=== PATIENT | female | born 1940 | race Caucasian/White ===

== ENCOUNTER 2016-07-22 05:33 | Inpatient (IN) | payer MEDICARE ==
--- NOTE | 2016-07-22 05:43 | ERPHSYRPT ---
- History of Present Illness Source: patient, EMS Exam Limitations: no limitations Timing/Duration: week(s) (3) Severity: severe Modifying Factors: Improves With: nothing Associated Symptoms: cough, fever, weakness Hx Tetanus, Diphtheria Vaccination/Date Given: Yes Hx Influenza Vaccination/Date Given: No Hx Pneumococcal Vaccination/Date Given: No <ANIA NUÑEZ - Last Filed: 07/22/16 06:49> <TODD NEGRO - Last Filed: 07/22/16 07:38> - History of Present Illness Time Seen by Provider: 07/22/16 05:36 Physician History: Patient has become increasingly weak over the past 2 or 3 days. She has been treated for a cough for the last 3 weeks but unsuccessfully. She has several allergies including penicillin and Biaxin and was treated with Levaquin and azithromycin but now states she is allergic to those as well. She complains of a fever in addition to the cough. Today she was very weak and was barely able to ambulate. She hasn't taken her medicines for the past 2 days. Her past medical history is significant for hypothyroidism, high blood pressure, mini strokes, and congestive heart failure. (ANIA NUÑEZ) Allergies/Adverse Reactions: acetaminophen [From Ultracet] Allergy (Verified 11/10/15 05:29) aspirin [From Aggrenox] Allergy (Verified 11/10/15 05:29) azithromycin [From Zithromax Z-Timbo] Allergy (Verified 07/22/16 06:03) calcitonin,salmon,synthetic [From Miacalcin] Allergy (Verified 11/10/15 05:29) cefaclor [From Ceclor] Allergy (Verified 11/10/15 05:29) clarithromycin [From Biaxin] Allergy (Verified 11/10/15 05:29) diazepam [From Valium] Allergy (Verified 02/21/16 11:41) dipyridamole [From Aggrenox] Allergy (Verified 02/21/16 11:41) fluticasone propionate [From Advair Diskus] Allergy (Verified 02/21/16 11:41) levofloxacin [From Levaquin] Allergy (Verified 07/22/16 06:03) meclizine HCl [From Antivert] Allergy (Verified 02/21/16 11:41) nabumetone [From Relafen] Allergy (Verified 02/21/16 11:41) naproxen Allergy (Verified 02/21/16 11:41) nizatidine [From Axid] Allergy (Verified 02/21/16 11:41) pantoprazole sodium [From Protonix] Allergy (Verified 02/21/16 11:41) Penicillins Allergy (Verified 02/21/16 11:41) pilocarpine HCl [From Salagen] Allergy (Verified 02/21/16 11:41) rofecoxib [From Vioxx] Allergy (Verified 02/21/16 11:41) salmeterol xinafoate [From Advair Diskus] Allergy (Verified 02/21/16 11:41) tramadol HCl [From Ultracet] Allergy (Verified 02/21/16 11:41) Home Medications: Amlodipine Besylate 10 mg [Norvasc 10 MG] 10 mg PO DAILY 12/31/13 [History] Clopidogrel Bisulfate 75 mg [PLAVIX 75 MG Tablet] 75 mg PO DAILY 12/31/13 [History] Levothyroxine Sodium 50 Mcg [Synthroid 50 Mcg] 50 mcg PO DAILY 12/31/13 [ History] Loratadine 10 mg [Claritin 10 mg] 10 mg PO DAILY 12/31/13 [History] Nebivolol HCl [Bystolic] 5 mg PO DAILY 12/31/13 [History] Prednisone 1 tab PO DAILY 11/10/15 [History] Diphenoxylate HCl/Atropine [Diphenoxylate-Atrop 2.5-0.025] 1 each DAILY [History] Hydroxychloroquine Sulfate 200 mg PO DAILY 07/22/16 [History] Nitroglycerin 0.4 mg/Hr [Nitro-Dur 0.4 MG/HR] 0.4 mg DAILY 07/22/16 [ History] - Review of Systems Constitutional: Fever Eyes: No Symptoms Ears, Nose, & Throat: Hoarse Respiratory: Cough Cardiac: No Chest Pain, No Edema, No Syncope Abdominal/Gastrointestinal: No Abdominal Pain, No Nausea, No Vomiting, No Diarrhea Genitourinary Symptoms: No Dysuria Musculoskeletal: No Back Pain, No Neck Pain Skin: No Rash Neurological: No Dizziness, No Focal Weakness, No Sensory Changes Psychological: No Symptoms Endocrine: No Symptoms Hematologic/Lymphatic: No Symptoms Immunological/Allergic: No Symptoms All Other Systems: Reviewed and Negative <ANIA NUÑEZ - Last Filed: 07/22/16 06:49> - Past Medical History Pertinent Past Medical History: Yes Neurological History: TIA Cardiac History: Myocardial Infarction ([place]) Respiratory History: No Pertinent History Endocrine Medical History: Hypothyroidism Musculoskeletal History: Osteoarthritis Other Medical History: LUPUS, REYNAUDS, FIBROMYALGIA, THYROID D/O, - Past Surgical History Past Surgical History: Yes Gastrointestinal: Cholecystectomy Female Surgical History: Hysterectomy Other Surgical History: tonsils - Social History Smoking Status: Never smoker Exposure to second hand smoke: No Drug Use: none Patient Lives Alone: No <ANIA NUÑEZ - Last Filed: 07/22/16 06:49> - Physical Exam General Appearance: moderate distress Eye Exam: PERRL/EOMI, eyes nml inspection Ears, Nose, Throat Exam: dry mucous membranes Neck Exam: normal inspection, non-tender, supple, full range of motion Respiratory Exam: normal breath sounds, lungs clear, No respiratory distress Cardiovascular Exam: regular rate/rhythm, normal heart sounds, normal peripheral pulses Gastrointestinal/Abdomen Exam: soft, normal bowel sounds, No tenderness, No mass Pelvic Exam: not done Rectal Exam: not done Back Exam: normal inspection, normal range of motion, No CVA tenderness, No vertebral tenderness Extremity Exam: normal inspection, normal range of motion, pelvis stable Neurologic Exam: alert, oriented x 3, cooperative, normal mood/affect, nml cerebellar function, nml station & gait, sensation nml, No motor deficits Skin Exam: normal color, warm, dry, No rash Lymphatic Exam: No adenopathy SpO2 Interpretation: normal <ANIA NUÑEZ - Last Filed: 07/22/16 06:49> - Radiology Exams Chest X-ray Interpretation: Interpreted by me, Pneumonia (2 new opacities LLL, comp CXR 02/21/16) <ANIA NUÑEZ - Last Filed: 07/22/16 06:49> - Course Nursing assessment & vital signs reviewed: Yes Rhythm Strip: Rate (79), Normal Sinus Rhythm <TODD NEGRO - Last Filed: 07/22/16 07:38> Ordered Tests: Active Orders 24 hr Category Date Time Status [employer]ader STAT Care 07/22/16 05:45 Active Cath for Specimen-Straight STAT Care 07/22/16 05:45 Active IV Insertion STAT Care 07/22/16 05:45 Active Oxygen-ED Only NASAL CANNULA 2 lpm Care 07/22/16 06:50 Active Pulse Oximetry (ED) STAT Care 07/22/16 05:45 Active CHEST 2 VIEWS (PA AND LAT) Stat Exams 07/22/16 05:45 Taken BLOOD CULTURE Stat Lab 07/22/16 06:10 Received CBC W DIFF Stat Lab 07/22/16 06:10 Completed CMP Stat Lab 07/22/16 06:10 Completed Lactic Acid Urgent Lab 07/22/16 06:00 Completed UA W/ MICROSCOPIC Stat Lab 07/22/16 07:00 Completed Respiratory Nebulizer STAT RT 07/22/16 06:00 Completed Medication Summary Generic Name Dose Route Start Last Admin Trade Name Freq PRN Reason Stop Dose Admin Doxycycline Hyclate 100 mg/ 100 mls @ 100 mls/hr 07/22/16 10:00 Dextrose IV 08/21/16 09:59 Q12HT MERLIN Vancomycin HCl 250 mls @ 167 mls/hr 07/22/16 07:27 Vancomycin 1gm/ Ns 250ml IV 07/22/16 08:56 STAT ONE Discontinued Medications Generic Name Dose Route Start Last Admin Trade Name Freq PRN Reason Stop Dose Admin Acetaminophen 975 mg 07/22/16 05:45 07/22/16 05:53 Tylenol 325 Mg PO 07/22/16 05:46 975 mg STAT ONE Administration Acetaminophen Confirm 07/22/16 05:52 Tylenol 325 Mg Administered 07/22/16 05:53 Dose 975 mg .ROUTE .STK-MED ONE Albuterol Sulfate 2.5 mg 07/22/16 05:49 07/22/16 05:58 Proventil 2.5 Mg/3 Ml Neb IH 07/22/16 05:50 2.5 mg STAT ONE Administration Albuterol Sulfate Confirm 07/22/16 05:58 Proventil 2.5 Mg/3 Ml Neb Administered 07/22/16 05:59 Dose 2.5 mg IH .STK-MED ONE Doxycycline Hyclate Confirm 07/22/16 07:30 Vibramycin 100 Mg Administered 07/22/16 07:31 Dose 100 mg IV .STK-MED ONE Sodium Chloride 1,000 mls @ 999 mls/hr 07/22/16 05:45 07/22/16 05:53 Sodium Chloride 0.9% 1000 Ml IV 07/22/16 06:45 999 mls/hr .Q1H1M STA Administration Sodium Chloride Confirm 07/22/16 05:52 Sodium Chloride 0.9% 1000 Ml Administered 07/22/16 05:53 Dose 1,000 mls @ ud .ROUTE .STK-MED ONE Dextrose Confirm 07/22/16 07:30 D5w 100ml Mini Bag 100 Ml Administered 07/22/16 07:31 Dose 100 mls @ ud IV .STK-MED ONE Lab/Rad Data: Laboratory Result Diagrams 07/22/16 06:10 07/22/16 06:10 Laboratory Results 07/22/16 07/22/16 07/22/16 Range/Units 07:00 06:10 06:10 WBC 7.9 (4.0-10.5) K/mm3 RBC 4.23 (4.1-5.4) M/mm3 Hgb 12.2 (12.0-16.0) gm/dl Hct 37.8 (35-47) % MCV 89.4 (78-100) fl MCH 28.8 (26-32) pg MCHC 32.3 (32-36) g/dl RDW 13.2 (11.5-14.0) % Plt Count 118 L (150-450) K/mm3 MPV 9.9 H (6-9.5) fl Gran % 69.0 H (36.0-66.0) % Lymphocytes % 14.9 L (24.0-44.0) % Monocytes % 15.4 H (0.0-12.0) % Eosinophils % 0.6 (0.00-5.0) % Basophils % 0.1 (0.0-0.4) % Basophils # 0.01 (0-0.4) Sodium 141 (136-145) mEq/L Potassium 4.5 (3.5-5.1) mEq/L Chloride 107 (98-107) mEq/L Carbon Dioxide 20.8 L (21-32) mEq/L Anion Gap 17.5 H (5-15) MEQ/L BUN 25 H (9-20) mg/dL Creatinine 1.82 H (0.55-1.30) mg/dl Estimated GFR 29 ML/MIN Glucose 86 (70-110) MG/DL Lactic Acid (0.4-2.0) Calcium 7.8 L (8.5-10.1) mg/dL Total Bilirubin 0.6 (0.2-1.0) mg/dL AST 35 (15-37) U/L ALT 16 (12-78) U/L Alkaline Phosphatase 82 (46-116) U/L Serum Total Protein 6.5 (6.4-8.2) gm/dL Albumin 2.9 L (3.4-5.0) g/dL Ur Collection Type VOID Urine Color YELLOW (YELLOW) Urine Appearance CLEAR (CLEAR) Urine pH 7.0 (5-6) Ur Specific [place] 1.020 (1.005-1.025) Urine Protein 100 (Negative) Urine Glucose (UA) NEGATIVE (NEGATIVE) mg/dL Urine Ketones TRACE (NEGATIVE) Urine Nitrite NEGATIVE (NEGATIVE) Urine Bilirubin NEGATIVE (NEGATIVE) Urine Urobilinogen 0.2 (0-1) mg/dL Urine WBC (Auto) NEGATIVE (NEGATIVE) Urine RBC (Auto) MODERATE (0-5) Jn/ul Urine Microscopic RBC 5-10 (0-2) /HPF Ur Epithelial Cells FEW (FEW) /HPF Urine Mucus SLIGHT (NEGATIVE) /HPF Specimen Received 07/22/2016 0701 07/22/16 Range/Units 06:00 WBC (4.0-10.5) K/mm3 RBC (4.1-5.4) M/mm3 Hgb (12.0-16.0) gm/dl Hct (35-47) % MCV (78-100) fl MCH (26-32) pg MCHC (32-36) g/dl RDW (11.5-14.0) % Plt Count (150-450) K/mm3 MPV (6-9.5) fl Gran % (36.0-66.0) % Lymphocytes % (24.0-44.0) % Monocytes % (0.0-12.0) % Eosinophils % (0.00-5.0) % Basophils % (0.0-0.4) % Basophils # (0-0.4) Sodium (136-145) mEq/L Potassium (3.5-5.1) mEq/L Chloride (98-107) mEq/L Carbon Dioxide (21-32) mEq/L Anion Gap (5-15) MEQ/L BUN (9-20) mg/dL Creatinine (0.55-1.30) mg/dl Estimated GFR ML/MIN Glucose (70-110) MG/DL Lactic Acid 0.5 (0.4-2.0) Calcium (8.5-10.1) mg/dL Total Bilirubin (0.2-1.0) mg/dL AST (15-37) U/L ALT (12-78) U/L Alkaline Phosphatase (46-116) U/L Serum Total Protein (6.4-8.2) gm/dL Albumin (3.4-5.0) g/dL Ur Collection Type Urine Color (YELLOW) Urine Appearance (CLEAR) Urine pH (5-6) Ur Specific [place] (1.005-1.025) Urine Protein (Negative) Urine Glucose (UA) (NEGATIVE) mg/dL Urine Ketones (NEGATIVE) Urine Nitrite (NEGATIVE) Urine Bilirubin (NEGATIVE) Urine Urobilinogen (0-1) mg/dL Urine WBC (Auto) (NEGATIVE) Urine RBC (Auto) (0-5) Jn/ul Urine Microscopic RBC (0-2) /HPF Ur Epithelial Cells (FEW) /HPF Urine Mucus (NEGATIVE) /HPF Specimen Received - Progress Progress: unchanged Discussed with : Joe Will see patient in: hospital (full admit) Counseled pt/family regarding: lab results, diagnosis, need for follow-up (need for admission) <TODD NEGRO - Last Filed: 07/22/16 07:38> <ANIA NUÑEZ - Last Filed: 07/22/16 06:49> - Departure Time of Disposition: 07:30 Departure Disposition: In-patient Admission Critical Care Time: Yes Critical Care Time(excluding separately billable procedures): 30-74 minutes <TODD NEGRO - Last Filed: 07/22/16 07:38> - Departure Clinical Impression: Pneumonia Qualifiers: Pneumonia type: due to unspecified organism Laterality: left Lung location: lower lobe of lung Qualified Code(s): J18.1 - Lobar pneumonia, unspecified organism Condition: Stable
[2016-07-22] MEDS ORDERED: Sodium Chloride 0.9% 1000 ML 1,000 ML IV STA (05:45)
[2016-07-22] MEDS ORDERED: TYLENOL 325 MG PO ONE (05:45)
[2016-07-22] MEDS ORDERED: PROVENTIL 2.5 MG/3 ML NEB IH ONE ×2 (05:49→05:58)
[2016-07-22] MEDS ORDERED: TYLENOL 325 MG ONE (05:52)
[2016-07-22] MEDS ORDERED: Sodium Chloride 0.9% 1000 ML 1,000 ML ONE (05:52)
[2016-07-22 06:30] LABS: BASOPHIL % 0.1 % (0.0-0.4); Eosinophil % 0.6 % (0.00-5.0); Lymphocytes % 14.9 % (24.0-44.0); Mean Cell Volume 89.4 fl (78-100); Mean Corpuscular Hemoglobin 28.8 pg (26-32); Mean Platelet Volume 9.9 fl (6-9.5); Monocytes % 15.4 % (0.0-12.0); Platelet Count 118 K/mm3 (150-450); Red Blood Count 4.23 M/mm3 (4.1-5.4); Red Cell Distribution Width 13.2 % (11.5-14.0); White Blood Count 7.9 K/mm3 (4.0-10.5)
[2016-07-22 06:55] LABS: ALBUMIN 2.9 g/dL (3.4-5.0); ANION GAP 17.5 MEQ/L (5-15); BILIRUBIN,TOTAL 0.6 mg/dL (0.2-1.0); Carbon Dioxide 20.8 mEq/L (21-32); Potassium 4.5 mEq/L (3.5-5.1); Total Protein 6.5 gm/dL (6.4-8.2)
[2016-07-22 07:24] LABS: Collection Type VOID
[2016-07-22 07:25] LABS: COMPLETE URINE MICROSCOPIC? YES; Epithelial Cells FEW /HPF (FEW); Mucus SLIGHT /HPF (NEGATIVE)
[2016-07-22] MEDS ORDERED: Vancomycin 1GM/ Ns 250ML*** 250 ML IV ONE (07:27)
[2016-07-22] MEDS ORDERED: D5w 100ML Mini Bag 100 ML 100 ML IV ONE (07:30)
[2016-07-22] MEDS ORDERED: VIBRAMYCIN 100 MG IV ONE (07:30)
[2016-07-22] MEDS ORDERED: PHARMACY DOSING REQUIRED: VANCOMYCIN IV ONE (08:33)
[2016-07-22] MEDS ORDERED: MORPHINE SULFATE 2 MG INJ IV PRN (08:33)
[2016-07-22] MEDS ORDERED: Zofran 4 MG/2 ML VIAL IV PRN (08:33)
--- NOTE | 2016-07-22 08:54 | XRAY ---
Indication: Fever, cough, and weakness. Comparison: February 21, 2016. AP/lateral chest again hyperinflated with now small focus of lingular infiltrate versus atelectasis. Remaining heart and lungs unremarkable. Bony thorax intact again with osteopenia.
[2016-07-22] MEDS ORDERED: NON-FORMULARY ITEM (Amlodipine Besylate 10 Mg [Norvasc 10 Mg] 10 MG) PO SCH (10:00)
[2016-07-22] MEDS ORDERED: NON-FORMULARY ITEM (Nebivolol Hcl [Bystolic] 5 MG) PO SCH (10:00)
[2016-07-22] MEDS ORDERED: Nitro-Dur 0.4 MG/HR TOP SCH (10:00)
[2016-07-22] MEDS ORDERED: VIBRAMYCIN 100 MG*** 100 MG in Dextrose 5%/Water IV Soln. 100ML PLUS BAG 100 ML IV SCH ×2 (10:00→22:00)
[2016-07-22] MEDS: VANCOCIN 1 GM VIAL*** 1 GM in Sodium Chloride 0.9% 250 ML 250 ML IV SCH (10:21)
[2016-07-22] MEDS: DELTASONE 5 MG PO SCH (10:21)
[2016-07-22] MEDS: CLARITIN 10 MG PO SCH (10:21)
[2016-07-22] MEDS: PLAVIX 75 MG Tablet PO SCH (10:21)
[2016-07-22] MEDS: Bystolic 5 MG PO SCH (10:21)
[2016-07-22] MEDS: SYNTHROID 50 MCG PO SCH (10:21)
[2016-07-22] MEDS: NORVASC 5 MG PO SCH (10:21)
[2016-07-22] MEDS: Lomotil PO SCH (10:22)
[2016-07-22] MEDS: NON-FORMULARY ITEM (Hydroxychloroquine Sulfate [Hydroxychloroquine Sulfate] 200 MG) PO SCH (10:22)
[2016-07-22] MEDS: Nitro-Dur 0.4 MG/HR TOP SCH (21:41)
[2016-07-22] MEDS: VIBRAMYCIN 100 MG*** 100 MG in Dextrose 5%/Water IV Soln. 100ML PLUS BAG 100 ML IV SCH (21:41)
[2016-07-23] MEDS ORDERED: TYLENOL 325 MG PO PRN (07:59)
[2016-07-23] MEDS: SYNTHROID 50 MCG PO SCH (08:24)
[2016-07-23] MEDS: CLARITIN 10 MG PO SCH (08:24)
[2016-07-23] MEDS: Lomotil PO SCH (08:24)
[2016-07-23] MEDS: DELTASONE 5 MG PO SCH (08:24)
[2016-07-23] MEDS: Bystolic 5 MG PO SCH (08:24)
[2016-07-23] MEDS: NORVASC 5 MG PO SCH (08:24)
[2016-07-23] MEDS: PLAVIX 75 MG Tablet PO SCH (08:24)
[2016-07-23] MEDS: Robitussin AC Syrup Unit Dose Cup PO PRN ×2 (08:26→21:01)
--- NOTE | 2016-07-23 08:55 | HP ---
CHIEF COMPLAINT: Cough, shortness of breath. HISTORY OF PRESENT ILLNESS: The patient is a 75 year-old white female who has been treated as an outpatient for bronchitis. The patient reports that she had gotten progressively worse despite the antibiotics. The patient was seen in the emergency room. A chest x-ray performed and showed small lingular infiltrate. The patient was admitted to hospital for pneumonia for treatment with IV antibiotics. PAST MEDICAL/SURGICAL HISTORY: Significant for lupus, Raynaud's, fibromyalgia, hypothyroid, previous myocardial infarction, transient ischemic attack. The patient has anxiety and depression. HOME MEDICATIONS: The patient's home medications include amlodipine 10 mg a day, Plavix 75 mg a day, levothyroxine 50 mcg a day, loratadine 10 mg a day, Bystolic 5 mg a day, prednisone 1 mg a day, Lomotil, hydroxychloroquine 200 mg daily and PRN Nitro-Stat. ALLERGIES: SHE HAS A VERY LONG LIST OF MEDICATIONS ALLERGIES AND/OR SENSITIVITIES. SHE REPORTS PROBLEMS ULTRACET, ASPIRIN, AZITHROMYCIN, MICALCIN, CECLOR, BIAXIN, VALIUM, AGGRENOX, ADVAIR, LEVAQUIN, ANTIVERT, RELAFEN, NAPROXEN, AXID, PROTONIX, PENICILLIN, SALAGEN, VYOXX, TRAMADOL. PHYSICAL EXAMINATION: Revealed a well-nourished, well-developed, elderly white female in no obvious distress at the time of my evaluation. The patient's vital signs on admission showed temperature 98.7F, pulse 79, respiratory rate 21, blood pressure 124/50. O2 saturation 99% on room air. HEENT: Normocephalic, atraumatic. Pupils equal round reactive to light. Extraocular movements intact. Oropharynx is pink and moist. NECK: Supple without lymphadenopathy, thyromegaly or JVD. CHEST: Clear to auscultation with good air movement bilaterally. HEART: Regular rate and rhythm without murmurs, rubs or gallops. ABDOMEN: Soft, nontender, nondistended without hepatosplenomegaly or masses. EXTREMITIES: Without clubbing, cyanosis or edema. NEUROLOGIC: The patient is alert and oriented x3. No focal deficits were noted. LAB DATA AND TESTS: Showed lactic acid 0.5. She had metabolic panel showing glucose 86, BUN 25, creatinine 1.82. Electrolytes were normal. CO2 was slightly elevated at 20.8. Liver enzymes were normal. Her white blood cell count 7,900 with hemoglobin 12.2, PLT count 118,000. She had 69% granulocytes. UA showed specific gravity 1.020, negative for leukocytes and nitrites. Chest x-ray revealed hyperinflation, small focus linear infiltrate versus atelectasis, remaining heart and lungs appeared unremarkable, otherwise there is osteopenia present. ASSESSMENT: A patient with developing pneumonia. She has been admitted to the hospital. She has been placed on Vancomycin and doxycycline as basically one of the few choices we can use due to her list of sensitivities. The patient received respiratory evaluation and incentive spirometry and nebulizer treatments as required to help her to clear her lungs.
[2016-07-23] MEDS: NON-FORMULARY ITEM (Hydroxychloroquine Sulfate [Hydroxychloroquine Sulfate] 200 MG) PO SCH (09:27)
[2016-07-23] MEDS: VIBRAMYCIN 100 MG*** 100 MG in Dextrose 5%/Water IV Soln. 100ML PLUS BAG 100 ML IV SCH ×2 (09:29→21:03)
[2016-07-23] MEDS: Nitro-Dur 0.4 MG/HR TOP SCH (21:01)
[2016-07-23] MEDS: VANCOCIN 1 GM VIAL*** 1 GM in Sodium Chloride 0.9% 250 ML 250 ML IV SCH (23:09)
[2016-07-24 05:55] LABS: ANION GAP 13.1 MEQ/L (5-15); Carbon Dioxide 24.6 mEq/L (21-32); Potassium 4.2 mEq/L (3.5-5.1)
[2016-07-24] MEDS: NORVASC 5 MG PO SCH (07:31)
[2016-07-24] MEDS: CLARITIN 10 MG PO SCH (07:31)
[2016-07-24] MEDS: Bystolic 5 MG PO SCH (07:31)
[2016-07-24] MEDS: PLAVIX 75 MG Tablet PO SCH (07:31)
[2016-07-24] MEDS: Lomotil PO SCH (07:31)
[2016-07-24] MEDS: Robitussin AC Syrup Unit Dose Cup PO PRN (07:32)
[2016-07-24] MEDS: DELTASONE 5 MG PO SCH (07:32)
[2016-07-24] MEDS: SYNTHROID 50 MCG PO SCH (07:32)
[2016-07-24] MEDS: NON-FORMULARY ITEM (Hydroxychloroquine Sulfate [Hydroxychloroquine Sulfate] 200 MG) PO SCH (07:32)
[2016-07-24] MEDS: VIBRAMYCIN 100 MG*** 100 MG in Dextrose 5%/Water IV Soln. 100ML PLUS BAG 100 ML IV SCH ×2 (09:33→22:12)
[2016-07-24] MEDS: Nitro-Dur 0.4 MG/HR TOP SCH (22:10)
[2016-07-25] MEDS: Robitussin AC Syrup Unit Dose Cup PO PRN (00:17)
--- NOTE | 2016-07-25 08:09 | PCM.DCORD ---
- Discharge Discharge Date: 07/25/16 Disposition: Home, Self-Care Condition: Stable Prescriptions: New Doxycycline Hyclate 100 mg [Vibramycin 100 MG] 100 mg PO BID #14 tab Continue Clopidogrel Bisulfate 75 mg [PLAVIX 75 MG Tablet] 75 mg PO DAILY Loratadine 10 mg [Claritin 10 mg] 10 mg PO DAILY Nebivolol HCl [Bystolic] 5 mg PO DAILY Levothyroxine Sodium 50 Mcg [Synthroid 50 Mcg] 50 mcg PO DAILY Amlodipine Besylate 10 mg [Norvasc 10 MG] 10 mg PO DAILY Prednisone 1 tab PO DAILY Nitroglycerin 0.4 mg/Hr [Nitro-Dur 0.4 MG/HR] 0.4 mg TOP DAILY Hydroxychloroquine Sulfate 200 mg PO DAILY Diphenoxylate HCl/Atropine [Diphenoxylate-Atrop 2.5-0.025] 1 each PO DAILY Follow up with: DIANNA BRICE [Primary Care Provider] -
[2016-07-25 08:14] LABS: ANION GAP 15.4 MEQ/L (5-15); Carbon Dioxide 23.7 mEq/L (21-32); Potassium 4.2 mEq/L (3.5-5.1)
[2016-07-25] MEDS: CLARITIN 10 MG PO SCH (08:34)
[2016-07-25] MEDS: PLAVIX 75 MG Tablet PO SCH (08:34)
[2016-07-25] MEDS: NORVASC 5 MG PO SCH (08:34)
[2016-07-25] MEDS: NON-FORMULARY ITEM (Hydroxychloroquine Sulfate [Hydroxychloroquine Sulfate] 200 MG) PO SCH (08:34)
[2016-07-25] MEDS: Bystolic 5 MG PO SCH (08:34)
[2016-07-25] MEDS: DELTASONE 5 MG PO SCH (08:34)
[2016-07-25] MEDS: Lomotil PO SCH (08:34)
[2016-07-25] MEDS: SYNTHROID 50 MCG PO SCH (08:34)
--- NOTE | 2016-07-25 08:36 | XRAY ---
Indication: Pneumonia follow-up. Comparison: July 22, 2016. AP/lateral chest again hyperinflated with interval clearing of the previous lingular infiltrate/atelectasis. Remaining heart and lungs unremarkable. No new/acute findings.
[2016-07-25] MEDS: VANCOCIN 1 GM VIAL*** 1 GM in Sodium Chloride 0.9% 250 ML 250 ML IV SCH (08:38)
[2016-07-25 09:02] LABS: Mean Cell Volume 87.3 fl (78-100); Platelet Count 92 K/mm3 (150-450); Red Blood Count 3.79 M/mm3 (4.1-5.4); Red Cell Distribution Width 12.9 % (11.5-14.0); White Blood Count 2.2 K/mm3 (4.0-10.5)
[2016-07-25 09:27] LABS: Mean Corpuscular Hemoglobin 28.7 pg (26-32)
[2016-07-25 10:17] LABS: BAND 2 % (0.0-2.0); Eosinophil 1 % (0.00-3.0); Platelet Estimate NORMAL (NORMAL); Total Cells Counted 100
[2016-07-25] MEDS: VIBRAMYCIN 100 MG*** 100 MG in Dextrose 5%/Water IV Soln. 100ML PLUS BAG 100 ML IV SCH (11:31)
--- NOTE | 2016-07-25 11:56 | DS ---
DISCHARGE DIAGNOSIS: PNEUMONIA. HISTORY: The patient is a 75 year-old white female who had been treated as an outpatient for what was felt to be bronchitis. She failed outpatient antibiotic treatment. She felt to be more short of breath and generally weaker and presented herself to the emergency room. X-ray there revealed the patient to have pneumonia. She was admitted to the hospital for IV antibiotic treatment. HOSPITAL COURSE: The patient given her multiple sensitivities of medications both true allergies and sensitivities was chosen to be placed on IV Vancomycin and doxycycline. The patient did show improvement with this treatment. By 07/25/2016 she was fever-free. Her oxygen saturations were good on 2 liters nasal cannula. She does not normally wear home oxygen. The patient's x-ray showed a small focus lingular infiltrates versus atelectasis. The patient is known otherwise to have chronic obstructive pulmonary disease. By the morning of 07/25/2016 she was felt to be ready for discharge home again. She will be discharged home on her usual home medications plus the doxycycline b.i.d. for additional seven days. She will also be returning for outpatient infusion of Vancomycin which she is currently IV every 72 hours for an additional week. She will have follow up in the office in one week.
[2016-07-25 12:08] VITALS: BP 128/60; PULSE 54; O2SAT 95
== END 2016-07-25 12:40 | disposition home or self-care (01) | DRG 195 ==
LOC: ED 05:33 → MED SURG 08:22
PROVIDERS: ADMIT Family Medicine; ATTEND Family Medicine
DX: J18.9 Pneumonia, unspecified organism (principal); J44.9 Chronic obstructive pulmonary disease, unspecified; M79.7 Fibromyalgia; I73.00 Raynaud's syndrome without gangrene; E03.9 Hypothyroidism, unspecified; I25.2 Old myocardial infarction; Z86.73 Personal history of transient ischemic attack (TIA), and cerebral infarction without residual deficits; F41.8 Other specified anxiety disorders
CPT/HCPCS: 36415; 71020; 80048; 80053; 80202; 81000; 83605; 85025; 87040; 93005; 93041; 94640; 94760; 99285; J3370; P9612; A9270-GY; J7506

== ENCOUNTER 2016-10-17 21:11 | Emergency (ER) | payer MEDICARE ==
--- NOTE | 2016-10-17 22:05 | ERPHSYRPT ---
- History of Present Illness Time Seen by Provider: 10/17/16 21:59 Source: patient Exam Limitations: no limitations Patient Subjective Stated Complaint: reports that her black, toy poodle bit her on the left hand/wrist, causing bleeding and wound that she was unable to take care of at home Triage Nursing Assessment: ambulatory to treatment area - steady gait - moves all extremities with equal strength - disability to left wrist/hand. alert/ oriented - jovial affect. resps easy - non-labored. skin pwd - large, round, well-approximated laceration to the left anterior wrist Physician History: The patient is a 75-year-old right-handed female driven to the emergency room by her complains of a bite from her own poodle to her left wrist prior to arrival. She was removing a no bark shock collar from her dog and replacing it with her regular collar, when the dog bit her on the wrist causing a gaping wound. She denies numbness or tingling. Her last tetanus shot was within 5 years. The dog has bitten her once in the past on the right forearm. The dog has also bitten her . She plans on euthanizing the animal. Rabies vaccination was given in June,. Timing/Duration: today Quality: other (dog bite) Severity: moderate Location: hands (left wrist) Possible Causes: other (dog) Associated Symptoms: denies symptoms Allergies/Adverse Reactions: aspirin [From Aggrenox] Allergy (Verified 10/17/16 21:19) azithromycin [From Zithromax Z-Timbo] Allergy (Verified 10/17/16 21:19) calcitonin,salmon,synthetic [From Miacalcin] Allergy (Verified 10/17/16 21:19) cefaclor [From Ceclor] Allergy (Verified 10/17/16 21:19) clarithromycin [From Biaxin] Allergy (Verified 10/17/16 21:19) diazepam [From Valium] Allergy (Verified 10/17/16 21:19) dipyridamole [From Aggrenox] Allergy (Verified 10/17/16 21:19) fluticasone propionate [From Advair Diskus] Allergy (Verified 10/17/16 21:19) levofloxacin [From Levaquin] Allergy (Verified 10/17/16 21:19) meclizine HCl [From Antivert] Allergy (Verified 10/17/16 21:19) nabumetone [From Relafen] Allergy (Verified 10/17/16 21:19) naproxen Allergy (Verified 10/17/16 21:19) nizatidine [From Axid] Allergy (Verified 10/17/16 21:19) pantoprazole sodium [From Protonix] Allergy (Verified 10/17/16 21:19) Penicillins Allergy (Verified 10/17/16 21:19) pilocarpine HCl [From Salagen] Allergy (Verified 10/17/16 21:19) rofecoxib [From Vioxx] Allergy (Verified 10/17/16 21:19) salmeterol xinafoate [From Advair Diskus] Allergy (Verified 10/17/16 21:19) tramadol HCl [From Ultracet] Allergy (Verified 10/17/16 21:19) Home Medications: Amlodipine Besylate 10 mg [Norvasc 10 MG] 10 mg PO DAILY 12/31/13 [History] Clopidogrel Bisulfate 75 mg [PLAVIX 75 MG Tablet] 75 mg PO DAILY 12/31/13 [History] Levothyroxine Sodium 50 Mcg [Synthroid 50 Mcg] 50 mcg PO DAILY 12/31/13 [ History] Loratadine 10 mg [Claritin 10 mg] 10 mg PO DAILY 12/31/13 [History] Nebivolol HCl [Bystolic] 5 mg PO DAILY 12/31/13 [History] Prednisone 1 tab PO DAILY 11/10/15 [History] Diphenoxylate HCl/Atropine [Diphenoxylate-Atrop 2.5-0.025] 1 each PO DAILY PRN 07/22/16 [History] Hydroxychloroquine Sulfate 200 mg PO DAILY 07/22/16 [History] Nitroglycerin 0.4 mg/Hr [Nitro-Dur 0.4 MG/HR] 0.4 mg TOP DAILY 07/22/16 [ History] Cyanocobalamin/FA/Pyridoxine [Folbic Tablet] 1 each PO DAILY 07/27/16 [History] Hx Tetanus, Diphtheria Vaccination/Date Given: Yes Hx Influenza Vaccination/Date Given: No Hx Pneumococcal Vaccination/Date Given: No Immunizations Up to Date: Yes - Review of Systems Constitutional: No Fever, No Chills Eyes: No Symptoms Ears, Nose, & Throat: No Symptoms Respiratory: No Cough, No Dyspnea Cardiac: No Chest Pain, No Edema, No Syncope Abdominal/Gastrointestinal: No Abdominal Pain, No Nausea, No Vomiting, No Diarrhea Genitourinary Symptoms: No Dysuria Musculoskeletal: No Back Pain, No Neck Pain Skin: Other (dog bite) Neurological: No Dizziness, No Focal Weakness, No Sensory Changes Psychological: No Symptoms Endocrine: No Symptoms Hematologic/Lymphatic: No Symptoms Immunological/Allergic: No Symptoms All Other Systems: Reviewed and Negative - Past Medical History Pertinent Past Medical History: Yes Neurological History: TIA ENT History: No Pertinent History Cardiac History: Hypertension, Myocardial Infarction (SD) Respiratory History: Pneumonia Endocrine Medical History: Hypothyroidism Musculoskeletal History: Osteoarthritis GI Medical History: No Pertinent History History: No Pertinent History Psycho-Social History: No Pertinent History Female Reproductive Disorders: No Pertinent History Other Medical History: LUPUS, REYNAUDS, FIBROMYALGIA, THYROID D/O, - Past Surgical History Past Surgical History: Yes Neuro Surgical History: No Pertinent History Cardiac: Cardiac Catheterization Respiratory: No Pertinent History Gastrointestinal: Cholecystectomy Genitourinary: No Pertinent History Musculoskeletal: No Pertinent History Female Surgical History: Hysterectomy Other Surgical History: tonsils - Social History Smoking Status: Never smoker Exposure to second hand smoke: No Drug Use: none Patient Lives Alone: No - Female History Hx Last Menstrual Period: n/a - Nursing Vital Signs Nursing Vital Signs: Initial Vital Signs Temperature 97.6 F Temperature Source Oral Pulse Rate 72 Respiratory Rate 18 Blood Pressure [] 158/88 Pain Intensity 3 - Physical Exam General Appearance: mild distress Eye Exam: PERRL/EOMI, eyes nml inspection Ears, Nose, Throat Exam: normal ENT inspection, pharynx normal, moist mucous membranes Neck Exam: normal inspection, non-tender, supple, full range of motion Respiratory Exam: normal breath sounds, lungs clear, No respiratory distress Cardiovascular Exam: regular rate/rhythm, normal heart sounds Gastrointestinal/Abdomen Exam: soft, mass, No tenderness Pelvic Exam: not done Rectal Exam: not done Back Exam: normal inspection, normal range of motion, No CVA tenderness, No vertebral tenderness Extremity Exam: normal inspection, normal range of motion Neurologic Exam: alert, oriented x 3, cooperative, normal mood/affect, sensation nml, No motor deficits Skin Exam: laceration (anterior left wrist) SpO2 Interpretation: normal SpO2: 98 Oxygen Delivery: Room Air Procedures - Laceration/Wound Repair Left Anterior Wrist Wound Location: Left, wrist Wound Length (cm): 6 Wound's Depth, Shape: superficial, flap (avulsed with missing oval section of skin) Wound Explored: clean Hibiclens Prep: Yes Anesthesia: 1% Lidocaine Volume Anesthetic (ccs): 12 Wound Repaired With: sutures Suture Size/Type: 4-0, nylon Number of Sutures: 8 Layer Closure?: No Sterile Dressing Applied?: Yes Splint Applied?: Yes Sling Applied?: Yes Ordered Tests: Active Orders 24 hr Category Date Time Status Splint STAT Care 10/17/16 23:07 Active Splint STAT Care 10/17/16 23:11 Active Sutures STAT Care 10/17/16 23:07 Active Wound Care STAT Care 10/17/16 23:06 Active Medication Summary Discontinued Medications Generic Name Dose Route Start Last Admin Trade Name Freq PRN Reason Stop Dose Admin Ceftriaxone Sodium Confirm 10/17/16 22:53 Rocephin 1000 Mg Inj Administered 10/17/16 22:54 Dose 1,000 mg .ROUTE .STK-MED ONE Ceftriaxone Sodium 1,000 mg 10/17/16 23:06 10/17/16 23:09 Rocephin 1000 Mg Inj IM 10/17/16 23:07 1,000 mg STAT ONE Administration Lidocaine HCl 10 ml 10/17/16 22:10 10/17/16 22:52 Xylocaine 1% Hcl 20 Ml Mdv IJ 10/17/16 22:11 10 ml STAT ONE Administration Lidocaine HCl Confirm 10/17/16 22:14 Xylocaine 1% Hcl 20 Ml Mdv Administered 10/17/16 22:15 Dose 1 ml .ROUTE .STK-MED ONE Lidocaine HCl Confirm 10/17/16 22:53 Xylocaine 1% Hcl 20 Ml Mdv Administered 10/17/16 22:54 Dose 1 ml .ROUTE .STK-MED ONE - Progress Progress: improved Counseled pt/family regarding: diagnosis, need for follow-up - Departure Time of Disposition: 23:07 Departure Disposition: Home Clinical Impression: Dog bite Condition: Stable Critical Care Time: No Referrals: DIANNA BRICE [Primary Care Provider] - Additional Instructions: You received a bite on the left wrist from your pet dog that removed an oval section of skin. The wound was closed using 8 nylon sutures that were need to be removed in 12-14 days. You were given Rocephin 1 g IM in the ER. Take clindamycin 300 mg 3 times a day for 10 days. Take Tylenol for pain as needed. Please have your dog euthanized. Prescriptions: Clindamycin HCl 1 cap PO TID #30 capsule
[2016-10-17] MEDS ORDERED: XYLOCAINE 1% HCL 20 ML MDV IJ ONE (22:10)
[2016-10-17] MEDS ORDERED: XYLOCAINE 1% HCL 20 ML MDV ONE ×2 (22:14→22:53)
[2016-10-17] MEDS ORDERED: Rocephin 1000 MG INJ ONE (22:53)
[2016-10-17] MEDS ORDERED: Rocephin 1000 MG INJ IM ONE (23:06)
[2016-10-17 23:53] VITALS: BP 172/92; PULSE 68; O2SAT 99
== END 2016-10-17 23:53 | disposition home or self-care (01) ==
LOC: ED 21:11
PROC: 0HQEXZZ Repair Left Lower Arm Skin, External Approach (ICD-10-PCS; principal; 2016-10-17)
DX: S61.552A Open bite of left wrist, initial encounter (principal); W54.0XXA Bitten by dog, initial encounter; Z79.899 Other long term (current) drug therapy
CPT/HCPCS: 12002; 96372; 99284; J0696; L3908

== ENCOUNTER 2019-04-16 05:41 | Day surgery (SDC) | payer MEDICARE ==
[2019-04-16] MEDS ORDERED: Lactated Ringers 1,000 ML IV SCH (06:30)
[2019-04-16] MEDS ORDERED: DIPRIVAN 200 MG/20 ML IV ONE (07:46)
--- NOTE | 2019-04-16 08:33 | OP ---
SURGERY DATE/TIME: 04/16/2019 0748 PREOPERATIVE DIAGNOSIS: Positive Cologuard. POSTOPERATIVE DIAGNOSIS: Sigmoid diverticulosis otherwise normal colon. PROCEDURE: Colonoscopy. SURGEON: Dr. Diaz. ANESTHESIA: MAC. Medications given by anesthesia department. HISTORY: The patient is an 78 year-old white female who presents now for positive Cologuard screening test. The patient was felt the need to have endoscopic evaluation and was appraised of the risks of the procedure including the risk of perforation, phlebitis, untoward reaction to medication, bleeding and missed lesions. The patient verbalized her understanding and desired to have the procedure performed. DESCRIPTION OF PROCEDURE: The patient was given the medications by the anesthesia department. She had continuous pulse oximetry, ECG monitoring, intermittent blood pressure monitoring and tidal CO2 monitoring during the examination. She was placed in the left lateral decubitus position. A digital rectal examination was performed and revealed normal anal sphincter tone and no masses. The flexible Olympus pediatric colonoscope was used to intubate the rectum. A view of the colon was developed sequentially to the cecum including a short distance into the terminal ileum. Upon insertion and withdrawal, including a retroflex view in the rectum was noted moderate sigmoid diverticulosis otherwise no other mucosal lesions were encountered. The scope was removed from the patient who tolerated the procedure well and was sent back to OP recovery in good condition. The prep was noted to be fair to good.
[2019-04-16 08:35] VITALS: O2SAT 97
[2019-04-16 09:20] VITALS: BP 187/75; PULSE 62
== END 2019-04-16 09:40 | disposition home or self-care (01) ==
LOC: SDC 05:41
PROVIDERS: ATTEND Family Medicine
DX: Z12.11 Encounter for screening for malignant neoplasm of colon (principal); K57.30 Diverticulosis of large intestine without perforation or abscess without bleeding
CPT/HCPCS: 99100; J2704

== ENCOUNTER 2020-11-19 13:08 | Inpatient (IN) | payer MEDICARE ==
[2020-11-19] MEDS ORDERED: Zofran 4 MG/2 ML VIAL IV ONE (13:36)
[2020-11-19] MEDS ORDERED: MORPHINE SULFATE 4 MG INJ IV ONE ×2 (13:36→14:48)
[2020-11-19] MEDS ORDERED: Zofran 4 MG/2 ML VIAL ONE (13:40)
[2020-11-19] MEDS ORDERED: MORPHINE SULFATE 4 MG INJ ONE ×2 (13:40→14:54)
--- NOTE | 2020-11-19 13:48 | ERPHSYRPT ---
- History of Present Illness Time Seen by Provider: 11/19/20 13:14 Source: patient, EMS Exam Limitations: no limitations Patient Subjective Stated Complaint: pt here for a fall, she states she tripped on a small step and fell, she co pain to left hip and tailbone, she denies any other cos Triage Nursing Assessment: pt alert, face mask in place, resp easy, skin w/d/p, has bruising to left lower arm adn abrasion to left elbow, pain with movement to left hip and tailbone, Physician History: 80 years old female ambulatory at baseline presented in the ER after she tripped on a step, leading to fall on the left hip. Did not hit her head, no loss of consciousness. She was not able to get up after fall. She is complaining of moderate to severe sharp pain in the left hip and lower back which is worse with minimal movements of lower extremities. No limb shortening noticed. No numbness tingling or weakness of lower extremities. Occurred: just prior to arrival Reason for Fall: tripped Injuries/Pain Location: pelvis, lower extremity Loss of Consciousness: no loss of consciousness Quality: sharpness Severity of Pain-Max: severe Severity of Pain-Current: moderate Modifying Factors: Improves With: immobilization, rest. Worsens With: movement Associated Symptoms (Fall): back pain, extremity injury, muscle spasms, trouble walking, No abdominal pain, No confusion, No chest pain, No dizziness, No headache, No lightheadedness, No nausea, No neck pain, No ringing in ears, No seizures, No shortness of breath, No slurred speech, No vomiting, No vision changes Allergies/Adverse Reactions: aspirin [From Aggrenox] Allergy (Verified 11/19/20 13:17) azithromycin [From Zithromax Z-Timbo] Allergy (Verified 11/19/20 13:17) calcitonin,salmon,synthetic [From Miacalcin] Allergy (Verified 11/19/20 13:17) cefaclor [From Ceclor] Allergy (Verified 11/19/20 13:17) clarithromycin [From Biaxin] Allergy (Verified 11/19/20 13:17) diazepam [From Valium] Allergy (Verified 11/19/20 13:17) dipyridamole [From Aggrenox] Allergy (Verified 11/19/20 13:17) fluticasone propionate [From Advair Diskus] Allergy (Verified 11/19/20 13:17) levofloxacin [From Levaquin] Allergy (Verified 11/19/20 13:17) meclizine HCl [From Antivert] Allergy (Verified 11/19/20 13:17) nabumetone [From Relafen] Allergy (Verified 11/19/20 13:17) naproxen Allergy (Verified 11/19/20 13:17) nizatidine [From Axid] Allergy (Verified 11/19/20 13:17) pantoprazole sodium [From Protonix] Allergy (Verified 11/19/20 13:17) Penicillins Allergy (Verified 11/19/20 13:17) pilocarpine HCl [From Salagen] Allergy (Verified 11/19/20 13:17) rofecoxib [From Vioxx] Allergy (Verified 11/19/20 13:17) salmeterol xinafoate [From Advair Diskus] Allergy (Verified 11/19/20 13:17) tramadol HCl [From Ultracet] Allergy (Verified 11/19/20 13:17) Home Medications: Amlodipine Besylate 10 mg [Norvasc 10 MG] 5 mg PO DAILY 12/31/13 [History] Clopidogrel Bisulfate 75 mg [PLAVIX 75 MG Tablet] 75 mg PO DAILY 12/31/13 [History] Levothyroxine Sodium 50 Mcg [Synthroid 50 Mcg] 50 mcg PO DAILY 12/31/13 [History] Loratadine 10 mg [Claritin 10 mg] 10 mg PO DAILY 12/31/13 [History] Nebivolol HCl [Bystolic] 10 mg PO DAILY 12/31/13 [History] Prednisone 1 tab PO DAILY 11/10/15 [History] Hydroxychloroquine Sulfate 200 mg PO DAILY 07/22/16 [History] Nitroglycerin 0.4 mg/Hr [Nitro-Dur 0.4 MG/HR] 0.4 mg TOP DAILY PRN 07/22/16 [History] Hx Tetanus, Diphtheria Vaccination/Date Given: No Hx Influenza Vaccination/Date Given: Yes Hx Pneumococcal Vaccination/Date Given: Yes Immunizations Up to Date: Yes Travel Risk - International Travel Have you traveled outside of the country in past 3 weeks: No - Coronavirus Screening Are you exhibiting any of the following symptoms?: No Close contact with a COVID-19 positive Pt in past 14-21 Days: No - Vaccine Status Have you recieved a Covid-19 vaccination: Yes Healthcare Financial Analyst: Moderna - Vaccination Dates Date of 2cond Vaccination (if applicable): may - Review of Systems Constitutional: No Symptoms Eyes: No Symptoms Ears, Nose, & Throat: No Symptoms Respiratory: No Symptoms Cardiac: No Symptoms Abdominal/Gastrointestinal: No Symptoms Genitourinary Symptoms: No Symptoms Musculoskeletal: Back Pain, Fall, Injury, Joint Pain Skin: No Symptoms Neurological: No Symptoms Psychological: No Symptoms Endocrine: No Symptoms Hematologic/Lymphatic: No Symptoms Immunological/Allergic: No Symptoms - Past Medical History Pertinent Past Medical History: Yes Neurological History: TIA ENT History: No Pertinent History Cardiac History: Arrhythmia, Hypertension Respiratory History: Pneumonia Endocrine Medical History: Hypothyroidism Musculoskeletal History: Arthritis GI Medical History: No Pertinent History History: No Pertinent History Psycho-Social History: No Pertinent History Female Reproductive Disorders: No Pertinent History Other Medical History: LUPUS, REYNAUDS, FIBROMYALGIA, THYROID D/O, 30%kidney function - Past Surgical History Past Surgical History: Yes Neuro Surgical History: No Pertinent History Cardiac: Cardiac Catheterization Respiratory: No Pertinent History Gastrointestinal: Cholecystectomy Genitourinary: No Pertinent History Musculoskeletal: Orthopedic Surgery Female Surgical History: Hysterectomy Other Surgical History: tonsils,colonoscopy,left wrist surgery - Social History Smoking Status: Never smoker Exposure to second hand smoke: No Drug Use: none Patient Lives Alone: Yes - Female History Hx Last Menstrual Period: post Hx Now: No - Nursing Vital Signs Nursing Vital Signs: Initial Vital Signs Temperature 96.9 F 11/19/20 13:09 Pulse Rate 67 11/19/20 13:09 Respiratory Rate 18 11/19/20 13:09 Blood Pressure 178/76 11/19/20 13:09 O2 Sat by Pulse Oximetry 97 11/19/20 13:09 Pain Scale Pain Intensity 4 - Madhav Coma Score Best Eye Response ([place]): (4) open spontaneously Best Verbal Response (Madhav): (5) oriented Best Motor Response ([place]): (6) obeys commands [place] Total: 15 - Physical Exam General Appearance: no apparent distress, alert Head Injury: no evidence of injury Eye Exam: PERRL/EOMI, eyes nml inspection ENT Exam: airway nml, evidence of ENT injury Neck Exam: supple, trachea midline, full range of motion, normal alignment Respiratory/Chest Exam: normal breath sounds, respiratory distress, No chest tenderness Cardiovascular Exam: normal heart sounds, regular rate/rhythm Gastrointestinal Exam: soft, normal bowel sounds, No tenderness Back Exam: normal inspection, vertebral tenderness (Lumbar), decreased range of motion, muscle spasm, point tenderness (Lumbar and sacroiliac area), No normal range of motion, No CVA tenderness Extremity Exam: normal inspection, pelvis stable, limited range of motion (Left hip), bony point tenderness (Left hip), No normal range of motion (Left lower extremity at hip joint) Neurologic Exam: alert, oriented x 3, cooperative, international specialist II-XII nml as tested, normal mood/affect, nml cerebellar function, sensation nml, No nml station & gait, No motor deficits Skin Exam: normal color SpO2 Interpretation: normal SpO2: 97 O2 Delivery: Room Air - Course EKG Interpreted by Me: RATE (73), Sinus Rhythm, NORMAL AXIS, NORMAL INTERVALS, NORMAL QRS Ordered Tests: Active Orders 24 hr Category Date Time Status Bedrest ROUTINE Activity 11/19/20 19:23 Active Up With Assistance ROUTINE Activity 11/19/20 19:23 Active Admit as Inpatient ROUTINE Care 11/19/20 19:23 Active Code Status Order ROUTINE Care 11/19/20 19:23 Active EKG-ER Only STAT Care 11/19/20 16:32 Completed Fall Protocol Q1H Care 11/19/20 19:23 Active IV Care Q6H Care 11/19/20 19:23 Active Neuro Checks Q4H Care 11/19/20 19:23 Active Mai Sage ROUTINE Care 11/19/20 19:23 Active Weight,Daily 0600 Care 11/19/20 19:23 Active Heart-Healthy Diet Diet 11/19/20 Breakfast Active LUMBAR SPINE W/O [CT] Stat Exams 11/19/20 13:33 Taken PELVIS WITHOUT CONTRAST [CT] Stat Exams 11/19/20 13:35 Taken CBC W DIFF AM.LAB Lab 11/20/20 04:00 Ordered CBC W DIFF Stat Lab 11/19/20 16:00 Completed CK (IN-HOUSE) [CK-Creatinine Phosphokinase] Stat Lab 11/19/20 16:00 Completed CMP AM.LAB Lab 11/20/20 04:00 Ordered CMP Stat Lab 11/19/20 16:00 Completed CULTURE,URINE Stat Lab 11/19/20 16:25 Received Manual Differential NC Stat Lab 11/19/20 16:00 Completed TROPONIN Q3H Lab 11/19/20 16:00 Completed TROPONIN Q3H Lab 11/19/20 19:45 Ordered TROPONIN Q3H Lab 11/19/20 22:45 Ordered TROPONIN Q3H Lab 11/20/20 01:45 Ordered TROPONIN Q3H Lab 11/20/20 04:45 Ordered UA W/RFX UR CULTURE Stat Lab 11/19/20 15:46 Completed Transfer Order Routine Transfer 11/19/20 Completed Medication Summary Generic Name Dose Route Start Last Admin Trade Name Freq PRN Reason Stop Dose Admin Acetaminophen 650 mg 11/19/20 19:23 Tylenol 325 Mg PO 12/19/20 19:22 Q4H PRN PRN PAIN AND/OR FEVER Sodium Chloride 1,000 mls @ 100 mls/hr 11/19/20 19:23 11/19/20 19:33 Sodium Chloride 0.9% 1000 Ml IV 12/19/20 19:22 100 mls/hr .Q10H MERLIN Administration Morphine Sulfate 4 mg 11/19/20 19:23 11/19/20 19:32 Morphine Sulfate 4 Mg Inj IV 11/24/20 19:22 4 mg Q4H PRN PRN Administration PAIN Ondansetron HCl 4 mg 11/19/20 19:23 11/19/20 19:33 Zofran 4 Mg/2 Ml Vial IV 12/19/20 19:22 4 mg Q6H PRN PRN Administration NAUSEA/VOMITING Pantoprazole Sodium 40 mg 11/20/20 10:00 Protonix 40 Mg Iv IV 12/20/20 09:59 Q24H10 MERLIN Discontinued Medications Generic Name Dose Route Start Last Admin Trade Name Freq PRN Reason Stop Dose Admin Albuterol/Ipratropium 3 ml 11/19/20 19:23 Duoneb 0.5-3 Mg/3 Ml Neb IH 12/19/20 19:22 Q4HPRN PRN SHORTNESS OF BREATH/WHEEZING Hydromorphone HCl 1 mg 11/19/20 16:55 11/19/20 16:59 Hydromorphone 1 Mg/Ml Injection IV 11/19/20 16:56 1 mg STAT ONE Administration Hydromorphone HCl Confirm 11/19/20 16:56 Hydromorphone 1 Mg/Ml Injection Administered 11/19/20 16:57 Dose 1 mg .ROUTE .STK-MED ONE Sodium Chloride 1,000 mls @ 999 mls/hr 11/19/20 16:32 11/19/20 18:16 Sodium Chloride 0.9% 1000 Ml IV 11/19/20 17:32 Infused .Q1H1M STA Infusion Sodium Chloride Confirm 11/19/20 16:56 Sodium Chloride 0.9% 1000 Ml Administered 11/19/20 16:57 Dose 1,000 mls @ ud .ROUTE .STK-MED ONE Morphine Sulfate 4 mg 11/19/20 13:36 11/19/20 13:43 Morphine Sulfate 4 Mg Inj IV 11/19/20 13:37 4 mg STAT ONE Administration Morphine Sulfate Confirm 11/19/20 13:40 Morphine Sulfate 4 Mg Inj Administered 11/19/20 13:41 Dose 4 mg .ROUTE .STK-MED ONE Morphine Sulfate 4 mg 11/19/20 14:48 11/19/20 14:55 Morphine Sulfate 4 Mg Inj IV 11/19/20 14:49 4 mg STAT ONE Administration Morphine Sulfate Confirm 11/19/20 14:54 Morphine Sulfate 4 Mg Inj Administered 11/19/20 14:55 Dose 4 mg .ROUTE .STK-MED ONE Ondansetron HCl 4 mg 11/19/20 13:36 11/19/20 13:44 Zofran 4 Mg/2 Ml Vial IV 11/19/20 13:37 4 mg STAT ONE Administration Ondansetron HCl Confirm 11/19/20 13:40 Zofran 4 Mg/2 Ml Vial Administered 11/19/20 13:41 Dose 4 mg .ROUTE .STK-MED ONE Patiromer 8.4 gm 11/19/20 16:35 11/19/20 16:59 Veltassa PO 11/19/20 16:36 8.4 gm STAT STA Administration Patiromer Confirm 11/19/20 16:57 Veltassa Administered 11/19/20 16:58 Dose 8.4 gm PO .STK-MED ONE Lab/Rad Data: Laboratory Result Diagrams 11/19/20 16:00 11/19/20 16:00 Laboratory Results 11/19/20 11/19/20 11/19/20 Range/Units 17:34 16:00 16:00 WBC (4.0-10.5) K/mm3 RBC (4.1-5.4) M/mm3 Hgb (12.0-16.0) gm/dl Hct (35-47) % MCV (78-100) fl MCH (26-32) pg MCHC (32-36) g/dl RDW (11.5-14.0) % Plt Count (150-450) K/mm3 MPV (7.5-11.0) fl Segmented Neutrophils (36.0-66.0) % Band Neutrophils (0.0-2.0) % Lymphocytes (Manual) (24-44) % Monocytes (Manual) (0.0-12.0) % Basophils (Manual) (0.0-1.0) % Nucleated RBCs % Atypical Lymphocytes % Platelet Estimate (NORMAL) RBC Morphology Sodium (137-145) mmol/L Potassium (3.5-5.1) mmol/L Chloride (98-107) mmol/L Carbon Dioxide (22-30) mmol/L Anion Gap (5-15) MEQ/L BUN (7-17) mg/dL Creatinine (0.52-1.04) mg/dL Estimated GFR ML/MIN Glucose (74-106) mg/dL Calcium (8.4-10.2) mg/dL Total Bilirubin (0.2-1.3) mg/dL AST (14-36) U/L ALT (0-35) U/L Alkaline Phosphatase (38-126) U/L Creatine Kinase 88 (30-135) U/L Troponin I 0.020 (0.000-0.034) ng/mL Serum Total Protein (6.3-8.2) g/dL Albumin (3.5-5.0) g/dL Urine Color (YELLOW) Urine Appearance (CLEAR) Urine pH (5-6) Ur Specific [place] (1.005-1.025) Urine Protein (Negative) Urine Ketones (NEGATIVE) Urine Blood (0-5) Jn/ul Urine Nitrite (NEGATIVE) Urine Bilirubin (NEGATIVE) Urine Urobilinogen (0-1) mg/dL Ur Leukocyte Esterase (NEGATIVE) Urine WBC (Auto) (0-5) /HPF Urine RBC (Auto) (0-2) /HPF U Epithel Cells (Auto) (FEW) /HPF Urine Bacteria (Auto) (NEGATIVE) /HPF Urine Culture Reflexed (NO) Urine Glucose (NEGATIVE) mg/dL SARS-CoV-2 (PCR) NEGATIVE (NEGATIVE) 11/19/20 11/19/20 11/19/20 Range/Units 16:00 16:00 15:46 WBC 14.5 H (4.0-10.5) K/mm3 RBC 4.31 (4.1-5.4) M/mm3 Hgb 12.5 (12.0-16.0) gm/dl Hct 38.8 (35-47) % MCV 90.0 (78-100) fl MCH 29.0 (26-32) pg MCHC 32.2 (32-36) g/dl RDW 12.9 (11.5-14.0) % Plt Count 190 (150-450) K/mm3 MPV 9.9 (7.5-11.0) fl Segmented Neutrophils 85 H (36.0-66.0) % Band Neutrophils 2 (0.0-2.0) % Lymphocytes (Manual) 4 L (24-44) % Monocytes (Manual) 5 (0.0-12.0) % Basophils (Manual) 1 (0.0-1.0) % Nucleated RBCs 1 % Atypical Lymphocytes 3 % Platelet Estimate NORMAL (NORMAL) RBC Morphology NORMAL Sodium 138 (137-145) mmol/L Potassium 5.6 H (3.5-5.1) mmol/L Chloride 109 H (98-107) mmol/L Carbon Dioxide 17 L (22-30) mmol/L Anion Gap 17.5 H (5-15) MEQ/L BUN 37 H (7-17) mg/dL Creatinine 2.13 H (0.52-1.04) mg/dL Estimated GFR 23.6 ML/MIN Glucose 96 (74-106) mg/dL Calcium 9.1 (8.4-10.2) mg/dL Total Bilirubin 0.40 (0.2-1.3) mg/dL AST 49 H (14-36) U/L ALT 31 (0-35) U/L Alkaline Phosphatase 82 (38-126) U/L Creatine Kinase (30-135) U/L Troponin I (0.000-0.034) ng/mL Serum Total Protein 6.9 (6.3-8.2) g/dL Albumin 4.0 (3.5-5.0) g/dL Urine Color YELLOW (YELLOW) Urine Appearance CLEAR (CLEAR) Urine pH 5.0 (5-6) Ur Specific [place] 1.010 (1.005-1.025) Urine Protein NEGATIVE (Negative) Urine Ketones NEGATIVE (NEGATIVE) Urine Blood NEGATIVE (0-5) Jn/ul Urine Nitrite NEGATIVE (NEGATIVE) Urine Bilirubin NEGATIVE (NEGATIVE) Urine Urobilinogen NEGATIVE (0-1) mg/dL Ur Leukocyte Esterase NEGATIVE (NEGATIVE) Urine WBC (Auto) NONE (0-5) /HPF Urine RBC (Auto) NONE (0-2) /HPF U Epithel Cells (Auto) NONE (FEW) /HPF Urine Bacteria (Auto) NONE (NEGATIVE) /HPF Urine Culture Reflexed YES (NO) Urine Glucose NEGATIVE (NEGATIVE) mg/dL SARS-CoV-2 (PCR) (NEGATIVE) - Progress Progress: improved, pain not gone completely, re-examined Progress Note: 11/19/20 16:33 80 years old is evaluated for fall with a left hip and back pain. Did not hit her head, no loss of consciousness. Not on any blood thinner. Denies any chest or abdominal pain. She is given pain medication, I have obtained CT lumbar spine and CT pelvis with negative fracture subluxation and lumbar spine but CT pelvis showed mildly displaced comminuted fracture left superior pubic rami. She has intact neuro and lower extremities. I have discussed with Dr. Jules at [facility] trauma service, has reviewed CT films, recommended pain medication, weightbearing as tolerated and outpatient Ortho follow-up. Her baseline work-up showed acute on chronic renal failure and mildly elevated potassium. She is gi sruthi fluid bolus. EKG did not show any acute ischemic changes and negative troponins. We will continue with fluids and I believe her potassium will improve on its own. She is given a dose of Veltassa in here to improve her potassium. Discussed with Dr. Diaz and patient is accepted for admission. Discussed with : Isidro Will see patient in: hospital (observation) Counseled pt/family regarding: lab results, diagnosis, rad results - Departure Departure Disposition: In-patient Admission Clinical Impression: Hyperkalemia Pelvic ring fracture Qualifiers: Encounter type: initial encounter Fracture type: closed Qualified Code(s): S32.810A - Multiple fractures of pelvis with stable disruption of pelvic ring, initial encounter for closed fracture Acute on chronic renal failure Qualifiers: Acute renal failure type: unspecified Chronic kidney disease stage: unspecified stage Qualified Code(s): N17.9 - Acute kidney failure, unspecified Fall Qualifiers: Encounter type: initial encounter Qualified Code(s): W19.XXXA - Unspecified fall, initial encounter Condition: Stable Critical Care Time: No
[2020-11-19 16:10] LABS: Appearance CLEAR (CLEAR); Bilirubin NEGATIVE (NEGATIVE); Blood NEGATIVE Ery/ul (0-5); Glucose NEGATIVE (NEGATIVE); Ketones NEGATIVE (NEGATIVE); Leukocyte Esterase NEGATIVE (NEGATIVE); Nitrite NEGATIVE (NEGATIVE); Protein,Urine Dip NEGATIVE (Negative); Urobilinogen NEGATIVE mg/dL (0-1)
[2020-11-19 16:12] LABS: Hematocrit 38.8 % (35-47); Hemoglobin 12.5 gm/dl (12.0-16.0); Mean Corpuscular Hgb Concent. 32.2 g/dl (32-36); Mean Platelet Volume 9.9 fl (7.5-11.0); Platelet Count 190 K/mm3 (150-450); Red Blood Count 4.31 M/mm3 (4.1-5.4); Red Cell Distribution Width 12.9 % (11.5-14.0); White Blood Count 14.5 K/mm3 (4.0-10.5)
[2020-11-19 16:24] LABS: ANION GAP 17.5 MEQ/L (5-15); BILIRUBIN,TOTAL 0.4 mg/dL (0.2-1.3); Calcium 9.1 mg/dL (8.4-10.2); Creatinine 1 2.13 mg/dL (0.52-1.04); EST GLOMERULAR FILTRATION RATE 23.6 ML/MIN; Potassium 5.6 mmol/L (3.5-5.1); Total Protein 6.9 g/dL (6.3-8.2)
[2020-11-19] MEDS ORDERED: Sodium Chloride 0.9% 1000 ML 1,000 ML IV STA (16:32)
[2020-11-19] MEDS ORDERED: VELTASSA PO STA (16:35)
[2020-11-19] MEDS ORDERED: Hydromorphone 1 mg/ml Injection IV ONE (16:55)
[2020-11-19] MEDS ORDERED: Hydromorphone 1 mg/ml Injection ONE (16:56)
[2020-11-19] MEDS ORDERED: Sodium Chloride 0.9% 1000 ML 1,000 ML ONE (16:56)
[2020-11-19] MEDS ORDERED: VELTASSA PO ONE (16:57)
[2020-11-19 17:41] LABS: ATYPICAL LYMPHS 3 %; BAND 2 % (0.0-2.0); Basophil 1 % (0.0-1.0); Lymphocytes 4 % (24-44); Monocyte 5 % (0.0-12.0); Neutrophils 85 % (36.0-66.0); Nucleated Red Blood Cell 1 %; Total Cells Counted 100
[2020-11-19 17:42] LABS: Platelet Estimate NORMAL (NORMAL)
[2020-11-19] MEDS ORDERED: Zofran 4 MG/2 ML VIAL IV PRN (19:23)
[2020-11-19] MEDS ORDERED: TYLENOL 325 MG PO PRN (19:23)
[2020-11-19] MEDS ORDERED: DUONEB 0.5-3 MG/3 ml Neb IH PRN (19:23)
[2020-11-19] MEDS: MORPHINE SULFATE 4 MG INJ IV PRN (19:32)
[2020-11-19] MEDS: Sodium Chloride 0.9% 1000 ML 1,000 ML IV SCH (19:33)
--- NOTE | 2020-11-19 21:46 | XRAY ---
Indication: Pain following fall. Multiple contiguous axial images obtained through the pelvis with special attention to the osseous structures. Sagittal and coronal reformatted images obtained. Comparison: None Osseous structures demineralized consistent with patient's age. Nondisplaced fracture involving the left superior pubic ramus. No other acute fracture, dislocation, or suspicious bone lesions. Both hips demonstrates moderate degenerative arthropathy. Visualized noncontrasted soft tissues demonstrates mild aortoiliac calcifications, sigmoid diverticulosis, and Perez balloon catheter in situ. CT lumbar spine reported separately. Impression: 1. Nondisplaced left pubic ramus fracture. 2. Incidental osteopenia, bilateral hip degenerative arthropathy, and sigmoid diverticulosis. Comment: Preliminary interpretation made by [facility]. No critical discrepancy.
--- NOTE | 2020-11-19 21:50 | XRAY ---
Indication: Pain following fall. Multiple contiguous axial images obtained through the lumbar spine. Sagittal and coronal reformatted images obtained. Comparison: None Osseous structures demineralized consistent with patient's age. Axial images negative for acute fracture, suspicious bone lesions, or spinal canal stenosis. There is mild broad-based L2-L3 and L4-S1 disc bulge with minimal vacuum disc phenomena. Facets are symmetric with moderate L4-S1 degenerative facet hypertrophy. Sagittal and coronal reformatted images demonstrates minimal dextroscoliosis centered at L2 and 2 mm anterolisthesis of L4 on L5. No acute compression fracture. CT pelvis reported separately. Impression: 1. Osteopenia, minimal scoliosis, multilevel degenerative spondylosis, and minimal grade 1 L4 spondylolisthesis. 2. Remaining CT lumbar spine negative. Comment: Preliminary interpretation made by [facility]. No critical discrepancy.
[2020-11-19] MEDS ORDERED: NORVASC 5 MG PO ONE (22:00)
[2020-11-19] MEDS ORDERED: Bystolic 5 MG PO ONE (22:00)
[2020-11-20] MEDS: MORPHINE SULFATE 4 MG INJ IV PRN ×4 (02:06→19:57)
[2020-11-20 04:48] LABS: Absolute Neutrophil Ct (ANC) 7.88 (1.4-6.9); BASOPHIL % 0.3 % (0.0-0.4); Basophil (Absolute #) 0.03 (0-0.4); Eosinophil % 0.5 % (0.00-5.0); Eosinophil (Absolute #) 0.05 (0-0.5); Hematocrit 36.4 % (35-47); Hemoglobin 11.3 gm/dl (12.0-16.0); Lymphocyte (Absolute #) 1.15 (1.0-4.6); Lymphocytes % 11.4 % (24.0-44.0); Mean Cell Volume 93.3 fl (78-100); Mean Platelet Volume 9.7 fl (7.5-11.0); Monocyte (Absolute #) 0.96 (0.0-1.3); Monocytes % 9.5 % (0.0-12.0); Neutrophil % 78.3 % (36.0-66.0); Platelet Count 150 K/mm3 (150-450); White Blood Count 10.1 K/mm3 (4.0-10.5)
[2020-11-20 05:05] LABS: ALBUMIN 3.2 g/dL (3.5-5.0); ANION GAP 12.9 MEQ/L (5-15); BILIRUBIN,TOTAL 0.5 mg/dL (0.2-1.3); Creatinine 1 2.02 mg/dL (0.52-1.04); EST GLOMERULAR FILTRATION RATE 25.1 ML/MIN; Potassium 5.7 mmol/L (3.5-5.1); Total Protein 5.7 g/dL (6.3-8.2)
[2020-11-20] MEDS ORDERED: Sodium Chloride 0.9% 1000 ML 1,000 ML IV SCH (08:00)
[2020-11-20] MEDS: Cyclobenzaprine 10 MG PO PRN ×3 (08:24→22:32)
[2020-11-20] MEDS: Sodium Chloride 0.9% 1000 ML 1,000 ML IV SCH (08:26)
[2020-11-20] MEDS ORDERED: MEDICATION INTERVENTION MC SCH (09:45)
[2020-11-20] MEDS ORDERED: PROTONIX 40 MG IV IV SCH (10:00)
[2020-11-20] MEDS ORDERED: NON-FORMULARY ITEM (Hydroxychloroquine Sulfate [Hydroxychloroquine Sulfate] 0 MG) PO SCH (10:00)
[2020-11-20] MEDS ORDERED: NON-FORMULARY ITEM (Hydroxychloroquine Sulfate [Hydroxychloroquine Sulfate] 200 MG) PO SCH (10:00)
[2020-11-20] MEDS ORDERED: NON-FORMULARY ITEM (Nebivolol Hcl [Bystolic] 10 MG) PO SCH (10:00)
[2020-11-20] MEDS ORDERED: AMLODIPINE BESYLATE PO SCH (10:00)
[2020-11-20] MEDS: DELTASONE 5 MG PO SCH (10:04)
[2020-11-20] MEDS: CLARITIN 10 MG PO SCH (10:05)
[2020-11-20] MEDS: SYNTHROID 50 MCG PO SCH (10:05)
[2020-11-20] MEDS: Bystolic 5 MG PO SCH (10:05)
[2020-11-20] MEDS: ECOTRIN 81 MG PO SCH ×2 (10:05→14:32)
[2020-11-20] MEDS: PLAVIX 75 MG Tablet PO SCH ×2 (10:05→11:04)
[2020-11-20] MEDS: NORVASC 5 MG PO SCH (10:06)
[2020-11-20] MEDS ORDERED: PHARMACY DOSING REQUEST MC ONE (10:09)
[2020-11-20] MEDS ORDERED: ENOXAPARIN SODIUM SQ SCH (10:30)
[2020-11-20] MEDS ORDERED: Miscellaneous Medication Order MC ONE (11:45)
--- NOTE | 2020-11-20 15:24 | HP ---
CHIEF COMPLAINT: Fall with sprain. HISTORY OF PRESENT ILLNESS: The patient is an 80 year-old white female who was walking about three feet today when she slipped and fell on her bottom jarring herself so badly she knew that there was a problem and she presented to the emergency room where she was found to have a pubic ramus fracture. PAST MEDICAL/SURGICAL HISTORY: Significant for previous falls and back injuries, joint pain. She has history of lupus, Raynaud's syndrome, fibromyalgia, thyroid dysfunction, mild chronic renal insufficiency and arrhythmia. She has had cholecystectomy, hysterectomy, colonoscopy, left foot surgery. MEDICATIONS: She currently takes amlodipine 5 mg a day, Plavix 75 mg a day, hydroxychloroquine 200 mg daily, levothyroxine 50 mcg daily, loratadine 10 mg a day, Bystolic 10 mg, prednisone 1 tablet a day unknown dosage at this time. ALLERGIES: THE PATIENT REPORTS MULTIPLE ALLERGY/INTOLERANCES TO PILOCARPINE, CALCITONIN, FLUTICAZONE, TRAMADOL, PANTOPRAZOLE, PENICILLIN, DIPYRIDAMOLE, DIAZEPAM, ASPIRIN, NAPROXEN, CEFACLOR, AXID, BIAXIN, RELAFEN, ZITHROMAX, LEVAQUIN, VIOXX. PHYSICAL EXAMINATION: The patient's vital signs on admission showed temperature 96.9F, pulse 67, respiratory rate 18 and blood pressure 178/76. O2 saturation was 97%. Physical examination otherwise revealed a well-nourished, well developed 80 year-old white female who is awake and alert and lying flat in the bed without movement because it hurts her bad every time she moves. HEENT: Normocephalic, atraumatic. Pupils equal round reactive to light. Extraocular movements intact. Oropharynx is pink and moist. NECK: Supple without lymphadenopathy, thyromegaly or JVD. CHEST: Clear to auscultation. HEART: Regular rate and rhythm. ABDOMEN: Soft without palpable masses. EXTREMITIES: Without cyanosis, clubbing or significant edema. LAB DATA AND TESTS: Laboratory studies from the emergency room showed a normal UA. She did have a Perez catheter placed for bedrest. Her CPK was 88. Troponin 0.020. White count 14,500, hemoglobin 12.5, PLT 290,000. Her metabolic panel showed a glucose of 96, BUN 37, creatinine 2.13. Her potassium was elevated at 5.6. Liver enzymes were essentially normal. COVID test was negative. X-rays showed a nondisplaced left pubic ramus fracture and incidental osteopenia and bilateral degenerative arthropathy, sigmoid diverticulosis otherwise CT of the abdomen and pelvis was unremarkable. ASSESSMENT: A patient with pubic ramus fracture. She has been admitted to the hospital for pain control and will obtain a physical therapy consult for potential for rehab. She is currently on morphine for pain control and will add Flexeril for help with her spasms and will see when she might be able to return home. Her deep vein thrombosis prophylaxis will be with aspirin and Plavix.
[2020-11-20] MEDS ORDERED: Bystolic 5 MG PO ONE (22:00)
[2020-11-20] MEDS ORDERED: NORVASC 5 MG PO ONE (22:00)
[2020-11-21] MEDS: MORPHINE SULFATE 4 MG INJ IV PRN ×2 (01:00→07:37)
[2020-11-21] MEDS: Sodium Chloride 0.9% 1000 ML 1,000 ML IV SCH ×2 (01:01→19:32)
[2020-11-21] MEDS: Cyclobenzaprine 10 MG PO PRN ×2 (04:03→11:08)
[2020-11-21] MEDS ORDERED: PHARMACY DOSING REQUEST MC ONE ×2 (08:49→08:53)
[2020-11-21] MEDS: CLARITIN 10 MG PO SCH (09:48)
[2020-11-21] MEDS: PLAVIX 75 MG Tablet PO SCH (09:48)
[2020-11-21] MEDS: NORVASC 5 MG PO SCH (09:48)
[2020-11-21] MEDS: SYNTHROID 50 MCG PO SCH (09:48)
[2020-11-21] MEDS: DELTASONE 5 MG PO SCH (09:48)
[2020-11-21] MEDS: Bystolic 5 MG PO SCH (09:48)
[2020-11-21] MEDS ORDERED: ENOXAPARIN SODIUM SQ SCH (10:00)
[2020-11-21] MEDS: MSIR 15 MG PO PRN (14:02)
[2020-11-22] MEDS: MSIR 15 MG PO PRN (00:48)
[2020-11-22 07:04] VITALS: BP 141/67; PULSE 71; O2SAT 94
[2020-11-22] MEDS ORDERED: ZOFRAN ODT 4 MG PO PRN (08:05)
[2020-11-22] MEDS: Bystolic 5 MG PO SCH (08:23)
[2020-11-22] MEDS: NORVASC 5 MG PO SCH (08:23)
[2020-11-22] MEDS: SYNTHROID 50 MCG PO SCH (08:23)
[2020-11-22] MEDS: DELTASONE 5 MG PO SCH (08:23)
[2020-11-22] MEDS: PLAVIX 75 MG Tablet PO SCH (08:23)
[2020-11-22] MEDS: CLARITIN 10 MG PO SCH (08:23)
[2020-11-22] MEDS ORDERED: Miralax Powder 17GM PACKET PO SCH (10:00)
--- NOTE | 2020-11-22 10:27 | XRAY ---
Indication: Short of breath following fall. Comparison: July 30, 2016. Portable chest again hyperinflated with new bibasilar subsegmental atelectasis, left greater than right. Upper lungs clear without pneumothorax. Heart not enlarged. Bony thorax intact again with osteopenia and degenerative changes. Impression: New bibasilar subsegmental atelectasis. Underlying rib fractures as etiology not completely excluded.
== END 2020-11-22 11:10 | disposition swing bed (61) | DRG 536 ==
LOC: ED 13:08 → MED SURG 18:57
PROVIDERS: ADMIT Family Medicine; ATTEND Family Medicine
DX: S32.592A Other specified fracture of left pubis, initial encounter for closed fracture (principal); Z20.828 Contact with and (suspected) exposure to other viral communicable diseases; W01.0XXA Fall on same level from slipping, tripping and stumbling without subsequent striking against object, initial encounter; Z79.899 Other long term (current) drug therapy; Z79.01 Long term (current) use of anticoagulants; K57.30 Diverticulosis of large intestine without perforation or abscess without bleeding; M16.0 Bilateral primary osteoarthritis of hip
CPT/HCPCS: 36000; 36415; 71045; 72131; 72192; 80053; 81001; 82550; 84484; 85025; 87086; 93005; 94760; 96360; 96374; 96376; 97110; 97161; 97530; 99284; U0003; J1170; J1650; J2270; J2405; A9270-GY

== ENCOUNTER 2020-11-22 10:47 | Inpatient (IN) | payer MEDICARE ==
[2020-11-22] MEDS ORDERED: Aplisol ID ONE (11:25)
[2020-11-22] MEDS ORDERED: MEDICATION INTERVENTION MC SCH (11:25)
[2020-11-22] MEDS ORDERED: MSIR 15 MG PO PRN (11:25)
[2020-11-22] MEDS: Cyclobenzaprine 10 MG PO PRN (17:04)
[2020-11-23] MEDS: SYNTHROID 50 MCG PO SCH (08:20)
[2020-11-23] MEDS: DELTASONE 5 MG PO SCH (08:20)
[2020-11-23] MEDS: CLARITIN 10 MG PO SCH (08:21)
[2020-11-23] MEDS: NORVASC 5 MG PO SCH (08:21)
[2020-11-23] MEDS: Bystolic 5 MG PO SCH (08:21)
[2020-11-23] MEDS: PLAVIX 75 MG Tablet PO SCH (08:21)
[2020-11-23] MEDS: PATIENT OWN MEDICATION PO SCH (08:21)
[2020-11-23] MEDS: Miralax Powder 17GM PACKET PO SCH (08:21)
[2020-11-23] MEDS: HYDROCODONE-ACETAMIN 10-325 MG PO PRN (08:30)
[2020-11-23] MEDS ORDERED: Aplisol ID SCH (10:00)
[2020-11-23] MEDS: ZOFRAN ODT 4 MG PO PRN (12:20)
[2020-11-24] MEDS: Cyclobenzaprine 10 MG PO PRN (07:40)
[2020-11-24] MEDS: NORVASC 5 MG PO SCH (09:01)
[2020-11-24] MEDS: PLAVIX 75 MG Tablet PO SCH (09:01)
[2020-11-24] MEDS: DELTASONE 5 MG PO SCH (09:01)
[2020-11-24] MEDS: CLARITIN 10 MG PO SCH (09:01)
[2020-11-24] MEDS: SYNTHROID 50 MCG PO SCH (09:01)
[2020-11-24] MEDS: Bystolic 5 MG PO SCH (09:01)
[2020-11-24] MEDS: PATIENT OWN MEDICATION PO SCH (09:04)
[2020-11-24] MEDS: Miralax Powder 17GM PACKET PO SCH (09:05)
[2020-11-24] MEDS: TYLENOL 325 MG PO PRN (15:58)
[2020-11-24] MEDS: HYDROCODONE-ACETAMIN 10-325 MG PO PRN (19:51)
[2020-11-24 23:55] LABS: Appearance CLOUDY (CLEAR); Bacteria FEW /HPF (NEGATIVE); Bilirubin NEGATIVE (NEGATIVE); Blood MODERATE Ery/ul (0-5); Glucose NEGATIVE (NEGATIVE); Ketones NEGATIVE (NEGATIVE); Leukocyte Esterase LARGE (NEGATIVE); Mucus SLIGHT /HPF (NEGATIVE); Nitrite POSITIVE (NEGATIVE); Protein,Urine Dip NEGATIVE (Negative); Specific Gravity 1.006 (1.005-1.025); Urobilinogen NEGATIVE mg/dL (0-1); WBC >100 /HPF (0-5)
[2020-11-25] MEDS: Cipro 500 MG PO SCH ×3 (00:40→20:52)
[2020-11-25] MEDS: MAALOX ES 30 ML UNIT DOSE PO PRN ×2 (08:42→16:48)
[2020-11-25] MEDS: ZOFRAN ODT 4 MG PO PRN ×2 (08:43→16:48)
[2020-11-25] MEDS: Miralax Powder 17GM PACKET PO SCH (08:44)
--- NOTE | 2020-11-25 09:10 | PCM.NOTE ---
Date and Time: 11/25/20907 Subjective Assessment: patient is doing ok, PT, OT on case - Review of Systems Constitutional: No Fever, No Chills Eyes: No Symptoms Ears, Nose, & Throat: No Symptoms Respiratory: No Cough, No Short Of Breath Cardiac: No Chest Pain, No Edema, No Syncope Abdominal/Gastrointestinal: No Abdominal Pain, No Nausea, No Vomiting, No Diarrhea Genitourinary Symptoms: No Dysuria Musculoskeletal: Fall, No Back Pain, No Neck Pain Skin: No Rash Neurological: No Dizziness, No Focal Weakness, No Sensory Changes Psychological: No Symptoms Endocrine: No Symptoms Hematologic/Lymphatic: No Symptoms Immunological/Allergic: No Symptoms Objective Exam General Appearance: no apparent distress, alert Neurologic Exam: alert, oriented x 3, cooperative, normal mood/affect, nml cerebellar function, sensation nml, No motor deficits Skin Exam: normal color, warm, dry Eye Exam: PERRL, EOMI, eyes nml inspection Ears, Nose, Throat Exam: normal ENT inspection, pharynx normal, moist mucous membranes Neck Exam: normal inspection, non-tender, supple, full range of motion Respiratory Exam: normal breath sounds, lungs clear, No respiratory distress Cardiovascular Exam: regular rate/rhythm, normal heart sounds Gastrointestinal/Abdomen Exam: soft, No tenderness, No mass Extremity Exam: normal inspection, normal range of motion Back Exam: normal inspection, normal range of motion, No CVA tenderness, No vertebral tenderness Pelvic Exam: deferred Rectal Exam: deferred OBJECTIVE DATA Vital Signs: Vital Signs - 24 hr Temp Pulse Resp BP Pulse Ox 11/25/20 06:55 96.9 F 63 16 162/70 97 11/24/20 20:24 98 11/24/20 19:58 98.0 F 72 24 143/63 96 Pain Assessment - Last Documented Pain Intensity 0 Pain Scale Used 0-10 Pain Scale Intake and Output: Intake & Output 11/22/20 11/23/20 11/24/20 11/25/20 11:59 11:59 11:59 11:59 Intake Total 480 720 360 Output Total 200 1100 1300 Balance -200 502 -380 -940 Weight 64.8 kg Lab Results: Lab Results-Last 24 Hours 11/24/20 Range/Units 20:36 Urine Color YELLOW (YELLOW) Urine Appearance CLOUDY (CLEAR) Urine pH 5.0 (5-6) Ur Specific [place] 1.006 (1.005-1.025) Urine Protein NEGATIVE (Negative) Urine Ketones NEGATIVE (NEGATIVE) Urine Blood MODERATE (0-5) Jn/ul Urine Nitrite POSITIVE (NEGATIVE) Urine Bilirubin NEGATIVE (NEGATIVE) Urine Urobilinogen NEGATIVE (0-1) mg/dL Ur Leukocyte Esterase LARGE (NEGATIVE) Urine WBC (Auto) >100 (0-5) /HPF Urine RBC (Auto) 3-5 (0-2) /HPF U Epithel Cells (Auto) NONE (FEW) /HPF Urine Bacteria (Auto) FEW (NEGATIVE) /HPF Urine Mucus (Auto) SLIGHT (NEGATIVE) /HPF Urine Culture Reflexed ORDERED SEPARATELY (NO) Urine Glucose NEGATIVE (NEGATIVE) mg/dL Assessment/Plan (1) Fall Current Visit: No Status: Acute Qualifiers: Encounter type: sequela Qualified Code(s): W19.XXXS - Unspecified fall, sequela Code(s): W19.XXXA - UNSPECIFIED FALL, INITIAL ENCOUNTER (2) Pelvic ring fracture Current Visit: Yes Status: Acute Qualifiers: Encounter type: sequela Fracture type: closed Qualified Code(s): S32.810S - Multiple fractures of pelvis with stable disruption of pelvic ring, sequela Code(s): S32.810A - MULTIPLE FX OF PELVIS W STABLE DISRUPT OF PELVIC RING, INIT
[2020-11-25] MEDS: CLARITIN 10 MG PO SCH (10:49)
[2020-11-25] MEDS: SYNTHROID 50 MCG PO SCH (10:49)
[2020-11-25] MEDS: Bystolic 5 MG PO SCH (10:50)
[2020-11-25] MEDS: NORVASC 5 MG PO SCH (10:50)
[2020-11-25] MEDS: PLAVIX 75 MG Tablet PO SCH (10:50)
[2020-11-25] MEDS: DELTASONE 5 MG PO SCH (10:50)
[2020-11-25] MEDS: PATIENT OWN MEDICATION PO SCH (10:51)
[2020-11-25] MEDS: Pepcid 20 MG PO SCH ×3 (10:54→20:52)
[2020-11-25] MEDS: Cyclobenzaprine 10 MG PO PRN ×2 (14:54→20:53)
[2020-11-25] MEDS: HYDROCODONE-ACETAMIN 10-325 MG PO PRN ×2 (14:54→20:52)
[2020-11-26] MEDS: Cyclobenzaprine 10 MG PO PRN ×2 (09:49→21:36)
[2020-11-26] MEDS: HYDROCODONE-ACETAMIN 10-325 MG PO PRN ×2 (09:49→21:36)
[2020-11-26] MEDS: SYNTHROID 50 MCG PO SCH (09:50)
[2020-11-26] MEDS: PLAVIX 75 MG Tablet PO SCH (09:51)
[2020-11-26] MEDS: Bystolic 5 MG PO SCH (09:51)
[2020-11-26] MEDS: CLARITIN 10 MG PO SCH (09:51)
[2020-11-26] MEDS: DELTASONE 5 MG PO SCH (09:51)
[2020-11-26] MEDS: NORVASC 5 MG PO SCH (09:51)
[2020-11-26] MEDS: Pepcid 20 MG PO SCH ×2 (09:53→21:37)
[2020-11-26] MEDS: Miralax Powder 17GM PACKET PO SCH (09:53)
[2020-11-26] MEDS: PATIENT OWN MEDICATION PO SCH (09:53)
[2020-11-26] MEDS: Cipro 500 MG PO SCH ×2 (09:54→21:36)
[2020-11-27] MEDS: Miralax Powder 17GM PACKET PO SCH (09:21)
[2020-11-27] MEDS: CLARITIN 10 MG PO SCH (09:21)
[2020-11-27] MEDS: PATIENT OWN MEDICATION PO SCH (09:21)
[2020-11-27] MEDS: Pepcid 20 MG PO SCH ×3 (09:21→21:27)
[2020-11-27] MEDS: PLAVIX 75 MG Tablet PO SCH (09:21)
[2020-11-27] MEDS: SYNTHROID 50 MCG PO SCH (09:21)
[2020-11-27] MEDS: DELTASONE 5 MG PO SCH (09:21)
[2020-11-27] MEDS: Bystolic 5 MG PO SCH (09:22)
[2020-11-27] MEDS: Cipro 500 MG PO SCH ×2 (09:22→21:26)
[2020-11-27] MEDS: NORVASC 5 MG PO SCH (09:25)
[2020-11-27] MEDS: HYDROCODONE-ACETAMIN 10-325 MG PO PRN (18:35)
[2020-11-27] MEDS: Cyclobenzaprine 10 MG PO PRN (21:28)
[2020-11-28] MEDS: HYDROCODONE-ACETAMIN 10-325 MG PO PRN ×2 (04:53→21:02)
--- NOTE | 2020-11-28 08:51 | XRAY ---
Indication: Pelvic fracture. Pelvic pain. Comparison: October 09, 2017. AP pelvis demonstrates new nondisplaced left superior pubic ramus fracture and left lateral hip soft tissue swelling/edema. Elsewhere stable osteopenia and lower lumbar degenerative changes.
[2020-11-28] MEDS: PATIENT OWN MEDICATION PO SCH (09:27)
[2020-11-28] MEDS: CLARITIN 10 MG PO SCH (09:29)
[2020-11-28] MEDS: Calcium 500MG W/Vit D Tablet PO SCH ×2 (09:29→21:02)
[2020-11-28] MEDS: Bystolic 5 MG PO SCH (09:29)
[2020-11-28] MEDS: DELTASONE 5 MG PO SCH (09:29)
[2020-11-28] MEDS: PLAVIX 75 MG Tablet PO SCH (09:30)
[2020-11-28] MEDS: NORVASC 5 MG PO SCH (09:30)
[2020-11-28] MEDS: Pepcid 20 MG PO SCH ×2 (09:30→21:02)
[2020-11-28] MEDS: SYNTHROID 50 MCG PO SCH (09:31)
[2020-11-28] MEDS: Miralax Powder 17GM PACKET PO SCH (09:33)
[2020-11-28] MEDS: Cipro 500 MG PO SCH ×2 (09:35→21:02)
[2020-11-28] MEDS: TYLENOL 325 MG PO PRN ×2 (11:08→16:25)
[2020-11-29] MEDS: Bystolic 5 MG PO SCH (08:38)
[2020-11-29] MEDS: Cipro 500 MG PO SCH ×2 (08:39→21:15)
[2020-11-29] MEDS: SYNTHROID 50 MCG PO SCH (08:39)
[2020-11-29] MEDS: DELTASONE 5 MG PO SCH (08:39)
[2020-11-29] MEDS: Pepcid 20 MG PO SCH ×2 (08:40→21:15)
[2020-11-29] MEDS: NORVASC 5 MG PO SCH (08:40)
[2020-11-29] MEDS: Calcium 500MG W/Vit D Tablet PO SCH ×2 (08:40→21:15)
[2020-11-29] MEDS: PLAVIX 75 MG Tablet PO SCH (08:40)
[2020-11-29] MEDS: CLARITIN 10 MG PO SCH (08:40)
[2020-11-29] MEDS: PATIENT OWN MEDICATION PO SCH (08:42)
[2020-11-29] MEDS: Miralax Powder 17GM PACKET PO SCH (08:43)
[2020-11-29] MEDS: HYDROCODONE-ACETAMIN 10-325 MG PO PRN (09:29)
[2020-11-29] MEDS ORDERED: IMODIUM 2 MG PO ONE (10:00)
[2020-11-29] MEDS: TYLENOL 325 MG PO PRN (14:36)
[2020-11-30] MEDS: HYDROCODONE-ACETAMIN 10-325 MG PO PRN ×2 (03:35→11:52)
[2020-11-30] MEDS: DELTASONE 5 MG PO SCH (10:11)
[2020-11-30] MEDS: Cipro 500 MG PO SCH ×2 (10:11→21:08)
[2020-11-30] MEDS: Bystolic 5 MG PO SCH (10:11)
[2020-11-30] MEDS: CLARITIN 10 MG PO SCH (10:11)
[2020-11-30] MEDS: Calcium 500MG W/Vit D Tablet PO SCH ×2 (10:11→21:08)
[2020-11-30] MEDS: PLAVIX 75 MG Tablet PO SCH (10:12)
[2020-11-30] MEDS: NORVASC 5 MG PO SCH (10:12)
[2020-11-30] MEDS: PATIENT OWN MEDICATION PO SCH (10:12)
[2020-11-30] MEDS: Pepcid 20 MG PO SCH ×2 (10:12→21:08)
[2020-11-30] MEDS: SYNTHROID 50 MCG PO SCH (10:12)
[2020-11-30] MEDS: Miralax Powder 17GM PACKET PO SCH (10:20)
[2020-12-01 08:55] VITALS: BP 125/60; PULSE 66; O2SAT 98
--- NOTE | 2020-12-01 09:56 | DS ---
DISCHARGE DIAGNOSES: 1) PUBIC RAMUS FRACTURE. 2) URINARY TRACT INFECTION. HOSPITAL COURSE: The patient is an 80 year-old white female who apparently fell at home sustaining a superior pubic ramus fracture. The patient is in extreme pain and unable to care for herself and her elderly who is barely able to ambulate himself. The patient was felt the need to have more time to recover from her fracture. She was discharged from acute care hospital and admitted to swing-bed for further physical therapy. The patient initially did have a Perez catheter in place due to her inability to move and unfortunately she did develop urinary tract infection which was Klebsiella Pneumoniae and sensitive to the antibiotic of Levaquin which was used now at 250 mg daily for seven days. The patient was felt to be ready for discharge by the morning of 12/01/2020. She will receive no further therapy during her stay. The patient was looking good and was actually smiling when I saw her on the morning of 11/30/2020. She was therefore felt to be ready for discharge home. They are building a ramp at her home in order for her to get up to the house without having to climb stairs and this occurring currently. We feel that she is safe to go home. She was given Hanahan 325 to take one-half to one tablet every 4 hours basis PRN for her pain. She was also given Flexeril as she was complaining of spasms of the muscles in that area earlier on and this has seemed to help her. The patient is aware of the potential for getting up and being careful with narcotics and also being on muscle relaxer. The patient otherwise will continue her usual home medications when she goes back. We did also add Miacalcin nasal spray to try to help with her bone health. The patient has multiple medicine sensitivities to which she is not taking for overall health and in fact Miacalcin is actually on her sensitivity list but she has been taking without difficulty since restarting it. The patient does not want bisphosphonates due to potential problems that can occur with this as well.
[2020-12-04] MEDS ORDERED: Aplisol ID SCH (10:00)
== END 2020-12-01 08:27 | disposition home health service (06) | DRG 560 ==
LOC: MED SURG 11:10
PROVIDERS: ADMIT Family Medicine; ATTEND Family Medicine
DX: S32.592D Other specified fracture of left pubis, subsequent encounter for fracture with routine healing (principal); N39.0 Urinary tract infection, site not specified; B96.1 Klebsiella pneumoniae [K. pneumoniae] as the cause of diseases classified elsewhere; Z79.899 Other long term (current) drug therapy
CPT/HCPCS: 72170; 81001; 87077; 87086; 87186; 94760; Q0162; 97110-GP; A9270-GY

== ENCOUNTER 2021-12-11 11:59 | Inpatient (IN) | payer MEDICARE ==
[2021-12-11] MEDS ORDERED: Sodium Chloride 0.9% 1000 ML 1,000 ML IV SCH ×2 (12:45→16:04)
--- NOTE | 2021-12-11 12:56 | XRAY ---
Indication: Cough and short of breath. Pneumonia. Comparison: November 22, 2020 Portable chest demonstrates new mild left base infiltrate versus atelectasis. Remaining heart and right lung unremarkable. Bony thorax intact again with osteopenia and degenerative changes.
[2021-12-11 13:02] LABS: Absolute Neutrophil Ct (ANC) 4.59 x10^3/uL (1.4-6.9); Basophil (Absolute #) 0.01 x10^3/uL (0-0.4); Eosinophil % 0.9 % (0.00-5.0); Eosinophil (Absolute #) 0.06 x10^3/uL (0-0.5); Hematocrit 36.9 % (35-47); Hemoglobin 11.8 g/dL (12.0-16.0); Lymphocyte (Absolute #) 1.06 x10^3/uL (1.0-4.6); Lymphocytes % 15.8 % (24.0-44.0); Mean Cell Volume 88.1 fL (78-100); Mean Corpuscular Hemoglobin 28.2 pg (26-32); Mean Platelet Volume 9.8 fL (7.5-11.0); Monocyte (Absolute #) 0.95 x10^3/uL (0.0-1.3); Monocytes % 14.1 % (0.0-12.0); Neutrophil % 68.4 % (36.0-66.0); Platelet Count 150 x10^3/uL (150-450); Red Blood Count 4.19 x10^6/uL (4.1-5.4); Red Cell Distribution Width 13.8 % (11.5-14.0); White Blood Count 6.7 x10^3/uL (4.0-10.5)
[2021-12-11] MEDS ORDERED: Levofloxacin 500MG/100ML D5W 500 MG/100 ML BAG IV STA (13:12)
--- NOTE | 2021-12-11 13:14 | ERPHSYRPT ---
- History of Present Illness Time Seen by Provider: 12/11/21 12:30 Patient Subjective Stated Complaint: Patient c/o headache, cough, fever X 3 days. Triage Nursing Assessment: Patient brought into ED by ambulance wearing oxygen at 2L per N/C. No SOB noted at this time but patient does have some labored breaths at times. She is alert and oriented. Skin is hot to touch. Patient noted to be hoarse but denies a sore throat. A forceful, non-productive cough is noted. Coughing increases when asked to take a deep breath. Denies chest pain. Physician History: Patient is an 81-year-old female presents to our ED via EMS for evaluation of a cough fever shortness of breath body aches fatigue and a headache. Symptoms started approximately 3 days ago and have been progressive. Patient normally does not require oxygen however was given oxygen by EMS. Patient states the ox ygen improves her shortness of breath. Patient voice is hoarse. No chest pain. No nausea vomiting or diaphoresis. Symptoms are moderate in intensity. No specific worsening improving factors. No obvious sick contacts. Patient voices no other complaints or concerns at this time. Portions of this note were created with voice recognition technology. There may be grammatical, spelling, punctuation or sound alike errors Timing/Duration: day(s) (3 days) Activities at Onset: activity Severity of Dyspnea-Max: moderate Severity of Dyspnea-Current: mild Possible Cause: no prior episodes Modifying Factors: Improves With: activity Associated Symptoms: cough, weakness, No chest pain/discomfort Allergies/Adverse Reactions: aspirin [From Aggrenox] Allergy (Verified 12/11/21 12:09) azithromycin [From Zithromax Z-Timbo] Allergy (Verified 12/11/21 12:09) calcitonin,salmon,synthetic [From Miacalcin] Allergy (Verified 12/11/21 12:09) cefaclor [From Ceclor] Allergy (Verified 12/11/21 12:09) clarithromycin [From Biaxin] Allergy (Verified 12/11/21 12:09) diazepam [From Valium] Allergy (Verified 12/11/21 12:09) dipyridamole [From Aggrenox] Allergy (Verified 12/11/21 12:09) fluticasone propionate [From Advair Diskus] Allergy (Verified 12/11/21 12:09) levofloxacin [From Levaquin] Allergy (Verified 12/11/21 12:09) meclizine HCl [From Antivert] Allergy (Verified 12/11/21 12:09) nabumetone [From Relafen] Allergy (Verified 12/11/21 12:09) naproxen Allergy (Verified 12/11/21 12:09) nizatidine [From Axid] Allergy (Verified 12/11/21 12:09) pantoprazole sodium [From Protonix] Allergy (Verified 12/11/21 12:09) Penicillins Allergy (Verified 12/11/21 12:09) pilocarpine HCl [From Salagen] Allergy (Verified 12/11/21 12:09) rofecoxib [From Vioxx] Allergy (Verified 12/11/21 12:09) salmeterol xinafoate [From Advair Diskus] Allergy (Verified 12/11/21 12:09) tramadol HCl [From Ultracet] Allergy (Verified 12/11/21 12:09) Home Medications: Amlodipine Besylate 10 mg [Norvasc 10 MG] 5 mg PO DAILY 12/31/13 [History] Clopidogrel Bisulfate [PLAVIX Tablet] 75 mg PO DAILY 12/31/13 [History] Levothyroxine Sodium 50 Mcg [Synthroid 50 Mcg] 50 mcg PO DAILY 12/31/13 [History] Loratadine 10 mg [Claritin 10 mg] 10 mg PO DAILY 12/31/13 [History] Nebivolol HCl [Bystolic] 10 mg PO DAILY 12/31/13 [History] predniSONE [Prednisone] 1 tab PO DAILY 11/10/15 [History] Benzonatate 1 cap PO TID PRN 12/11/21 [History] Ergocalciferol (Vitamin D2) [Drisdol] 1 cap PO 2XW 12/11/21 [History] Fenofibrate Nanocrystallized [Fenofibrate] 0.5 tab PO DAILY 12/11/21 [History] Sodium Bicarbonate 1 tab PO BID 12/11/21 [History] Hx Tetanus, Diphtheria Vaccination/Date Given: Yes Hx Influenza Vaccination/Date Given: No Hx Pneumococcal Vaccination/Date Given: No Immunizations Up to Date: Yes Travel Risk - International Travel Have you traveled outside of the country in past 3 weeks: No - Coronavirus Screening Are you exhibiting any of the following symptoms?: Yes Symptoms: Fever, Cough: New Onset, Shortness of Breath, Headaches/Body Aches/Fatigue Close contact with a COVID-19 positive Pt in past 14-21 Days: No - Vaccine Status Have you recieved a Covid-19 vaccination: Yes 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 - Vaccination Dates Date of 2cond Vaccination (if applicable): 05/2020 - Review of Systems Constitutional: No Symptoms, No Fever, No Chills Eyes: No Symptoms Ears, Nose, & Throat: No Symptoms Respiratory: No Symptoms, No Cough, No Dyspnea Cardiac: No Symptoms, No Chest Pain, No Edema, No Syncope Abdominal/Gastrointestinal: No Symptoms, No Abdominal Pain, No Nausea, No Vomiting, No Diarrhea Genitourinary Symptoms: No Symptoms, No Dysuria Musculoskeletal: No Symptoms, No Back Pain, No Neck Pain Skin: No Symptoms, No Rash Neurological: No Symptoms, No Dizziness, No Focal Weakness, No Sensory Changes Psychological: No Symptoms Endocrine: No Symptoms Hematologic/Lymphatic: No Symptoms Immunological/Allergic: No Symptoms All Other Systems: Reviewed and Negative - Past Medical History Pertinent Past Medical History: Yes Neurological History: TIA ENT History: No Pertinent History Cardiac History: Arrhythmia, Hypertension, Myocardial Infarction ([place]) Respiratory History: Pneumonia Endocrine Medical History: Hypothyroidism Musculoskeletal History: Arthritis GI Medical History: No Pertinent History History: No Pertinent History Psycho-Social History: No Pertinent History Female Reproductive Disorders: No Pertinent History Other Medical History: LUPUS, REYNAUDS, FIBROMYALGIA, THYROID D/O, Chronic Renal Disease - Past Surgical History Past Surgical History: Yes Neuro Surgical History: No Pertinent History Cardiac: Cardiac Catheterization Respiratory: No Pertinent History Gastrointestinal: Cholecystectomy Genitourinary: No Pertinent History Musculoskeletal: Orthopedic Surgery Female Surgical History: Hysterectomy Other Surgical History: tonsils,colonoscopy,left wrist surgery - Social History Smoking Status: Never smoker Exposure to second hand smoke: No Drug Use: none Patient Lives Alone: No - Nursing Vital Signs Nursing Vital Signs: Initial Vital Signs Temperature 101.3 F 12/11/21 12:09 Pulse Rate 80 12/11/21 12:09 Respiratory Rate 24 12/11/21 12:09 Blood Pressure 156/61 12/11/21 12:09 O2 Sat by Pulse Oximetry 98 12/11/21 12:09 Pain Scale Pain Intensity 3 - Physical Exam General Appearance: no apparent distress, alert Eye Exam: PERRL/EOMI Neck Exam: normal inspection, supple Respiratory Exam: airway intact, other (Diminished breath sounds throughout), No respiratory distress, No accessory muscle use, No wheezing Cardiovascular/Chest Exam: normal heart sounds, regular rate/rhythm Abdominal/Gastrointestinal Exam: soft, No tenderness, No distention, No mass Extremity Exam: non-tender, normal range of motion, normal inspection, no calf tenderness, no pedal edema Neurologic Exam: alert, oriented x 3, cooperative, sock boarder II-XII nml as tested, sensation nml, No motor deficits Skin Exam: normal color, warm, No dry Lymphatic Exam: No adenopathy SpO2 Interpretation: hypoxic SpO2: 98 O2 Delivery: Nasal Cannula - Course Nursing assessment & vital signs reviewed: Yes EKG Interpreted by Me: RATE (68 T wave inversion inferiorly), Sinus Rhythm, NORMAL AXIS, NORMAL INTERVALS (New T wave inversions) - Radiology Exams Chest X-ray Interpretation: Teleradiologist Report (Left base infiltrate.) Ordered Tests: Active Orders 24 hr Category Date Time Status EKG-ER Only STAT Care 12/11/21 12:35 Active IV Insertion STAT Care 12/11/21 12:35 Active Pulse Oximetry (ED) STAT Care 12/11/21 12:35 Active CHEST 1 VIEW (PORTABLE) Stat Exams 12/11/21 12:35 Completed BLOOD CULTURE Stat Lab 12/11/21 12:55 Received CBC W DIFF Stat Lab 12/11/21 12:35 Completed CMP Stat Lab 12/11/21 12:50 Completed Lactic Acid Stat Lab 12/11/21 12:35 Completed PROCALCITONIN Stat Lab 12/11/21 Ordered UA W/RFX CULTURE Stat Lab 12/11/21 Ordered Medication Summary Generic Name Dose Route Start Last Admin Trade Name Freq PRN Reason Stop Dose Admin Dexamethasone Sodium Phosphate 6 mg 12/11/21 15:26 Dexamethasone Sod Phosphate 4 Mg/Ml Ml IV 12/11/21 15:27 STAT ONE Enoxaparin Sodium 40 mg 12/11/21 15:27 Enoxaparin Sodium 40 Mg/0.4 Ml Syringe SQ 12/11/21 15:28 STAT ONE Sodium Chloride 1,000 mls @ 100 mls/hr 12/11/21 12:45 12/11/21 12:49 Sodium Chloride 0.9% 1000 Ml IV 01/10/22 12:44 100 mls/hr .Q10H MERLIN Administration Doxycycline Hyclate 100 mg/ 100 mls @ 100 mls/hr 12/11/21 22:00 Dextrose IV 01/10/22 21:59 Q12HT MERLIN Remdesivir 200 mg/ Sodium 250 mls @ 125 mls/hr 12/11/21 15:24 Chloride IV 12/11/21 17:23 ONCE ONE Discontinued Medications Generic Name Dose Route Start Last Admin Trade Name Yvette PRN Reason Stop Dose Admin Levofloxacin/Dextrose 500 mg in 100 mls @ 100 mls/hr 12/11/21 13:12 12/11/21 13:57 Levofloxacin 500mg/100ml D5w IV 12/11/21 14:11 Not Given STAT STA Clindamycin HCl/Dextrose 900 mg in 50 mls @ 100 mls/hr 12/11/21 13:15 12/11/21 14:30 Clindamycin-D5w 900 Mg/50 Ml IV 12/11/21 13:44 Infused STAT STA Infusion Lab/Rad Data: Laboratory Result Diagrams 12/11/21 12:35 12/11/21 12:50 Laboratory Results 12/11/21 12/11/21 12/11/21 Range/Units 14:01 12:50 12:35 WBC (4.0-10.5) x10^3/uL RBC (4.1-5.4) x10^6/uL Hgb (12.0-16.0) g/dL Hct (35-47) % MCV (78-100) fL MCH (26-32) pg MCHC (32-36) g/dL RDW (11.5-14.0) % Plt Count (150-450) x10^3/uL MPV (7.5-11.0) fL Gran % (36.0-66.0) % Immature Gran % (Auto) (0.00-0.4) % Nucleat RBC Rel Count (0.00-0.1) % Eos # (Auto) (0-0.5) x10^3/uL Immature Gran # (Auto) (0.00-0.03) x10^3u/L Absolute Lymphs (auto) (1.0-4.6) x10^3/uL Absolute Monos (auto) (0.0-1.3) x10^3/uL Absolute Nucleated RBC (0.00-0.01) x10^3u/L Lymphocytes % (24.0-44.0) % Monocytes % (0.0-12.0) % Eosinophils % (0.00-5.0) % Basophils % (0.0-0.4) % Absolute Granulocytes (1.4-6.9) x10^3/uL Basophils # (0-0.4) x10^3/uL Sodium 139 (137-145) mmol/L Potassium 4.2 (3.5-5.1) mmol/L Chloride 111 H (98-107) mmol/L Carbon Dioxide 20 L (22-30) mmol/L Anion Gap 12.1 (5-15) MEQ/L BUN 33 H (7-17) mg/dL Creatinine 2.29 H (0.52-1.04) mg/dL Estimated GFR 21.6 ML/MIN Glucose 88 (74-106) mg/dL Lactic Acid 0.6 (0.4-2.0) Calcium 8.5 (8.4-10.2) mg/dL Total Bilirubin 0.60 (0.2-1.3) mg/dL AST 53 H (14-36) U/L ALT 26 (0-35) U/L Alkaline Phosphatase 54 (38-126) U/L Serum Total Protein 6.5 (6.3-8.2) g/dL Albumin 3.5 (3.5-5.0) g/dL Influenza Type A Ag NEGATIVE (NEGATIVE) Influenza Type B Ag NEGATIVE (NEGATIVE) RSV (PCR) NEGATIVE (Negative) SARS-CoV-2 (PCR) POSITIVE A (NEGATIVE) 12/11/21 Range/Units 12:35 WBC 6.7 (4.0-10.5) x10^3/uL RBC 4.19 (4.1-5.4) x10^6/uL Hgb 11.8 L (12.0-16.0) g/dL Hct 36.9 (35-47) % MCV 88.1 (78-100) fL MCH 28.2 (26-32) pg MCHC 32.0 (32-36) g/dL RDW 13.8 (11.5-14.0) % Plt Count 150 (150-450) x10^3/uL MPV 9.8 (7.5-11.0) fL Gran % 68.4 H (36.0-66.0) % Immature Gran % (Auto) 0.7 H (0.00-0.4) % Nucleat RBC Rel Count 0.0 (0.00-0.1) % Eos # (Auto) 0.06 (0-0.5) x10^3/uL Immature Gran # (Auto) 0.05 H (0.00-0.03) x10^3u/L Absolute Lymphs (auto) 1.06 (1.0-4.6) x10^3/uL Absolute Monos (auto) 0.95 (0.0-1.3) x10^3/uL Absolute Nucleated RBC 0.00 (0.00-0.01) x10^3u/L Lymphocytes % 15.8 L (24.0-44.0) % Monocytes % 14.1 H (0.0-12.0) % Eosinophils % 0.9 (0.00-5.0) % Basophils % 0.1 (0.0-0.4) % Absolute Granulocytes 4.59 (1.4-6.9) x10^3/uL Basophils # 0.01 (0-0.4) x10^3/uL Sodium (137-145) mmol/L Potassium (3.5-5.1) mmol/L Chloride (98-107) mmol/L Carbon Dioxide (22-30) mmol/L Anion Gap (5-15) MEQ/L BUN (7-17) mg/dL Creatinine (0.52-1.04) mg/dL Estimated GFR ML/MIN Glucose (74-106) mg/dL Lactic Acid (0.4-2.0) Calcium (8.4-10.2) mg/dL Total Bilirubin (0.2-1.3) mg/dL AST (14-36) U/L ALT (0-35) U/L Alkaline Phosphatase (38-126) U/L Serum Total Protein (6.3-8.2) g/dL Albumin (3.5-5.0) g/dL Influenza Type A Ag (NEGATIVE) Influenza Type B Ag (NEGATIVE) RSV (PCR) (Negative) SARS-CoV-2 (PCR) (NEGATIVE) - Progress Progress: improved Air Movement: good Progress Note: Patient is an 81-year-old female presents to our ED via EMS for evaluation of cough fever shortness of breath and body aches. Chest x-ray reveals a left base infiltrate. Patient is COVID-positive. Elevated creatinine. Patient hypoxemic. Patient has a history of chronic renal insufficiency. In light of the hypoxia, pneumonia and generalized weakness we will admit for further evaluation and treatment. Blood cultures obtained. Antibiotics infused. Case discussed with Dr. Chahal covering Dr. Diaz who accepts admission to observation. Plan of care discussed with patient. She agrees to admission to [facility] for further evaluation and treatment. Portions of this note were created with voice recognition technology. There may be grammatical, spelling, punctuation or sound alike errors 12/11/21 15:35 Blood Culture(s) Obtained: Yes Antibiotics given: Yes Discussed with Dr.: Nickolas Will see patient in: hospital (observation) Counseled pt/family regarding: lab results, diagnosis, rad results - Departure Departure Disposition: Observation Clinical Impression: Pneumonia, Abnormal EKG, Shortness of breath, Cough, Laryngitis, Chronic renal insufficiency, COVID-19, Hypoxia Condition: Stable Critical Care Time: No Referrals: DIANNA DIAZ [Primary Care Provider] - Follow up/PCP as directed
[2021-12-11] MEDS ORDERED: CLINDAMYCIN-D5W 900 MG/50 ML*** 900 MG/50 ML BAG IV STA (13:15)
[2021-12-11 13:16] LABS: ALBUMIN 3.5 g/dL (3.5-5.0); ANION GAP 12.1 MEQ/L (5-15); BILIRUBIN,TOTAL 0.6 mg/dL (0.2-1.3); Calcium 8.5 mg/dL (8.4-10.2); Creatinine 1 2.29 mg/dL (0.52-1.04); EST GLOMERULAR FILTRATION RATE 21.6 ML/MIN; Potassium 4.2 mmol/L (3.5-5.1); Total Protein 6.5 g/dL (6.3-8.2)
[2021-12-11 15:02] LABS: INFLUENZA A NEGATIVE (NEGATIVE); INFLUENZA B NEGATIVE (NEGATIVE); RESPIRATORY SYNCTIAL VIRUS NEGATIVE (Negative)
[2021-12-11 15:13] LABS: SARS-CoV-2 Xpert Express POSITIVE (NEGATIVE)
[2021-12-11] MEDS ORDERED: REMDESIVIR 200 MG in Sodium Chloride 0.9% 250 ML 250 ML IV ONE ×2 (15:24→18:00)
[2021-12-11] MEDS ORDERED: Decadron 4 MG INJ IV ONE (15:26)
[2021-12-11] MEDS ORDERED: ENOXAPARIN SODIUM SQ ONE (15:27)
[2021-12-11] MEDS ORDERED: Decadron 4 MG INJ ONE (15:33)
[2021-12-11] MEDS ORDERED: VENTOLIN COMMON CANISTER IH PRN (16:04)
[2021-12-11 21:44] LABS: Bacteria MANY /HPF (NEGATIVE); Epithelial Cells RARE /HPF (FEW); Mucus SLIGHT /HPF (NEGATIVE); WBC 0-2 /HPF (0-5)
[2021-12-11 21:46] LABS: Appearance CLEAR (CLEAR); Bilirubin NEGATIVE (NEGATIVE); Glucose NEGATIVE (NEGATIVE); Ketones NEGATIVE (NEGATIVE); Protein,Urine Dip NEGATIVE (Negative); RBC SMALL Ery/ul (0-5); Specific Gravity 1.015 (1.005-1.025); Urobilinogen 0.2 mg/dL (0-1)
[2021-12-11 21:47] LABS: Dipstick done @ ? MAIN LAB; Nitrite NEGATIVE (NEGATIVE); Urine Cultured Indicated? YES
[2021-12-11] MEDS: VIBRAMYCIN 100 MG*** 100 MG in Dextrose 5%/Water IV Soln. 100ML PLUS BAG 100 ML IV SCH (22:00)
[2021-12-11] MEDS: NORVASC 5 MG PO SCH (22:00)
[2021-12-11] MEDS ORDERED: NON-FORMULARY ITEM (Sodium Bicarbonate 650 MG Tablet) PO SCH (22:00)
[2021-12-11] MEDS: SODIUM BICARBONATE PO SCH (22:00)
[2021-12-11] MEDS ORDERED: NON-FORMULARY ITEM (Amlodipine Besylate 10 Mg [Norvasc 10 Mg] 10 MG Tablet) PO SCH (22:00)
[2021-12-11] MEDS: TYLENOL 325 MG PO PRN (22:20)
[2021-12-12 05:15] LABS: Absolute Neutrophil Ct (ANC) 5.01 x10^3/uL (1.4-6.9); Basophil (Absolute #) 0.01 x10^3/uL (0-0.4); Eosinophil (Absolute #) 0 x10^3/uL (0-0.5); Hematocrit 35.8 % (35-47); Hemoglobin 11.5 g/dL (12.0-16.0); Lymphocyte (Absolute #) 0.65 x10^3/uL (1.0-4.6); Lymphocytes % 10.7 % (24.0-44.0); Mean Cell Volume 87.3 fL (78-100); Mean Corpuscular Hgb Concent. 32.1 g/dL (32-36); Monocyte (Absolute #) 0.38 x10^3/uL (0.0-1.3); Monocytes % 6.2 % (0.0-12.0); Neutrophil % 82.2 % (36.0-66.0); Platelet Count 150 x10^3/uL (150-450); Red Cell Distribution Width 13.8 % (11.5-14.0); White Blood Count 6.1 x10^3/uL (4.0-10.5)
[2021-12-12 05:38] LABS: ALBUMIN 3.3 g/dL (3.5-5.0); ANION GAP 12.8 MEQ/L (5-15); BILIRUBIN,TOTAL 0.4 mg/dL (0.2-1.3); Calcium 7.9 mg/dL (8.4-10.2); Creatinine 1 2.04 mg/dL (0.52-1.04); EST GLOMERULAR FILTRATION RATE 24.7 ML/MIN; Potassium 4.5 mmol/L (3.5-5.1); Total Protein 6.1 g/dL (6.3-8.2)
[2021-12-12] MEDS: PLAVIX Tablet PO SCH (08:20)
[2021-12-12] MEDS: Tricor 145 MG PO SCH (08:20)
[2021-12-12] MEDS: CLARITIN 10 MG PO SCH (08:20)
[2021-12-12] MEDS: Bystolic 5 MG PO SCH (08:20)
[2021-12-12] MEDS: SYNTHROID 50 MCG PO SCH (08:21)
[2021-12-12] MEDS: SODIUM BICARBONATE PO SCH ×2 (08:22→21:08)
[2021-12-12] MEDS: NORVASC 5 MG PO SCH ×2 (08:22→21:07)
[2021-12-12] MEDS: VIBRAMYCIN 100 MG*** 100 MG in Dextrose 5%/Water IV Soln. 100ML PLUS BAG 100 ML IV SCH ×2 (08:23→20:25)
[2021-12-12] MEDS: TYLENOL 325 MG PO PRN ×2 (08:31→18:13)
[2021-12-12] MEDS: ENOXAPARIN SODIUM SQ SCH (08:40)
--- NOTE | 2021-12-12 08:58 | PCM.HP ---
History of Present Illness - Chief Complaint Chief Complaint: Covid -19 , Pneumonia History of Present Illness: is a 81 year old female pt of Dr. Diaz'nicole with PMHx HTN, VT, hypothyroidism, OA, lupus, fibromyalgia, and chronic renal failure who was admitted through ER with LLL PNA and Covid. She was sick in September 2021, treated with po steroids and antibiotics outpatient, but never really got rid of the cough. Over the last 3 d she was feeling worse, with fever to 102 and fatigue. She was picked up by EMS, noted to have O2 saturation in the mid 80s and put on O2 per NC with sats in the 90s. Her WBC are 6.7, but procalcitonin mildly elevated. CXR showed LLL PNA. started on IV steroid, IV antibiotic, IV remdesivir. She has Cr 2.29, which is above her baseline of upper 1s/2s. - Review of Systems Constitutional: Fever, Chills, Fatigue Respiratory: Cough, Short Of Breath Abdominal/Gastrointestinal: Appetite Changes Neurological: Dizziness, Headache (xabout 7d) All Other Systems: Reviewed and Negative Medications & Allergies Home Medications: Home Medication List Amlodipine Besylate 10 mg [Norvasc 10 MG] 5 mg PO BID 12/31/13 [History Confirmed 12/11/21] Clopidogrel Bisulfate [PLAVIX Tablet] 75 mg PO DAILY 12/31/13 [History Confirmed 12/11/21] Levothyroxine Sodium 50 Mcg [Synthroid 50 Mcg] 50 mcg PO DAILY 12/31/13 [History Confirmed 12/11/21] Loratadine 10 mg [Claritin 10 mg] 10 mg PO DAILY 12/31/13 [History Confirmed 12/11/21] Nebivolol HCl [Bystolic] 10 mg PO DAILY 12/31/13 [History Confirmed 12/11/21] predniSONE [Prednisone] 1 tab PO DAILY 11/10/15 [History Confirmed 12/11/21] Ergocalciferol (Vitamin D2) [Drisdol] 1 cap PO WEEKLY 12/11/21 [History Confirme d 12/11/21] Fenofibrate Nanocrystallized [Fenofibrate] 0.5 tab PO DAILY 12/11/21 [History Confirmed 12/11/21] Sodium Bicarbonate 1 tab PO BID 12/11/21 [History Confirmed 12/11/21] Allergies/Adverse Reactions: Allergies Allergy/AdvReac Type Severity Reaction Status Date / Time aspirin [From Aggrenox] Allergy Verified 12/11/21 12:09 azithromycin Allergy Verified 12/11/21 12:09 [From Zithromax Z-Timbo] calcitonin,salmon,synthetic Allergy Verified 12/11/21 12:09 [From Miacalcin] cefaclor [From Ceclor] Allergy Verified 12/11/21 12:09 clarithromycin [From Biaxin] Allergy Verified 12/11/21 12:09 diazepam [From Valium] Allergy Verified 12/11/21 12:09 dipyridamole [From Aggrenox] Allergy Verified 12/11/21 12:09 fluticasone propionate Allergy Verified 12/11/21 12:09 [From Advair Diskus] levofloxacin [From Levaquin] Allergy Verified 12/11/21 12:09 meclizine HCl [From Antivert] Allergy Verified 12/11/21 12:09 nabumetone [From Relafen] Allergy Verified 12/11/21 12:09 naproxen Allergy Verified 12/11/21 12:09 nizatidine [From Axid] Allergy Verified 12/11/21 12:09 pantoprazole sodium Allergy Verified 12/11/21 12:09 [From Protonix] Penicillins Allergy Verified 12/11/21 12:09 pilocarpine HCl Allergy Verified 12/11/21 12:09 [From Salagen] rofecoxib [From Vioxx] Allergy Verified 12/11/21 12:09 salmeterol xinafoate Allergy Verified 12/11/21 12:09 [From Advair Diskus] tramadol HCl [From Ultracet] Allergy Verified 12/11/21 12:09 - Past Medical History Past Medical History: Yes Neurological History: TIA ENT History: No Pertinent History Cardiac History: Arrhythmia, Hypertension, Myocardial Infarction (VT) Respiratory History: Pneumonia Endocrine Medical History: Hypothyroidism Musculoskelatal History: Arthritis GI Medical History: No Pertinent History History: No Pertinent History Pyscho-Social History: No Pertinent History Reproductive Disorders: No Pertinent History Comment: LUPUS, REYNAUDS, FIBROMYALGIA, THYROID D/O, Chronic Renal Disease. November 17 2020 fx pelvis. - Female History Are you now?: No - Past Surgical History Past Surgical History: Yes Neuro Surgical History: No Pertinent History Cardiac History: Cardiac Catheterization Respiratory Surgery: No Pertinent History GI Surgical History: Cholecystectomy Genitourinary Surgical Hx: No Pertinent History Musculskeletal Surgical Hx: Orthopedic Surgery Female Surgical History: Hysterectomy Other Surgical History: tonsils,colonoscopy,left wrist surgery - Social History Smoking Status: Never smoker Exposure to second hand smoke: No Alcohol: None Drug Use: none - Physical Exam Vital Signs: Vital Signs - 24 hr Temp Pulse Resp BP Pulse Ox 12/12/21 08:07 97 12/12/21 08:00 98.2 F 58 L 34 H 170/68 96 12/12/21 05:37 18 12/12/21 05:33 54 L 18 96 12/12/21 03:52 18 12/12/21 03:46 98.4 F 61 18 139/68 98 12/12/21 02:00 20 12/12/21 01:46 50 L 20 100 12/12/21 00:00 97.1 F 61 20 161/69 96 12/11/21 23:49 97.1 F 61 20 161/69 96 12/11/21 22:00 20 12/11/21 21:53 57 L 20 97 12/11/21 20:00 20 12/11/21 19:56 98.0 F 59 L 18 132/56 98 12/11/21 19:35 95 12/11/21 18:00 16 12/11/21 17:30 92 L 12/11/21 16:17 98.0 F 64 16 151/67 96 12/11/21 16:12 114/43 12/11/21 16:04 64 16 92 L 12/11/21 15:39 98 12/11/21 15:10 58 L 20 114/43 97 12/11/21 14:00 69 19 124/42 96 12/11/21 13:16 68 19 130/59 96 12/11/21 12:09 101.3 F 80 24 156/61 98 General Appearance: mild distress (with coughing, frequent during exam), alert Neurologic Exam: oriented x 3, cooperative, normal mood/affect Eye Exam: eyes nml inspection Ears, Nose, Throat Exam: moist mucous membranes Neck Exam: normal inspection Respiratory Exam: diminished breath sounds, prolonged expirations, wheezing (faint, scattered), No normal breath sounds (good air exchange), No crackles/rales, No rhonchi Cardiovascular Exam: regular rate/rhythm, normal heart sounds, No murmur Gastrointestinal/Abdomen Exam: soft, normal bowel sounds, No tenderness, No distention, No mass, No guarding, No rebound Back Exam: normal inspection, No rash Extremity Exam: normal inspection, No pedal edema, No swelling Skin Exam: normal color, warm, dry, No rash Results - Labs Lab/Micro Results: Lab Results-Last 24 Hours 12/11/21 12/11/21 12/11/21 Range/Units 12:35 12:35 12:36 WBC 6.7 (4.0-10.5) x10^3/uL RBC 4.19 (4.1-5.4) x10^6/uL Hgb 11.8 L (12.0-16.0) g/dL Hct 36.9 (35-47) % MCV 88.1 (78-100) fL MCH 28.2 (26-32) pg MCHC 32.0 (32-36) g/dL RDW 13.8 (11.5-14.0) % Plt Count 150 (150-450) x10^3/uL MPV 9.8 (7.5-11.0) fL Gran % 68.4 H (36.0-66.0) % Immature Gran % (Auto) 0.7 H (0.00-0.4) % Nucleat RBC Rel Count 0.0 (0.00-0.1) % Eos # (Auto) 0.06 (0-0.5) x10^3/uL Immature Gran # (Auto) 0.05 H (0.00-0.03) x10^3u/L Absolute Lymphs (auto) 1.06 (1.0-4.6) x10^3/uL Absolute Monos (auto) 0.95 (0.0-1.3) x10^3/uL Absolute Nucleated RBC 0.00 (0.00-0.01) x10^3u/L Lymphocytes % 15.8 L (24.0-44.0) % Monocytes % 14.1 H (0.0-12.0) % Eosinophils % 0.9 (0.00-5.0) % Basophils % 0.1 (0.0-0.4) % Absolute Granulocytes 4.59 (1.4-6.9) x10^3/uL Basophils # 0.01 (0-0.4) x10^3/uL Sodium (137-145) mmol/L Potassium (3.5-5.1) mmol/L Chloride (98-107) mmol/L Carbon Dioxide (22-30) mmol/L Anion Gap (5-15) MEQ/L BUN (7-17) mg/dL Creatinine (0.52-1.04) mg/dL Estimated GFR ML/MIN Glucose (74-106) mg/dL Lactic Acid 0.6 (0.4-2.0) Calcium (8.4-10.2) mg/dL Total Bilirubin (0.2-1.3) mg/dL AST (14-36) U/L ALT (0-35) U/L Alkaline Phosphatase (38-126) U/L Serum Total Protein (6.3-8.2) g/dL Albumin (3.5-5.0) g/dL Procalcitonin 0.197 H (0.030-0.080) ng/mL Urinalys Dipstick Clnc Urine Color (YELLOW) Urine Appearance (CLEAR) Urine pH (5-6) Ur Specific [place] (1.005-1.025) POC Urine Protein Conf (Negative) Urine Ketones (NEGATIVE) Urine Nitrite (NEGATIVE) Urine Bilirubin (NEGATIVE) Urine Urobilinogen (0-1) mg/dL Urine Leukocytes (NEGATIVE) Urine WBC (Auto) (0-5) /HPF Urine RBC (Auto) (0-2) /HPF U Epithel Cells (Auto) (FEW) /HPF Urine Bacteria (Auto) (NEGATIVE) /HPF Urine RBC (0-5) Jn/ul Urine Mucus (Auto) (NEGATIVE) /HPF Ur Culture Indicated? Urine Glucose (NEGATIVE) mg/dL Influenza Type A Ag (NEGATIVE) Influenza Type B Ag (NEGATIVE) RSV (PCR) (Negative) SARS-CoV-2 (PCR) (NEGATIVE) 12/11/21 12/11/21 12/11/21 Range/Units 12:50 14:01 21:50 WBC (4.0-10.5) x10^3/uL RBC (4.1-5.4) x10^6/uL Hgb (12.0-16.0) g/dL Hct (35-47) % MCV (78-100) fL MCH (26-32) pg MCHC (32-36) g/dL RDW (11.5-14.0) % Plt Count (150-450) x10^3/uL MPV (7.5-11.0) fL Gran % (36.0-66.0) % Immature Gran % (Auto) (0.00-0.4) % Nucleat RBC Rel Count (0.00-0.1) % Eos # (Auto) (0-0.5) x10^3/uL Immature Gran # (Auto) (0.00-0.03) x10^3u/L Absolute Lymphs (auto) (1.0-4.6) x10^3/uL Absolute Monos (auto) (0.0-1.3) x10^3/uL Absolute Nucleated RBC (0.00-0.01) x10^3u/L Lymphocytes % (24.0-44.0) % Monocytes % (0.0-12.0) % Eosinophils % (0.00-5.0) % Basophils % (0.0-0.4) % Absolute Granulocytes (1.4-6.9) x10^3/uL Basophils # (0-0.4) x10^3/uL Sodium 139 (137-145) mmol/L Potassium 4.2 (3.5-5.1) mmol/L Chloride 111 H (98-107) mmol/L Carbon Dioxide 20 L (22-30) mmol/L Anion Gap 12.1 (5-15) MEQ/L BUN 33 H (7-17) mg/dL Creatinine 2.29 H (0.52-1.04) mg/dL Estimated GFR 21.6 ML/MIN Glucose 88 (74-106) mg/dL Lactic Acid (0.4-2.0) Calcium 8.5 (8.4-10.2) mg/dL Total Bilirubin 0.60 (0.2-1.3) mg/dL AST 53 H (14-36) U/L ALT 26 (0-35) U/L Alkaline Phosphatase 54 (38-126) U/L Serum Total Protein 6.5 (6.3-8.2) g/dL Albumin 3.5 (3.5-5.0) g/dL Procalcitonin (0.030-0.080) ng/mL Urinalys Dipstick Clnc MAIN LAB Urine Color YELLOW (YELLOW) Urine Appearance CLEAR (CLEAR) Urine pH 6.0 (5-6) Ur Specific [place] 1.015 (1.005-1.025) POC Urine Protein Conf NEGATIVE (Negative) Urine Ketones NEGATIVE (NEGATIVE) Urine Nitrite NEGATIVE (NEGATIVE) Urine Bilirubin NEGATIVE (NEGATIVE) Urine Urobilinogen 0.2 (0-1) mg/dL Urine Leukocytes NEGATIVE (NEGATIVE) Urine WBC (Auto) 0-2 (0-5) /HPF Urine RBC (Auto) 3-5 (0-2) /HPF U Epithel Cells (Auto) RARE (FEW) /HPF Urine Bacteria (Auto) MANY (NEGATIVE) /HPF Urine RBC SMALL (0-5) Jn/ul Urine Mucus (Auto) SLIGHT (NEGATIVE) /HPF Ur Culture Indicated? YES Urine Glucose NEGATIVE (NEGATIVE) mg/dL Influenza Type A Ag NEGATIVE (NEGATIVE) Influenza Type B Ag NEGATIVE (NEGATIVE) RSV (PCR) NEGATIVE (Negative) SARS-CoV-2 (PCR) POSITIVE A (NEGATIVE) 12/12/21 12/12/21 Range/Units 04:55 04:55 WBC 6.1 (4.0-10.5) x10^3/uL RBC 4.10 (4.1-5.4) x10^6/uL Hgb 11.5 L (12.0-16.0) g/dL Hct 35.8 (35-47) % MCV 87.3 (78-100) fL MCH 28.0 (26-32) pg MCHC 32.1 (32-36) g/dL RDW 13.8 (11.5-14.0) % Plt Count 150 (150-450) x10^3/uL MPV 10.0 (7.5-11.0) fL Gran % 82.2 H (36.0-66.0) % Immature Gran % (Auto) 0.7 H (0.00-0.4) % Nucleat RBC Rel Count 0.0 (0.00-0.1) % Eos # (Auto) 0 (0-0.5) x10^3/uL Immature Gran # (Auto) 0.04 H (0.00-0.03) x10^3u/L Absolute Lymphs (auto) 0.65 L (1.0-4.6) x10^3/uL Absolute Monos (auto) 0.38 (0.0-1.3) x10^3/uL Absolute Nucleated RBC 0.00 (0.00-0.01) x10^3u/L Lymphocytes % 10.7 L (24.0-44.0) % Monocytes % 6.2 (0.0-12.0) % Eosinophils % 0.0 (0.00-5.0) % Basophils % 0.2 (0.0-0.4) % Absolute Granulocytes 5.01 (1.4-6.9) x10^3/uL Basophils # 0.01 (0-0.4) x10^3/uL Sodium 137 (137-145) mmol/L Potassium 4.5 (3.5-5.1) mmol/L Chloride 112 H (98-107) mmol/L Carbon Dioxide 18 L (22-30) mmol/L Anion Gap 12.8 (5-15) MEQ/L BUN 34 H (7-17) mg/dL Creatinine 2.04 H (0.52-1.04) mg/dL Estimated GFR 24.7 ML/MIN Glucose 120 H (74-106) mg/dL Lactic Acid (0.4-2.0) Calcium 7.9 L (8.4-10.2) mg/dL Total Bilirubin 0.40 (0.2-1.3) mg/dL AST 61 H (14-36) U/L ALT 32 (0-35) U/L Alkaline Phosphatase 48 (38-126) U/L Serum Total Protein 6.1 L (6.3-8.2) g/dL Albumin 3.3 L (3.5-5.0) g/dL Procalcitonin (0.030-0.080) ng/mL Urinalys Dipstick Clnc Urine Color (YELLOW) Urine Appearance (CLEAR) Urine pH (5-6) Ur Specific [place] (1.005-1.025) POC Urine Protein Conf (Negative) Urine Ketones (NEGATIVE) Urine Nitrite (NEGATIVE) Urine Bilirubin (NEGATIVE) Urine Urobilinogen (0-1) mg/dL Urine Leukocytes (NEGATIVE) Urine WBC (Auto) (0-5) /HPF Urine RBC (Auto) (0-2) /HPF U Epithel Cells (Auto) (FEW) /HPF Urine Bacteria (Auto) (NEGATIVE) /HPF Urine RBC (0-5) Jn/ul Urine Mucus (Auto) (NEGATIVE) /HPF Ur Culture Indicated? Urine Glucose (NEGATIVE) mg/dL Influenza Type A Ag (NEGATIVE) Influenza Type B Ag (NEGATIVE) RSV (PCR) (Negative) SARS-CoV-2 (PCR) (NEGATIVE) Microbiology 12/11/21 Unknown Urine Culture - Preliminary Clean Catch Midstream GRAM NEGATIVE ID AND SENSITIVITY PENDING - Radiology Impressions Radiology Exams & Impressions: Radiology Procedures Category Date Time Status CHEST 1 VIEW (PORTABLE) Stat Exams 12/11/21 12:35 Completed - Other Procedures and Tests Respiratory Therapy 12/11/21 17:30 Oxygen NASAL CANNULA 2 lpm Assessment/Plan (1) Pneumonia Current Visit: Yes Status: Acute Qualifiers: Pneumonia type: due to unspecified organism Laterality: left Lung location: lower lobe of lung Qualified Code(s): J18.9 - Pneumonia, unspecified organism Assessment & Plan: Got 1 dose of IV clindamycin, now on doxycycline day #2 (IV). Albuterol prn. Code(s): J18.9 - PNEUMONIA, UNSPECIFIED ORGANISM (2) COVID-19 Current Visit: Yes Status: Acute Assessment & Plan: On dexamethasone and remdesivir. On 2L O2 per NC. Code(s): U07.1 - COVID-19 (3) Hypertension Current Visit: Yes Status: Chronic Qualifiers: Hypertension type: primary hypertension Qualified Code(s): I10 - Essential (primary) hypertension Code(s): I10 - ESSENTIAL (PRIMARY) HYPERTENSION (4) CAD (coronary artery disease) Current Visit: Yes Status: Chronic Qualifiers: Coronary Disease-Associated Artery/Lesion type: [place] artery [place] vs. transplanted heart: [place] heart Associated angina: without angina Qualified Code(s): I25.10 - Atherosclerotic heart disease of [place] coronary artery without angina pectoris Code(s): I25.10 - ATHSCL HEART DISEASE OF [place] CORONARY ARTERY W/O ANG PCTRS (5) Osteoarthritis Current Visit: Yes Status: Chronic Qualifiers: Osteoarthritis location: multiple joints Osteoarthritis type: primary Qualified Code(s): M15.9 - Polyosteoarthritis, unspecified Code(s): M19.90 - UNSPECIFIED OSTEOARTHRITIS, UNSPECIFIED SITE (6) Lupus Current Visit: Yes Status: Chronic Code(s): M32.9 - SYSTEMIC LUPUS ERYTHEMATOSUS, UNSPECIFIED (7) Fibromyalgia Current Visit: Yes Status: Chronic (8) Acute on chronic renal failure Current Visit: No Status: Acute Code(s): N17.9 - ACUTE KIDNEY FAILURE, UNSPECIFIED; N18.9 - CHRONIC KIDNEY DISEASE, UNSPECIFIED
[2021-12-12] MEDS: DECADRON 10MG INJ. IV SCH (09:25)
[2021-12-12] MEDS ORDERED: Decadron 4 MG INJ IV SCH (10:00)
[2021-12-12] MEDS ORDERED: NEBIVOLOL HCL 2.5 MG PO SCH (10:00)
[2021-12-12] MEDS ORDERED: ENOXAPARIN SODIUM SQ SCH (10:00)
[2021-12-12] MEDS: ROCEPHIN 1 Gm-D5w 50 ml Bag** 1 G/50 ML IVPB IV SCH (21:07)
[2021-12-12] MEDS: REMDESIVIR 100 MG in Sodium Chloride 100ML MINI-BAG PLUS 100 ML IV SCH (23:00)
[2021-12-13 04:59] LABS: Absolute Neutrophil Ct (ANC) 7.15 x10^3/uL (1.4-6.9); Basophil (Absolute #) 0.01 x10^3/uL (0-0.4); Eosinophil (Absolute #) 0 x10^3/uL (0-0.5); Hematocrit 35.4 % (35-47); Hemoglobin 11.6 g/dL (12.0-16.0); Lymphocyte (Absolute #) 0.84 x10^3/uL (1.0-4.6); Lymphocytes % 9.5 % (24.0-44.0); Mean Cell Volume 85.3 fL (78-100); Mean Corpuscular Hgb Concent. 32.8 g/dL (32-36); Monocyte (Absolute #) 0.82 x10^3/uL (0.0-1.3); Monocytes % 9.3 % (0.0-12.0); Neutrophil % 80.6 % (36.0-66.0); Platelet Count 163 x10^3/uL (150-450); Red Blood Count 4.15 x10^6/uL (4.1-5.4); Red Cell Distribution Width 13.6 % (11.5-14.0); White Blood Count 8.9 x10^3/uL (4.0-10.5)
[2021-12-13] MEDS: TYLENOL 325 MG PO PRN ×2 (04:59→22:01)
[2021-12-13 05:37] LABS: ALBUMIN 3.3 g/dL (3.5-5.0); ANION GAP 11.2 MEQ/L (5-15); BILIRUBIN,TOTAL 0.4 mg/dL (0.2-1.3); Calcium 8.2 mg/dL (8.4-10.2); Creatinine 1 1.77 mg/dL (0.52-1.04); EST GLOMERULAR FILTRATION RATE 29.1 ML/MIN; Potassium 4.1 mmol/L (3.5-5.1)
[2021-12-13] MEDS: CLARITIN 10 MG PO SCH (08:57)
[2021-12-13] MEDS: VIBRAMYCIN 100 MG*** 100 MG in Dextrose 5%/Water IV Soln. 100ML PLUS BAG 100 ML IV SCH ×2 (08:57→20:17)
[2021-12-13] MEDS: ENOXAPARIN SODIUM SQ SCH (08:57)
[2021-12-13] MEDS: NORVASC 5 MG PO SCH ×2 (08:57→22:01)
[2021-12-13] MEDS: DECADRON 10MG INJ. IV SCH (08:57)
[2021-12-13] MEDS: Bystolic 5 MG PO SCH (08:57)
[2021-12-13] MEDS: SODIUM BICARBONATE PO SCH ×2 (08:58→22:03)
[2021-12-13] MEDS: PLAVIX Tablet PO SCH (08:58)
[2021-12-13] MEDS: Tricor 145 MG PO SCH (08:58)
[2021-12-13] MEDS: SYNTHROID 50 MCG PO SCH (08:58)
[2021-12-13] MEDS: Tessalon Perles 100 MG PO PRN (09:03)
[2021-12-13] MEDS ORDERED: XYLOCAINE 1% HCL 20 ML MDV ONE (14:15)
[2021-12-13] MEDS ORDERED: Sodium Chloride 0.9% 500 ML 500 ML IV ONE (16:00)
--- NOTE | 2021-12-13 16:00 | ANESPROCNO ---
Anesthesia Procedure Note - Anesthesia Procedure Note Procedure Date:: 12/13/21 Procedure Time:: 14:30 Anesthesia Procedure Note: Consulted for IV placement after nursing staff unsuccessful multiple attempts. Discussed risks/benefits of ultrasound guided midline placement with patient and informed consent obtained. LUE scanned with ultrasound and target vessel identified left basilic vein. LUE prepped 2%CHG70%ISO and allowed 3 minute dry time. Arm prepped and draped in usual sterile fashion. Skin and subq. tissue above target vessel infiltrated with 5cc 1% lidocaine. Vessel accessed one attempt with [id number] echogenic needle. A [id number] Nitinol guide wire was passed easily without resistance through needle into vessel and needle withdrawn. Cannulation with guide wire confirmed in both short and long vessel axis via ultrasound. A [id number] co-axial introducer was passed easily over guide wire into vessel and wire withdrawn. Catheter with brisk venous blood return and flushed easily. Using Mastisol as a skin prep, a sterile occlusive dressing was applied. There were no complications, and the patient tolerated the procedure well. This procedure was completed using the Fast FiBR Mini Access Kit. Anesthesia service remains available for further consultation if necessary.
[2021-12-13] MEDS: REMDESIVIR 100 MG in Sodium Chloride 100ML MINI-BAG PLUS 100 ML IV SCH (21:58)
[2021-12-13] MEDS: ROCEPHIN 1 Gm-D5w 50 ml Bag** 1 G/50 ML IVPB IV SCH (22:02)
[2021-12-14 05:20] LABS: Hematocrit 33.1 % (35-47); Hemoglobin 10.8 g/dL (12.0-16.0); Mean Cell Volume 86.2 fL (78-100); Mean Corpuscular Hemoglobin 28.1 pg (26-32); Mean Corpuscular Hgb Concent. 32.6 g/dL (32-36); Mean Platelet Volume 10.7 fL (7.5-11.0); Platelet Count 160 x10^3/uL (150-450); Red Blood Count 3.84 x10^6/uL (4.1-5.4); White Blood Count 6.1 x10^3/uL (4.0-10.5)
[2021-12-14 05:47] LABS: Creatinine 1 1.87 mg/dL (0.52-1.04); EST GLOMERULAR FILTRATION RATE 27.3 ML/MIN; Potassium 4.5 mmol/L (3.5-5.1)
[2021-12-14] MEDS: DECADRON 10MG INJ. IV SCH (08:01)
[2021-12-14] MEDS: Tessalon Perles 100 MG PO PRN (08:02)
[2021-12-14] MEDS: VIBRAMYCIN 100 MG*** 100 MG in Dextrose 5%/Water IV Soln. 100ML PLUS BAG 100 ML IV SCH (08:02)
[2021-12-14] MEDS: Bystolic 5 MG PO SCH (08:03)
[2021-12-14] MEDS: CLARITIN 10 MG PO SCH (08:03)
[2021-12-14] MEDS: Tricor 145 MG PO SCH (08:03)
[2021-12-14] MEDS: NORVASC 5 MG PO SCH (08:04)
[2021-12-14] MEDS: SYNTHROID 50 MCG PO SCH (08:04)
[2021-12-14] MEDS: PLAVIX Tablet PO SCH (08:04)
[2021-12-14] MEDS: ENOXAPARIN SODIUM SQ SCH (08:04)
[2021-12-14] MEDS: SODIUM BICARBONATE PO SCH (08:04)
[2021-12-14 08:15] VITALS: BP 157/68
[2021-12-14 10:28] VITALS: PULSE 66; O2SAT 95
== END 2021-12-14 11:35 | disposition home or self-care (01) | DRG 193 ==
LOC: ED 11:59 → MED SURG 15:48 → OBSVTOIN 12-12 08:53
PROVIDERS: ADMIT Family Medicine; ATTEND Family Medicine
PROC: 06HN33Z Insertion of Infusion Device into Left Femoral Vein, Percutaneous Approach (ICD-10-PCS; principal; 2021-12-13)
DX: J18.9 Pneumonia, unspecified organism (principal); U07.1 COVID-19; N17.9 Acute kidney failure, unspecified; I25.10 Atherosclerotic heart disease of native coronary artery without angina pectoris; I12.9 Hypertensive chronic kidney disease with stage 1 through stage 4 chronic kidney disease, or unspecified chronic kidney disease; N18.9 Chronic kidney disease, unspecified; I13.10 Hypertensive heart and chronic kidney disease without heart failure, with stage 1 through stage 4 chronic kidney disease, or unspecified chronic kidney disease; R51.9 Headache, unspecified; R53.83 Other fatigue; Z79.899 Other long term (current) drug therapy; Z79.01 Long term (current) use of anticoagulants; R42 Dizziness and giddiness; M79.7 Fibromyalgia; M19.90 Unspecified osteoarthritis, unspecified site; M32.9 Systemic lupus erythematosus, unspecified; Z20.828 Contact with and (suspected) exposure to other viral communicable diseases
CPT/HCPCS: 0241U; 36000; 36410; 36415; 71045; 76942; 80048; 80053; 81015; 83605; 84145; 85025; 85027; 87040; 87077; 87086; 87186; 93005; 93268; 94760; 94762; 96374; 99285; G0378; 81001; 82570; 84156; J0248; J0696; J1100; J1650; A9270-GY

== ENCOUNTER 2022-09-30 12:57 | Observation (INO) | payer MEDICARE ==
--- NOTE | 2022-09-30 12:59 | ERPHSYRPT ---
- History of Present Illness Time Seen by Provider: 09/30/22 12:58 Source: patient Exam Limitations: no limitations Physician History: This is a pleasant 81-year-old white female patient of Dr. Diaz who was brought to the emergency department by the ambulance service and independent history was obtained from them. Patient's complaint today was dizziness and weakness and fatigue. Yesterday, the patient complained of some shortness of breath but today she denies chest pain and she denies shortness of air. Patient denies abdominal pain. She denies nausea vomiting and diarrhea. Patient does have a history of hypertension, hypothyroidism, TIAs, coronary artery disease and hyperlipidemia. Patient arrived to the emergency department neurologically intact without any specific complaints. Timing/Duration: yesterday Severity: mild Character of Deficits: none Deficits: no difficulties Baseline/Normal Cognition: alert oriented x 3 Current Cognition: alert oriented x 3 Baseline Gait: walks w/o assistance Associated Symptoms: weakness Allergies/Adverse Reactions: aspirin [From Aggrenox] Allergy (Verified 09/30/22 12:59) azithromycin [From Zithromax Z-Timbo] Allergy (Verified 09/30/22 12:59) calcitonin,salmon,synthetic [From Miacalcin] Allergy (Verified 09/30/22 12:59) cefaclor [From Ceclor] Allergy (Verified 09/30/22 12:59) clarithromycin [From Biaxin] Allergy (Verified 09/30/22 12:59) diazepam [From Valium] Allergy (Verified 09/30/22 12:59) dipyridamole [From Aggrenox] Allergy (Verified 09/30/22 12:59) fluticasone propionate [From Advair Diskus] Allergy (Verified 09/30/22 12:59) levofloxacin [From Levaquin] Allergy (Verified 09/30/22 12:59) meclizine HCl [From Antivert] Allergy (Verified 09/30/22 12:59) nabumetone [From Relafen] Allergy (Verified 09/30/22 12:59) naproxen Allergy (Verified 09/30/22 12:59) nizatidine [From Axid] Allergy (Verified 09/30/22 12:59) pantoprazole sodium [From Protonix] Allergy (Verified 09/30/22 12:59) Penicillins Allergy (Verified 09/30/22 12:59) pilocarpine HCl [From Salagen] Allergy (Verified 09/30/22 12:59) rofecoxib [From Vioxx] Allergy (Verified 09/30/22 12:59) salmeterol xinafoate [From Advair Diskus] Allergy (Verified 09/30/22 12:59) tramadol HCl [From Ultracet] Allergy (Verified 09/30/22 12:59) Home Medications: Amlodipine Besylate 10 mg [Norvasc 10 MG] 5 mg PO BID 12/31/13 [History] Clopidogrel Bisulfate [PLAVIX Tablet] 75 mg PO DAILY 12/31/13 [History] Levothyroxine Sodium 50 Mcg [Synthroid 50 Mcg] 50 mcg PO DAILY 12/31/13 [History] Loratadine 10 mg [Claritin 10 mg] 10 mg PO DAILY 12/31/13 [History] Nebivolol HCl [Bystolic] 10 mg PO DAILY 12/31/13 [History] predniSONE [Prednisone] 4 tab PO DAILY 11/10/15 [History] Ergocalciferol (Vitamin D2) [Drisdol] 1 cap PO WEEKLY 12/11/21 [History] Fenofibrate Nanocrystallized [Fenofibrate] 0.5 tab PO DAILY 12/11/21 [History] Sodium Bicarbonate 1 tab PO DAILY 12/11/21 [History] Hx Tetanus, Diphtheria Vaccination/Date Given: Yes Hx Influenza Vaccination/Date Given: No Hx Pneumococcal Vaccination/Date Given: No Travel Risk - International Travel Have you traveled outside of the country in past 3 weeks: No - Coronavirus Screening Are you exhibiting any of the following symptoms?: No Close contact with a COVID-19 positive Pt in past 14-21 Days: No - Vaccine Status Have you recieved a Covid-19 vaccination: Yes [employer] [place]: Moderna - Vaccination Dates Date of 2cond Vaccination (if applicable): 05/2020 - Review of Systems Constitutional: Weakness Eyes: No Symptoms Ears, Nose, & Throat: No Symptoms Respiratory: No Symptoms Cardiac: No Symptoms Abdominal/Gastrointestinal: No Symptoms Genitourinary Symptoms: No Symptoms Musculoskeletal: No Symptoms Skin: No Symptoms Neurological: Dizziness (Resolved) Psychological: No Symptoms Endocrine: No Symptoms Hematologic/Lymphatic: No Symptoms Immunological/Allergic: No Symptoms All Other Systems: Reviewed and Negative - Past Medical History Pertinent Past Medical History: Yes Neurological History: TIA ENT History: No Pertinent History Cardiac History: Coronary Artery Disease, High Cholesterol, Hypertension, Myocardial Infarction (ND) Respiratory History: Other Endocrine Medical History: Hypothyroidism, Other Musculoskeletal History: Osteoarthritis GI Medical History: No Pertinent History History: No Pertinent History Psycho-Social History: No Pertinent History Female Reproductive Disorders: No Pertinent History Other Medical History: RECENT COVID NOTED ABOVE. PATIENT IS VACCINATED. HX TIA WITHOUT RESIDUAL EFFECTS. SX HX: CHOLECYSTECTOMY, HYSTERECTOMY, T & A. - Past Surgical History Past Surgical History: Yes Neuro Surgical History: No Pertinent History Cardiac: Cardiac Catheterization Respiratory: No Pertinent History Gastrointestinal: Cholecystectomy Genitourinary: No Pertinent History Musculoskeletal: Orthopedic Surgery Female Surgical History: Hysterectomy Other Surgical History: tonsils,colonoscopy,left wrist surgery - Social History Smoking Status: Never smoker Exposure to second hand smoke: No Drug Use: none Patient Lives Alone: No - Nursing Vital Signs Nursing Vital Signs: Initial Vital Signs Temperature 99.6 F 09/30/22 13:05 Pulse Rate 82 09/30/22 13:05 Respiratory Rate 23 09/30/22 13:05 Blood Pressure 163/67 09/30/22 13:05 O2 Sat by Pulse Oximetry 96 09/30/22 13:05 Pain Scale Pain Intensity 0 - Madhav Coma Scale Best Eye Response ([place]): (4) open spontaneously Best Verbal Response ([place]): (5) oriented Best Motor Response (Madhav): (6) obeys commands Madhav Total: 15 - Physical Exam General Appearance: no apparent distress, alert, anxiety Eye Exam: bilateral eye: normal inspection, PERRL, EOMI Ears, Nose, Throat Exam: normal ENT inspection, moist mucous membranes Neck Exam: normal inspection, non-tender, supple, full range of motion Respiratory: normal breath sounds, lungs clear, airway intact, No chest tenderness, No respiratory distress Cardiovascular: regular rate/rhythm, normal heart sounds, normal peripheral pulses Gastrointestinal: soft, normal bowel sounds, No tenderness Pelvic Exam: not done Rectal Exam: not done Back Exam: normal inspection, normal range of motion, No vertebral tenderness Extremity Exam: normal inspection, normal range of motion, pelvis stable Mental Status: alert, oriented x 3, 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 Exam: normal hearing, normal speech, PERRL, tongue midline Coordination/Gait: normal finger to nose Motor/Sensory: no motor deficit, no sensory deficit, no pronator drift Skin Exam: normal color, warm, dry SpO2 Interpretation: normal O2 Delivery: Room Air - Course Nursing assessment & vital signs reviewed: Yes EKG Interpreted by Me: RATE (81), Sinus Rhythm, NORMAL AXIS, NORMAL INTERVALS, NORMAL QRS, NORMAL ST-T, Other (No acute ischemic changes on today's twelve-lead EKG.) Ordered Tests: Active Orders 24 hr Category Date Time Status EKG-ER Only STAT Care 09/30/22 13:16 Active IV Insertion STAT Care 09/30/22 13:16 Active Tele-Health Consult ROUTINE Cons 09/30/22 15:56 Active HEAD WITHOUT CONTRAST [CT] Stat Exams 09/30/22 13:16 Completed MRI BRAIN W/O CONTRAST [MRI] Stat Exams 09/30/22 16:20 Taken CBC W DIFF Stat Lab 09/30/22 13:30 Completed CMP Stat Lab 09/30/22 13:30 Completed CULTURE,URINE Stat Lab 09/30/22 13:17 Received MAGNESIUM Stat Lab 09/30/22 13:30 Completed T4 (Thyroxine) Stat Lab 09/30/22 13:44 Completed TROPONIN Q4H Lab 09/30/22 13:30 Completed TROPONIN Q4H Lab 09/30/22 17:45 Completed TROPONIN Q4H Lab 09/30/22 21:30 Ordered TSH [TSH, 3RD Generation] Stat Lab 09/30/22 13:44 Completed UA W/RFX UR CULTURE Stat Lab 09/30/22 13:17 Completed Transfer Order Routine Transfer 09/30/22 Ordered Medication Summary Discontinued Medications Generic Name Dose Route Start Last Admin Trade Name Yvette PRN Reason Stop Dose Admin Sodium Chloride 1,000 mls @ 999 mls/hr 09/30/22 13:16 09/30/22 14:31 Sodium Chloride 0.9% 1000 Ml IV 09/30/22 14:16 Infused .Q1H1M STA Infusion Sodium Chloride Confirm 09/30/22 13:23 Sodium Chloride 0.9% 1000 Ml Administered 09/30/22 13:24 Dose 1,000 mls @ ud .ROUTE .STK-MED ONE Lab/Rad Data: Laboratory Result Diagrams 09/30/22 13:30 09/30/22 13:30 Laboratory Results 09/30/22 09/30/22 09/30/22 Range/Units 17:45 13:44 13:30 WBC (4.0-10.5) x10^3/uL RBC (4.1-5.4) x10^6/uL Hgb (12.0-16.0) g/dL Hct (35-47) % MCV (78-100) fL MCH (26-32) pg MCHC (32-36) g/dL RDW (11.5-14.0) % Plt Count (150-450) x10^3/uL MPV (7.5-11.0) fL Gran % (36.0-66.0) % Immature Gran % (Auto) (0.00-0.4) % Nucleat RBC Rel Count (0.00-0.1) % Eos # (Auto) (0-0.5) x10^3/uL Immature Gran # (Auto) (0.00-0.03) x10^3u/L Absolute Lymphs (auto) (1.0-4.6) x10^3/uL Absolute Monos (auto) (0.0-1.3) x10^3/uL Absolute Nucleated RBC (0.00-0.01) x10^3u/L Lymphocytes % (24.0-44.0) % Monocytes % (0.0-12.0) % Eosinophils % (0.00-5.0) % Basophils % (0.0-0.4) % Absolute Granulocytes (1.4-6.9) x10^3/uL Basophils # (0-0.4) x10^3/uL Sodium (137-145) mmol/L Potassium (3.5-5.1) mmol/L Chloride (98-107) mmol/L Carbon Dioxide (22-30) mmol/L Anion Gap (5-15) MEQ/L BUN (7-17) mg/dL Creatinine (0.52-1.04) mg/dL Estimated GFR ML/MIN Glucose (74-106) mg/dL Calcium (8.4-10.2) mg/dL Magnesium (1.6-2.3) mg/dL Total Bilirubin (0.2-1.3) mg/dL AST (14-36) U/L ALT (0-35) U/L Alkaline Phosphatase (38-126) U/L Troponin I 0.017 0.021 (0.000-0.034) ng/mL Serum Total Protein (6.3-8.2) g/dL Albumin (3.5-5.0) g/dL Thyroxine (T4) 9.40 (5.53-10.96) ug/dL TSH 3rd Generation 0.339 L (0.47-4.68) mIU/L Urine Color (Yellow) Urine Appearance (Clear) Urine pH (4.6-8.0) Ur Specific Alexander (1.005-1.030) Urine Protein (Negative) Urine Glucose (UA) (Negative) mg/dL Urine Ketones (Negative) Urine Blood (Negative) Urine Nitrite (Negative) Urine Bilirubin (Negative) Urine Urobilinogen (0.2) mg/dL Ur Leukocyte Esterase (Negative) U Hyaline Cast (Auto) (0-2) /LPF Urine Microscopic RBC (0-5) /HPF Urine Microscopic WBC (0-5) /HPF Ur Epithelial Cells (None Seen) /HPF Urine Bacteria (None Seen) /HPF Urine Culture Reflexed (NO) Slides for Path Review 09/30/22 09/30/22 09/30/22 Range/Units 13:30 13:30 13:17 WBC 6.5 (4.0-10.5) x10^3/uL RBC 4.89 (4.1-5.4) x10^6/uL Hgb 13.8 (12.0-16.0) g/dL Hct 43.9 (35-47) % MCV 89.8 (78-100) fL MCH 28.2 (26-32) pg MCHC 31.4 L (32-36) g/dL RDW 13.2 (11.5-14.0) % Plt Count 158 (150-450) x10^3/uL MPV 10.0 (7.5-11.0) fL Gran % 80.1 H (36.0-66.0) % Immature Gran % (Auto) 1.4 H (0.00-0.4) % Nucleat RBC Rel Count 0.0 (0.00-0.1) % Eos # (Auto) 0.01 (0-0.5) x10^3/uL Immature Gran # (Auto) 0.09 H (0.00-0.03) x10^3u/L Absolute Lymphs (auto) 0.55 L (1.0-4.6) x10^3/uL Absolute Monos (auto) 0.61 (0.0-1.3) x10^3/uL Absolute Nucleated RBC 0.00 (0.00-0.01) x10^3u/L Lymphocytes % 8.4 L (24.0-44.0) % Monocytes % 9.4 (0.0-12.0) % Eosinophils % 0.2 (0.00-5.0) % Basophils % 0.5 (0.0-0.4) % Absolute Granulocytes 5.23 (1.4-6.9) x10^3/uL Basophils # 0.03 (0-0.4) x10^3/uL Sodium 138 (137-145) mmol/L Potassium 4.8 (3.5-5.1) mmol/L Chloride 108 H (98-107) mmol/L Carbon Dioxide 17 L (22-30) mmol/L Anion Gap 17.5 H (5-15) MEQ/L BUN 50 H (7-17) mg/dL Creatinine 2.17 H (0.52-1.04) mg/dL Estimated GFR 23.0 ML/MIN Glucose 97 (74-106) mg/dL Calcium 8.8 (8.4-10.2) mg/dL Magnesium 2.0 (1.6-2.3) mg/dL Total Bilirubin 0.90 (0.2-1.3) mg/dL AST 58 H (14-36) U/L ALT 23 (0-35) U/L Alkaline Phosphatase 48 (38-126) U/L Troponin I (0.000-0.034) ng/mL Serum Total Protein 7.6 (6.3-8.2) g/dL Albumin 3.9 (3.5-5.0) g/dL Thyroxine (T4) (5.53-10.96) ug/dL TSH 3rd Generation (0.47-4.68) mIU/L Urine Color Yellow (Yellow) Urine Appearance Clear (Clear) Urine pH 7.0 (4.6-8.0) Ur Specific Alexander 1.015 (1.005-1.030) Urine Protein Negative (Negative) Urine Glucose (UA) Negative (Negative) mg/dL Urine Ketones Negative (Negative) Urine Blood Negative (Negative) Urine Nitrite Negative (Negative) Urine Bilirubin Negative (Negative) Urine Urobilinogen 0.2 (0.2) mg/dL Ur Leukocyte Esterase Trace A (Negative) U Hyaline Cast (Auto) NONE SEEN (0-2) /LPF Urine Microscopic RBC 3-5 (0-5) /HPF Urine Microscopic WBC 0-2 (0-5) /HPF Ur Epithelial Cells None Seen (None Seen) /HPF Urine Bacteria None Seen (None Seen) /HPF Urine Culture Reflexed YES (NO) Slides for Path Review YES - Progress Progress: improved, re-examined Progress Note: 09/30/22 15:49 CAT scan of the head without contrast was interpreted by the radiologist. There is no intracranial/cerebral hemorrhage or extracranial hematoma present. Findings suggest mild periventricular ischemic foci. Opacification of left sphenoid sinus. I called radiology department to request the radiologist to comment on the ischemic foci that he or she is seeing. I wanted to determine whether this finding is acute, subacute or chronic. I was told that they do not have a comparison CAT scan so they cannot comment on the chronicity of this finding. Therefore, I will have the teleneurologist evaluate this patient to determine the next step in her care. 09/30/22 16:[address] Henry, the teleneurologist prior to his evaluation of the patient. I reviewed the patient history, physical findings, and work-up results with him. Likely, we will proceed with a MRI of the brain with and without contrast. This will depend on whether or not the patient's renal function, which is not normal, is sufficient for the contrast. Otherwise, it will be performed without contrast. We are waiting the neurologist evaluation and recommendations. 09/30/22 19:00 This patient's medical issue is 1 of high complexity. It is based on the review of the patient's past medical history, review of the patient's medication list, review of the patient's drug allergy list, history of present illness and physical findings on examination. I reviewed the results of the work-up that was performed which included CBC, CMP, urinalysis, twelve-lead EKG, CT scan of the head without contrast. I also obtained an MRI of the brain with and without contrast. Although I have not yet received the finalized report, the teleneurologist Dr. Henry reviewed the MRI films and stated that this is negative for any acute stroke. His assessment is the patient has dizziness with vestibulopathy. I discussed these issues with the teleneurologist just prior to this dictation. 09/30/22 19:15 I spoke with our telehospitalist Dr. Xavier. I reviewed patient history, physical findings and the results of the work-up. I also discussed with him the results of the teleneurologist assessment and his interpretation of the MRI findings. We will place this patient in observation and provide with low rate intravenous fluid infusion of normal saline. We will repeat a CBC and CMP in the morning. We will place the patient on Antivert/meclizine to see if this helps her dizziness. I will also have physical therapy evaluate her for strengthening and range of motion and balance. Counseled pt/family regarding: lab results, diagnosis, rad results Medical Desision Making - Independent Historian Additional History obtained from: Family (Sister) - Discussion of managment Care discussed with:: specialist (Teleneurologist and I spoke with the hospitalist) Reviewed:: Test results, Need for additional workup Agreed on:: Treatment plan, place in obs - Diagnostic Testing Diagnostic test were ordered, analyzed, and reviewed by me: Yes Radiological Interpretation: Reviewed by me, Teleradiologist Report - Risk of complications The pt has a high risk of morbidity or mortality based on: Decision regarding hospitilization or escalation of hosp level of care - Departure Departure Disposition: Observation Clinical Impression: Dizziness, Weakness, Vestibulopathy Condition: Stable Critical Care Time: No Referrals: DIANNA DIAZ [Primary Care Provider] - Follow up/PCP as directed
[2022-09-30] MEDS ORDERED: Sodium Chloride 0.9% 1000 ML 1,000 ML IV STA (13:16)
[2022-09-30] MEDS ORDERED: Sodium Chloride 0.9% 1000 ML 1,000 ML ONE ×2 (13:23→21:23)
[2022-09-30 13:36] LABS: Absolute Neutrophil Ct (ANC) 5.23 x10^3/uL (1.4-6.9); BASOPHIL % 0.5 % (0.0-0.4); Basophil (Absolute #) 0.03 x10^3/uL (0-0.4); Eosinophil % 0.2 % (0.00-5.0); Eosinophil (Absolute #) 0.01 x10^3/uL (0-0.5); Hematocrit 43.9 % (35-47); Hemoglobin 13.8 g/dL (12.0-16.0); IMMATURE GRAN # 0.09 x10^3u/L (0.00-0.03); IMMATURE GRAN % 1.4 % (0.00-0.4); Lymphocyte (Absolute #) 0.55 x10^3/uL (1.0-4.6); Lymphocytes % 8.4 % (24.0-44.0); Mean Cell Volume 89.8 fL (78-100); Mean Corpuscular Hemoglobin 28.2 pg (26-32); Mean Corpuscular Hgb Concent. 31.4 g/dL (32-36); Monocyte (Absolute #) 0.61 x10^3/uL (0.0-1.3); Monocytes % 9.4 % (0.0-12.0); Neutrophil % 80.1 % (36.0-66.0); Platelet Count 158 x10^3/uL (150-450); Red Blood Count 4.89 x10^6/uL (4.1-5.4); Red Cell Distribution Width 13.2 % (11.5-14.0); White Blood Count 6.5 x10^3/uL (4.0-10.5)
[2022-09-30 13:43] LABS: Appearance Clear (Clear); Bacteria None Seen /HPF (None Seen); Bilirubin Negative (Negative); Blood Negative (Negative); Epithelial Cells None Seen /HPF (None Seen); Glucose, Urine Negative (Negative); Hyaline Casts NONE SEEN /LPF (0-2); Ketones Negative (Negative); Leukocyte Esterase Trace (Negative); Nitrite Negative (Negative); Protein,Urine Dip Negative (Negative); Specific Gravity 1.015 (1.005-1.030); Urobilinogen 0.2 mg/dL (0.2); WBC 0-2 /HPF (0-5)
[2022-09-30 13:55] LABS: ALBUMIN 3.9 g/dL (3.5-5.0); ANION GAP 17.5 MEQ/L (5-15); BILIRUBIN,TOTAL 0.9 mg/dL (0.2-1.3); Calcium 8.8 mg/dL (8.4-10.2); Creatinine 1 2.17 mg/dL (0.52-1.04); Potassium 4.8 mmol/L (3.5-5.1); Total Protein 7.6 g/dL (6.3-8.2)
[2022-09-30 14:16] LABS: Slide Review 1 YES
[2022-09-30 14:20] LABS: ADD URINE CULTURE? YES (NO)
[2022-09-30 14:42] LABS: T4 (Thyroxine) 9.4 ug/dL (5.53-10.96); TSH, 3RD Generation 0.339 mIU/L (0.47-4.68)
--- NOTE | 2022-09-30 15:09 | XRAY ---
CLINICAL HISTORY:Near syncope, weakness, No LOC. COMPARISON:None. TECHNIQUES:Axial non-contrast CT scan of the brain was performed from the skull base to the high parietal region. CTDI: 53.92 mGy, DLP: 948.95 mGy*cm. FINDINGS: There are few tiny ill-defined [id number] areas noted in the periventricular white matter bilaterally at frontal, parietal and occipital regions, suggestive of microvascular ischemic changes. The visualized brain parenchyma shows normal appearance. Wagner-white matter differentiation is maintained. No midline shifts or deformity. No intracerebral or extra axial hematoma. Normal size and configuration of the cerebral ventricles. Normal CT appearance of the posterior fossa structures namely the cerebellar hemispheres, brainstem and cerebellar peduncles. The Intra cerebral ICA show diffuse atherosclerotic calcification. The cerebellopontine angles are clear. The pituitary gland, the pineal gland, the optic chiasm is unremarkable. The osseous structures in the skull base are unremarkable. No definite calvarium fractures. Opacification of the left sphenoid sinus. IMPRESSION: 1. No intracerebral or extra axial hematoma. 2. Findings suggest mild periventricular ischemic foci. 3. Opacification of the left sphenoid sinus. Electronically Signed by: Apryl Parnell MD. 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
[2022-09-30] MEDS ORDERED: Zofran 4 MG/2 ML VIAL IV PRN (20:10)
[2022-09-30] MEDS ORDERED: Sodium Chloride 0.9% 1000 ML 1,000 ML IV SCH (20:10)
--- NOTE | 2022-09-30 20:10 | XRAY ---
CLINICAL HISTORY:Near syncope; COMPARISON:None; TECHNIQUES:Different pulse sequences were performed in different planes without GD-DTPA injection for the brain. Images were sent through PACs for interpretation; FINDINGS: No hyperacute or acute infarctions could be depicted. There are irregular periventricular signal intensity extending into the deep white matter bilaterally, T2 hyperintense lesions, suggestive findings of microvascular ischemic changes (Fazekas grade III). Similar findings are seen on basal ganglia bilaterally, also suggestive of chronic microvascular ischemic changes. No abnormal intensities are seen in thalami, brainstem and cerebellum. The ventricular system, cortical sulci and basal cisterns are prominent consistent with senile changes. No shift of midline structures. The visualized calvarium, major cerebral blood vessels, paranasal sinuses and orbits are unremarkable. Normal MRI appearance of the petrous temporal bones, brainstem, vestibule cochlear nerves, cerebellopontine angles with no definite masses. No intracerebral or extra-axial hematomas or masses. Normal MRI appearance of orbital structures, both globes, optic nerves, optic chiasm, optic tracts and optic radiations. IMPRESSION: The above-mentioned findings are suggestive of mild microvascular ischemic changes and senile changes. No acute abnormality was seen. Electronically Signed by: Apryl Parnell MD. (09/30/2022 19:03:59 SYSTEMS LEAD)
[2022-09-30] MEDS: TYLENOL 325 MG PO PRN (20:16)
[2022-09-30] MEDS ORDERED: Docusate Sodium 100 MG PO PRN (21:42)
[2022-09-30] MEDS: Sodium Chloride 0.9% 1000 ML 1,000 ML IV SCH (21:43)
[2022-09-30] MEDS ORDERED: ANTIVERT 25 MG PO PRN (21:45)
--- NOTE | 2022-09-30 21:56 | PCM.HP ---
History of Present Illness - Chief Complaint Chief Complaint: Weakness, unsteady Date: 09/30/22 History of Present Illness: is a 81 year old female who presents to the hospital with dizziness, generalized (nonfocal) weakness and fatigue which began yesterday. She denies any focal numbness, weakness, or visual disturbances. 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 She denied any facial numbness with this episode. She takes Plavix and has not reported missing any doses. Yesterday she experienced transient dyspnea but no chest pain, and this has resolved. At the time of my evaluation, the patient is no longer experiencing dizziness. The entirety of this encounter was performed via telemedicine. The patient consented to this telemedicine encounter. - Review of Systems Constitutional: Weakness Eyes: No Symptoms Ears, Nose, & Throat: No Symptoms Respiratory: Short Of Breath Cardiac: No Symptoms Abdominal/Gastrointestinal: No Symptoms Genitourinary Symptoms: No Symptoms Musculoskeletal: No Symptoms Skin: No Symptoms Neurological: Dizziness Psychological: No Symptoms Endocrine: No Symptoms Hematologic/Lymphatic: No Symptoms Immunological/Allergic: No Symptoms All Other Systems: Reviewed and Negative Medications & Allergies Home Medications: Home Medication List Amlodipine Besylate 10 mg [Norvasc 10 MG] 10 mg PO DAILY 12/31/13 [History Confirmed 09/30/22] Clopidogrel Bisulfate [PLAVIX Tablet] 75 mg PO DAILY 12/31/13 [History Confirmed 09/30/22] Levothyroxine Sodium 50 Mcg [Synthroid 50 Mcg] 50 mcg PO DAILY 12/31/13 [History Confirmed 09/30/22] Loratadine 10 mg [Claritin 10 mg] 10 mg PO DAILY 12/31/13 [History Confirmed 09/30/22] Nebivolol HCl [Bystolic] 10 mg PO DAILY 12/31/13 [History Confirmed 09/30/22] predniSONE [Prednisone] 5 mg PO DAILY 11/10/15 [History Confirmed 09/30/22] Ergocalciferol (Vitamin D2) [Drisdol] 1 cap PO WEEKLY 12/11/21 [History Confirmed 09/30/22] Fenofibrate Nanocrystallized [Fenofibrate] 0.5 tab PO DAILY 12/11/21 [History Confirmed 09/30/22] Sodium Bicarbonate 1 tab PO DAILY 12/11/21 [History Confirmed 09/30/22] Allergies/Adverse Reactions: Allergies Allergy/AdvReac Type Severity Reaction Status Date / Time aspirin [From Aggrenox] Allergy Verified 09/30/22 12:59 azithromycin Allergy Verified 09/30/22 12:59 [From Zithromax Z-Timbo] calcitonin,salmon,synthetic Allergy Verified 09/30/22 12:59 [From Miacalcin] cefaclor [From Ceclor] Allergy Verified 09/30/22 12:59 clarithromycin [From Biaxin] Allergy Verified 09/30/22 12:59 diazepam [From Valium] Allergy Verified 09/30/22 12:59 dipyridamole [From Aggrenox] Allergy Verified 09/30/22 12:59 fluticasone propionate Allergy Verified 09/30/22 12:59 [From Advair Diskus] levofloxacin [From Levaquin] Allergy Verified 09/30/22 12:59 meclizine HCl [From Antivert] Allergy Verified 09/30/22 12:59 nabumetone [From Relafen] Allergy Verified 09/30/22 12:59 naproxen Allergy Verified 09/30/22 12:59 nizatidine [From Axid] Allergy Verified 09/30/22 12:59 pantoprazole sodium Allergy Verified 09/30/22 12:59 [From Protonix] Penicillins Allergy Verified 09/30/22 12:59 pilocarpine HCl Allergy Verified 09/30/22 12:59 [From Salagen] rofecoxib [From Vioxx] Allergy Verified 09/30/22 12:59 salmeterol xinafoate Allergy Verified 09/30/22 12:59 [From Advair Diskus] tramadol HCl [From Ultracet] Allergy Verified 09/30/22 12:59 - Past Medical History Past Medical History: Yes Neurological History: TIA ENT History: No Pertinent History Cardiac History: Coronary Artery Disease, High Cholesterol, Hypertension, Myocardial Infarction ([place]) Respiratory History: Other Endocrine Medical History: Hypothyroidism, Other Musculoskelatal History: Osteoarthritis GI Medical History: No Pertinent History History: No Pertinent History Pyscho-Social History: No Pertinent History Reproductive Disorders: No Pertinent History Comment: RECENT COVID NOTED ABOVE. PATIENT IS VACCINATED. HX TIA WITHOUT RESIDUAL EFFECTS. SX HX: CHOLECYSTECTOMY, HYSTERECTOMY, T & A. - Female History Are you now?: No - Past Surgical History Past Surgical History: Yes Neuro Surgical History: No Pertinent History Cardiac History: Cardiac Catheterization Respiratory Surgery: No Pertinent History GI Surgical History: Cholecystectomy Genitourinary Surgical Hx: No Pertinent History Musculskeletal Surgical Hx: Orthopedic Surgery Female Surgical History: Hysterectomy Other Surgical History: tonsils,colonoscopy,left wrist surgery - Social History Smoking Status: Never smoker Exposure to second hand smoke: No Alcohol: None Drug Use: none - Physical Exam Vital Signs: Vital Signs - 24 hr Temp Pulse Resp BP BP Pulse Ox 09/30/22 20:17 97.3 F 68 18 172/76 09/30/22 18:00 77 21 09/30/22 17:51 68 19 95 09/30/22 17:02 81 25 H 96 09/30/22 16:36 81 16 168/76 96 09/30/22 16:34 82 18 168/76 93 L 09/30/22 16:33 18 180/102 95 09/30/22 16:00 73 20 155/79 95 09/30/22 15:48 71 21 171/78 94 L 09/30/22 15:40 72 15 96 09/30/22 15:30 74 22 94 L 09/30/22 15:20 72 19 94 L 09/30/22 15:10 74 20 95 09/30/22 15:00 75 25 H 96 09/30/22 14:50 76 15 95 09/30/22 14:40 75 24 96 09/30/22 14:31 83 19 96 09/30/22 14:12 84 20 177/89 95 09/30/22 13:11 163/67 09/30/22 13:05 99.6 F 82 23 163/67 96 General Appearance: no apparent distress Neurologic Exam: alert, oriented x 3, cooperative, 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, normal mood/affect, nml cerebellar function Eye Exam: PERRL/EOMI Ears, Nose, Throat Exam: normal ENT inspection Neck Exam: normal inspection, non-tender, supple, full range of motion Respiratory Exam: normal breath sounds Cardiovascular Exam: regular rate/rhythm, normal heart sounds Gastrointestinal/Abdomen Exam: soft, normal bowel sounds Pelvic Exam: not done Extremity Exam: normal inspection, normal range of motion Skin Exam: normal color Results - Labs Lab/Micro Results: Lab Results-Last 24 Hours 09/30/22 09/30/22 09/30/22 Range/Units 13:17 13:30 13:30 WBC 6.5 (4.0-10.5) x10^3/uL RBC 4.89 (4.1-5.4) x10^6/uL Hgb 13.8 (12.0-16.0) g/dL Hct 43.9 (35-47) % MCV 89.8 (78-100) fL MCH 28.2 (26-32) pg MCHC 31.4 L (32-36) g/dL RDW 13.2 (11.5-14.0) % Plt Count 158 (150-450) x10^3/uL MPV 10.0 (7.5-11.0) fL Gran % 80.1 H (36.0-66.0) % Immature Gran % (Auto) 1.4 H (0.00-0.4) % Nucleat RBC Rel Count 0.0 (0.00-0.1) % Eos # (Auto) 0.01 (0-0.5) x10^3/uL Immature Gran # (Auto) 0.09 H (0.00-0.03) x10^3u/L Absolute Lymphs (auto) 0.55 L (1.0-4.6) x10^3/uL Absolute Monos (auto) 0.61 (0.0-1.3) x10^3/uL Absolute Nucleated RBC 0.00 (0.00-0.01) x10^3u/L Lymphocytes % 8.4 L (24.0-44.0) % Monocytes % 9.4 (0.0-12.0) % Eosinophils % 0.2 (0.00-5.0) % Basophils % 0.5 (0.0-0.4) % Absolute Granulocytes 5.23 (1.4-6.9) x10^3/uL Basophils # 0.03 (0-0.4) x10^3/uL Sodium 138 (137-145) mmol/L Potassium 4.8 (3.5-5.1) mmol/L Chloride 108 H (98-107) mmol/L Carbon Dioxide 17 L (22-30) mmol/L Anion Gap 17.5 H (5-15) MEQ/L BUN 50 H (7-17) mg/dL Creatinine 2.17 H (0.52-1.04) mg/dL Estimated GFR 23.0 ML/MIN Glucose 97 (74-106) mg/dL Calcium 8.8 (8.4-10.2) mg/dL Magnesium 2.0 (1.6-2.3) mg/dL Total Bilirubin 0.90 (0.2-1.3) mg/dL AST 58 H (14-36) U/L ALT 23 (0-35) U/L Alkaline Phosphatase 48 (38-126) U/L Troponin I (0.000-0.034) ng/mL Serum Total Protein 7.6 (6.3-8.2) g/dL Albumin 3.9 (3.5-5.0) g/dL Thyroxine (T4) (5.53-10.96) ug/dL TSH 3rd Generation (0.47-4.68) mIU/L Urine Color Yellow (Yellow) Urine Appearance Clear (Clear) Urine pH 7.0 (4.6-8.0) Ur Specific [place] 1.015 (1.005-1.030) Urine Protein Negative (Negative) Urine Glucose (UA) Negative (Negative) mg/dL Urine Ketones Negative (Negative) Urine Blood Negative (Negative) Urine Nitrite Negative (Negative) Urine Bilirubin Negative (Negative) Urine Urobilinogen 0.2 (0.2) mg/dL Ur Leukocyte Esterase Trace A (Negative) U Hyaline Cast (Auto) NONE SEEN (0-2) /LPF Urine Microscopic RBC 3-5 (0-5) /HPF Urine Microscopic WBC 0-2 (0-5) /HPF Ur Epithelial Cells None Seen (None Seen) /HPF Urine Bacteria None Seen (None Seen) /HPF Urine Culture Reflexed YES (NO) Slides for Path Review YES 09/30/22 09/30/22 09/30/22 Range/Units 13:30 13:44 17:45 WBC (4.0-10.5) x10^3/uL RBC (4.1-5.4) x10^6/uL Hgb (12.0-16.0) g/dL Hct (35-47) % MCV (78-100) fL MCH (26-32) pg MCHC (32-36) g/dL RDW (11.5-14.0) % Plt Count (150-450) x10^3/uL MPV (7.5-11.0) fL Gran % (36.0-66.0) % Immature Gran % (Auto) (0.00-0.4) % Nucleat RBC Rel Count (0.00-0.1) % Eos # (Auto) (0-0.5) x10^3/uL Immature Gran # (Auto) (0.00-0.03) x10^3u/L Absolute Lymphs (auto) (1.0-4.6) x10^3/uL Absolute Monos (auto) (0.0-1.3) x10^3/uL Absolute Nucleated RBC (0.00-0.01) x10^3u/L Lymphocytes % (24.0-44.0) % Monocytes % (0.0-12.0) % Eosinophils % (0.00-5.0) % Basophils % (0.0-0.4) % Absolute Granulocytes (1.4-6.9) x10^3/uL Basophils # (0-0.4) x10^3/uL Sodium (137-145) mmol/L Potassium (3.5-5.1) mmol/L Chloride (98-107) mmol/L Carbon Dioxide (22-30) mmol/L Anion Gap (5-15) MEQ/L BUN (7-17) mg/dL Creatinine (0.52-1.04) mg/dL Estimated GFR ML/MIN Glucose (74-106) mg/dL Calcium (8.4-10.2) mg/dL Magnesium (1.6-2.3) mg/dL Total Bilirubin (0.2-1.3) mg/dL AST (14-36) U/L ALT (0-35) U/L Alkaline Phosphatase (38-126) U/L Troponin I 0.021 0.017 (0.000-0.034) ng/mL Serum Total Protein (6.3-8.2) g/dL Albumin (3.5-5.0) g/dL Thyroxine (T4) 9.40 (5.53-10.96) ug/dL TSH 3rd Generation 0.339 L (0.47-4.68) mIU/L Urine Color (Yellow) Urine Appearance (Clear) Urine pH (4.6-8.0) Ur Specific [place] (1.005-1.030) Urine Protein (Negative) Urine Glucose (UA) (Negative) mg/dL Urine Ketones (Negative) Urine Blood (Negative) Urine Nitrite (Negative) Urine Bilirubin (Negative) Urine Urobilinogen (0.2) mg/dL Ur Leukocyte Esterase (Negative) U Hyaline Cast (Auto) (0-2) /LPF Urine Microscopic RBC (0-5) /HPF Urine Microscopic WBC (0-5) /HPF Ur Epithelial Cells (None Seen) /HPF Urine Bacteria (None Seen) /HPF Urine Culture Reflexed (NO) Slides for Path Review 09/30/22 Range/Units 21:00 WBC (4.0-10.5) x10^3/uL RBC (4.1-5.4) x10^6/uL Hgb (12.0-16.0) g/dL Hct (35-47) % MCV (78-100) fL MCH (26-32) pg MCHC (32-36) g/dL RDW (11.5-14.0) % Plt Count (150-450) x10^3/uL MPV (7.5-11.0) fL Gran % (36.0-66.0) % Immature Gran % (Auto) (0.00-0.4) % Nucleat RBC Rel Count (0.00-0.1) % Eos # (Auto) (0-0.5) x10^3/uL Immature Gran # (Auto) (0.00-0.03) x10^3u/L Absolute Lymphs (auto) (1.0-4.6) x10^3/uL Absolute Monos (auto) (0.0-1.3) x10^3/uL Absolute Nucleated RBC (0.00-0.01) x10^3u/L Lymphocytes % (24.0-44.0) % Monocytes % (0.0-12.0) % Eosinophils % (0.00-5.0) % Basophils % (0.0-0.4) % Absolute Granulocytes (1.4-6.9) x10^3/uL Basophils # (0-0.4) x10^3/uL Sodium (137-145) mmol/L Potassium (3.5-5.1) mmol/L Chloride (98-107) mmol/L Carbon Dioxide (22-30) mmol/L Anion Gap (5-15) MEQ/L BUN (7-17) mg/dL Creatinine (0.52-1.04) mg/dL Estimated GFR ML/MIN Glucose (74-106) mg/dL Calcium (8.4-10.2) mg/dL Magnesium (1.6-2.3) mg/dL Total Bilirubin (0.2-1.3) mg/dL AST (14-36) U/L ALT (0-35) U/L Alkaline Phosphatase (38-126) U/L Troponin I 0.016 (0.000-0.034) ng/mL Serum Total Protein (6.3-8.2) g/dL Albumin (3.5-5.0) g/dL Thyroxine (T4) (5.53-10.96) ug/dL TSH 3rd Generation (0.47-4.68) mIU/L Urine Color (Yellow) Urine Appearance (Clear) Urine pH (4.6-8.0) Ur Specific [place] (1.005-1.030) Urine Protein (Negative) Urine Glucose (UA) (Negative) mg/dL Urine Ketones (Negative) Urine Blood (Negative) Urine Nitrite (Negative) Urine Bilirubin (Negative) Urine Urobilinogen (0.2) mg/dL Ur Leukocyte Esterase (Negative) U Hyaline Cast (Auto) (0-2) /LPF Urine Microscopic RBC (0-5) /HPF Urine Microscopic WBC (0-5) /HPF Ur Epithelial Cells (None Seen) /HPF Urine Bacteria (None Seen) /HPF Urine Culture Reflexed (NO) Slides for Path Review - Radiology Impressions Radiology Exams & Impressions: Radiology Procedures Category Date Time Status HEAD WITHOUT CONTRAST [CT] Stat Exams 09/30/22 13:16 Completed MRI BRAIN W/O CONTRAST [MRI] Stat Exams 09/30/22 16:20 Completed - Other Procedures and Tests Respiratory Therapy 09/30/22 20:10 EKG REPEAT IN AM Assessment/Plan (1) Vestibulopathy Current Visit: Yes Status: Acute Assessment & Plan: MRI negative. Exam nonfocal. Symptoms resolved. Evaluated by teleneurology. Will offer meclizine prn. Monitor neuro symptoms. Check AM orthostatics. On Plavix. Code(s): H81.90 - UNSPECIFIED DISORDER OF VESTIBULAR FUNCTION, UNSPECIFIED EAR (2) Dizziness Current Visit: Yes Status: Acute Assessment & Plan: As above, meclizine prn. Code(s): R42 - DIZZINESS AND GIDDINESS (3) Chronic renal insufficiency Current Visit: No Status: Acute Assessment & Plan: Creatinine at baseline range. Gentle IV fluids. Code(s): N18.9 - CHRONIC KIDNEY DISEASE, UNSPECIFIED (4) CAD (coronary artery disease) Current Visit: No Status: Chronic Qualifiers: Coronary Disease-Associated Artery/Lesion type: [place] artery [place] vs. transplanted heart: [place] heart Associated angina: without angina Qualified Code(s): I25.10 - Atherosclerotic heart disease of [place] coronary artery without angina pectoris Assessment & Plan: Reported transient dyspnea but no chest pain. Monitor on tele. On Plavix. Will check CXR. Code(s): I25.10 - ATHSCL HEART DISEASE OF [place] CORONARY ARTERY W/O ANG PCTRS (5) Hypothyroidism Current Visit: Yes Status: Acute Assessment & Plan: TSH slightly decreased. Can consider decreasing Synthroid from 50 mcg to 37.5 mcg, but defer to PCP. Patient advised to discuss at follow up. Code(s): E03.9 - HYPOTHYROIDISM, UNSPECIFIED Telemedicine Encounter - Telemedicine Encounter Telemedicine Encounter: The entirety of this encounter was performed via Telemedicine"
--- NOTE | 2022-09-30 23:14 | XRAY ---
CLINICAL HISTORY:Dyspnea; COMPARISON:12/11/2021; TECHNIQUES:Portable X-ray of the chest, frontal view; FINDINGS: No lung consolidation or collapse seen. Left basilar atelectasis or scarring, unchanged. Mild elevation of left hemidiaphragm. Unfolding of aorta noted. Normal configuration of the mediastinum. The samantha are normal in size and position. The cardiac size is normal. The bony thorax is unremarkable. Mild blunting of the left CP angle could be projectional or due to pleural thickening. The right CP angle is clear. IMPRESSION: No lung consolidation or collapse seen. Mild elevation of left hemidiaphragm. Mild blunting of the left CP angle could be projectional or due to pleural thickening. A 5 mm nodular density is seen in the right upper lobe, not significantly changed as compared to prior study. Recommend follow-up. No change since 12/11/2021. Electronically Signed by: Apryl Parnlel MD. 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
[2022-10-01] MEDS: HEPARIN 5000 UNITS/0.5 ML (HIGH RISK MED) SQ SCH ×3 (00:23→23:50)
[2022-10-01] MEDS: Pepcid 20 MG PO SCH ×3 (00:23→23:51)
[2022-10-01 04:55] LABS: Absolute Neutrophil Ct (ANC) 2.62 x10^3/uL (1.4-6.9); BASOPHIL % 0.7 % (0.0-0.4); Basophil (Absolute #) 0.03 x10^3/uL (0-0.4); Eosinophil % 0.5 % (0.00-5.0); Eosinophil (Absolute #) 0.02 x10^3/uL (0-0.5); Hematocrit 41.4 % (35-47); Hemoglobin 13.2 g/dL (12.0-16.0); IMMATURE GRAN # 0.09 x10^3u/L (0.00-0.03); IMMATURE GRAN % 2.1 % (0.00-0.4); Lymphocyte (Absolute #) 0.89 x10^3/uL (1.0-4.6); Lymphocytes % 21.2 % (24.0-44.0); Mean Cell Volume 87.7 fL (78-100); Mean Corpuscular Hgb Concent. 31.9 g/dL (32-36); Mean Platelet Volume 9.6 fL (7.5-11.0); Monocyte (Absolute #) 0.55 x10^3/uL (0.0-1.3); Monocytes % 13.1 % (0.0-12.0); Neutrophil % 62.4 % (36.0-66.0); Platelet Count 147 x10^3/uL (150-450); Red Blood Count 4.72 x10^6/uL (4.1-5.4); Red Cell Distribution Width 13.2 % (11.5-14.0); White Blood Count 4.2 x10^3/uL (4.0-10.5)
[2022-10-01 05:39] LABS: ALBUMIN 3.2 g/dL (3.5-5.0); ANION GAP 10.5 MEQ/L (5-15); BILIRUBIN,TOTAL 0.6 mg/dL (0.2-1.3); Calcium 7.9 mg/dL (8.4-10.2); Creatinine 1 1.88 mg/dL (0.52-1.04); EST GLOMERULAR FILTRATION RATE 27.2 ML/MIN; PREALBUMIN 15.98 mg/dL (17.6-36.0); Potassium 4.2 mmol/L (3.5-5.1); Total Protein 6.3 g/dL (6.3-8.2)
[2022-10-01] MEDS: SYNTHROID 50 MCG PO SCH (06:55)
[2022-10-01] MEDS: Tricor 145 MG PO SCH (09:09)
[2022-10-01] MEDS: PLAVIX Tablet PO SCH (09:10)
[2022-10-01] MEDS: DELTASONE 5 MG PO SCH (09:10)
[2022-10-01] MEDS: Bystolic 5 MG PO SCH (09:10)
[2022-10-01] MEDS: CLARITIN 10 MG PO SCH (09:10)
[2022-10-01] MEDS: NORVASC 5 MG PO SCH (09:11)
[2022-10-01] MEDS: TYLENOL 325 MG PO PRN ×2 (09:11→21:04)
[2022-10-01] MEDS ORDERED: NON-FORMULARY ITEM PO SCH (10:00)
--- NOTE | 2022-10-01 12:13 | PCM.DS ---
Discharge Summary Date of Admission: 09/30/22 20:07 Date of Discharge: Patient seen and examined. Dizziness has resolved. No new focal neurological deficits. Orthostatics unremarkable. Advised to follow up with PCP. Will discharge without any new prescriptions. The entirety of this encounter was performed via telemedicine. The patient consented to this telemedicine encounter. Admitting Physician: JORGE RIGGS MD Consults: Consults on Case 09/30/22 15:56 Tele-Health Consult ROUTINE Primary Care Provider: DIANNA BRICE Allergies Allergies aspirin [From Aggrenox] Allergy (Verified 09/30/22 12:59) azithromycin [From Zithromax Z-Timbo] Allergy (Verified 09/30/22 12:59) calcitonin,salmon,synthetic [From Miacalcin] Allergy (Verified 09/30/22 12:59) cefaclor [From Ceclor] Allergy (Verified 09/30/22 12:59) clarithromycin [From Biaxin] Allergy (Verified 09/30/22 12:59) diazepam [From Valium] Allergy (Verified 09/30/22 12:59) dipyridamole [From Aggrenox] Allergy (Verified 09/30/22 12:59) fluticasone propionate [From Advair Diskus] Allergy (Verified 09/30/22 12:59) levofloxacin [From Levaquin] Allergy (Verified 09/30/22 12:59) meclizine HCl [From Antivert] Allergy (Verified 09/30/22 12:59) nabumetone [From Relafen] Allergy (Verified 09/30/22 12:59) naproxen Allergy (Verified 09/30/22 12:59) nizatidine [From Axid] Allergy (Verified 09/30/22 12:59) pantoprazole sodium [From Protonix] Allergy (Verified 09/30/22 12:59) Penicillins Allergy (Verified 09/30/22 12:59) pilocarpine HCl [From Salagen] Allergy (Verified 09/30/22 12:59) rofecoxib [From Vioxx] Allergy (Verified 09/30/22 12:59) salmeterol xinafoate [From Advair Diskus] Allergy (Verified 09/30/22 12:59) tramadol HCl [From Ultracet] Allergy (Verified 09/30/22 12:59) Hospital Summary - Vitals & Intake/Output Vital Signs: Vital Signs Temperature 97.3 F 10/01/22 06:59 Pulse Rate 71 10/01/22 06:59 Respiratory Rate 16 10/01/22 06:59 Blood Pressure 181/80 10/01/22 06:59 O2 Sat by Pulse Oximetry 96 10/01/22 06:59 Intake & Output: Intake & Output 09/29/22 09/30/22 10/01/22 10/02/22 11:59 11:59 11:59 11:59 Output Total 1100 Balance -1100 Weight 63.3 kg - Lab Result Diagrams: 10/01/22 04:45 10/01/22 04:45 Lab Results-Last 24 Hrs: Lab Results-Last 24 Hours 09/30/22 09/30/22 09/30/22 Range/Units 13:17 13:30 13:30 WBC 6.5 (4.0-10.5) x10^3/uL RBC 4.89 (4.1-5.4) x10^6/uL Hgb 13.8 (12.0-16.0) g/dL Hct 43.9 (35-47) % MCV 89.8 (78-100) fL MCH 28.2 (26-32) pg MCHC 31.4 L (32-36) g/dL RDW 13.2 (11.5-14.0) % Plt Count 158 (150-450) x10^3/uL MPV 10.0 (7.5-11.0) fL Gran % 80.1 H (36.0-66.0) % Immature Gran % (Auto) 1.4 H (0.00-0.4) % Nucleat RBC Rel Count 0.0 (0.00-0.1) % Eos # (Auto) 0.01 (0-0.5) x10^3/uL Immature Gran # (Auto) 0.09 H (0.00-0.03) x10^3u/L Absolute Lymphs (auto) 0.55 L (1.0-4.6) x10^3/uL Absolute Monos (auto) 0.61 (0.0-1.3) x10^3/uL Absolute Nucleated RBC 0.00 (0.00-0.01) x10^3u/L Lymphocytes % 8.4 L (24.0-44.0) % Monocytes % 9.4 (0.0-12.0) % Eosinophils % 0.2 (0.00-5.0) % Basophils % 0.5 (0.0-0.4) % Absolute Granulocytes 5.23 (1.4-6.9) x10^3/uL Basophils # 0.03 (0-0.4) x10^3/uL Sodium 138 (137-145) mmol/L Potassium 4.8 (3.5-5.1) mmol/L Chloride 108 H (98-107) mmol/L Carbon Dioxide 17 L (22-30) mmol/L Anion Gap 17.5 H (5-15) MEQ/L BUN 50 H (7-17) mg/dL Creatinine 2.17 H (0.52-1.04) mg/dL Estimated GFR 23.0 ML/MIN Glucose 97 (74-106) mg/dL Calcium 8.8 (8.4-10.2) mg/dL Magnesium 2.0 (1.6-2.3) mg/dL Total Bilirubin 0.90 (0.2-1.3) mg/dL AST 58 H (14-36) U/L ALT 23 (0-35) U/L Alkaline Phosphatase 48 (38-126) U/L Troponin I (0.000-0.034) ng/mL NT-Pro-B Natriuret Pep (<300) pg/mL Serum Total Protein 7.6 (6.3-8.2) g/dL Albumin 3.9 (3.5-5.0) g/dL Prealbumin (17.6-36.0) mg/dL Thyroxine (T4) (5.53-10.96) ug/dL TSH 3rd Generation (0.47-4.68) mIU/L Urine Color Yellow (Yellow) Urine Appearance Clear (Clear) Urine pH 7.0 (4.6-8.0) Ur Specific [place] 1.015 (1.005-1.030) Urine Protein Negative (Negative) Urine Glucose (UA) Negative (Negative) mg/dL Urine Ketones Negative (Negative) Urine Blood Negative (Negative) Urine Nitrite Negative (Negative) Urine Bilirubin Negative (Negative) Urine Urobilinogen 0.2 (0.2) mg/dL Ur Leukocyte Esterase Trace A (Negative) U Hyaline Cast (Auto) NONE SEEN (0-2) /LPF Urine Microscopic RBC 3-5 (0-5) /HPF Urine Microscopic WBC 0-2 (0-5) /HPF Ur Epithelial Cells None Seen (None Seen) /HPF Urine Bacteria None Seen (None Seen) /HPF Urine Culture Reflexed YES (NO) Slides for Path Review YES 09/30/22 09/30/22 09/30/22 Range/Units 13:30 13:44 17:45 WBC (4.0-10.5) x10^3/uL RBC (4.1-5.4) x10^6/uL Hgb (12.0-16.0) g/dL Hct (35-47) % MCV (78-100) fL MCH (26-32) pg MCHC (32-36) g/dL RDW (11.5-14.0) % Plt Count (150-450) x10^3/uL MPV (7.5-11.0) fL Gran % (36.0-66.0) % Immature Gran % (Auto) (0.00-0.4) % Nucleat RBC Rel Count (0.00-0.1) % Eos # (Auto) (0-0.5) x10^3/uL Immature Gran # (Auto) (0.00-0.03) x10^3u/L Absolute Lymphs (auto) (1.0-4.6) x10^3/uL Absolute Monos (auto) (0.0-1.3) x10^3/uL Absolute Nucleated RBC (0.00-0.01) x10^3u/L Lymphocytes % (24.0-44.0) % Monocytes % (0.0-12.0) % Eosinophils % (0.00-5.0) % Basophils % (0.0-0.4) % Absolute Granulocytes (1.4-6.9) x10^3/uL Basophils # (0-0.4) x10^3/uL Sodium (137-145) mmol/L Potassium (3.5-5.1) mmol/L Chloride (98-107) mmol/L Carbon Dioxide (22-30) mmol/L Anion Gap (5-15) MEQ/L BUN (7-17) mg/dL Creatinine (0.52-1.04) mg/dL Estimated GFR ML/MIN Glucose (74-106) mg/dL Calcium (8.4-10.2) mg/dL Magnesium (1.6-2.3) mg/dL Total Bilirubin (0.2-1.3) mg/dL AST (14-36) U/L ALT (0-35) U/L Alkaline Phosphatase (38-126) U/L Troponin I 0.021 0.017 (0.000-0.034) ng/mL NT-Pro-B Natriuret Pep (<300) pg/mL Serum Total Protein (6.3-8.2) g/dL Albumin (3.5-5.0) g/dL Prealbumin (17.6-36.0) mg/dL Thyroxine (T4) 9.40 (5.53-10.96) ug/dL TSH 3rd Generation 0.339 L (0.47-4.68) mIU/L Urine Color (Yellow) Urine Appearance (Clear) Urine pH (4.6-8.0) Ur Specific [place] (1.005-1.030) Urine Protein (Negative) Urine Glucose (UA) (Negative) mg/dL Urine Ketones (Negative) Urine Blood (Negative) Urine Nitrite (Negative) Urine Bilirubin (Negative) Urine Urobilinogen (0.2) mg/dL Ur Leukocyte Esterase (Negative) U Hyaline Cast (Auto) (0-2) /LPF Urine Microscopic RBC (0-5) /HPF Urine Microscopic WBC (0-5) /HPF Ur Epithelial Cells (None Seen) /HPF Urine Bacteria (None Seen) /HPF Urine Culture Reflexed (NO) Slides for Path Review 09/30/22 10/01/22 10/01/22 Range/Units 21:00 04:45 04:45 WBC 4.2 (4.0-10.5) x10^3/uL RBC 4.72 (4.1-5.4) x10^6/uL Hgb 13.2 (12.0-16.0) g/dL Hct 41.4 (35-47) % MCV 87.7 (78-100) fL MCH 28.0 (26-32) pg MCHC 31.9 L (32-36) g/dL RDW 13.2 (11.5-14.0) % Plt Count 147 L (150-450) x10^3/uL MPV 9.6 (7.5-11.0) fL Gran % 62.4 (36.0-66.0) % Immature Gran % (Auto) 2.1 H (0.00-0.4) % Nucleat RBC Rel Count 0.0 (0.00-0.1) % Eos # (Auto) 0.02 (0-0.5) x10^3/uL Immature Gran # (Auto) 0.09 H (0.00-0.03) x10^3u/L Absolute Lymphs (auto) 0.89 L (1.0-4.6) x10^3/uL Absolute Monos (auto) 0.55 (0.0-1.3) x10^3/uL Absolute Nucleated RBC 0.00 (0.00-0.01) x10^3u/L Lymphocytes % 21.2 L (24.0-44.0) % Monocytes % 13.1 H (0.0-12.0) % Eosinophils % 0.5 (0.00-5.0) % Basophils % 0.7 (0.0-0.4) % Absolute Granulocytes 2.62 (1.4-6.9) x10^3/uL Basophils # 0.03 (0-0.4) x10^3/uL Sodium 139 (137-145) mmol/L Potassium 4.2 (3.5-5.1) mmol/L Chloride 111 H (98-107) mmol/L Carbon Dioxide 22 (22-30) mmol/L Anion Gap 10.5 (5-15) MEQ/L BUN 40 H (7-17) mg/dL Creatinine 1.88 H (0.52-1.04) mg/dL Estimated GFR 27.2 ML/MIN Glucose 82 (74-106) mg/dL Calcium 7.9 L (8.4-10.2) mg/dL Magnesium (1.6-2.3) mg/dL Total Bilirubin 0.60 (0.2-1.3) mg/dL AST 42 H (14-36) U/L ALT 23 (0-35) U/L Alkaline Phosphatase 49 (38-126) U/L Troponin I 0.016 (0.000-0.034) ng/mL NT-Pro-B Natriuret Pep 2240 (<300) pg/mL Serum Total Protein 6.3 (6.3-8.2) g/dL Albumin 3.2 L (3.5-5.0) g/dL Prealbumin 15.98 L (17.6-36.0) mg/dL Thyroxine (T4) (5.53-10.96) ug/dL TSH 3rd Generation (0.47-4.68) mIU/L Urine Color (Yellow) Urine Appearance (Clear) Urine pH (4.6-8.0) Ur Specific [place] (1.005-1.030) Urine Protein (Negative) Urine Glucose (UA) (Negative) mg/dL Urine Ketones (Negative) Urine Blood (Negative) Urine Nitrite (Negative) Urine Bilirubin (Negative) Urine Urobilinogen (0.2) mg/dL Ur Leukocyte Esterase (Negative) U Hyaline Cast (Auto) (0-2) /LPF Urine Microscopic RBC (0-5) /HPF Urine Microscopic WBC (0-5) /HPF Ur Epithelial Cells (None Seen) /HPF Urine Bacteria (None Seen) /HPF Urine Culture Reflexed (NO) Slides for Path Review Micro Results-Entire Visit: Microbiology 09/30/22 13:17 Urine Culture - Preliminary Urine, Void <10K NORMAL SKIN FLORENCIA PROBABLE SKIN CONTAMINANT - Radiology Exams Ordered Rad Exams-Entire Visit: Radiology Procedures Category Date Time Status CHEST 1 VIEW (PORTABLE) Routine Exams 09/30/22 22:00 Completed HEAD WITHOUT CONTRAST [CT] Stat Exams 09/30/22 13:16 Completed MRI BRAIN W/O CONTRAST [MRI] Stat Exams 09/30/22 16:20 Completed - Procedures and Test Procedures and Tests throughout Hospitalization: Therapy Orders & Screens 09/30/22 20:10 PT Eval & Treat ( Order) ONCE Reason for Eval:: Balance, strengthening and range of motion Diagnosis: Weakness, unsteady EKG REPEAT IN AM Comment: 09/30/22 20:46 OT Screen per Nursing Assess ONCE Comment: Protocol Order Physician Instructions: Greater than 3 points order OT Admission Screening Reason For Exam: Triggered on Admission Diagnosis: Weakness, unsteady Open Wound/Cellutlitis/Pressure Ulcers: No Acute Fx/ORIF/Change in wt bearing status: No Severe MUSCULOSKELETAL pain: No ADL Dysfunction: Yes: weakness Acute CVA w/Hemiparesis/Hemiplegia: No Decreased Functional Mobility/Strength: Yes Sprain/Strain: No Acute Post-op Mobility Dysfunction: No Total Points: 4 PT Screen per Nursing Assess ONCE Comment: Protocol Order Physician Instructions: Greater than 3 points order PT Admission Screenin Reason For Exam: Triggered on Admission Diagnosis: Weakness, unsteady Open Wound/Cellutlitis/Pressure Ulcers: No Acute Fx/ORIF/Change in wt bearing status: No Severe MUSCULOSKELETAL pain: No ADL Dysfunction: Yes: weakness Acute CVA w/Hemiparesis/Hemiplegia: No Decreased Functional Mobility/Strength: Yes Sprain/Strain: No Acute Post-op Mobility Dysfunction: No Total Points: 4 Discharge Exam Wound Assessment: Skin/Wound Assessment Wound/Incision Assessment Start: 09/30/22 20:46 Text: Status: Active Freq: Q6H Protocol: Document 10/01/22 08:00 RE (Rec: 10/01/22 08:22 RE [id number]) Wound/Incision Assessment Left Elbow Wound Assessment Shift Assessment Wound Type Skin Tear Dressing Status Changed Drainage Amount Minimal Drainage Odor None/Absent Primary Dressing Bandaid Secondary Dressing Gauze Roll/Wrap Wound Photo Photo Taken No Final Diagnosis/Problem List - Final Discharge Diagnosis/Problem (1) Vestibulopathy Current Visit: Yes Status: Acute Code(s): H81.90 - UNSPECIFIED DISORDER OF VESTIBULAR FUNCTION, UNSPECIFIED EAR (2) Dizziness Current Visit: Yes Status: Acute Code(s): R42 - DIZZINESS AND GIDDINESS (3) Chronic renal insufficiency Current Visit: No Status: Acute Code(s): N18.9 - CHRONIC KIDNEY DISEASE, UNSPECIFIED (4) CAD (coronary artery disease) Current Visit: No Status: Chronic Code(s): I25.10 - ATHSCL HEART DISEASE OF [place] CORONARY ARTERY W/O ANG PCTRS (5) Hypothyroidism Current Visit: Yes Status: Acute Code(s): E03.9 - HYPOTHYROIDISM, UNSPECIFIED - Discharge Disposition: Home, Self-Care Condition: Stable Prescriptions: No Action Clopidogrel Bisulfate [PLAVIX Tablet] 75 mg PO DAILY Loratadine 10 mg [Claritin 10 mg] 10 mg PO DAILY Nebivolol HCl [Bystolic] 10 mg PO DAILY Levothyroxine Sodium 50 Mcg [Synthroid 50 Mcg] 50 mcg PO DAILY Amlodipine Besylate 10 mg [Norvasc 10 MG] 10 mg PO DAILY predniSONE [Prednisone] 5 mg PO DAILY Fenofibrate Nanocrystallized [Fenofibrate] 0.5 tab PO DAILY Sodium Bicarbonate 1 tab PO DAILY Follow up with: DIANNA BRICE [Primary Care Provider] - 10/07/22 9:30 am
[2022-10-01] MEDS: SODIUM BICARBONATE PO SCH (14:15)
--- NOTE | 2022-10-01 14:45 | PCM.NOTE ---
Date and Time: 10/01/22 1438 Subjective Assessment: Initial plan had been for discharge today but the patient experienced significant unsteadiness when attempting to ambulate. No focal weakness reported. No visual disturbances. The entirety of this encounter was performed via telemedicine. The patient consented to this telemedicine encounter. - Review of Systems Constitutional: Weakness Eyes: No Symptoms Ears, Nose, & Throat: No Symptoms Respiratory: No Symptoms Cardiac: No Symptoms Abdominal/Gastrointestinal: No Symptoms Genitourinary Symptoms: No Symptoms Musculoskeletal: No Symptoms Skin: No Symptoms Neurological: No Symptoms Psychological: No Symptoms Endocrine: No Symptoms Hematologic/Lymphatic: No Symptoms Immunological/Allergic: No Symptoms All Other Systems: Reviewed and Negative Objective Exam Neurologic Exam: alert, oriented x 3, cooperative, consulting sme II-XII nml as tested, normal mood/affect, nml cerebellar function Skin Exam: normal color Wound Assessment: Skin/Wound Assessment Wound/Incision Assessment Start: 09/30/22 20:46 Text: Status: Active Freq: Q6H Protocol: Document 10/01/22 14:00 RE (Rec: 10/01/22 14:05 RE [id number]) Wound/Incision Assessment Left Elbow Wound Assessment Shift Assessment Wound Type Skin Tear Dressing Status Changed Drainage Amount Minimal Drainage Odor None/Absent Primary Dressing Bandaid Secondary Dressing Gauze Roll/Wrap Wound Photo Photo Taken No Eye Exam: PERRL, EOMI, eyes nml inspection Neck Exam: normal inspection, non-tender, supple, full range of motion Respiratory Exam: normal breath sounds Cardiovascular Exam: regular rate/rhythm, normal heart sounds Gastrointestinal/Abdomen Exam: soft, normal bowel sounds Extremity Exam: normal inspection, normal range of motion OBJECTIVE DATA Vital Signs: Vital Signs - 24 hr Temp Pulse Resp BP BP Pulse Ox 10/01/22 12:00 97.8 F 65 16 119/57 92 L 10/01/22 06:59 97.3 F 71 16 181/80 96 10/01/22 04:00 96.7 F 60 16 164/73 95 10/01/22 00:50 162/71 09/30/22 23:36 96.8 F 63 16 96 09/30/22 20:17 97.3 F 68 18 172/76 09/30/22 19:50 24 09/30/22 19:40 70 26 H 09/30/22 19:30 77 29 H 09/30/22 19:20 77 17 09/30/22 19:10 70 19 09/30/22 19:00 72 20 09/30/22 18:50 70 21 09/30/22 18:40 71 19 09/30/22 18:30 81 27 H 09/30/22 18:20 22 09/30/22 18:10 73 23 09/30/22 18:03 72 33 H 09/30/22 18:00 77 21 09/30/22 17:51 68 19 95 09/30/22 17:02 81 25 H 96 09/30/22 16:36 81 16 168/76 96 09/30/22 16:34 82 18 168/76 93 L 09/30/22 16:33 18 180/102 95 09/30/22 16:00 73 20 155/79 95 09/30/22 15:48 71 21 171/78 94 L 09/30/22 15:40 72 15 96 09/30/22 15:30 74 22 94 L 09/30/22 15:20 72 19 94 L 09/30/22 15:10 74 20 95 09/30/22 15:00 75 25 H 96 09/30/22 14:50 76 15 95 09/30/22 14:40 75 24 96 Pain Assessment - Last Documented Pain Intensity 1 Pain Scale Used 0-10 Pain Scale Intake and Output: Intake & Output 09/29/22 09/30/22 10/01/22 10/02/22 11:59 11:59 11:59 11:59 Intake Total 553 Output Total 1100 Balance -1100 553 Weight 63.3 kg Lab Results: Lab Results-Last 24 Hours 09/30/22 09/30/22 09/30/22 Range/Units 13:44 17:45 21:00 WBC (4.0-10.5) x10^3/uL RBC (4.1-5.4) x10^6/uL Hgb (12.0-16.0) g/dL Hct (35-47) % MCV (78-100) fL MCH (26-32) pg MCHC (32-36) g/dL RDW (11.5-14.0) % Plt Count (150-450) x10^3/uL MPV (7.5-11.0) fL Gran % (36.0-66.0) % Immature Gran % (Auto) (0.00-0.4) % Nucleat RBC Rel Count (0.00-0.1) % Eos # (Auto) (0-0.5) x10^3/uL Immature Gran # (Auto) (0.00-0.03) x10^3u/L Absolute Lymphs (auto) (1.0-4.6) x10^3/uL Absolute Monos (auto) (0.0-1.3) x10^3/uL Absolute Nucleated RBC (0.00-0.01) x10^3u/L Lymphocytes % (24.0-44.0) % Monocytes % (0.0-12.0) % Eosinophils % (0.00-5.0) % Basophils % (0.0-0.4) % Absolute Granulocytes (1.4-6.9) x10^3/uL Basophils # (0-0.4) x10^3/uL Sodium (137-145) mmol/L Potassium (3.5-5.1) mmol/L Chloride (98-107) mmol/L Carbon Dioxide (22-30) mmol/L Anion Gap (5-15) MEQ/L BUN (7-17) mg/dL Creatinine (0.52-1.04) mg/dL Estimated GFR ML/MIN Glucose (74-106) mg/dL Calcium (8.4-10.2) mg/dL Total Bilirubin (0.2-1.3) mg/dL AST (14-36) U/L ALT (0-35) U/L Alkaline Phosphatase (38-126) U/L Troponin I 0.017 0.016 (0.000-0.034) ng/mL NT-Pro-B Natriuret Pep (<300) pg/mL Serum Total Protein (6.3-8.2) g/dL Albumin (3.5-5.0) g/dL Prealbumin (17.6-36.0) mg/dL Thyroxine (T4) 9.40 (5.53-10.96) ug/dL TSH 3rd Generation 0.339 L (0.47-4.68) mIU/L 10/01/22 10/01/22 Range/Units 04:45 04:45 WBC 4.2 (4.0-10.5) x10^3/uL RBC 4.72 (4.1-5.4) x10^6/uL Hgb 13.2 (12.0-16.0) g/dL Hct 41.4 (35-47) % MCV 87.7 (78-100) fL MCH 28.0 (26-32) pg MCHC 31.9 L (32-36) g/dL RDW 13.2 (11.5-14.0) % Plt Count 147 L (150-450) x10^3/uL MPV 9.6 (7.5-11.0) fL Gran % 62.4 (36.0-66.0) % Immature Gran % (Auto) 2.1 H (0.00-0.4) % Nucleat RBC Rel Count 0.0 (0.00-0.1) % Eos # (Auto) 0.02 (0-0.5) x10^3/uL Immature Gran # (Auto) 0.09 H (0.00-0.03) x10^3u/L Absolute Lymphs (auto) 0.89 L (1.0-4.6) x10^3/uL Absolute Monos (auto) 0.55 (0.0-1.3) x10^3/uL Absolute Nucleated RBC 0.00 (0.00-0.01) x10^3u/L Lymphocytes % 21.2 L (24.0-44.0) % Monocytes % 13.1 H (0.0-12.0) % Eosinophils % 0.5 (0.00-5.0) % Basophils % 0.7 (0.0-0.4) % Absolute Granulocytes 2.62 (1.4-6.9) x10^3/uL Basophils # 0.03 (0-0.4) x10^3/uL Sodium 139 (137-145) mmol/L Potassium 4.2 (3.5-5.1) mmol/L Chloride 111 H (98-107) mmol/L Carbon Dioxide 22 (22-30) mmol/L Anion Gap 10.5 (5-15) MEQ/L BUN 40 H (7-17) mg/dL Creatinine 1.88 H (0.52-1.04) mg/dL Estimated GFR 27.2 ML/MIN Glucose 82 (74-106) mg/dL Calcium 7.9 L (8.4-10.2) mg/dL Total Bilirubin 0.60 (0.2-1.3) mg/dL AST 42 H (14-36) U/L ALT 23 (0-35) U/L Alkaline Phosphatase 49 (38-126) U/L Troponin I (0.000-0.034) ng/mL NT-Pro-B Natriuret Pep 2240 (<300) pg/mL Serum Total Protein 6.3 (6.3-8.2) g/dL Albumin 3.2 L (3.5-5.0) g/dL Prealbumin 15.98 L (17.6-36.0) mg/dL Thyroxine (T4) (5.53-10.96) ug/dL TSH 3rd Generation (0.47-4.68) mIU/L Radiology Exams: Radiology Procedures Category Date Time Status CHEST 1 VIEW (PORTABLE) Routine Exams 09/30/22 22:00 Completed HEAD WITHOUT CONTRAST [CT] Stat Exams 09/30/22 13:16 Completed MRI BRAIN W/O CONTRAST [MRI] Stat Exams 09/30/22 16:20 Completed Assessment/Plan (1) Vestibulopathy Current Visit: Yes Status: Acute Assessment & Plan: Hold discharge. Cannot tolerate antivert due to allergy profile. Will attempt to request teleneurology reassessment for further evaluation and recommendations. Continue PT. May need outpatient ENT referral for vestibular therapy. Code(s): H81.90 - UNSPECIFIED DISORDER OF VESTIBULAR FUNCTION, UNSPECIFIED EAR (2) Dizziness Current Visit: Yes Status: Acute Assessment & Plan: Continue to monitor. Also will check AM cortisol level to rule out adrenal insufficiency. Code(s): R42 - DIZZINESS AND GIDDINESS (3) Chronic renal insufficiency Current Visit: No Status: Acute Assessment & Plan: Creatinine at baseline. Orthostatics have been normal. Code(s): N18.9 - CHRONIC KIDNEY DISEASE, UNSPECIFIED (4) CAD (coronary artery disease) Current Visit: No Status: Chronic Qualifiers: Coronary Disease-Associated Artery/Lesion type: [place] artery [place] vs. transplanted heart: [place] heart Associated angina: without angina Qualified Code(s): I25.10 - Atherosclerotic heart disease of [place] coronary artery without angina pectoris Assessment & Plan: Continue current regimen. No chest pain. Code(s): I25.10 - ATHSCL HEART DISEASE OF [place] CORONARY ARTERY W/O ANG PCTRS (5) Hypothyroidism Current Visit: Yes Status: Acute Code(s): E03.9 - HYPOTHYROIDISM, UNSPECIFIED
[2022-10-01] MEDS: Sodium Chloride 0.9% 1000 ML 1,000 ML IV SCH (21:07)
[2022-10-02] MEDS: Sodium Chloride 0.9% 1000 ML 1,000 ML IV SCH ×2 (01:35→01:37)
[2022-10-02] MEDS: SYNTHROID 50 MCG PO SCH (07:00)
[2022-10-02] MEDS: Bystolic 5 MG PO SCH (09:50)
[2022-10-02] MEDS: PLAVIX Tablet PO SCH (09:51)
[2022-10-02] MEDS: NORVASC 5 MG PO SCH (09:51)
[2022-10-02] MEDS: Pepcid 20 MG PO SCH (09:52)
[2022-10-02] MEDS: DELTASONE 5 MG PO SCH (09:52)
[2022-10-02] MEDS: CLARITIN 10 MG PO SCH (09:52)
[2022-10-02] MEDS: Tricor 145 MG PO SCH (09:52)
[2022-10-02] MEDS: HEPARIN 5000 UNITS/0.5 ML (HIGH RISK MED) SQ SCH (09:53)
[2022-10-02] MEDS: SODIUM BICARBONATE PO SCH (11:07)
[2022-10-02 13:15] VITALS: BP 144/70; PULSE 69; O2SAT 98
--- NOTE | 2022-10-02 14:36 | PCM.DS ---
Discharge Summary Date of Admission: 09/30/22 20:07 Admitting Physician: JORGE RIGGS MD Consults: Consults on Case 09/30/22 15:56 Tele-Health Consult ROUTINE Primary Care Provider: DIANNA BRICE Allergies Allergies aspirin [From Aggrenox] Allergy (Verified 09/30/22 12:59) azithromycin [From Zithromax Z-Timbo] Allergy (Verified 09/30/22 12:59) calcitonin,salmon,synthetic [From Miacalcin] Allergy (Verified 09/30/22 12:59) cefaclor [From Ceclor] Allergy (Verified 09/30/22 12:59) clarithromycin [From Biaxin] Allergy (Verified 09/30/22 12:59) diazepam [From Valium] Allergy (Verified 09/30/22 12:59) dipyridamole [From Aggrenox] Allergy (Verified 09/30/22 12:59) fluticasone propionate [From Advair Diskus] Allergy (Verified 09/30/22 12:59) levofloxacin [From Levaquin] Allergy (Verified 09/30/22 12:59) meclizine HCl [From Antivert] Allergy (Verified 09/30/22 12:59) nabumetone [From Relafen] Allergy (Verified 09/30/22 12:59) naproxen Allergy (Verified 09/30/22 12:59) nizatidine [From Axid] Allergy (Verified 09/30/22 12:59) pantoprazole sodium [From Protonix] Allergy (Verified 09/30/22 12:59) Penicillins Allergy (Verified 09/30/22 12:59) pilocarpine HCl [From Salagen] Allergy (Verified 09/30/22 12:59) rofecoxib [From Vioxx] Allergy (Verified 09/30/22 12:59) salmeterol xinafoate [From Advair Diskus] Allergy (Verified 09/30/22 12:59) tramadol HCl [From Ultracet] Allergy (Verified 09/30/22 12:59) Hospital Summary - Hospital Course Hospital Course: Patient presented with significant dizziness. She has improved and returned to baseline. MRI scan was negative for stroke. The patient may need to consider decreasing synthroid (can discuss with PCP). AM cortisol is pending and will need to be followed up by PCP; patient is aware. The patient was seen and examined via telemedicine. The entirety of this encounter was performed via telemedicine. The patient consented to this telemedicine encounter. - Vitals & Intake/Output Vital Signs: Vital Signs Temperature 98.8 F 10/02/22 12:00 Pulse Rate 69 10/02/22 12:00 Respiratory Rate 16 10/02/22 12:00 Blood Pressure 144/70 10/02/22 12:00 O2 Sat by Pulse Oximetry 98 10/02/22 12:00 Intake & Output: Intake & Output 09/30/22 10/01/22 10/02/22 10/03/22 11:59 11:59 11:59 11:59 Intake Total 1873 240 Output Total 1100 1700 Balance -1100 173 240 Weight 63.3 kg 63.3 kg - Lab Result Diagrams: 10/01/22 04:45 10/01/22 04:45 Micro Results-Entire Visit: Microbiology 09/30/22 13:17 Urine Culture - Final Urine, Void <10K NORMAL SKIN FLORENCIA PROBABLE SKIN CONTAMINANT - Radiology Exams Ordered Rad Exams-Entire Visit: Radiology Procedures Category Date Time Status CHEST 1 VIEW (PORTABLE) Routine Exams 09/30/22 22:00 Completed MRI BRAIN W/O CONTRAST [MRI] Stat Exams 09/30/22 16:20 Completed - Procedures and Test Procedures and Tests throughout Hospitalization: Therapy Orders & Screens 09/30/22 20:10 PT Eval & Treat (MD Order) ONCE Reason for Eval:: Balance, strengthening and range of motion Diagnosis: Weakness, unsteady EKG REPEAT IN AM Comment: 09/30/22 20:46 OT Screen per Nursing Assess ONCE Comment: Protocol Order Physician Instructions: Greater than 3 points order OT Admission Screening Reason For Exam: Triggered on Admission Diagnosis: Weakness, unsteady Open Wound/Cellutlitis/Pressure Ulcers: No Acute Fx/ORIF/Change in wt bearing status: No Severe MUSCULOSKELETAL pain: No ADL Dysfunction: Yes: weakness Acute CVA w/Hemiparesis/Hemiplegia: No Decreased Functional Mobility/Strength: Yes Sprain/Strain: No Acute Post-op Mobility Dysfunction: No Total Points: 4 PT Screen per Nursing Assess ONCE Comment: Protocol Order Physician Instructions: Greater than 3 points order PT Admission Screenin Reason For Exam: Triggered on Admission Diagnosis: Weakness, unsteady Open Wound/Cellutlitis/Pressure Ulcers: No Acute Fx/ORIF/Change in wt bearing status: No Severe MUSCULOSKELETAL pain: No ADL Dysfunction: Yes: weakness Acute CVA w/Hemiparesis/Hemiplegia: No Decreased Functional Mobility/Strength: Yes Sprain/Strain: No Acute Post-op Mobility Dysfunction: No Total Points: 4 Discharge Exam General Appearance: no apparent distress Neurologic Exam: alert, oriented x 3 Eye Exam: PERRL, EOMI, eyes nml inspection Ears, Nose, Throat Exam: normal ENT inspection Neck Exam: normal inspection, non-tender, supple Respiratory Exam: normal breath sounds Cardiovascular Exam: regular rate/rhythm, normal heart sounds, normal peripheral pulses Gastrointestinal/Abdomen Exam: soft, normal bowel sounds, tenderness Extremity Exam: normal inspection, normal range of motion Skin Exam: normal color Wound Assessment: Skin/Wound Assessment Wound/Incision Assessment Start: 09/30/22 20:46 Text: Status: Active Freq: Q6H Protocol: Document 10/02/22 07:59 RE (Rec: 10/02/22 08:06 RE [id number]) Wound/Incision Assessment Left Elbow Wound Assessment Shift Assessment Wound Type Skin Tear Dressing Status Changed Drainage Amount Minimal Drainage Odor None/Absent Primary Dressing Bandaid Wound Photo Photo Taken No Final Diagnosis/Problem List - Final Discharge Diagnosis/Problem (1) Vestibulopathy Current Visit: Yes Status: Acute Assessment & Plan: RESOLVED Code(s): H81.90 - UNSPECIFIED DISORDER OF VESTIBULAR FUNCTION, UNSPECIFIED EAR (2) Dizziness Current Visit: Yes Status: Acute Assessment & Plan: resolved Code(s): R42 - DIZZINESS AND GIDDINESS (3) Chronic renal insufficiency Current Visit: No Status: Acute Code(s): N18.9 - CHRONIC KIDNEY DISEASE, UNSPECIFIED (4) CAD (coronary artery disease) Current Visit: No Status: Chronic Assessment & Plan: continue regimen Code(s): I25.10 - ATHSCL HEART DISEASE OF [place] CORONARY ARTERY W/O ANG PCTRS (5) Hypothyroidism Current Visit: Yes Status: Acute Assessment & Plan: can discuss decreasing synthroid with PCP Code(s): E03.9 - HYPOTHYROIDISM, UNSPECIFIED - Discharge Disposition: Home, Self-Care Condition: Stable Prescriptions: No Action Clopidogrel Bisulfate [PLAVIX Tablet] 75 mg PO DAILY Loratadine 10 mg [Claritin 10 mg] 10 mg PO DAILY Nebivolol HCl [Bystolic] 10 mg PO DAILY Levothyroxine Sodium 50 Mcg [Synthroid 50 Mcg] 50 mcg PO DAILY Amlodipine Besylate 10 mg [Norvasc 10 MG] 10 mg PO DAILY predniSONE [Prednisone] 5 mg PO DAILY Fenofibrate Nanocrystallized [Fenofibrate] 0.5 tab PO DAILY Sodium Bicarbonate 1 tab PO DAILY Additional Instructions: MAKE SURE TO USE WALKER WHEN UP Follow up with: DIANNA BRICE [Primary Care Provider] - 10/07/22 9:30 am
== END 2022-10-02 15:10 | disposition home or self-care (01) ==
LOC: ED 12:57 → MED SURG 20:07
PROVIDERS: ADMIT Internal Medicine; ATTEND General Practice
DX: H81.90 Unspecified disorder of vestibular function, unspecified ear (principal); I12.9 Hypertensive chronic kidney disease with stage 1 through stage 4 chronic kidney disease, or unspecified chronic kidney disease; N18.9 Chronic kidney disease, unspecified; I25.10 Atherosclerotic heart disease of native coronary artery without angina pectoris; E03.9 Hypothyroidism, unspecified; E78.5 Hyperlipidemia, unspecified; S51.012A Laceration without foreign body of left elbow, initial encounter; Z79.01 Long term (current) use of anticoagulants; Z79.899 Other long term (current) drug therapy; Z20.828 Contact with and (suspected) exposure to other viral communicable diseases; Z86.73 Personal history of transient ischemic attack (TIA), and cerebral infarction without residual deficits; Z86.16 Personal history of COVID-19
CPT/HCPCS: 36000; 36415; 70450; 70551; 71045; 80053; 81001; 82533; 83735; 83880; 84134; 84436; 84443; 84484; 85025; 87086; 93005; 96360; 97161; 99285; Q3014; 93268; J1644; A9270-GY; G0378

== ENCOUNTER 2023-07-25 12:25 | Emergency (ER) | payer MEDICARE ==
[2023-07-25] MEDS ORDERED: EMLA Cream 5 GM TP ONE (12:49)
[2023-07-25 13:07] VITALS: BP 140/80; TEMP 97.5
[2023-07-25] MEDS: EMLA Cream 5 GM TP ONE (13:10)
[2023-07-25 13:32] VITALS: PULSE 66; RESP 18
[2023-07-25 13:34] VITALS: O2SAT 97
--- NOTE | 2023-07-25 13:34 | ERPHSYRPT ---
- History of Present Illness Time Seen by Provider: 07/25/23 12:30 Source: patient Exam Limitations: no limitations Patient Subjective Stated Complaint: C/O cat scratch. Patient states her cat scratched up her face and head just prior to coming into the ER today. Triage Nursing Assessment: Patient ambulated back to ER with dried blood to her head and face. Patient with a scratch to the top right side of her head measuring 2.2cm X 0.3cm. A small puncture also noted to patient's head measuring 0.1cm X 0.4cm just right to the scratch. Patient with 3 scratches to her right cheek. 1) 0.4cm X 0.8cm 2) 0.4cm X 0.8cm 3) 1cm X 0.4cm. 2 small punctures to patient's nose. Physician History: I agree with the history and physical presented by the nursing evaluation and staff. Timing/Duration: today Quality: painful Severity: moderate Location: scalp (2.2 cm laceration to the crown of the head.), face (4 small lacerations right side of the face) Possible Causes: other (Attacked by a cat which scratched head and face) Allergies/Adverse Reactions: aspirin [From Aggrenox] Allergy (Verified 07/25/23 13:01) azithromycin [From Zithromax Z-Timbo] Allergy (Verified 07/25/23 13:01) calcitonin,salmon,synthetic [From Miacalcin] Allergy (Verified 07/25/23 13:01) cefaclor [From Ceclor] Allergy (Verified 07/25/23 13:01) clarithromycin [From Biaxin] Allergy (Verified 07/25/23 13:01) diazepam [From Valium] Allergy (Verified 07/25/23 13:01) dipyridamole [From Aggrenox] Allergy (Verified 07/25/23 13:01) fluticasone propionate [From Advair Diskus] Allergy (Verified 07/25/23 13:01) levofloxacin [From Levaquin] Allergy (Verified 07/25/23 13:01) meclizine HCl [From Antivert] Allergy (Verified 07/25/23 13:01) nabumetone [From Relafen] Allergy (Verified 07/25/23 13:01) naproxen Allergy (Verified 07/25/23 13:01) nizatidine [From Axid] Allergy (Verified 07/25/23 13:01) pantoprazole sodium [From Protonix] Allergy (Verified 07/25/23 13:01) Penicillins Allergy (Verified 07/25/23 13:01) pilocarpine HCl [From Salagen] Allergy (Verified 07/25/23 13:01) rofecoxib [From Vioxx] Allergy (Verified 07/25/23 13:01) salmeterol xinafoate [From Advair Diskus] Allergy (Verified 07/25/23 13:01) tramadol HCl [From Ultracet] Allergy (Verified 07/25/23 13:01) Home Medications: Amlodipine Besylate 10 mg [Norvasc 10 MG] 10 mg PO DAILY 12/31/13 [History] Clopidogrel Bisulfate [PLAVIX Tablet] 75 mg PO DAILY 12/31/13 [History] Levothyroxine Sodium 50 Mcg [Synthroid 50 Mcg] 50 mcg PO DAILY 12/31/13 [History] Loratadine 10 mg [Claritin 10 mg] 10 mg PO DAILY 12/31/13 [History] Nebivolol HCl [Bystolic] 10 mg PO DAILY 12/31/13 [History] predniSONE [Prednisone] 5 mg PO DAILY 11/10/15 [History] Fenofibrate Nanocrystallized [Fenofibrate] 0.5 tab PO DAILY 12/11/21 [History] Sodium Bicarbonate 1 tab PO DAILY 12/11/21 [History] Hx Tetanus, Diphtheria Vaccination/Date Given: Yes Hx Influenza Vaccination/Date Given: No Hx Pneumococcal Vaccination/Date Given: No Immunizations Up to Date: Yes Travel Risk - International Travel Have you traveled outside of the country in past 3 weeks: No - Emerging Infectious Disease Are you exhibiting symptoms associated with any current EIDs: No - Review of Systems Constitutional: No Fever, No Chills Eyes: No Symptoms Ears, Nose, & Throat: No Symptoms Respiratory: No Cough, No Dyspnea Cardiac: No Chest Pain, No Edema, No Syncope Abdominal/Gastrointestinal: No Abdominal Pain, No Nausea, No Vomiting, No Di arrhea Genitourinary Symptoms: No Dysuria Musculoskeletal: No Back Pain, No Neck Pain Skin: Other (There are 4 small superficial lacerations to the face which do not require suture just cleaning there is a 2.2 cm laceration at the top of the head which will be anesthetized with topical cream and closed with yenny.), No Ra sh Neurological: No Dizziness, No Focal Weakness, No Sensory Changes Psychological: No Symptoms Endocrine: No Symptoms All Other Systems: Reviewed and Negative - Past Medical History Pertinent Past Medical History: Yes Neurological History: TIA ENT History: No Pertinent History Cardiac History: Hypertension, Myocardial Infarction ([place]) Respiratory History: No Pertinent History Endocrine Medical History: Other Musculoskeletal History: Degenerative Disk Disease, Osteoarthritis GI Medical History: No Pertinent History History: No Pertinent History Psycho-Social History: No Pertinent History Female Reproductive Disorders: No Pertinent History Other Medical History: STAGE 4 KIDNEY FAILURE. HX FX WRIST LEFT - Past Surgical History Past Surgical History: Yes Neuro Surgical History: No Pertinent History Cardiac: Cardiac Catheterization Respiratory: No Pertinent History Gastrointestinal: Cholecystectomy Genitourinary: No Pertinent History Musculoskeletal: Orthopedic Surgery Female Surgical History: Hysterectomy Other Surgical History: tonsils,colonoscopy,left wrist surgery - Social History Smoking Status: Never smoker Exposure to second hand smoke: No Drug Use: none Patient Lives Alone: No - Nursing Vital Signs Nursing Vital Signs: Initial Vital Signs Temperature 97.5 F 07/25/23 12:26 Pulse Rate 68 07/25/23 12:26 Respiratory Rate 19 07/25/23 12:26 Blood Pressure 140/80 07/25/23 12:26 O2 Sat by Pulse Oximetry 97 07/25/23 12:26 Pain Scale Pain Intensity 2 - Physical Exam General Appearance: mild distress, alert Eye Exam: PERRL/EOMI, eyes nml inspection Ears, Nose, Throat Exam: normal ENT inspection, pharynx normal, moist mucous membranes Neck Exam: normal inspection, non-tender, supple, full range of motion Respiratory Exam: normal breath sounds, lungs clear, No respiratory distress Cardiovascular Exam: regular rate/rhythm, normal heart sounds Gastrointestinal/Abdomen Exam: soft, mass, No tenderness Back Exam: normal inspection, normal range of motion, No CVA tenderness, No vertebral tenderness Extremity Exam: normal inspection, normal range of motion Neurologic Exam: alert, oriented x 3, cooperative, normal mood/affect, sensation nml, No motor deficits Skin Exam: normal color, warm, dry, laceration SpO2 Interpretation: normal SpO2: 97 O2 Delivery: Room Air Procedures - Laceration/Wound Repair Anterior Parietal Time of Procedure: 13:33 Wound Location: head Wound Length (cm): 2.2 Wound's Depth, Shape: superficial, linear Wound Explored: clean Irrigated: Yes Hibiclens Prep: Yes Anesthesia: topical Volume Anesthetic (ccs): 2 Wound Repaired With: [place] Number of Sutures: 4 Layer Closure?: No - Course Nursing assessment & vital signs reviewed: Yes Ordered Tests: Medication Summary Discontinued Medications Generic Name Dose Route Start Last Admin Trade Name Freq PRN Reason Stop Dose Admin Lidocaine/Prilocaine Confirm 07/25/23 12:49 Lidocaine/Prilocaine 5 Gm 5 Gm Tube Administered 07/25/23 12:50 Dose 5 gm TP .STK-MED ONE Lidocaine/Prilocaine 2.5 gm 07/25/23 13:08 07/25/23 13:10 Lidocaine/Prilocaine 5 Gm 5 Gm Tube TP 07/25/23 13:09 2.5 gm STAT ONE Administration - Progress Progress: improved Medical Desision Making - Risk of complications Minimal Risk: Minimal risk of morbidity - Departure Departure Disposition: Home Clinical Impression: Cat scratch of face Condition: Stable Critical Care Time: No Referrals: DIANNA BRICE [Primary Care Provider] - Follow up/PCP as directed Prescriptions: clindamycin HCL [Cleocin HCl] 300 mg PO TID 7 Days #21 cap
== END 2023-07-25 13:48 | disposition home or self-care (01) ==
LOC: ED 12:25
DX: S01.411A Laceration without foreign body of right cheek and temporomandibular area, initial encounter (principal); S01.01XA Laceration without foreign body of scalp, initial encounter; S01.03XA Puncture wound without foreign body of scalp, initial encounter; S01.23XA Puncture wound without foreign body of nose, initial encounter; W55.03XA Scratched by cat, initial encounter; I12.9 Hypertensive chronic kidney disease with stage 1 through stage 4 chronic kidney disease, or unspecified chronic kidney disease; N18.4 Chronic kidney disease, stage 4 (severe); Z79.02 Long term (current) use of antithrombotics/antiplatelets; Z79.899 Other long term (current) drug therapy
CPT/HCPCS: 12001; 99281; A9270-GY

== ENCOUNTER 2023-10-06 14:23 | Emergency (ER) | payer MEDICARE ==
--- NOTE | 2023-10-06 14:31 | ERPHSYRPT ---
- History of Present Illness Time Seen by Provider: 10/06/23 14:30 Historian: patient Exam Limitations: no limitations Physician History: This is an 82-year-old white female patient of Dr. Diaz, systems engineer Dr. Bae, and strategic planning consultant Dr. Sanabria. Her strategic planning consultant is out of town. Patient states she has had intermittent left anterior chest achiness without radiation several times in the last 3 to 4 days. However, she became more concerned when she had more of a sharp burning pain in the same area at noon today. Patient took one of her husbands nitroglycerin and the pain significantly reduced. She felt it was coming back and therefore, she took a second nitroglycerin which nearly completely resolved her discomfort. The pain is localized in the left anterior chest and did not radiate. Patient does not have chest pain. She does not have shortness of breath. Patient states she did have a heart attack approximately 10 years ago. She has had a cardiac catheterization in the past without placement of stent. Patient is on Plavix. She has history of TIAs. She has a history of hypertension and she is taking her morning medication as prescribed. She has a history of degenerative disc disease and osteoarthritis. She also has a history of hyperlipidemia and stage IV renal failure. She is not on dialysis. Patient currently denies chest pain. I did review an old twelve- lead EKG dated 09/30/2022. It showed normal sinus rhythm with a heart rate of 81 bpm. There was normal axis deviation, normal intervals, normal QRS without evidence of acute ischemia. Timing/Duration: day(s) (3 to 4 days) Quality: aching, burning, sharpness Location: other (Left anterior chest) Chest Pain Radiation: no radiation Severity of Pain-Max: mild (To moderate) Severity of Pain-Current: none Modifying Factors: Improves With: nitroglycerin (Helped in relieving her pain) Associated Symptoms: denies symptoms Prior Chest Pain/Cardiac Workup: cardiac cath Nitro Today/Relief: 0.4 mg x 2, provided at home, complete relief Aspirin Treatment Today: no aspirin today Allergies/Adverse Reactions: aspirin [From Aggrenox] Allergy (Verified 07/25/23 13:01) azithromycin [From Zithromax Z-Timbo] Allergy (Verified 07/25/23 13:01) calcitonin,salmon,synthetic [From Miacalcin] Allergy (Verified 07/25/23 13:01) cefaclor [From Ceclor] Allergy (Verified 07/25/23 13:01) clarithromycin [From Biaxin] Allergy (Verified 07/25/23 13:01) diazepam [From Valium] Allergy (Verified 07/25/23 13:01) dipyridamole [From Aggrenox] Allergy (Verified 07/25/23 13:01) fluticasone propionate [From Advair Diskus] Allergy (Verified 07/25/23 13:01) levofloxacin [From Levaquin] Allergy (Verified 07/25/23 13:01) meclizine HCl [From Antivert] Allergy (Verified 07/25/23 13:01) nabumetone [From Relafen] Allergy (Verified 07/25/23 13:01) naproxen Allergy (Verified 07/25/23 13:01) nizatidine [From Axid] Allergy (Verified 07/25/23 13:01) pantoprazole sodium [From Protonix] Allergy (Verified 07/25/23 13:01) Penicillins Allergy (Verified 07/25/23 13:01) pilocarpine HCl [From Salagen] Allergy (Verified 07/25/23 13:01) rofecoxib [From Vioxx] Allergy (Verified 07/25/23 13:01) salmeterol xinafoate [From Advair Diskus] Allergy (Verified 07/25/23 13:01) tramadol HCl [From Ultracet] Allergy (Verified 07/25/23 13:01) Home Medications: Amlodipine Besylate 10 mg [Norvasc 10 MG] 10 mg PO DAILY 12/31/13 [History] Clopidogrel Bisulfate [PLAVIX Tablet] 75 mg PO DAILY 12/31/13 [History] Levothyroxine Sodium 50 Mcg [Synthroid 50 Mcg] 50 mcg PO DAILY 12/31/13 [History] Loratadine 10 mg [Claritin 10 mg] 10 mg PO DAILY 12/31/13 [History] Nebivolol HCl [Bystolic] 10 mg PO BID 12/31/13 [History] predniSONE [Prednisone] 10 mg PO DAILY 11/10/15 [History] Sodium Bicarbonate 1 tab PO BID 12/11/21 [History] Hx Tetanus, Diphtheria Vaccination/Date Given: Yes Hx Influenza Vaccination/Date Given: No Hx Pneumococcal Vaccination/Date Given: No Travel Risk - International Travel Have you traveled outside of the country in past 3 weeks: No - Emerging Infectious Disease Are you exhibiting symptoms associated with any current EIDs: No - Review of Systems Constitutional: No Symptoms Eyes: No Symptoms Ears, Nose, & Throat: No Symptoms Cardiac: Chest Pain Abdominal/Gastrointestinal: No Symptoms Genitourinary Symptoms: No Symptoms Musculoskeletal: No Symptoms Skin: No Symptoms Neurological: No Symptoms Psychological: No Symptoms Endocrine: No Symptoms Hematologic/Lymphatic: No Symptoms Immunological/Allergic: No Symptoms All Other Systems: Reviewed and Negative - Past Medical History Pertinent Past Medical History: Yes Neurological History: TIA ENT History: No Pertinent History Cardiac History: Hypertension, Myocardial Infarction ([place]) Respiratory History: No Pertinent History Endocrine Medical History: Other Musculoskeletal History: Degenerative Disk Disease, Osteoarthritis GI Medical History: No Pertinent History History: No Pertinent History Psycho-Social History: No Pertinent History Female Reproductive Disorders: No Pertinent History Other Medical History: STAGE 4 KIDNEY FAILURE. HX FX WRIST LEFT - Past Surgical History Past Surgical History: Yes Neuro Surgical History: No Pertinent History Cardiac: Cardiac Catheterization Respiratory: No Pertinent History Gastrointestinal: Cholecystectomy Genitourinary: No Pertinent History Musculoskeletal: Orthopedic Surgery Female Surgical History: Hysterectomy Other Surgical History: tonsils,colonoscopy,left wrist surgery - Social History Smoking Status: Never smoker Exposure to second hand smoke: No Drug Use: none Patient Lives Alone: No - Social Determinants of Health Will the patient participate in the screening: Yes Do you worry about a steady place to live?: No In the past 12 months,have you had to go without utilities?: No Transportation Issues: No Has anyone in your support network made you feel unsafe?: No Have you or anyone in your house had to go without enough: No - Nursing Vital Signs Nursing Vital Signs: Initial Vital Signs Temperature 97.8 F 10/06/23 14:25 Pulse Rate 60 10/06/23 14:25 Respiratory Rate 22 10/06/23 14:25 Blood Pressure 200/73 10/06/23 14:25 O2 Sat by Pulse Oximetry 98 10/06/23 14:25 Pain Scale Pain Intensity 0 - Physical Exam General Appearance: no apparent distress, alert, anxiety, obese Eye Exam: PERRL/EOMI, eyes nml inspection Ears, Nose, Throat Exam: normal ENT inspection, moist mucous membranes Neck Exam: normal inspection, non-tender, supple, full range of motion Respiratory Exam: normal breath sounds, lungs clear, airway intact, No chest tenderness, No respiratory distress Cardiovascular Exam: regular rate/rhythm, normal heart sounds, normal peripheral pulses Gastrointestinal/Abdomen Exam: soft, normal bowel sounds, No tenderness Pelvic Exam: not done Rectal Exam: not done Back Exam: normal inspection, normal range of motion, No CVA tenderness, No vertebral tenderness Extremity Exam: normal inspection, normal range of motion, pelvis stable Neurologic Exam: alert, oriented x 3, cooperative, media planner II-XII nml as tested, normal mood/affect, nml cerebellar function, nml station & gait, sensation nml Skin Exam: normal color, warm, dry Lymphatic Exam: No adenopathy SpO2 Interpretation: normal O2 Delivery: Room Air - Course Nursing assessment & vital signs reviewed: Yes EKG Interpreted by Me: RATE (57), Sinus Rhythm, NORMAL AXIS, NORMAL INTERVALS, NORMAL QRS, Other (No acute ischemic changes on today's twelve-lead EKG. No changes when compared to twelve-lead EKG dated 09/30/2022) Ordered Tests: Active Orders 24 hr Category Date Time Status Block Saw Operator STAT Care 10/06/23 14:53 Active EKG-ER Only STAT Care 10/06/23 14:50 Active IV Insertion STAT Care 10/06/23 14:50 Active Pulse Oximetry (ED) STAT Care 10/06/23 14:50 Active CHEST 1 VIEW (PORTABLE) Stat Exams 10/06/23 14:52 Completed CBC W DIFF Stat Lab 10/06/23 16:19 Completed CMP Stat Lab 10/06/23 16:19 Completed NT PRO BNPII Stat Lab 10/06/23 16:19 Completed PROTIME WITH INR Stat Lab 10/06/23 16:19 Completed TROPONIN Q4H Lab 10/06/23 16:19 Completed TROPONIN Q4H Lab 10/06/23 18:55 Completed TROPONIN Q4H Lab 10/06/23 23:00 Ordered Lab/Rad Data: Laboratory Result Diagrams 10/06/23 16:19 10/06/23 16:19 Laboratory Results 10/06/23 10/06/23 10/06/23 Range/Units 18:55 16:19 16:19 WBC (3.98-10.04) x10^3/uL RBC (3.93-5.22) x10^6/uL Hgb (11.2-15.7) g/dL Hct (34.1-44.9) % MCV (79.4-94.8) fL MCH (25.6-32.2) pg MCHC (32.2-35.5) g/dL RDW (11.7-14.4) % Plt Count (182-369) x10^3/uL MPV (9.4-12.3) fL Gran % (34.0-71.1) % Immature Gran % (Auto) (0.001-0.429) % Nucleat RBC Rel Count (0.00-0.2) % Eos # (Auto) (0.04-0.36) x10^3/uL Immature Gran # (Auto) (0.001-0.031) x10^3u/L Absolute Lymphs (auto) (1.18-3.74) x10^3/uL Absolute Monos (auto) (0.24-0.86) x10^3/uL Absolute Nucleated RBC (0.00-0.012) x10^3u/L Lymphocytes % (19.3-51.7) % Monocytes % (4.7-12.5) % Eosinophils % (0.7-5.8) % Basophils % (0.1-1.2) % Absolute Granulocytes (1.56-6.13) x10^3/uL Basophils # (0.01-0.08) x10^3/uL PT 10.0 (9.4-12.5) SECONDS INR 0.91 (0.8-3.0) Sodium (135-145) mmol/L Potassium (3.5-5.1) mmol/L Chloride (98-107) mmol/L Carbon Dioxide (22-30) mmol/L Anion Gap (5-15) MEQ/L BUN (7-17) mg/dL Creatinine (0.52-1.04) mg/dL Estimated GFR ML/MIN Glucose (74-106) mg/dL Calcium (8.4-10.2) mg/dL Total Bilirubin (0.2-1.3) mg/dL AST (14-36) U/L ALT (0-35) U/L Alkaline Phosphatase (38-126) U/L Troponin I < 0.012 < 0.012 (0.000-0.033) ng/mL NT-Pro-B Natriuret Pep 1070 (<300) pg/mL Serum Total Protein (6.3-8.2) g/dL Albumin (3.5-5.0) g/dL 10/06/23 10/06/23 Range/Units 16:19 16:19 WBC 12.0 H (3.98-10.04) x10^3/uL RBC 5.15 (3.93-5.22) x10^6/uL Hgb 14.8 (11.2-15.7) g/dL Hct 45.4 H (34.1-44.9) % MCV 88.2 (79.4-94.8) fL MCH 28.7 (25.6-32.2) pg MCHC 32.6 (32.2-35.5) g/dL RDW 13.2 (11.7-14.4) % Plt Count 186 (182-369) x10^3/uL MPV 10.0 (9.4-12.3) fL Gran % 84.7 H (34.0-71.1) % Immature Gran % (Auto) 1.2 H (0.001-0.429) % Nucleat RBC Rel Count 0.0 (0.00-0.2) % Eos # (Auto) 0 L (0.04-0.36) x10^3/uL Immature Gran # (Auto) 0.15 H (0.001-0.031) x10^3u/L Absolute Lymphs (auto) 1.32 (1.18-3.74) x10^3/uL Absolute Monos (auto) 0.31 (0.24-0.86) x10^3/uL Absolute Nucleated RBC 0.00 (0.00-0.012) x10^3u/L Lymphocytes % 11.0 L (19.3-51.7) % Monocytes % 2.6 L (4.7-12.5) % Eosinophils % 0.0 L (0.7-5.8) % Basophils % 0.5 (0.1-1.2) % Absolute Granulocytes 10.20 H (1.56-6.13) x10^3/uL Basophils # 0.06 (0.01-0.08) x10^3/uL PT (9.4-12.5) SECONDS INR (0.8-3.0) Sodium 141 (135-145) mmol/L Potassium 5.2 H (3.5-5.1) mmol/L Chloride 114 H (98-107) mmol/L Carbon Dioxide 20 L (22-30) mmol/L Anion Gap 12.5 (5-15) MEQ/L BUN 37 H (7-17) mg/dL Creatinine 1.67 H (0.52-1.04) mg/dL Estimated GFR 30.0 ML/MIN Glucose 138 H (74-106) mg/dL Calcium 9.5 (8.4-10.2) mg/dL Total Bilirubin 0.90 (0.2-1.3) mg/dL AST 35 (14-36) U/L ALT 28 (0-35) U/L Alkaline Phosphatase 108 (38-126) U/L Troponin I (0.000-0.033) ng/mL NT-Pro-B Natriuret Pep (<300) pg/mL Serum Total Protein 7.8 (6.3-8.2) g/dL Albumin 4.5 (3.5-5.0) g/dL - Progress Progress: improved, re-examined Air Movement: good Progress Note: 10/06/23 16:30 My medical decision making and the assignment of moderate complexity to this patient's medical issues based on review the patient's past medical history, review of the patient's medication list, review of patient drug allergy list, history present illness and physical findings on examination. The workup in this patient includes placement of intravenous line, CBC, CMP, troponin level, BNP, twelve-lead EKG, chest x-ray. 10/06/23 16:31 Differential diagnosis includes but is not limited to myocardial infarction, electrolyte abnormalities, arrhythmia, pneumonia The chest x-ray was interpreted by the radiologist and I reviewed the impression. The impression states nonacute chest with chronic features. 10/06/23 19:41 I interpreted the patient's laboratory data results. The patient has evidence of chronic renal disease. However her GFR it has improved when compared to the values over the last year to year and a half. She has had 2 separate troponin levels that have been normal. Patient has 2 twelve-lead EKGs, 3 hours apart that have not changed and show no evidence of acute ischemia. I interpreted the patient's second twelve-lead EKG as well. It was performed at 1919 on 10/06/2023 which shows normal sinus rhythm with a rate of 59 bpm. There is normal axis deviation, normal intervals and normal QRS. Her QTc is 417. The patient does not have shortness of breath or chest pain. Blood Culture(s) Obtained: Yes Counseled pt/family regarding: lab results, diagnosis, rad results Medical Desision Making - Independent Historian Additional History obtained from: Family - Diagnostic Testing Diagnostic test were ordered, analyzed, and reviewed by me: Yes Radiological Interpretation: Reviewed by me, Teleradiologist Report - Risk of complications Low Risk: Low risk of morbidity from additional dx testing or treatment - Departure Departure Disposition: Home Clinical Impression: Nonspecific chest pain, Hypertension Condition: Stable Critical Care Time: No Referrals: DIANNA DIAZ [Primary Care Provider] - Follow up/PCP as directed Additional Instructions: Take all your medications as prescribed. Take your blood pressure medication tonight as you are prescribed to do. Call your primary care provider and your strategic planning consultant office tomorrow, 10/07/2023, in the morning, to make arrangement for follow-up appointment to be seen in the next 3 to 5 days. Return to the emergency department if your symptoms worsen.
[2023-10-06 14:35] VITALS: TEMP 97.8
[2023-10-06 16:20] LABS: BASOPHIL % 0.5 % (0.1-1.2); Basophil (Absolute #) 0.06 x10^3/uL (0.01-0.08); Eosinophil (Absolute #) 0 x10^3/uL (0.04-0.36); Hematocrit 45.4 % (34.1-44.9); Hemoglobin 14.8 g/dL (11.2-15.7); IMMATURE GRAN # 0.15 x10^3u/L (0.001-0.031); IMMATURE GRAN % 1.2 % (0.001-0.429); Lymphocyte (Absolute #) 1.32 x10^3/uL (1.18-3.74); Mean Cell Volume 88.2 fL (79.4-94.8); Mean Corpuscular Hemoglobin 28.7 pg (25.6-32.2); Mean Corpuscular Hgb Concent. 32.6 g/dL (32.2-35.5); Monocyte (Absolute #) 0.31 x10^3/uL (0.24-0.86); Monocytes % 2.6 % (4.7-12.5); Neutrophil % 84.7 % (34.0-71.1); Platelet Count 186 x10^3/uL (182-369); Red Blood Count 5.15 x10^6/uL (3.93-5.22); Red Cell Distribution Width 13.2 % (11.7-14.4)
--- NOTE | 2023-10-06 16:28 | XRAY ---
Indication: Chest pain. Comparison: September 30, 2022 Portable chest unchanged again inflated and clear with a few incidental tiny calcified granulomas. Stable small focal eventration left hemidiaphragm. Heart not enlarged. Bony thorax intact again with osteopenia and mild degenerative changes. Impression: Continued nonacute chest with chronic features.
[2023-10-06 16:32] LABS: ALBUMIN 4.5 g/dL (3.5-5.0); ANION GAP 12.5 MEQ/L (5-15); BILIRUBIN,TOTAL 0.9 mg/dL (0.2-1.3); Calcium 9.5 mg/dL (8.4-10.2); Creatinine 1 1.67 mg/dL (0.52-1.04); Potassium 5.2 mmol/L (3.5-5.1); Total Protein 7.8 g/dL (6.3-8.2)
[2023-10-06 16:43] LABS: INR 0.91 (0.8-3.0)
[2023-10-06 16:44] LABS: NT PRO BNPII 1070 pg/mL (<300); TROPONIN < 0.012 ng/mL (0.000-0.033)
[2023-10-06 19:25] VITALS: BP 188/83; PULSE 60; RESP 16; O2SAT 95
== END 2023-10-06 19:55 | disposition home or self-care (01) ==
LOC: ED 14:23
DX: R07.9 Chest pain, unspecified (principal); I12.9 Hypertensive chronic kidney disease with stage 1 through stage 4 chronic kidney disease, or unspecified chronic kidney disease; N18.4 Chronic kidney disease, stage 4 (severe); E78.5 Hyperlipidemia, unspecified; Z79.02 Long term (current) use of antithrombotics/antiplatelets; Z79.899 Other long term (current) drug therapy
CPT/HCPCS: 36415; 71045; 80053; 83880; 84484; 85025; 85610; 93005; 93041; 94760; 99284

== ENCOUNTER 2023-12-26 19:14 | Emergency (ER) | payer MEDICARE ==
--- NOTE | 2023-12-26 19:37 | ERPHSYRPT ---
- History of Present Illness Time Seen by Provider: 12/26/23 19:21 Source: patient Exam Limitations: no limitations Physician History: Pt states her left foot/ankle became swollen 4 days ago and red 2 days ago. Pt also c/o a non-productive cough for the past 10 days and chills since 2 days ago. Pt denies chest pain, abdominal pain, vomiting, dysuria; admits to shortnes s of air on exertion for the past 6 months. Allergies/Adverse Reactions: aspirin [From Aggrenox] Allergy (Verified 12/26/23 19:25) azithromycin [From Zithromax Z-Timbo] Allergy (Verified 12/26/23 19:25) calcitonin,salmon,synthetic [From Miacalcin] Allergy (Verified 12/26/23 19:25) cefaclor [From Ceclor] Allergy (Verified 12/26/23 19:25) clarithromycin [From Biaxin] Allergy (Verified 12/26/23 19:25) diazepam [From Valium] Allergy (Verified 12/26/23 19:25) dipyridamole [From Aggrenox] Allergy (Verified 12/26/23 19:25) fluticasone propionate [From Advair Diskus] Allergy (Verified 12/26/23 19:25) levofloxacin [From Levaquin] Allergy (Verified 12/26/23 19:25) meclizine HCl [From Antivert] Allergy (Verified 12/26/23 19:25) nabumetone [From Relafen] Allergy (Verified 12/26/23 19:25) naproxen Allergy (Verified 12/26/23 19:25) nizatidine [From Axid] Allergy (Verified 12/26/23 19:25) pantoprazole sodium [From Protonix] Allergy (Verified 12/26/23 19:25) Penicillins Allergy (Verified 12/26/23 19:25) pilocarpine HCl [From Salagen] Allergy (Verified 12/26/23 19:25) rofecoxib [From Vioxx] Allergy (Verified 12/26/23 19:25) salmeterol xinafoate [From Advair Diskus] Allergy (Verified 12/26/23 19:25) tramadol HCl [From Ultracet] Allergy (Verified 12/26/23 19:25) Home Medications: Amlodipine Besylate 10 mg [Norvasc 10 MG] 10 mg PO DAILY 12/31/13 [History] Clopidogrel Bisulfate [PLAVIX Tablet] 75 mg PO DAILY 12/31/13 [History] Levothyroxine Sodium 50 Mcg [Synthroid 50 Mcg] 50 mcg PO DAILY 12/31/13 [History] Loratadine 10 mg [Claritin 10 mg] 10 mg PO DAILY 12/31/13 [History] Nebivolol HCl [Bystolic] 10 mg PO BID 12/31/13 [History] predniSONE [Prednisone] 5 mg PO DAILY 11/10/15 [History] Sodium Bicarbonate 1 tab PO BID 12/11/21 [History] Fluticasone Propionate 1 spray NS DAILY 12/26/23 [History] Hx Tetanus, Diphtheria Vaccination/Date Given: Yes Hx Influenza Vaccination/Date Given: No Hx Pneumococcal Vaccination/Date Given: No Travel Risk - Emerging Infectious Disease Are you exhibiting symptoms associated with any current EIDs: No - Review of Systems Respiratory: Cough, Dyspnea (chronic) Cardiac: No Chest Pain Abdominal/Gastrointestinal: No Abdominal Pain, No Vomiting Genitourinary Symptoms: No Dysuria Neurological: No Headache - Past Medical History Pertinent Past Medical History: Yes Neurological History: TIA ENT History: No Pertinent History Cardiac History: Hypertension, Myocardial Infarction ([place]) Respiratory History: No Pertinent History Endocrine Medical History: Other Musculoskeletal History: Degenerative Disk Disease, Osteoarthritis GI Medical History: No Pertinent History History: No Pertinent History Psycho-Social History: No Pertinent History Female Reproductive Disorders: No Pertinent History Other Medical History: STAGE 4 KIDNEY FAILURE. HX FX WRIST LEFT - Past Surgical History Past Surgical History: Yes Neuro Surgical History: No Pertinent History Cardiac: Cardiac Catheterization Respiratory: No Pertinent History Gastrointestinal: Cholecystectomy Genitourinary: No Pertinent History Musculoskeletal: Orthopedic Surgery Female Surgical History: Hysterectomy Other Surgical History: tonsils,colonoscopy,left wrist surgery - Social History Smoking Status: Never smoker Exposure to second hand smoke: No Drug Use: none Patient Lives Alone: No - Social Determinants of Health Will the patient participate in the screening: Yes Do you worry about a steady place to live?: No In the past 12 months,have you had to go without utilities?: No Transportation Issues: No Has anyone in your support network made you feel unsafe?: No Have you or anyone in your house had to go without enough: No - Nursing Vital Signs Nursing Vital Signs: Initial Vital Signs Temperature 98.2 F 12/26/23 19:29 Pulse Rate 70 12/26/23 19:29 Respiratory Rate 22 12/26/23 19:29 Blood Pressure 170/77 12/26/23 19:29 O2 Sat by Pulse Oximetry 94 L 12/26/23 19:29 Pain Scale Pain Intensity 4 - Physical Exam General Appearance: alert Eyes, Ears, Nose, Throat Exam: TMs normal, pharyngeal erythema (minimal) Neck Exam: normal inspection Cardiovascular/Respiratory Exam: normal breath sounds, heart sounds normal Gastrointestinal/Abdominal Exam: soft (B.S. normal) Back Exam: normal inspection Hips Exam: left: normal range of motion Knees Exam: left knee: normal range of motion Ankle Exam: left ankle: swelling (mild edema, warmth, tenderess and erythema) Foot Exam: left foot: swelling (mild edema, warmth, tenderness and erythema) Mental Status Exam: alert, cooperative Skin Exam: No cyanosis - Course EKG Interpreted by Me: RATE (69), Sinus Rhythm, NORMAL AXIS, Other (QTc = 413) - Radiology Exams Left Foot X-ray Interpretation: Discussed w/ radiologist (From 12/26/2023: 3 nonweight bearing views left foot demonstrates osteopenia, tiny posterior/plantar heel spurs and extensive scattered vascular calcifications. No other bony, articular or soft tissue abnormalities.) Left Ankle X-ray Interpretation: Discussed w/ radiologist (From 12/26/2023: 3 view left ankle demonstrates osteopenia, tiny posterior/plantar heel spurs, mild lateral soft tissue swelling and extensive scattered vascular calcifications. No other bony, articular or soft tissue abnormalities.) - Radiology Ultrasound Exam Left Venous Lower Extremity Ultrasound: discussed w/radiologist (Left leg negative DVT) Ordered Tests: Active Orders 24 hr Category Date Time Status EKG-ER Only STAT Care 12/26/23 19:40 Active IV Insertion STAT Care 12/26/23 19:40 Active CHEST 2 VIEWS (PA AND LAT) Stat Exams 12/26/23 19:41 Taken AMYLASE Stat Lab 12/26/23 19:50 Completed BLOOD CULTURE Stat Lab 12/26/23 20:05 Received CBC W DIFF Stat Lab 12/26/23 19:50 Completed CMP Stat Lab 12/26/23 19:50 Completed D-DIMER QUANTITATIVE Stat Lab 12/26/23 19:50 Completed LIPASE Stat Lab 12/26/23 19:50 Completed MAGNESIUM Stat Lab 12/26/23 19:50 Completed NT PRO BNPII Stat Lab 12/26/23 19:50 Completed TROPONIN Q4H Lab 12/26/23 19:50 Completed TROPONIN Q4H Lab 12/26/23 23:45 Ordered TROPONIN Q4H Lab 12/27/23 03:45 Ordered UA W/RFX UR CULTURE Stat Lab 12/26/23 21:33 Completed Medication Summary Generic Name Dose Route Start Last Admin Trade Name Freq PRN Reason Stop Dose Admin Sodium Chloride 1,000 mls @ 100 mls/hr 12/26/23 19:45 12/26/23 19:58 Sodium Chloride 0.9% 1000 Ml IV 01/25/24 19:44 100 mls/hr .Q10H MERLIN Administration Discontinued Medications Generic Name Dose Route Start Last Admin Trade Name Freq PRN Reason Stop Dose Admin Clindamycin HCl/Dextrose 600 mg in 50 mls @ 100 mls/hr 12/26/23 19:43 12/26/23 20:49 Clindamycin-D5w 600 Mg/50 Ml IV 12/26/23 20:12 Infused STAT STA Infusion Clindamycin HCl/Dextrose Confirm 12/26/23 19:54 Clindamycin-D5w 600 Mg/50 Ml Administered 12/26/23 19:55 Dose 600 mg in 50 mls @ ud IV .K-MED ONE Lab/Rad Data: Laboratory Result Diagrams 12/26/23 19:50 12/26/23 19:50 Laboratory Results 12/26/23 12/26/23 12/26/23 Range/Units 21:33 20:08 20:08 WBC (3.98-10.04) x10^3/uL RBC (3.93-5.22) x10^6/uL Hgb (11.2-15.7) g/dL Hct (34.1-44.9) % MCV (79.4-94.8) fL MCH (25.6-32.2) pg MCHC (32.2-35.5) g/dL RDW (11.7-14.4) % Plt Count (182-369) x10^3/uL MPV (9.4-12.3) fL Gran % (34.0-71.1) % Immature Gran % (Auto) (0.001-0.429) % Nucleat RBC Rel Count (0.00-0.2) % Eos # (Auto) (0.04-0.36) x10^3/uL Immature Gran # (Auto) (0.001-0.031) x10^3u/L Absolute Lymphs (auto) (1.18-3.74) x10^3/uL Absolute Monos (auto) (0.24-0.86) x10^3/uL Absolute Nucleated RBC (0.00-0.012) x10^3u/L Lymphocytes % (19.3-51.7) % Monocytes % (4.7-12.5) % Eosinophils % (0.7-5.8) % Basophils % (0.1-1.2) % Absolute Granulocytes (1.56-6.13) x10^3/uL Basophils # (0.01-0.08) x10^3/uL D-Dimer (0.0-0.50) mg/L Sodium (135-145) mmol/L Potassium (3.5-5.1) mmol/L Chloride (98-107) mmol/L Carbon Dioxide (22-30) mmol/L Anion Gap (5-15) MEQ/L BUN (7-17) mg/dL Creatinine (0.52-1.04) mg/dL Estimated GFR ML/MIN Glucose (74-106) mg/dL Calcium (8.4-10.2) mg/dL Magnesium (1.6-2.3) mg/dL Total Bilirubin (0.2-1.3) mg/dL AST (14-36) U/L ALT (0-35) U/L Alkaline Phosphatase (38-126) U/L Troponin I (0.000-0.033) ng/mL NT-Pro-B Natriuret Pep (<300) pg/mL Serum Total Protein (6.3-8.2) g/dL Albumin (3.5-5.0) g/dL Amylase (30-110) U/L Lipase (23-300) U/L Urine Color Yellow (Yellow) Urine Appearance Clear (Clear) Urine pH 5.5 (4.6-8.0) Ur Specific [place] 1.010 (1.005-1.030) Urine Protein Negative (Negative) Urine Glucose (UA) Negative (Negative) mg/dL Urine Ketones Negative (Negative) Urine Blood Negative (Negative) Urine Nitrite Negative (Negative) Urine Bilirubin Negative (Negative) Urine Urobilinogen 0.2 (0.2) mg/dL Ur Leukocyte Esterase Negative (Negative) U Hyaline Cast (Auto) 3-5 A (0-2) /LPF Urine Microscopic RBC 0-2 (0-5) /HPF Urine Microscopic WBC 0-2 (0-5) /HPF Ur Epithelial Cells None Seen (None Seen) /HPF Urine Bacteria None Seen (None Seen) /HPF Urine Culture Reflexed NO (NO) Influenza Type A Ag NEGATIVE (NEGATIVE) Influenza Type B Ag NEGATIVE (NEGATIVE) RSV (PCR) NEGATIVE (NEGATIVE) SARS-CoV-2 (PCR) NEGATIVE (NEGATIVE) Group A Strep Antibody NOT DETECTED (NEGATIVE) 12/26/23 12/26/23 12/26/23 Range/Units 19:50 19:50 19:50 WBC (3.98-10.04) x10^3/uL RBC (3.93-5.22) x10^6/uL Hgb (11.2-15.7) g/dL Hct (34.1-44.9) % MCV (79.4-94.8) fL MCH (25.6-32.2) pg MCHC (32.2-35.5) g/dL RDW (11.7-14.4) % Plt Count (182-369) x10^3/uL MPV (9.4-12.3) fL Gran % (34.0-71.1) % Immature Gran % (Auto) (0.001-0.429) % Nucleat RBC Rel Count (0.00-0.2) % Eos # (Auto) (0.04-0.36) x10^3/uL Immature Gran # (Auto) (0.001-0.031) x10^3u/L Absolute Lymphs (auto) (1.18-3.74) x10^3/uL Absolute Monos (auto) (0.24-0.86) x10^3/uL Absolute Nucleated RBC (0.00-0.012) x10^3u/L Lymphocytes % (19.3-51.7) % Monocytes % (4.7-12.5) % Eosinophils % (0.7-5.8) % Basophils % (0.1-1.2) % Absolute Granulocytes (1.56-6.13) x10^3/uL Basophils # (0.01-0.08) x10^3/uL D-Dimer 1.48 H* (0.0-0.50) mg/L Sodium 135 (135-145) mmol/L Potassium 4.8 (3.5-5.1) mmol/L Chloride 106 (98-107) mmol/L Carbon Dioxide 16 L* (22-30) mmol/L Anion Gap 18.8 H (5-15) MEQ/L BUN 53 H (7-17) mg/dL Creatinine 2.46 H (0.52-1.04) mg/dL Estimated GFR 18.8 ML/MIN Glucose 134 H (74-106) mg/dL Calcium 8.9 (8.4-10.2) mg/dL Magnesium 2.2 (1.6-2.3) mg/dL Total Bilirubin 0.70 (0.2-1.3) mg/dL AST 52 H (14-36) U/L ALT 31 (0-35) U/L Alkaline Phosphatase 96 (38-126) U/L Troponin I < 0.012 (0.000-0.033) ng/mL NT-Pro-B Natriuret Pep 1450 (<300) pg/mL Serum Total Protein 7.4 (6.3-8.2) g/dL Albumin 4.1 (3.5-5.0) g/dL Amylase 91 (30-110) U/L Lipase 105 (23-300) U/L Urine Color (Yellow) Urine Appearance (Clear) Urine pH (4.6-8.0) Ur Specific [place] (1.005-1.030) Urine Protein (Negative) Urine Glucose (UA) (Negative) mg/dL Urine Ketones (Negative) Urine Blood (Negative) Urine Nitrite (Negative) Urine Bilirubin (Negative) Urine Urobilinogen (0.2) mg/dL Ur Leukocyte Esterase (Negative) U Hyaline Cast (Auto) (0-2) /LPF Urine Microscopic RBC (0-5) /HPF Urine Microscopic WBC (0-5) /HPF Ur Epithelial Cells (None Seen) /HPF Urine Bacteria (None Seen) /HPF Urine Culture Reflexed (NO) Influenza Type A Ag (NEGATIVE) Influenza Type B Ag (NEGATIVE) RSV (PCR) (NEGATIVE) SARS-CoV-2 (PCR) (NEGATIVE) Group A Strep Antibody (NEGATIVE) 12/26/23 Range/Units 19:50 WBC 12.2 H (3.98-10.04) x10^3/uL RBC 4.43 (3.93-5.22) x10^6/uL Hgb 12.7 (11.2-15.7) g/dL Hct 38.2 (34.1-44.9) % MCV 86.2 (79.4-94.8) fL MCH 28.7 (25.6-32.2) pg MCHC 33.2 (32.2-35.5) g/dL RDW 12.9 (11.7-14.4) % Plt Count 218 (182-369) x10^3/uL MPV 9.7 (9.4-12.3) fL Gran % 87.3 H (34.0-71.1) % Immature Gran % (Auto) 1.1 H (0.001-0.429) % Nucleat RBC Rel Count 0.0 (0.00-0.2) % Eos # (Auto) 0 L (0.04-0.36) x10^3/uL Immature Gran # (Auto) 0.13 H (0.001-0.031) x10^3u/L Absolute Lymphs (auto) 0.76 L (1.18-3.74) x10^3/uL Absolute Monos (auto) 0.64 (0.24-0.86) x10^3/uL Absolute Nucleated RBC 0.00 (0.00-0.012) x10^3u/L Lymphocytes % 6.2 L (19.3-51.7) % Monocytes % 5.2 (4.7-12.5) % Eosinophils % 0.0 L (0.7-5.8) % Basophils % 0.2 (0.1-1.2) % Absolute Granulocytes 10.64 H (1.56-6.13) x10^3/uL Basophils # 0.03 (0.01-0.08) x10^3/uL D-Dimer (0.0-0.50) mg/L Sodium (135-145) mmol/L Potassium (3.5-5.1) mmol/L Chloride (98-107) mmol/L Carbon Dioxide (22-30) mmol/L Anion Gap (5-15) MEQ/L BUN (7-17) mg/dL Creatinine (0.52-1.04) mg/dL Estimated GFR ML/MIN Glucose (74-106) mg/dL Calcium (8.4-10.2) mg/dL Magnesium (1.6-2.3) mg/dL Total Bilirubin (0.2-1.3) mg/dL AST (14-36) U/L ALT (0-35) U/L Alkaline Phosphatase (38-126) U/L Troponin I (0.000-0.033) ng/mL NT-Pro-B Natriuret Pep (<300) pg/mL Serum Total Protein (6.3-8.2) g/dL Albumin (3.5-5.0) g/dL Amylase (30-110) U/L Lipase (23-300) U/L Urine Color (Yellow) Urine Appearance (Clear) Urine pH (4.6-8.0) Ur Specific [place] (1.005-1.030) Urine Protein (Negative) Urine Glucose (UA) (Negative) mg/dL Urine Ketones (Negative) Urine Blood (Negative) Urine Nitrite (Negative) Urine Bilirubin (Negative) Urine Urobilinogen (0.2) mg/dL Ur Leukocyte Esterase (Negative) U Hyaline Cast (Auto) (0-2) /LPF Urine Microscopic RBC (0-5) /HPF Urine Microscopic WBC (0-5) /HPF Ur Epithelial Cells (None Seen) /HPF Urine Bacteria (None Seen) /HPF Urine Culture Reflexed (NO) Influenza Type A Ag (NEGATIVE) Influenza Type B Ag (NEGATIVE) RSV (PCR) (NEGATIVE) SARS-CoV-2 (PCR) (NEGATIVE) Group A Strep Antibody (NEGATIVE) - Progress Progress: unchanged Will see patient in: other (Dr. Arellano([id number]) accepted pt for transfer to [facility].) Counseled pt/family regarding: lab results, diagnosis, rad results Medical Desision Making - Diagnostic Testing Diagnostic test were ordered, analyzed, and reviewed by me: Yes Radiological Interpretation: Discussed w/ radiologist - Departure Departure Disposition: Transfer ([facility]) Clinical Impression: Elevated D-Dimer, Cellulitis of left ankle/foot, Dyspnea Condition: Stable Critical Care Time: No Referrals: DIANNA BRICE [Primary Care Provider] - Follow up/PCP as directed
[2023-12-26 19:41] VITALS: TEMP 98.2
[2023-12-26] MEDS ORDERED: CLINDAMYCIN-D5W 600 MG/50 ML*** 600 MG/50 ML BAG IV ONE (19:54)
[2023-12-26] MEDS ORDERED: Sodium Chloride 0.9% 1000 ML 1,000 ML ONE (19:54)
[2023-12-26] MEDS: Sodium Chloride 0.9% 1000 ML 1,000 ML IV SCH (19:58)
[2023-12-26] MEDS: CLINDAMYCIN-D5W 600 MG/50 ML*** 600 MG/50 ML BAG IV STA (20:05)
[2023-12-26 20:10] LABS: Absolute Neutrophil Ct (ANC) 10.64 x10^3/uL (1.56-6.13); BASOPHIL % 0.2 % (0.1-1.2); Basophil (Absolute #) 0.03 x10^3/uL (0.01-0.08); Eosinophil (Absolute #) 0 x10^3/uL (0.04-0.36); Hematocrit 38.2 % (34.1-44.9); Hemoglobin 12.7 g/dL (11.2-15.7); IMMATURE GRAN # 0.13 x10^3u/L (0.001-0.031); IMMATURE GRAN % 1.1 % (0.001-0.429); Lymphocyte (Absolute #) 0.76 x10^3/uL (1.18-3.74); Lymphocytes % 6.2 % (19.3-51.7); Mean Cell Volume 86.2 fL (79.4-94.8); Mean Corpuscular Hemoglobin 28.7 pg (25.6-32.2); Mean Corpuscular Hgb Concent. 33.2 g/dL (32.2-35.5); Mean Platelet Volume 9.7 fL (9.4-12.3); Monocyte (Absolute #) 0.64 x10^3/uL (0.24-0.86); Monocytes % 5.2 % (4.7-12.5); Neutrophil % 87.3 % (34.0-71.1); Platelet Count 218 x10^3/uL (182-369); Red Blood Count 4.43 x10^6/uL (3.93-5.22); Red Cell Distribution Width 12.9 % (11.7-14.4); White Blood Count 12.2 x10^3/uL (3.98-10.04)
[2023-12-26 20:26] LABS: ALBUMIN 4.1 g/dL (3.5-5.0); ANION GAP 18.8 MEQ/L (5-15); BILIRUBIN,TOTAL 0.7 mg/dL (0.2-1.3); Calcium 8.9 mg/dL (8.4-10.2); Creatinine 1 2.46 mg/dL (0.52-1.04); EST GLOMERULAR FILTRATION RATE 18.8 ML/MIN; MAGNESIUM 2.2 mg/dL (1.6-2.3); Potassium 4.8 mmol/L (3.5-5.1); Total Protein 7.4 g/dL (6.3-8.2)
[2023-12-26 20:37] LABS: NT PRO BNPII 1450 pg/mL (<300); TROPONIN < 0.012 ng/mL (0.000-0.033)
[2023-12-26 20:50] LABS: INFLUENZA A NEGATIVE (NEGATIVE); INFLUENZA B NEGATIVE (NEGATIVE); RESPIRATORY SYNCTIAL VIRUS NEGATIVE (NEGATIVE); SARS-CoV-2 Xpert Express NEGATIVE (NEGATIVE)
[2023-12-26 21:41] LABS: ADD URINE CULTURE? NO (NO); Appearance Clear (Clear); Bacteria None Seen /HPF (None Seen); Bilirubin Negative (Negative); Blood Negative (Negative); Epithelial Cells None Seen /HPF (None Seen); Glucose, Urine Negative (Negative); Ketones Negative (Negative); Leukocyte Esterase Negative (Negative); Nitrite Negative (Negative); Ph 5.5 (4.6-8.0); Protein,Urine Dip Negative (Negative); RBC 0-2 /HPF (0-5); Urobilinogen 0.2 mg/dL (0.2); WBC 0-2 /HPF (0-5)
[2023-12-26] MEDS ORDERED: OFIRMEV 100 ML IV ONE (22:08)
[2023-12-26] MEDS: OFIRMEV 1,000 MG/100 ML ML IV ONE (22:09)
--- NOTE | 2023-12-26 22:16 | XRAY ---
Indication: Cough. Comparison: October 06, 2023 PA/lateral chest again demonstrates minimal right upper lung peripheral subsegmental atelectasis/scarring, tiny right lung calcified granulomas, and prominent left epicardiac fat. Remaining heart and lungs unremarkable. Bony thorax intact again with osteopenia and degenerative changes. Impression: Continued nonacute chest with chronic features.
[2023-12-27] MEDS ORDERED: CLINDAMYCIN-D5W 600 MG/50 ML*** 600 MG/50 ML BAG IV ONE (03:07)
[2023-12-27] MEDS: CLINDAMYCIN-D5W 600 MG/50 ML*** 600 MG/50 ML BAG IV STA (03:09)
[2023-12-27] MEDS ORDERED: Sodium Chloride 0.9% 1000 ML 1,000 ML ONE (05:57)
[2023-12-27 08:44] VITALS: BP 167/77
[2023-12-27 09:06] VITALS: PULSE 67; RESP 16; O2SAT 97
== END 2023-12-27 09:08 | disposition short-term general hospital (02) ==
LOC: ED 19:14
DX: L03.116 Cellulitis of left lower limb (principal); R79.1 Abnormal coagulation profile; R06.00 Dyspnea, unspecified; R05.1 Acute cough; R68.83 Chills (without fever); I12.9 Hypertensive chronic kidney disease with stage 1 through stage 4 chronic kidney disease, or unspecified chronic kidney disease; N18.4 Chronic kidney disease, stage 4 (severe); Z79.02 Long term (current) use of antithrombotics/antiplatelets; Z79.899 Other long term (current) drug therapy
CPT/HCPCS: 0241U; 36000; 36415; 71046; 80053; 81001; 82150; 83690; 83735; 83880; 84484; 85025; 85379; 87040; 87651; 93005; 96365; 96366; 99285

== ENCOUNTER 2024-06-29 12:16 | Inpatient (IN) | payer MEDICARE ==
--- NOTE | 2024-06-29 12:22 | ERPHSYRPT ---
- History of Present Illness Time Seen by Provider: 06/29/24 12:22 Source: patient, family Exam Limitations: no limitations Physician History: This is an 83-year-old white female patient of Dr. Brice who was brought to the emergency department by the business systems developer service because of shortness of breath, cough, fever and headache that began yesterday, 06/28/2024. Patient had a room air oxygen saturation level of 85 to 88% at home. Paramedics arrived and placed her on 2 L of oxygen via nasal cannula and she increased her oxygen saturation level to 92 to 93%. She also received a DuoNeb treatment. Patient has stage IV renal disease and sees Dr. Bae. She also sees dry man Dr. Sanabria. She denies abdominal pain. Denies chest pain. She has not had nausea vomiting or diarrhea symptoms. Patient has a history of RI 10 to 11 years ago, hypertension, hypothyroidism, TIA and degenerative disc disease and is on Plavix. Timing/Duration: yesterday Activities at Onset: none Severity of Dyspnea-Max: moderate Severity of Dyspnea-Current: moderate Possible Cause: occasional episodes Modifying Factors: Improves With: coughing Associated Symptoms: cough, fever, wheezing, No chest pain/discomfort Allergies/Adverse Reactions: aspirin [From Aggrenox] Allergy (Verified 06/29/24 12:28) azithromycin [From Zithromax Z-Timbo] Allergy (Verified 06/29/24 12:28) calcitonin,salmon,synthetic [From Miacalcin] Allergy (Verified 06/29/24 12:28) cefaclor [From Ceclor] Allergy (Verified 06/29/24 12:28) clarithromycin [From Biaxin] Allergy (Verified 06/29/24 12:28) diazepam [From Valium] Allergy (Verified 06/29/24 12:28) dipyridamole [From Aggrenox] Allergy (Verified 06/29/24 12:28) fluticasone propionate [From Advair Diskus] Allergy (Verified 06/29/24 12:28) levofloxacin [From Levaquin] Allergy (Verified 06/29/24 12:28) meclizine HCl [From Antivert] Allergy (Verified 06/29/24 12:28) nabumetone [From Relafen] Allergy (Verified 06/29/24 12:28) naproxen Allergy (Verified 06/29/24 12:28) nizatidine [From Axid] Allergy (Verified 06/29/24 12:28) pantoprazole sodium [From Protonix] Allergy (Verified 06/29/24 12:28) Penicillins Allergy (Verified 06/29/24 12:28) pilocarpine HCl [From Salagen] Allergy (Verified 06/29/24 12:28) rofecoxib [From Vioxx] Allergy (Verified 06/29/24 12:28) salmeterol xinafoate [From Advair Diskus] Allergy (Verified 06/29/24 12:28) tramadol HCl [From Ultracet] Allergy (Verified 06/29/24 12:28) Home Medications: Amlodipine Besylate 10 mg [Norvasc 10 MG] 10 mg PO DAILY 12/31/13 [History] Clopidogrel Bisulfate [PLAVIX Tablet] 75 mg PO DAILY 12/31/13 [History] Levothyroxine Sodium 50 Mcg [Synthroid 50 Mcg] 50 mcg PO DAILY 12/31/13 [History] Loratadine 10 mg [Claritin 10 mg] 10 mg PO DAILY 12/31/13 [History] Nebivolol HCl [Bystolic] 10 mg PO BID 12/31/13 [History] predniSONE [Prednisone] 20 mg PO UD 11/10/15 [History] Sodium Bicarbonate 1 tab PO BID 12/11/21 [History] Ergocalciferol (Vitamin D2) [Vitamin D2] 1,250 mcg PO UD 06/29/24 [History] Isosorbide Mononitrate 30 mg [Imdur 30 MG] 30 mg PO DAILY 06/29/24 [History] Hx Tetanus, Diphtheria Vaccination/Date Given: Yes Hx Influenza Vaccination/Date Given: No Hx Pneumococcal Vaccination/Date Given: No Travel Risk - International Travel Have you traveled outside of the country in past 3 weeks: No - Emerging Infectious Disease Are you exhibiting symptoms associated with any current EIDs: Yes Symptoms: Cough: New Onset, Fever, Headaches/Body Aches/, Shortness of Breath - Review of Systems Constitutional: Fever Eyes: No Symptoms Ears, Nose, & Throat: No Symptoms Respiratory: Cough, Dyspnea Cardiac: No Symptoms Abdominal/Gastrointestinal: No Symptoms Genitourinary Symptoms: No Symptoms Musculoskeletal: No Symptoms Neurological: Headache Psychological: No Symptoms Endocrine: No Symptoms Hematologic/Lymphatic: No Symptoms Immunological/Allergic: No Symptoms All Other Systems: Reviewed and Negative - Past Medical History Pertinent Past Medical History: Yes Neurological History: TIA ENT History: No Pertinent History Cardiac History: Hypertension, Myocardial Infarction (RI) Respiratory History: No Pertinent History Endocrine Medical History: Other Musculoskeletal History: Degenerative Disk Disease, Osteoarthritis GI Medical History: No Pertinent History History: No Pertinent History Psycho-Social History: No Pertinent History Female Reproductive Disorders: No Pertinent History Other Medical History: STAGE 4 KIDNEY FAILURE. HX FX WRIST LEFT - Past Surgical History Past Surgical History: Yes Neuro Surgical History: No Pertinent History Cardiac: Cardiac Catheterization Respiratory: No Pertinent History Gastrointestinal: Cholecystectomy Genitourinary: No Pertinent History Musculoskeletal: Orthopedic Surgery Female Surgical History: Hysterectomy Other Surgical History: tonsils,colonoscopy,left wrist surgery - Social History Smoking Status: Never smoker Exposure to second hand smoke: No Drug Use: none Patient Lives Alone: No - Social Determinants of Health Will the patient participate in the screening: Yes Do you worry about a steady place to live?: No In the past 12 months,have you had to go without utilities?: No Transportation Issues: No Has anyone in your support network made you feel unsafe?: No Have you or anyone in your house had to go w/o enough food: No - Nursing Vital Signs Nursing Vital Signs: Initial Vital Signs Temperature 101.3 F 06/29/24 12:17 Pulse Rate 115 H 06/29/24 12:17 Respiratory Rate 33 H 06/29/24 12:17 Blood Pressure 164/106 06/29/24 12:17 O2 Sat by Pulse Oximetry 94 L 06/29/24 12:17 Pain Scale Pain Intensity 10 - Physical Exam General Appearance: mild distress, alert, anxiety Eye Exam: PERRL/EOMI, eyes nml inspection Ears, Nose, Throat Exam: hearing grossly normal, normal ENT inspection, normal pharynx Neck Exam: normal inspection, non-tender, supple, full range of motion Respiratory Exam: normal breath sounds, lungs clear, respiratory distress (Decreased breath sounds at left base), airway intact ( mild), No chest tenderness Cardiovascular/Chest Exam: tachycardia Abdominal/Gastrointestinal Exam: soft, normal bowel sounds, No tenderness Rectal Exam: not done Extremity Exam: non-tender, normal range of motion, pelvis stable, pedal edema (Mild ankle and feet bilaterally) Neurologic Exam: alert, oriented x 3, cooperative, steam 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 operator II-XII nml as tested, sensation nml Skin Exam: normal color, warm, dry Lymphatic Exam: No adenopathy SpO2 Interpretation: normal O2 Delivery: Room Air - Course Nursing assessment & vital signs reviewed: Yes Ordered Tests: Active Orders 24 hr Category Date Time Status EKG-ER Only STAT Care 06/29/24 13:03 Active IV Insertion STAT Care 06/29/24 13:03 Active Oxygen-ED Only Nasal Cannula 2 lpm Care 06/29/24 13:03 Active Pulse Oximetry (ED) STAT Care 06/29/24 13:03 Active CHEST 1 VIEW (PORTABLE) Stat Exams 06/29/24 13:03 Completed BLOOD CULTURE Stat Lab 06/29/24 13:35 Received CBC W DIFF Stat Lab 06/29/24 13:48 Completed CMP Stat Lab 06/29/24 13:48 Completed Lactic Acid Stat Lab 06/29/24 13:48 Completed MAGNESIUM Stat Lab 06/29/24 13:48 Completed NT PRO BNPII Stat Lab 06/29/24 13:48 Completed TROPONIN Q4H Lab 06/29/24 13:48 Completed TROPONIN Q4H Lab 06/29/24 17:15 Ordered TROPONIN Q4H Lab 06/29/24 21:15 Ordered Medication Summary Discontinued Medications Generic Name Dose Route Start Last Admin Trade Name Freq PRN Reason Stop Dose Admin Oseltamivir Phosphate 75 mg 06/29/24 14:52 Oseltamivir 75 Mg Cap PO 06/29/24 14:53 STAT ONE Oseltamivir Phosphate Confirm 06/29/24 14:56 Oseltamivir 75 Mg Cap Administered 06/29/24 14:57 Dose 75 mg PO .STK-MED ONE Lab/Rad Data: Laboratory Result Diagrams 06/29/24 13:48 06/29/24 13:48 Laboratory Results 06/29/24 06/29/24 06/29/24 Range/Units 13:48 13:48 13:48 WBC (3.98-10.04) x10^3/uL RBC (3.93-5.22) x10^6/uL Hgb (11.2-15.7) g/dL Hct (34.1-44.9) % MCV (79.4-94.8) fL MCH (25.6-32.2) pg MCHC (32.2-35.5) g/dL RDW (11.7-14.4) % Plt Count (182-369) x10^3/uL MPV (9.4-12.3) fL Gran % (34.0-71.1) % Immature Gran % (Auto) (0.001-0.429) % Nucleat RBC Rel Count (0.00-0.2) % Eos # (Auto) (0.04-0.36) x10^3/uL Immature Gran # (Auto) (0.001-0.031) x10^3u/L Absolute Lymphs (auto) (1.18-3.74) x10^3/uL Absolute Monos (auto) (0.24-0.86) x10^3/uL Absolute Nucleated RBC (0.00-0.012) x10^3u/L Lymphocytes % (19.3-51.7) % Monocytes % (4.7-12.5) % Eosinophils % (0.7-5.8) % Basophils % (0.1-1.2) % Absolute Granulocytes (1.56-6.13) x10^3/uL Basophils # (0.01-0.08) x10^3/uL Sodium 140 (135-145) mmol/L Potassium 4.9 (3.5-5.1) mmol/L Chloride 108 H (98-107) mmol/L Carbon Dioxide 18 L (22-30) mmol/L Anion Gap 19.3 H (5-15) MEQ/L BUN 46 H (7-17) mg/dL Creatinine 1.76 H (0.52-1.04) mg/dL Estimated GFR 28.0 ML/MIN Glucose 100 (74-106) mg/dL Lactic Acid 2.4 H (0.4-2.0) Calcium 9.4 (8.4-10.2) mg/dL Magnesium 2.0 (1.6-2.3) mg/dL Total Bilirubin 0.90 (0.2-1.3) mg/dL AST 49 H (14-36) U/L ALT 31 (0-35) U/L Alkaline Phosphatase 109 (38-126) U/L Troponin I 0.044 H* (0.000-0.033) ng/mL NT-Pro-B Natriuret Pep 3590 (<300) pg/mL Serum Total Protein 7.5 (6.3-8.2) g/dL Albumin 4.5 (3.5-5.0) g/dL Influenza Type A Ag (NEGATIVE) Influenza Type B Ag (NEGATIVE) RSV (PCR) (NEGATIVE) SARS-CoV-2 (PCR) (NEGATIVE) Slides for Path Review 06/29/24 06/29/24 Range/Units 13:48 13:35 WBC 6.8 (3.98-10.04) x10^3/uL RBC 5.19 (3.93-5.22) x10^6/uL Hgb 14.7 (11.2-15.7) g/dL Hct 45.7 H (34.1-44.9) % MCV 88.1 (79.4-94.8) fL MCH 28.3 (25.6-32.2) pg MCHC 32.2 (32.2-35.5) g/dL RDW 14.6 H (11.7-14.4) % Plt Count 73 L (182-369) x10^3/uL MPV 10.1 (9.4-12.3) fL Gran % 79.8 H (34.0-71.1) % Immature Gran % (Auto) 2.7 H (0.001-0.429) % Nucleat RBC Rel Count 0.0 (0.00-0.2) % Eos # (Auto) 0.01 L (0.04-0.36) x10^3/uL Immature Gran # (Auto) 0.18 H (0.001-0.031) x10^3u/L Absolute Lymphs (auto) 0.80 L (1.18-3.74) x10^3/uL Absolute Monos (auto) 0.35 (0.24-0.86) x10^3/uL Absolute Nucleated RBC 0.00 (0.00-0.012) x10^3u/L Lymphocytes % 11.8 L (19.3-51.7) % Monocytes % 5.2 (4.7-12.5) % Eosinophils % 0.1 L (0.7-5.8) % Basophils % 0.4 (0.1-1.2) % Absolute Granulocytes 5.42 (1.56-6.13) x10^3/uL Basophils # 0.03 (0.01-0.08) x10^3/uL Sodium (135-145) mmol/L Potassium (3.5-5.1) mmol/L Chloride (98-107) mmol/L Carbon Dioxide (22-30) mmol/L Anion Gap (5-15) MEQ/L BUN (7-17) mg/dL Creatinine (0.52-1.04) mg/dL Estimated GFR ML/MIN Glucose (74-106) mg/dL Lactic Acid (0.4-2.0) Calcium (8.4-10.2) mg/dL Magnesium (1.6-2.3) mg/dL Total Bilirubin (0.2-1.3) mg/dL AST (14-36) U/L ALT (0-35) U/L Alkaline Phosphatase (38-126) U/L Troponin I (0.000-0.033) ng/mL NT-Pro-B Natriuret Pep (<300) pg/mL Serum Total Protein (6.3-8.2) g/dL Albumin (3.5-5.0) g/dL Influenza Type A Ag POSITIVE A (NEGATIVE) Influenza Type B Ag NEGATIVE (NEGATIVE) RSV (PCR) NEGATIVE (NEGATIVE) SARS-CoV-2 (PCR) NEGATIVE (NEGATIVE) Slides for Path Review YES - Progress Progress: improved, re-examined Air Movement: fair Progress Note: 06/29/24 15:01 My medical decision making of the assignment of moderate to high complexity of this patient's medical issue today is based on review of the patient's past medical history, review of the patient's medication list, reviewed patient drug allergy list, history of his nose and physical findings on examination. The workup in this patient includes placement of a intravenous line, RT evaluation and management, twelve-lead EKG 06/29/24 15:08 Differential diagnosis includes but is not limited to upper respiratory infection, pneumonia, viral illness, CHF exacerbation, arrhythmia, myocardial infarction 06/29/24 15:10 I interpreted the patient's laboratory data results. Based on the laboratory data results, there is elevated troponin which may be right strain secondary to elevated BNP, there is chronic renal failure, there is positive influenza A infection. The chest x-ray was interpreted by the radiologist and I reviewed the i mpression. The impression states new, moderate left base infiltrate versus atelectasis versus effusion. I spoke with telehospitalist, Dr. Chung, I reviewed the patient's past medical history, presenting complaint, workup results and the patient will be placed in the hospital under full admission. She wants me to hold off on giving any antibiotics or diuretics at this time. Blood Culture(s) Obtained: Yes Antibiotics given: No Counseled pt/family regarding: lab results, diagnosis, rad results Medical Desision Making - Independent Historian Additional History obtained from: Sourcing Analyst/EMT - Discussion of managment Care discussed with:: hospitalist Reviewed:: Test results, Need for additional workup Agreed on:: decision to admit - Diagnostic Testing Diagnostic test were ordered, analyzed, and reviewed by me: Yes Radiological Interpretation: Reviewed by me, Teleradiologist Report - Risk of complications The pt has a high risk of morbidity or mortality based on: Decision regarding hospitilization or escalation of hosp level of care - Departure Departure Disposition: In-patient Admission Clinical Impression: Hypoxic, Shortness of breath, Left pulmonary infiltrate on CXR, Influenza A H 1N1 infection, Elevated troponin, Elevated brain natriuretic peptide (BNP) level Condition: Fair Critical Care Time: Yes Critical Care Time(excluding separately billable procedures): Critical 30-74 mins (45 minutes) Referrals: DIANNA BRICE [Primary Care Provider] - Follow up/PCP as directed
--- NOTE | 2024-06-29 13:19 | XRAY ---
Indication: Short of breath. Comparison: December 26, 2023 Portable chest demonstrates new moderate left base infiltrate/atelectasis/effusion. Remaining heart and right lung unremarkable. Bony thorax intact again with osteopenia and degenerative changes.
[2024-06-29 13:55] LABS: Absolute Neutrophil Ct (ANC) 5.42 x10^3/uL (1.56-6.13); BASOPHIL % 0.4 % (0.1-1.2); Basophil (Absolute #) 0.03 x10^3/uL (0.01-0.08); Eosinophil % 0.1 % (0.7-5.8); Eosinophil (Absolute #) 0.01 x10^3/uL (0.04-0.36); Hematocrit 45.7 % (34.1-44.9); Hemoglobin 14.7 g/dL (11.2-15.7); IMMATURE GRAN # 0.18 x10^3u/L (0.001-0.031); IMMATURE GRAN % 2.7 % (0.001-0.429); Lymphocytes % 11.8 % (19.3-51.7); Mean Cell Volume 88.1 fL (79.4-94.8); Mean Corpuscular Hemoglobin 28.3 pg (25.6-32.2); Mean Corpuscular Hgb Concent. 32.2 g/dL (32.2-35.5); Mean Platelet Volume 10.1 fL (9.4-12.3); Monocyte (Absolute #) 0.35 x10^3/uL (0.24-0.86); Monocytes % 5.2 % (4.7-12.5); Neutrophil % 79.8 % (34.0-71.1); Platelet Count 73 x10^3/uL (182-369); Red Blood Count 5.19 x10^6/uL (3.93-5.22); Red Cell Distribution Width 14.6 % (11.7-14.4); White Blood Count 6.8 x10^3/uL (3.98-10.04)
[2024-06-29 14:08] LABS: ALBUMIN 4.5 g/dL (3.5-5.0); ANION GAP 19.3 MEQ/L (5-15); BILIRUBIN,TOTAL 0.9 mg/dL (0.2-1.3); Calcium 9.4 mg/dL (8.4-10.2); Creatinine 1 1.76 mg/dL (0.52-1.04); Potassium 4.9 mmol/L (3.5-5.1); Total Protein 7.5 g/dL (6.3-8.2)
[2024-06-29 14:34] LABS: INFLUENZA B NEGATIVE (NEGATIVE); RESPIRATORY SYNCTIAL VIRUS NEGATIVE (NEGATIVE); SARS-CoV-2 Xpert Express NEGATIVE (NEGATIVE)
[2024-06-29 14:40] LABS: Slide Review 1 YES
[2024-06-29 14:44] LABS: TROPONIN 0.044 ng/mL (0.000-0.033)
[2024-06-29 14:46] LABS: INFLUENZA A POSITIVE (NEGATIVE)
[2024-06-29] MEDS ORDERED: Tamiflu 75MG Capsule PO ONE (14:56)
[2024-06-29] MEDS: Tamiflu 75MG Capsule PO ONE (14:59)
[2024-06-29] MEDS ORDERED: TYLENOL 325 MG ONE (15:07)
[2024-06-29] MEDS: TYLENOL 325 MG PO ONE (15:08)
[2024-06-29] MEDS ORDERED: Zofran 4 MG/2 ML VIAL IV PRN (16:48)
--- NOTE | 2024-06-29 16:51 | PCM.HP ---
<SOLOMON WOODARD - Last Filed: 06/29/24 17:20> History of Present Illness - Chief Complaint Chief Complaint: Sepsis/FluA/Pneumonia Date: 06/29/24 History of Present Illness: is a 83 year old female with a pmhx of [place], HTN, TIA, hypothyroidism, CKD, and DDD who presented to ED 06/29/24 with complaints of fever, cough, headache and shortness of breath which began the day prior. Patient states her cough is non-productive. Dyspnea progressively worse overnight with fever. She reports she is so weak she has been unable to get out of bed. Additionally she reports some nausea and a poor appetite. Denies cp, abdominal pain, RYDER, dizziness, N/V/D. Upon arrival to ED patient was febrile,hypoxic, tachycardic, tachypneic, and hypertensive. CXR chest demonstrates new moderate left base infiltrate/atelectasis/effusion. Lab findings significant for lactic/Gap/metabolic acidosis, elevated troponin, and Flu A positive. Patient given Tamiflu in ED. Admit for sepsis and acute respiratory failure secondary to fluA and pneumonia. - Review of Systems Constitutional: Fever, Chills, Weakness Eyes: No Symptoms Ears, Nose, & Throat: No Symptoms Respiratory: Cough, Short Of Breath Cardiac: Edema (BLE ankle +4 pitting) Abdominal/Gastrointestinal: Nausea Genitourinary Symptoms: No Symptoms Musculoskeletal: No Symptoms Skin: No Symptoms Neurological: No Symptoms Psychological: No Symptoms Endocrine: No Symptoms Hematologic/Lymphatic: No Symptoms Immunological/Allergic: No Symptoms Medications & Allergies Home Medications: Home Medication List Amlodipine Besylate 10 mg [Norvasc 10 MG] 10 mg PO DAILY 12/31/13 [History Confirmed 06/29/24] Clopidogrel Bisulfate [PLAVIX Tablet] 75 mg PO DAILY 12/31/13 [History Confirmed 06/29/24] Levothyroxine Sodium 50 Mcg [Synthroid 50 Mcg] 50 mcg PO DAILY 12/31/13 [History Confirmed 06/29/24] Loratadine 10 mg [Claritin 10 mg] 10 mg PO DAILY 12/31/13 [History Confirmed 06/29/24] Nebivolol HCl [Bystolic] 10 mg PO BID 12/31/13 [History Confirmed 06/29/24] predniSONE [Prednisone] 9 mg PO UD 11/10/15 [History Confirmed 06/29/24] Sodium Bicarbonate 1 tab PO BID 12/11/21 [History Confirmed 06/29/24] Ergocalciferol (Vitamin D2) [Vitamin D2] 1,250 mcg PO UD 06/29/24 [History Conf irmed 06/29/24] Isosorbide Mononitrate 30 mg [Imdur 30 MG] 30 mg PO DAILY 06/29/24 [History Confirmed 06/29/24] Allergies/Adverse Reactions: Allergies Allergy/AdvReac Type Severity Reaction Status Date / Time aspirin [From Aggrenox] Allergy Verified 06/29/24 12:28 azithromycin Allergy Verified 06/29/24 12:28 [From Zithromax Z-Timbo] calcitonin,salmon,synthetic Allergy Verified 06/29/24 12:28 [From Miacalcin] cefaclor [From Ceclor] Allergy Verified 06/29/24 12:28 clarithromycin [From Biaxin] Allergy Verified 06/29/24 12:28 diazepam [From Valium] Allergy Verified 06/29/24 12:28 dipyridamole [From Aggrenox] Allergy Verified 06/29/24 12:28 fluticasone propionate Allergy Verified 06/29/24 12:28 [From Advair Diskus] levofloxacin [From Levaquin] Allergy Verified 06/29/24 12:28 meclizine HCl [From Antivert] Allergy Verified 06/29/24 12:28 nabumetone [From Relafen] Allergy Verified 06/29/24 12:28 naproxen Allergy Verified 06/29/24 12:28 nizatidine [From Axid] Allergy Verified 06/29/24 12:28 pantoprazole sodium Allergy Verified 06/29/24 12:28 [From Protonix] pilocarpine HCl Allergy Verified 06/29/24 12:28 [From Salagen] rofecoxib [From Vioxx] Allergy Verified 06/29/24 12:28 salmeterol xinafoate Allergy Verified 06/29/24 12:28 [From Advair Diskus] tramadol HCl [From Ultracet] Allergy Verified 06/29/24 12:28 - Past Medical History Past Medical History: Yes Neurological History: TIA ENT History: No Pertinent History Cardiac History: Hypertension, Myocardial Infarction ([place]) Respiratory History: No Pertinent History Endocrine Medical History: Other Musculoskelatal History: Degenerative Disk Disease, Osteoarthritis GI Medical History: No Pertinent History History: No Pertinent History Pyscho-Social History: No Pertinent History Reproductive Disorders: No Pertinent History Comment: STAGE 4 KIDNEY FAILURE. HX FX WRIST LEFT - Past Surgical History Past Surgical History: Yes Neuro Surgical History: No Pertinent History Cardiac History: Cardiac Catheterization Respiratory Surgery: No Pertinent History GI Surgical History: Cholecystectomy Genitourinary Surgical Hx: No Pertinent History Musculskeletal Surgical Hx: Orthopedic Surgery Female Surgical History: Hysterectomy Other Surgical History: tonsils,colonoscopy,left wrist surgery Significant Family History: heart disease - Social History Smoking Status: Never smoker Exposure to second hand smoke: No Alcohol: None Drug Use: none - Social Determinants of Health Will the patient participate in the screening: Yes Do you worry about a steady place to live?: No Do you have any problems with any of the following?: No known problems In the past 12 months,have you had to go without utilities?: No Have you or anyone in your house had to go without enough: No Transportation Issues: No Has anyone in your support network made you feel unsafe?: No - Physical Exam Vital Signs: Vital Signs - 24 hr Temp Pulse Resp BP BP Pulse Ox 06/29/24 16:00 80 25 H 149/62 92 L 06/29/24 15:59 83 25 H 93 L 06/29/24 15:50 95 H 12 93 L 06/29/24 15:40 89 31 H 94 L 06/29/24 15:30 86 32 H 91 L 06/29/24 15:20 88 32 H 93 L 06/29/24 15:10 92 H 32 H 94 L 06/29/24 15:00 93 H 23 93 L 06/29/24 14:50 89 34 H 93 L 06/29/24 14:40 91 H 35 H 94 L 06/29/24 14:32 92 H 32 H 95 06/29/24 14:00 91 H 32 H 185/87 94 L 06/29/24 13:40 95 06/29/24 13:00 97 H 29 H 167/76 06/29/24 12:19 100 H 30 H 164/106 92 L 06/29/24 12:17 101.3 F 115 H 24 164/106 94 L General Appearance: no apparent distress Neurologic Exam: alert, oriented x 3, cooperative Eye Exam: PERRL/EOMI Ears, Nose, Throat Exam: normal ENT inspection Neck Exam: normal inspection Respiratory Exam: diminished breath sounds Cardiovascular Exam: regular rate/rhythm, normal heart sounds Pelvic Exam: not done Rectal Exam: deferred Back Exam: normal inspection Extremity Exam: swelling (BLE edema to ankles 4+ pitting) Skin Exam: normal color Results - Labs Lab/Micro Results: Lab Results-Last 24 Hours 06/29/24 06/29/24 06/29/24 Range/Units 13:35 13:48 13:48 WBC 6.8 (3.98-10.04) x10^3/uL RBC 5.19 (3.93-5.22) x10^6/uL Hgb 14.7 (11.2-15.7) g/dL Hct 45.7 H (34.1-44.9) % MCV 88.1 (79.4-94.8) fL MCH 28.3 (25.6-32.2) pg MCHC 32.2 (32.2-35.5) g/dL RDW 14.6 H (11.7-14.4) % Plt Count 73 L (182-369) x10^3/uL MPV 10.1 (9.4-12.3) fL Gran % 79.8 H (34.0-71.1) % Immature Gran % (Auto) 2.7 H (0.001-0.429) % Nucleat RBC Rel Count 0.0 (0.00-0.2) % Eos # (Auto) 0.01 L (0.04-0.36) x10^3/uL Immature Gran # (Auto) 0.18 H (0.001-0.031) x10^3u/L Absolute Lymphs (auto) 0.80 L (1.18-3.74) x10^3/uL Absolute Monos (auto) 0.35 (0.24-0.86) x10^3/uL Absolute Nucleated RBC 0.00 (0.00-0.012) x10^3u/L Lymphocytes % 11.8 L (19.3-51.7) % Monocytes % 5.2 (4.7-12.5) % Eosinophils % 0.1 L (0.7-5.8) % Basophils % 0.4 (0.1-1.2) % Absolute Granulocytes 5.42 (1.56-6.13) x10^3/uL Basophils # 0.03 (0.01-0.08) x10^3/uL Sodium (135-145) mmol/L Potassium (3.5-5.1) mmol/L Chloride (98-107) mmol/L Carbon Dioxide (22-30) mmol/L Anion Gap (5-15) MEQ/L BUN (7-17) mg/dL Creatinine (0.52-1.04) mg/dL Estimated GFR ML/MIN Glucose (74-106) mg/dL Lactic Acid 2.4 H (0.4-2.0) Calcium (8.4-10.2) mg/dL Magnesium (1.6-2.3) mg/dL Total Bilirubin (0.2-1.3) mg/dL AST (14-36) U/L ALT (0-35) U/L Alkaline Phosphatase (38-126) U/L Troponin I (0.000-0.033) ng/mL NT-Pro-B Natriuret Pep (<300) pg/mL Serum Total Protein (6.3-8.2) g/dL Albumin (3.5-5.0) g/dL Influenza Type A Ag POSITIVE A (NEGATIVE) Influenza Type B Ag NEGATIVE (NEGATIVE) RSV (PCR) NEGATIVE (NEGATIVE) SARS-CoV-2 (PCR) NEGATIVE (NEGATIVE) Slides for Path Review YES 06/29/24 06/29/24 Range/Units 13:48 13:48 WBC (3.98-10.04) x10^3/uL RBC (3.93-5.22) x10^6/uL Hgb (11.2-15.7) g/dL Hct (34.1-44.9) % MCV (79.4-94.8) fL MCH (25.6-32.2) pg MCHC (32.2-35.5) g/dL RDW (11.7-14.4) % Plt Count (182-369) x10^3/uL MPV (9.4-12.3) fL Gran % (34.0-71.1) % Immature Gran % (Auto) (0.001-0.429) % Nucleat RBC Rel Count (0.00-0.2) % Eos # (Auto) (0.04-0.36) x10^3/uL Immature Gran # (Auto) (0.001-0.031) x10^3u/L Absolute Lymphs (auto) (1.18-3.74) x10^3/uL Absolute Monos (auto) (0.24-0.86) x10^3/uL Absolute Nucleated RBC (0.00-0.012) x10^3u/L Lymphocytes % (19.3-51.7) % Monocytes % (4.7-12.5) % Eosinophils % (0.7-5.8) % Basophils % (0.1-1.2) % Absolute Granulocytes (1.56-6.13) x10^3/uL Basophils # (0.01-0.08) x10^3/uL Sodium 140 (135-145) mmol/L Potassium 4.9 (3.5-5.1) mmol/L Chloride 108 H (98-107) mmol/L Carbon Dioxide 18 L (22-30) mmol/L Anion Gap 19.3 H (5-15) MEQ/L BUN 46 H (7-17) mg/dL Creatinine 1.76 H (0.52-1.04) mg/dL Estimated GFR 28.0 ML/MIN Glucose 100 (74-106) mg/dL Lactic Acid (0.4-2.0) Calcium 9.4 (8.4-10.2) mg/dL Magnesium 2.0 (1.6-2.3) mg/dL Total Bilirubin 0.90 (0.2-1.3) mg/dL AST 49 H (14-36) U/L ALT 31 (0-35) U/L Alkaline Phosphatase 109 (38-126) U/L Troponin I 0.044 H* (0.000-0.033) ng/mL NT-Pro-B Natriuret Pep 3590 (<300) pg/mL Serum Total Protein 7.5 (6.3-8.2) g/dL Albumin 4.5 (3.5-5.0) g/dL Influenza Type A Ag (NEGATIVE) Influenza Type B Ag (NEGATIVE) RSV (PCR) (NEGATIVE) SARS-CoV-2 (PCR) (NEGATIVE) Slides for Path Review - Radiology Impressions Radiology Exams & Impressions: Radiology Procedures Category Date Time Status CHEST 1 VIEW (PORTABLE) Stat Exams 06/29/24 13:03 Completed Assessment/Plan (1) Sepsis Current Visit: Yes Status: Acute Assessment & Plan: -Meets criteria with fever, RR, tachycardia, elevated LA, and pneumonia -CXR reviewed demonstrating new moderate left base infiltrate/atelectasis/effusion -CBC reviewed with WBC noted WNL at 6.8 -trend -LA reviewed at 2.4 IVF contraindicated with CHF and CKD - trend -Blood cultures pending -Add sputum culture -Patient with multiple allergies - will start on aztreonam -Supplemental oxygen with goal spo2 > 90% -Resp viral panel reviewed with FluA + -Tamilflu started -RT eval/ Nebs prn (2) Acute respiratory failure with hypoxia Current Visit: Yes Status: Acute Assessment & Plan: -see plan for sepsis Code(s): J96.01 - ACUTE RESPIRATORY FAILURE WITH HYPOXIA (3) Pneumonia Current Visit: Yes Status: Acute Assessment & Plan: -see sepsis for plan Code(s): J18.9 - PNEUMONIA, UNSPECIFIED ORGANISM (4) CKD (chronic kidney disease) Current Visit: Yes Status: Acute Assessment & Plan: -Baseline creat around 1.6-1.8 - at baseline -Monitor renal/lytes -avoid nephrotoxic agents Code(s): N18.9 - CHRONIC KIDNEY DISEASE, UNSPECIFIED (5) High anion gap metabolic acidosis Current Visit: Yes Status: Acute Assessment & Plan: -Chronic acidosis - takes home med sodium bicarb 650mg bid - will continue Code(s): E87.29 - OTHER ACIDOSIS (6) Elevated troponin Current Visit: Yes Status: Acute Assessment & Plan: -troponin reviewed at 0.044- trend -No CP -BNP at 3590 -? secondary to sepsis -consider cards consult if trops up-trending Code(s): R79.89 - OTHER SPECIFIED ABNORMAL FINDINGS OF BLOOD CHEMISTRY (7) Influenza A H1N1 infection Current Visit: Yes Status: Acute Assessment & Plan: -see plan for sepsis Code(s): J10.1 - FLU DUE TO OTH IDENT INFLUENZA VIRUS W OTH RESP MANIFEST (8) Hypothyroidism Current Visit: No Status: Acute Assessment & Plan: -continue levothyroxine Code(s): E03.9 - HYPOTHYROIDISM, UNSPECIFIED (9) Hypertension Current Visit: No Status: Chronic Assessment & Plan: -continue home meds Code(s): I10 - ESSENTIAL (PRIMARY) HYPERTENSION (10) CHF (congestive heart failure) Current Visit: Yes Status: Acute Assessment & Plan: -Echo reviewed from 10/21/23 1) NO REGIONAL WALL MOTION ABNORMALITY. 2) ESTIMATED GLOBAL EJECTION FRACTION OF ABOUT 60% TO 65%. 3) MILD MILTRAL REGURGITATION. 4)MILD TRICUSPID REGURGITATION WITH RIGHT VENTRICULAR SYSTOLIC PRESSURE 35 MMHG. LEFT VENTRICLE VISUALIZED AND DEMONSTRATES ADEQUATE MOTION OFF ALL THE SEGMENTS. ESTIMATED EJECTION FRACTION OF ABOUT 60% TO 65%. THERE IS BORDERLINE LEFT VENTRICULAR HYPERTROPHY. THE MITRAL VALVE WAS SEEN AND THIS OPENS ADEQUATELY. THERE IS MILD MITRAL REGURGITATION. LEFT ATRIUM IS NORMAL. THE AORTIC VALVE OPENS ADEQUATELY. THE PEAK GRADIENT ACROSS THE AORTIC VALVE IS 14 MMHG. THE RIGHT-SIDE CHAMBERS ARE MILDLY DILATED. THERE IS MILD TRICUSPID REGURGITATION. RIGHT VENTRICULAR SYSTOLIC PRESSURE 35 MMHG. -BNP at 3590 -continue home meds VTE: lovenox PPI: protonix Dispo: 1-3 days Code(s): I50.9 - HEART FAILURE, UNSPECIFIED Telemedicine Encounter - Telemedicine Encounter Telemedicine Encounter: "The entirety of this encounter was performed via Telemedicine" This visit was performed using real-time audio and video connection between my location and thepatients locationwith the assistance of a surrogateat the patients location. Written or verbal consent was obtained from the patient/guardian to perform this visit usingsynchrSemanticatortelemedicine technology. Any patient questions regarding the telemedicine interaction were answered. <ALEJA URBINA - Last Filed: 06/29/24 20:41> History of Present Illness - Chief Complaint History of Present Illness: is a 83 year old female. - Physical Exam Vital Signs: Vital Signs - 24 hr Temp Pulse Resp BP BP Pulse Ox 06/29/24 20:00 98.4 F 82 18 123/47 93 L 06/29/24 17:08 82 22 94 L 06/29/24 17:04 102.1 F 82 22 139/58 94 L 06/29/24 16:00 80 25 H 149/62 92 L 06/29/24 15:59 83 25 H 93 L 06/29/24 15:50 95 H 12 93 L 06/29/24 15:40 89 31 H 94 L 06/29/24 15:30 86 32 H 91 L 06/29/24 15:20 88 32 H 93 L 06/29/24 15:10 92 H 32 H 94 L 06/29/24 15:00 93 H 23 93 L 06/29/24 14:50 89 34 H 93 L 06/29/24 14:40 91 H 35 H 94 L 06/29/24 14:32 92 H 32 H 95 06/29/24 14:00 91 H 32 H 185/87 94 L 06/29/24 13:40 95 06/29/24 13:00 97 H 29 H 167/76 06/29/24 12:19 100 H 30 H 164/106 92 L 06/29/24 12:17 101.3 F 115 H 24 164/106 94 L Results - Labs Lab/Micro Results: Lab Results-Last 24 Hours 06/29/24 06/29/24 06/29/24 Range/Units 13:35 13:48 13:48 WBC 6.8 (3.98-10.04) x10^3/uL RBC 5.19 (3.93-5.22) x10^6/uL Hgb 14.7 (11.2-15.7) g/dL Hct 45.7 H (34.1-44.9) % MCV 88.1 (79.4-94.8) fL MCH 28.3 (25.6-32.2) pg MCHC 32.2 (32.2-35.5) g/dL RDW 14.6 H (11.7-14.4) % Plt Count 73 L (182-369) x10^3/uL MPV 10.1 (9.4-12.3) fL Gran % 79.8 H (34.0-71.1) % Immature Gran % (Auto) 2.7 H (0.001-0.429) % Nucleat RBC Rel Count 0.0 (0.00-0.2) % Eos # (Auto) 0.01 L (0.04-0.36) x10^3/uL Immature Gran # (Auto) 0.18 H (0.001-0.031) x10^3u/L Absolute Lymphs (auto) 0.80 L (1.18-3.74) x10^3/uL Absolute Monos (auto) 0.35 (0.24-0.86) x10^3/uL Absolute Nucleated RBC 0.00 (0.00-0.012) x10^3u/L Lymphocytes % 11.8 L (19.3-51.7) % Monocytes % 5.2 (4.7-12.5) % Eosinophils % 0.1 L (0.7-5.8) % Basophils % 0.4 (0.1-1.2) % Absolute Granulocytes 5.42 (1.56-6.13) x10^3/uL Basophils # 0.03 (0.01-0.08) x10^3/uL Sodium (135-145) mmol/L Potassium (3.5-5.1) mmol/L Chloride (98-107) mmol/L Carbon Dioxide (22-30) mmol/L Anion Gap (5-15) MEQ/L BUN (7-17) mg/dL Creatinine (0.52-1.04) mg/dL Estimated GFR ML/MIN Glucose (74-106) mg/dL Lactic Acid 2.4 H (0.4-2.0) Calcium (8.4-10.2) mg/dL Magnesium (1.6-2.3) mg/dL Total Bilirubin (0.2-1.3) mg/dL AST (14-36) U/L ALT (0-35) U/L Alkaline Phosphatase (38-126) U/L Troponin I (0.000-0.033) ng/mL NT-Pro-B Natriuret Pep (<300) pg/mL Serum Total Protein (6.3-8.2) g/dL Albumin (3.5-5.0) g/dL Influenza Type A Ag POSITIVE A (NEGATIVE) Influenza Type B Ag NEGATIVE (NEGATIVE) RSV (PCR) NEGATIVE (NEGATIVE) SARS-CoV-2 (PCR) NEGATIVE (NEGATIVE) Slides for Path Review YES 06/29/24 06/29/24 06/29/24 Range/Units 13:48 13:48 15:50 WBC (3.98-10.04) x10^3/uL RBC (3.93-5.22) x10^6/uL Hgb (11.2-15.7) g/dL Hct (34.1-44.9) % MCV (79.4-94.8) fL MCH (25.6-32.2) pg MCHC (32.2-35.5) g/dL RDW (11.7-14.4) % Plt Count (182-369) x10^3/uL MPV (9.4-12.3) fL Gran % (34.0-71.1) % Immature Gran % (Auto) (0.001-0.429) % Nucleat RBC Rel Count (0.00-0.2) % Eos # (Auto) (0.04-0.36) x10^3/uL Immature Gran # (Auto) (0.001-0.031) x10^3u/L Absolute Lymphs (auto) (1.18-3.74) x10^3/uL Absolute Monos (auto) (0.24-0.86) x10^3/uL Absolute Nucleated RBC (0.00-0.012) x10^3u/L Lymphocytes % (19.3-51.7) % Monocytes % (4.7-12.5) % Eosinophils % (0.7-5.8) % Basophils % (0.1-1.2) % Absolute Granulocytes (1.56-6.13) x10^3/uL Basophils # (0.01-0.08) x10^3/uL Sodium 140 (135-145) mmol/L Potassium 4.9 (3.5-5.1) mmol/L Chloride 108 H (98-107) mmol/L Carbon Dioxide 18 L (22-30) mmol/L Anion Gap 19.3 H (5-15) MEQ/L BUN 46 H (7-17) mg/dL Creatinine 1.76 H (0.52-1.04) mg/dL Estimated GFR 28.0 ML/MIN Glucose 100 (74-106) mg/dL Lactic Acid 1.1 (0.4-2.0) Calcium 9.4 (8.4-10.2) mg/dL Magnesium 2.0 (1.6-2.3) mg/dL Total Bilirubin 0.90 (0.2-1.3) mg/dL AST 49 H (14-36) U/L ALT 31 (0-35) U/L Alkaline Phosphatase 109 (38-126) U/L Troponin I 0.044 H* (0.000-0.033) ng/mL NT-Pro-B Natriuret Pep 3590 (<300) pg/mL Serum Total Protein 7.5 (6.3-8.2) g/dL Albumin 4.5 (3.5-5.0) g/dL Influenza Type A Ag (NEGATIVE) Influenza Type B Ag (NEGATIVE) RSV (PCR) (NEGATIVE) SARS-CoV-2 (PCR) (NEGATIVE) Slides for Path Review 06/29/24 Range/Units 17:36 WBC (3.98-10.04) x10^3/uL RBC (3.93-5.22) x10^6/uL Hgb (11.2-15.7) g/dL Hct (34.1-44.9) % MCV (79.4-94.8) fL MCH (25.6-32.2) pg MCHC (32.2-35.5) g/dL RDW (11.7-14.4) % Plt Count (182-369) x10^3/uL MPV (9.4-12.3) fL Gran % (34.0-71.1) % Immature Gran % (Auto) (0.001-0.429) % Nucleat RBC Rel Count (0.00-0.2) % Eos # (Auto) (0.04-0.36) x10^3/uL Immature Gran # (Auto) (0.001-0.031) x10^3u/L Absolute Lymphs (auto) (1.18-3.74) x10^3/uL Absolute Monos (auto) (0.24-0.86) x10^3/uL Absolute Nucleated RBC (0.00-0.012) x10^3u/L Lymphocytes % (19.3-51.7) % Monocytes % (4.7-12.5) % Eosinophils % (0.7-5.8) % Basophils % (0.1-1.2) % Absolute Granulocytes (1.56-6.13) x10^3/uL Basophils # (0.01-0.08) x10^3/uL Sodium (135-145) mmol/L Potassium (3.5-5.1) mmol/L Chloride (98-107) mmol/L Carbon Dioxide (22-30) mmol/L Anion Gap (5-15) MEQ/L BUN (7-17) mg/dL Creatinine (0.52-1.04) mg/dL Estimated GFR ML/MIN Glucose (74-106) mg/dL Lactic Acid (0.4-2.0) Calcium (8.4-10.2) mg/dL Magnesium (1.6-2.3) mg/dL Total Bilirubin (0.2-1.3) mg/dL AST (14-36) U/L ALT (0-35) U/L Alkaline Phosphatase (38-126) U/L Troponin I 0.077 H* (0.000-0.033) ng/mL NT-Pro-B Natriuret Pep (<300) pg/mL Serum Total Protein (6.3-8.2) g/dL Albumin (3.5-5.0) g/dL Influenza Type A Ag (NEGATIVE) Influenza Type B Ag (NEGATIVE) RSV (PCR) (NEGATIVE) SARS-CoV-2 (PCR) (NEGATIVE) Slides for Path Review - Radiology Impressions Radiology Exams & Impressions: Radiology Procedures Category Date Time Status CHEST 1 VIEW (PORTABLE) Stat Exams 06/29/24 13:03 Completed - Other Procedures and Tests Respiratory Therapy 06/29/24 16:48 EKG REPEAT IN AM Oxygen Nasal Cannula 2 lpm 06/29/24 19:00 Respiratory Therapy Assessment DAILY Telemedicine Encounter - Telemedicine Encounter Telemedicine Encounter: "The entirety of this encounter was performed via Telemedicine" This visit was performed using real-time audio and video connection between my location and thepatients locationwith the assistance of a surrogateat the patients location. Written or verbal consent was obtained from the patient/guardian to perform this visit usingIBeiFengind[facility]medicine technology. Any patient questions regarding the telemedicine interaction were answered. JOSE ELIAS Encounter - JOSE ELIAS Encounter Attestation JOSE ELIAS Encounter Attestation: "IhavepersonallyseenandexamineLUZ MARIA Gupta andhavediscussed pertinent aspects of their care with Solomon Azar agree with the history, physical exam (any modifications based on my personal exam will be noted below), assessment, and plan as outlined in original note. Please see immediately below for my summary of findings and additional assessment and plan along with any meaningful corrections/explanations to the Subjective/Objective portions of the JOSE ELIAS note will be noted." My portion of the encounter took place via telemedicine. -Sepsis and acute hypoxic respiratory failure due to flu with likely secondary bacterial pneumonia. Patient is on chronic prednisone therapy for joint pain related to lupus. Will treat with Tamiflu and IV Aztreonam (multiple drug allergies), oxygen support.
[2024-06-29] MEDS ORDERED: DUONEB 0.5-3 MG/3 ml Neb IH PRN (17:21)
[2024-06-29] MEDS: TYLENOL 325 MG PO PRN (17:30)
[2024-06-29] MEDS ORDERED: DELTASONE 5 MG PO SCH (17:30)
[2024-06-29] MEDS: Tums EX 750 MG PO PRN (20:11)
[2024-06-29] MEDS ORDERED: AZACTAM 1 GM ONE (23:22)
[2024-06-29] MEDS ORDERED: Bystolic 5 MG ONE (23:22)
[2024-06-29] MEDS ORDERED: Sodium Chloride 0.9% 100 ML ONE (23:24)
[2024-06-29] MEDS: OSELTAMIVIR PHOSPHATE 30 MG CAP PO SCH (23:27)
[2024-06-29] MEDS: NEBIVOLOL HCL 2.5 MG PO SCH (23:27)
[2024-06-29] MEDS: AZACTAM 1 GM*** 2 GM in Sodium Chloride 0.9% 100 ML IV ONE (23:36)
[2024-06-30 01:04] LABS: Appearance Clear (Clear); Bacteria None Seen /HPF (None Seen); Bilirubin Negative (Negative); Blood Negative (Negative); Epithelial Cells Moderate /HPF (None Seen); Glucose, Urine Negative (Negative); Ketones Trace (Negative); Leukocyte Esterase Negative (Negative); Nitrite Negative (Negative); Protein,Urine Dip Trace (Negative); RBC 0-2 /HPF (0-5); Urobilinogen 0.2 mg/dL (0.2); WBC 0-2 /HPF (0-5)
--- NOTE | 2024-06-30 05:14 | PCM.NOTE ---
Date and Time: 06/30/24512 Subjective Assessment: is a 83 year old female with a pmhx of [place], HTN, TIA, hypothyroidism, CKD, and DDD who presented to ED 06/29/24 with complaints of fever, cough, headache and shortness of breath which began the day prior. Patient states her cough is non-productive. Dyspnea progressively worse overnight with fever. She reports she is so weak she has been unable to get out of bed. Additionally she reports some nausea and a poor appetite. Denies cp, abdominal pain, RYDER, dizziness, N/V/D. Upon arrival to ED patient was febrile,hypoxic, tachycardic, tachypneic, and hypertensive. CXR chest demonstrates new moderate left base infiltrate/atelectasis/effusion. Lab findings significant for lactic/Gap/metabolic acidosis, elevated troponin, and Flu A positive. Patient given Tamiflu in ED. Admit for sepsis and acute respiratory failure secondary to fluA and pneumonia. 06/30/24: Met and examined patient bedside. Endorses continued shortness of breath and non-productive cough. Lung sounds diminished with exp wheezing on auscultation. Lab findings with increased acidosis. Plan for continued abx/tamiflu/prednisone. Will increase home dose of sodium bicarb to 1300mg this morning and recheck. Denies cp, abdominal pain, RYDER, dizziness, N/V/D. - Review of Systems Constitutional: Weakness Eyes: No Symptoms Ears, Nose, & Throat: No Symptoms Respiratory: Cough, Short Of Breath, Wheezing Cardiac: No Symptoms Abdominal/Gastrointestinal: No Symptoms Genitourinary Symptoms: No Symptoms Musculoskeletal: No Symptoms Skin: No Symptoms Neurological: No Symptoms Psychological: No Symptoms Endocrine: No Symptoms Hematologic/Lymphatic: No Symptoms Immunological/Allergic: No Symptoms Objective Exam General Appearance: no apparent distress Neurologic Exam: alert, oriented x 3, cooperative Skin Exam: normal color Eye Exam: PERRL Ears, Nose, Throat Exam: normal ENT inspection Neck Exam: normal inspection Respiratory Exam: diminished breath sounds, wheezing Cardiovascular Exam: regular rate/rhythm, normal heart sounds Gastrointestinal/Abdomen Exam: soft, normal bowel sounds Extremity Exam: normal inspection Back Exam: normal inspection Pelvic Exam: deferred Rectal Exam: deferred Objective Data Vital Signs: Vital Signs - 24 hr Temp Pulse Resp BP BP Pulse Ox 06/30/24 04:00 97.6 F 70 20 139/59 91 L 03/05/25 00:00 98.1 F 72 20 139/69 95 06/29/24 20:00 98.4 F 82 18 123/47 93 L 06/29/24 19:25 73 16 92 L 06/29/24 17:08 82 22 94 L 06/29/24 17:04 102.1 F 82 22 139/58 94 L 06/29/24 16:00 80 25 H 149/62 92 L 06/29/24 15:59 83 25 H 93 L 06/29/24 15:50 95 H 12 93 L 06/29/24 15:40 89 31 H 94 L 06/29/24 15:30 86 32 H 91 L 06/29/24 15:20 88 32 H 93 L 06/29/24 15:10 92 H 32 H 94 L 06/29/24 15:00 93 H 23 93 L 06/29/24 14:50 89 34 H 93 L 06/29/24 14:40 91 H 35 H 94 L 06/29/24 14:32 92 H 32 H 95 06/29/24 14:00 91 H 32 H 185/87 94 L 06/29/24 13:40 95 06/29/24 13:00 97 H 29 H 167/76 06/29/24 12:19 100 H 30 H 164/106 92 L 06/29/24 12:17 101.3 F 115 H 24 164/106 94 L Pain Assessment - Last Documented Pain Intensity 0 Pain Scale Used 0-10 Pain Scale Intake and Output: Intake & Output 06/27/24 06/28/24 06/29/24 06/30/24 11:59 11:59 11:59 11:59 Intake Total 100 Output Total 600 Balance -500 Weight 67 kg Lab Results: Lab Results-Last 24 Hours 06/29/24 06/29/24 06/29/24 Range/Units 13:35 13:48 13:48 WBC 6.8 (3.98-10.04) x10^3/uL RBC 5.19 (3.93-5.22) x10^6/uL Hgb 14.7 (11.2-15.7) g/dL Hct 45.7 H (34.1-44.9) % MCV 88.1 (79.4-94.8) fL MCH 28.3 (25.6-32.2) pg MCHC 32.2 (32.2-35.5) g/dL RDW 14.6 H (11.7-14.4) % Plt Count 73 L (182-369) x10^3/uL MPV 10.1 (9.4-12.3) fL Gran % 79.8 H (34.0-71.1) % Immature Gran % (Auto) 2.7 H (0.001-0.429) % Nucleat RBC Rel Count 0.0 (0.00-0.2) % Eos # (Auto) 0.01 L (0.04-0.36) x10^3/uL Immature Gran # (Auto) 0.18 H (0.001-0.031) x10^3u/L Absolute Lymphs (auto) 0.80 L (1.18-3.74) x10^3/uL Absolute Monos (auto) 0.35 (0.24-0.86) x10^3/uL Absolute Nucleated RBC 0.00 (0.00-0.012) x10^3u/L Lymphocytes % 11.8 L (19.3-51.7) % Monocytes % 5.2 (4.7-12.5) % Eosinophils % 0.1 L (0.7-5.8) % Basophils % 0.4 (0.1-1.2) % Absolute Granulocytes 5.42 (1.56-6.13) x10^3/uL Basophils # 0.03 (0.01-0.08) x10^3/uL Sodium (135-145) mmol/L Potassium (3.5-5.1) mmol/L Chloride (98-107) mmol/L Carbon Dioxide (22-30) mmol/L Anion Gap (5-15) MEQ/L BUN (7-17) mg/dL Creatinine (0.52-1.04) mg/dL Estimated GFR ML/MIN Glucose (74-106) mg/dL Lactic Acid 2.4 H (0.4-2.0) Calcium (8.4-10.2) mg/dL Magnesium (1.6-2.3) mg/dL Total Bilirubin (0.2-1.3) mg/dL AST (14-36) U/L ALT (0-35) U/L Alkaline Phosphatase (38-126) U/L Troponin I (0.000-0.033) ng/mL NT-Pro-B Natriuret Pep (<300) pg/mL Serum Total Protein (6.3-8.2) g/dL Albumin (3.5-5.0) g/dL Urine Color (Yellow) Urine Appearance (Clear) Urine pH (4.6-8.0) Ur Specific [place] (1.005-1.030) Urine Protein (Negative) Urine Glucose (UA) (Negative) mg/dL Urine Ketones (Negative) Urine Blood (Negative) Urine Nitrite (Negative) Urine Bilirubin (Negative) Urine Urobilinogen (0.2) mg/dL Ur Leukocyte Esterase (Negative) U Hyaline Cast (Auto) (0-2) /LPF Urine Microscopic RBC (0-5) /HPF Urine Microscopic WBC (0-5) /HPF Ur Epithelial Cells (None Seen) /HPF Urine Bacteria (None Seen) /HPF Urine Culture Reflexed (NO) Influenza Type A Ag POSITIVE A (NEGATIVE) Influenza Type B Ag NEGATIVE (NEGATIVE) RSV (PCR) NEGATIVE (NEGATIVE) SARS-CoV-2 (PCR) NEGATIVE (NEGATIVE) Slides for Path Review YES 06/29/24 06/29/24 06/29/24 Range/Units 13:48 13:48 15:50 WBC (3.98-10.04) x10^3/uL RBC (3.93-5.22) x10^6/uL Hgb (11.2-15.7) g/dL Hct (34.1-44.9) % MCV (79.4-94.8) fL MCH (25.6-32.2) pg MCHC (32.2-35.5) g/dL RDW (11.7-14.4) % Plt Count (182-369) x10^3/uL MPV (9.4-12.3) fL Gran % (34.0-71.1) % Immature Gran % (Auto) (0.001-0.429) % Nucleat RBC Rel Count (0.00-0.2) % Eos # (Auto) (0.04-0.36) x10^3/uL Immature Gran # (Auto) (0.001-0.031) x10^3u/L Absolute Lymphs (auto) (1.18-3.74) x10^3/uL Absolute Monos (auto) (0.24-0.86) x10^3/uL Absolute Nucleated RBC (0.00-0.012) x10^3u/L Lymphocytes % (19.3-51.7) % Monocytes % (4.7-12.5) % Eosinophils % (0.7-5.8) % Basophils % (0.1-1.2) % Absolute Granulocytes (1.56-6.13) x10^3/uL Basophils # (0.01-0.08) x10^3/uL Sodium 140 (135-145) mmol/L Potassium 4.9 (3.5-5.1) mmol/L Chloride 108 H (98-107) mmol/L Carbon Dioxide 18 L (22-30) mmol/L Anion Gap 19.3 H (5-15) MEQ/L BUN 46 H (7-17) mg/dL Creatinine 1.76 H (0.52-1.04) mg/dL Estimated GFR 28.0 ML/MIN Glucose 100 (74-106) mg/dL Lactic Acid 1.1 (0.4-2.0) Calcium 9.4 (8.4-10.2) mg/dL Magnesium 2.0 (1.6-2.3) mg/dL Total Bilirubin 0.90 (0.2-1.3) mg/dL AST 49 H (14-36) U/L ALT 31 (0-35) U/L Alkaline Phosphatase 109 (38-126) U/L Troponin I 0.044 H* (0.000-0.033) ng/mL NT-Pro-B Natriuret Pep 3590 (<300) pg/mL Serum Total Protein 7.5 (6.3-8.2) g/dL Albumin 4.5 (3.5-5.0) g/dL Urine Color (Yellow) Urine Appearance (Clear) Urine pH (4.6-8.0) Ur Specific [place] (1.005-1.030) Urine Protein (Negative) Urine Glucose (UA) (Negative) mg/dL Urine Ketones (Negative) Urine Blood (Negative) Urine Nitrite (Negative) Urine Bilirubin (Negative) Urine Urobilinogen (0.2) mg/dL Ur Leukocyte Esterase (Negative) U Hyaline Cast (Auto) (0-2) /LPF Urine Microscopic RBC (0-5) /HPF Urine Microscopic WBC (0-5) /HPF Ur Epithelial Cells (None Seen) /HPF Urine Bacteria (None Seen) /HPF Urine Culture Reflexed (NO) Influenza Type A Ag (NEGATIVE) Influenza Type B Ag (NEGATIVE) RSV (PCR) (NEGATIVE) SARS-CoV-2 (PCR) (NEGATIVE) Slides for Path Review 06/29/24 06/29/24 06/29/24 Range/Units 17:36 21:37 23:43 WBC (3.98-10.04) x10^3/uL RBC (3.93-5.22) x10^6/uL Hgb (11.2-15.7) g/dL Hct (34.1-44.9) % MCV (79.4-94.8) fL MCH (25.6-32.2) pg MCHC (32.2-35.5) g/dL RDW (11.7-14.4) % Plt Count (182-369) x10^3/uL MPV (9.4-12.3) fL Gran % (34.0-71.1) % Immature Gran % (Auto) (0.001-0.429) % Nucleat RBC Rel Count (0.00-0.2) % Eos # (Auto) (0.04-0.36) x10^3/uL Immature Gran # (Auto) (0.001-0.031) x10^3u/L Absolute Lymphs (auto) (1.18-3.74) x10^3/uL Absolute Monos (auto) (0.24-0.86) x10^3/uL Absolute Nucleated RBC (0.00-0.012) x10^3u/L Lymphocytes % (19.3-51.7) % Monocytes % (4.7-12.5) % Eosinophils % (0.7-5.8) % Basophils % (0.1-1.2) % Absolute Granulocytes (1.56-6.13) x10^3/uL Basophils # (0.01-0.08) x10^3/uL Sodium (135-145) mmol/L Potassium (3.5-5.1) mmol/L Chloride (98-107) mmol/L Carbon Dioxide (22-30) mmol/L Anion Gap (5-15) MEQ/L BUN (7-17) mg/dL Creatinine (0.52-1.04) mg/dL Estimated GFR ML/MIN Glucose (74-106) mg/dL Lactic Acid (0.4-2.0) Calcium (8.4-10.2) mg/dL Magnesium (1.6-2.3) mg/dL Total Bilirubin (0.2-1.3) mg/dL AST (14-36) U/L ALT (0-35) U/L Alkaline Phosphatase (38-126) U/L Troponin I 0.077 H* 0.085 H* (0.000-0.033) ng/mL NT-Pro-B Natriuret Pep (<300) pg/mL Serum Total Protein (6.3-8.2) g/dL Albumin (3.5-5.0) g/dL Urine Color Yellow (Yellow) Urine Appearance Clear (Clear) Urine pH 5.0 (4.6-8.0) Ur Specific [place] 1.020 (1.005-1.030) Urine Protein Trace A (Negative) Urine Glucose (UA) Negative (Negative) mg/dL Urine Ketones Trace A (Negative) Urine Blood Negative (Negative) Urine Nitrite Negative (Negative) Urine Bilirubin Negative (Negative) Urine Urobilinogen 0.2 (0.2) mg/dL Ur Leukocyte Esterase Negative (Negative) U Hyaline Cast (Auto) 3-5 A (0-2) /LPF Urine Microscopic RBC 0-2 (0-5) /HPF Urine Microscopic WBC 0-2 (0-5) /HPF Ur Epithelial Cells Moderate A (None Seen) /HPF Urine Bacteria None Seen (None Seen) /HPF Urine Culture Reflexed NO (NO) Influenza Type A Ag (NEGATIVE) Influenza Type B Ag (NEGATIVE) RSV (PCR) (NEGATIVE) SARS-CoV-2 (PCR) (NEGATIVE) Slides for Path Review Radiology Exams: Radiology Procedures Category Date Time Status CHEST 1 VIEW (PORTABLE) Stat Exams 06/29/24 13:03 Completed Assessment/Plan (1) Sepsis Current Visit: Yes Status: Acute Assessment & Plan: -Meets criteria with fever, RR, tachycardia, elevated LA, and pneumonia -CXR reviewed demonstrating new moderate left base infiltrate/atelectasis/effusion -CBC reviewed with WBC noted WNL at 6.8 -trend -LA reviewed at 2.4 IVF contraindicated with CHF and CKD - trend -Blood cultures pending -Add sputum culture -Patient with multiple allergies - will start on aztreonam -Supplemental oxygen with goal spo2 > 90% -Resp viral panel reviewed with FluA + -Tamilflu started -RT eval/ Nebs prn 06/30/24: -No longer meeting sepsis criteria -lactic acidosis resolved -WBC reviewed and WNL -Bcult pending -Continue aztreonam/Tamiflu -add flutter for [employer] cough -Increase home prednisone to 20mg bid (2) Acute respiratory failure with hypoxia Current Visit: Yes Status: Acute Assessment & Plan: -see plan for sepsis Code(s): J96.01 - ACUTE RESPIRATORY FAILURE WITH HYPOXIA (3) Pneumonia Current Visit: Yes Status: Acute Assessment & Plan: -see sepsis for plan Code(s): J18.9 - PNEUMONIA, UNSPECIFIED ORGANISM (4) CKD (chronic kidney disease) Current Visit: Yes Status: Acute Assessment & Plan: -Baseline creat around 1.6-1.8 - at baseline -Monitor renal/lytes -avoid nephrotoxic agents 06/30: -Creat reviewed at 1.77 - at baseline Code(s): N18.9 - CHRONIC KIDNEY DISEASE, UNSPECIFIED (5) High anion gap metabolic acidosis Current Visit: Yes Status: Acute Assessment & Plan: -Chronic acidosis - takes home med sodium bicarb 650mg bid - will continue 06/30: -Co2 reviewed at 17 - will increase home dose of sodium bicarb to 1300mg - recheck this afternoon Code(s): E87.29 - OTHER ACIDOSIS (6) Elevated troponin Current Visit: Yes Status: Acute Assessment & Plan: -troponin reviewed at 0.044- trend -No CP -BNP at 3590 -? secondary to sepsis -consider cards consult if trops up-trending Code(s): R79.89 - OTHER SPECIFIED ABNORMAL FINDINGS OF BLOOD CHEMISTRY (7) Influenza A H1N1 infection Current Visit: Yes Status: Acute Assessment & Plan: -see plan for sepsis Code(s): J10.1 - FLU DUE TO OTH IDENT INFLUENZA VIRUS W OTH RESP MANIFEST (8) Hypothyroidism Current Visit: No Status: Acute Assessment & Plan: -continue levothyroxine Code(s): E03.9 - HYPOTHYROIDISM, UNSPECIFIED (9) Hypertension Current Visit: No Status: Chronic Assessment & Plan: -continue home meds Code(s): I10 - ESSENTIAL (PRIMARY) HYPERTENSION (10) CHF (congestive heart failure) Current Visit: Yes Status: Acute Assessment & Plan: -Echo reviewed from 10/21/23 1) NO REGIONAL WALL MOTION ABNORMALITY. 2) ESTIMATED GLOBAL EJECTION FRACTION OF ABOUT 60% TO 65%. 3) MILD MILTRAL REGURGITATION. 4)MILD TRICUSPID REGURGITATION WITH RIGHT VENTRICULAR SYSTOLIC PRESSURE 35 MMHG. LEFT VENTRICLE VISUALIZED AND DEMONSTRATES ADEQUATE MOTION OFF ALL THE SEGMENTS. ESTIMATED EJECTION FRACTION OF ABOUT 60% TO 65%. THERE IS BORDERLINE LEFT VENTRICULAR HYPERTROPHY. THE MITRAL VALVE WAS SEEN AND THIS OPENS ADEQUATELY. THERE IS MILD MITRAL REGURGITATION. LEFT ATRIUM IS NORMAL. THE AORTIC VALVE OPENS ADEQUATELY. THE PEAK GRADIENT ACROSS THE AORTIC VALVE IS 14 MMHG. THE RIGHT-SIDE CHAMBERS ARE MILDLY DILATED. THERE IS MILD TRICUSPID REGURGITATION. RIGHT VENTRICULAR SYSTOLIC PRESSURE 35 MMHG. -BNP at 3590 -continue home meds VTE: lovenox PPI: protonix Dispo: 1-3 days (2) Acute respiratory failure with hypoxia Current Visit: Yes Status: Acute Code(s): J96.01 - ACUTE RESPIRATORY FAILURE WITH HYPOXIA (3) Pneumonia Current Visit: Yes Status: Acute Code(s): J18.9 - PNEUMONIA, UNSPECIFIED ORGANISM (4) CKD (chronic kidney disease) Current Visit: Yes Status: Acute Code(s): N18.9 - CHRONIC KIDNEY DISEASE, UNSPECIFIED (5) High anion gap metabolic acidosis Current Visit: Yes Status: Acute Code(s): E87.29 - OTHER ACIDOSIS (6) Elevated troponin Current Visit: Yes Status: Acute Code(s): R79.89 - OTHER SPECIFIED ABNORMAL FINDINGS OF BLOOD CHEMISTRY (7) Influenza A H1N1 infection Current Visit: Yes Status: Acute Code(s): J10.1 - FLU DUE TO OTH IDENT INFLUENZA VIRUS W OTH RESP MANIFEST (8) Hypothyroidism Current Visit: No Status: Acute Code(s): E03.9 - HYPOTHYROIDISM, UNSPECIFIED (9) Hypertension Current Visit: No Status: Chronic Qualifiers: Code(s): I10 - ESSENTIAL (PRIMARY) HYPERTENSION (10) CHF (congestive heart failure) Current Visit: Yes Status: Acute Code(s): I50.9 - HEART FAILURE, UNSPECIFIED
[2024-06-30 07:03] LABS: Absolute Neutrophil Ct (ANC) 7.12 x10^3/uL (1.56-6.13); BASOPHIL % 0.4 % (0.1-1.2); Basophil (Absolute #) 0.04 x10^3/uL (0.01-0.08); Eosinophil % 0.5 % (0.7-5.8); Eosinophil (Absolute #) 0.05 x10^3/uL (0.04-0.36); Hematocrit 40.5 % (34.1-44.9); IMMATURE GRAN # 0.21 x10^3u/L (0.001-0.031); IMMATURE GRAN % 2.2 % (0.001-0.429); Lymphocytes % 14.6 % (19.3-51.7); Mean Cell Volume 89.6 fL (79.4-94.8); Mean Corpuscular Hemoglobin 28.8 pg (25.6-32.2); Mean Corpuscular Hgb Concent. 32.1 g/dL (32.2-35.5); Mean Platelet Volume 9.6 fL (9.4-12.3); Monocyte (Absolute #) 0.76 x10^3/uL (0.24-0.86); Monocytes % 7.9 % (4.7-12.5); Neutrophil % 74.4 % (34.0-71.1); Platelet Count 128 x10^3/uL (182-369); Red Blood Count 4.52 x10^6/uL (3.93-5.22); Red Cell Distribution Width 15.2 % (11.7-14.4); White Blood Count 9.6 x10^3/uL (3.98-10.04)
[2024-06-30 07:38] LABS: ALBUMIN 3.5 g/dL (3.5-5.0); ANION GAP 16.1 MEQ/L (5-15); BILIRUBIN,TOTAL 0.8 mg/dL (0.2-1.3); Calcium 8.4 mg/dL (8.4-10.2); Creatinine 1 1.77 mg/dL (0.52-1.04); EST GLOMERULAR FILTRATION RATE 27.8 ML/MIN; Potassium 4.4 mmol/L (3.5-5.1); Total Protein 6.2 g/dL (6.3-8.2)
[2024-06-30] MEDS: AZACTAM 1 GM*** 2 GM in Sodium Chloride 0.9% 100 ML IV SCH (09:23)
[2024-06-30] MEDS: PLAVIX Tablet PO SCH (09:24)
[2024-06-30] MEDS: Imdur 30 MG PO SCH (09:24)
[2024-06-30] MEDS: SYNTHROID 50 MCG PO SCH (09:24)
[2024-06-30] MEDS: CLARITIN 10 MG PO SCH (09:24)
[2024-06-30] MEDS: Bystolic 5 MG PO SCH (09:24)
[2024-06-30] MEDS: ENOXAPARIN SODIUM SQ SCH (09:25)
[2024-06-30] MEDS: NORVASC 5 MG PO SCH (09:25)
[2024-06-30] MEDS: SODIUM BICARBONATE PO SCH (09:25)
[2024-06-30] MEDS: VITAMIN D2 PO SCH (09:26)
[2024-06-30] MEDS ORDERED: MEDICATION INTERVENTION MC SCH (10:00)
[2024-06-30] MEDS: PHARMACY RENAL DOSING MC ONE (11:09)
[2024-06-30 14:55] LABS: ANION GAP 13.3 MEQ/L (5-15); BILIRUBIN,TOTAL 0.6 mg/dL (0.2-1.3); Calcium 7.9 mg/dL (8.4-10.2); Creatinine 1 1.8 mg/dL (0.52-1.04); EST GLOMERULAR FILTRATION RATE 27.3 ML/MIN; Total Protein 5.6 g/dL (6.3-8.2)
[2024-06-30] MEDS: DELTASONE 20 MG PO SCH (21:33)
[2024-07-01] MEDS: IMODIUM 2 MG PO PRN (05:16)
[2024-07-01 05:19] LABS: Absolute Neutrophil Ct (ANC) 9.47 x10^3/uL (1.56-6.13); BASOPHIL % 0.4 % (0.1-1.2); Basophil (Absolute #) 0.04 x10^3/uL (0.01-0.08); Eosinophil % 0.2 % (0.7-5.8); Eosinophil (Absolute #) 0.02 x10^3/uL (0.04-0.36); Hematocrit 40.4 % (34.1-44.9); Hemoglobin 13.1 g/dL (11.2-15.7); Lymphocytes % 5.8 % (19.3-51.7); Mean Corpuscular Hemoglobin 28.9 pg (25.6-32.2); Mean Corpuscular Hgb Concent. 32.4 g/dL (32.2-35.5); Mean Platelet Volume 9.8 fL (9.4-12.3); Monocytes % 1.9 % (4.7-12.5); Neutrophil % 90.7 % (34.0-71.1); Platelet Count 127 x10^3/uL (182-369); Red Blood Count 4.54 x10^6/uL (3.93-5.22); Red Cell Distribution Width 14.8 % (11.7-14.4); White Blood Count 10.4 x10^3/uL (3.98-10.04)
--- NOTE | 2024-07-01 05:19 | PCM.NOTE ---
Date and Time: 07/01/24 0518 Subjective Assessment: is a 83 year old female with a pmhx of [place], HTN, TIA, hypothyroidism, CKD, and DDD who presented to ED 06/29/24 with complaints of fever, cough, headache and shortness of breath which began the day prior. Patient states her cough is non-productive. Dyspnea progressively worse overnight with fever. She reports she is so weak she has been unable to get out of bed. Additionally she reports some nausea and a poor appetite. Denies cp, abdominal pain, RYDER, dizziness, N/V/D. Upon arrival to ED patient was febrile,hypoxic, tachycardic, tachypneic, and hypertensive. CXR chest demonstrates new moderate left base infiltrate/atelectasis/effusion. Lab findings significant for lactic/Gap/metabolic acidosis, elevated troponin, and Flu A positive. Patient given Tamiflu in ED. Admit for sepsis and acute respiratory failure secondary to fluA and pneumonia. 06/30/24: Met and examined patient bedside. Endorses continued shortness of breath and non-productive cough. Lung sounds diminished with exp wheezing on auscultation. Lab findings with increased acidosis. Plan for continued abx/tamiflu/prednisone. Will increase home dose of sodium bicarb to 1300mg this morning and recheck. Denies cp, abdominal pain, RYDER, dizziness, N/V/D. 07/01/24: Met with patient bedside. No overnight events noted. Dyspnea and weakness improved. Cough is more productive today. Continued need for 3L oxygen. Will attempt to titrate oxygen/qualify for home oxygen. Patient to try to ambulate today and sit up in chair. - Review of Systems Constitutional: Weakness Eyes: No Symptoms Ears, Nose, & Throat: No Symptoms Respiratory: Cough, Short Of Breath, Wheezing Cardiac: No Symptoms Abdominal/Gastrointestinal: No Symptoms Genitourinary Symptoms: No Symptoms Musculoskeletal: No Symptoms Skin: No Symptoms Neurological: No Symptoms Psychological: No Symptoms Endocrine: No Symptoms Hematologic/Lymphatic: No Symptoms Immunological/Allergic: No Symptoms Objective Exam General Appearance: no apparent distress Neurologic Exam: alert, oriented x 3, cooperative Skin Exam: normal color Eye Exam: PERRL Ears, Nose, Throat Exam: normal ENT inspection Neck Exam: normal inspection Respiratory Exam: diminished breath sounds, wheezing Cardiovascular Exam: regular rate/rhythm, normal heart sounds Gastrointestinal/Abdomen Exam: soft, normal bowel sounds Extremity Exam: normal inspection Back Exam: normal inspection Pelvic Exam: deferred Rectal Exam: deferred Objective Data Vital Signs: Vital Signs - 24 hr Temp Pulse Resp BP Pulse Ox 07/01/24 04:00 96.9 F 67 19 128/45 90 L 06/30/24 23:37 97.1 F 75 19 95/50 91 L 06/30/24 20:00 97.5 F 76 20 125/57 93 L 06/30/24 17:21 90 L 06/30/24 17:07 70 20 86 L 06/30/24 16:00 97.7 F 90 18 124/62 92 L 06/30/24 12:00 98.4 F 71 18 131/56 92 L 06/30/24 07:47 98.2 F 72 18 134/65 92 L 06/30/24 07:14 68 16 93 L Pain Assessment - Last Documented Pain Intensity 8 Pain Scale Used 0-10 Pain Scale Intake and Output: Intake & Output 06/28/24 06/29/24 06/30/24 07/01/24 11:59 11:59 11:59 11:59 Intake Total 220 1060 Output Total 1300 150 Balance -1080 910 Weight 67 kg Lab Results: Lab Results-Last 24 Hours 06/30/24 06/30/24 06/30/24 Range/Units 06:40 06:40 14:20 WBC 9.6 (3.98-10.04) x10^3/uL RBC 4.52 (3.93-5.22) x10^6/uL Hgb 13.0 (11.2-15.7) g/dL Hct 40.5 (34.1-44.9) % MCV 89.6 (79.4-94.8) fL MCH 28.8 (25.6-32.2) pg MCHC 32.1 L (32.2-35.5) g/dL RDW 15.2 H (11.7-14.4) % Plt Count 128 L D (182-369) x10^3/uL MPV 9.6 (9.4-12.3) fL Gran % 74.4 H (34.0-71.1) % Immature Gran % (Auto) 2.2 H (0.001-0.429) % Nucleat RBC Rel Count 0.0 (0.00-0.2) % Eos # (Auto) 0.05 (0.04-0.36) x10^3/uL Immature Gran # (Auto) 0.21 H (0.001-0.031) x10^3u/L Absolute Lymphs (auto) 1.40 (1.18-3.74) x10^3/uL Absolute Monos (auto) 0.76 (0.24-0.86) x10^3/uL Absolute Nucleated RBC 0.00 (0.00-0.012) x10^3u/L Lymphocytes % 14.6 L (19.3-51.7) % Monocytes % 7.9 (4.7-12.5) % Eosinophils % 0.5 L (0.7-5.8) % Basophils % 0.4 (0.1-1.2) % Absolute Granulocytes 7.12 H (1.56-6.13) x10^3/uL Basophils # 0.04 (0.01-0.08) x10^3/uL Sodium 139 135 (135-145) mmol/L Potassium 4.4 4.0 (3.5-5.1) mmol/L Chloride 110 H 108 H (98-107) mmol/L Carbon Dioxide 17 L 18 L (22-30) mmol/L Anion Gap 16.1 H 13.3 (5-15) MEQ/L BUN 52 H 58 H (7-17) mg/dL Creatinine 1.77 H 1.80 H (0.52-1.04) mg/dL Estimated GFR 27.8 27.3 ML/MIN Glucose 91 115 H (74-106) mg/dL Calcium 8.4 7.9 L (8.4-10.2) mg/dL Total Bilirubin 0.80 0.60 (0.2-1.3) mg/dL AST 53 H 57 H (14-36) U/L ALT 30 30 (0-35) U/L Alkaline Phosphatase 85 60 (38-126) U/L NT-Pro-B Natriuret Pep 3940 (<300) pg/mL Serum Total Protein 6.2 L 5.6 L (6.3-8.2) g/dL Albumin 3.5 3.0 L (3.5-5.0) g/dL Radiology Exams: Radiology Procedures Category Date Time Status CHEST 1 VIEW (PORTABLE) Stat Exams 06/29/24 13:03 Completed Assessment/Plan (1) Sepsis Current Visit: Yes Status: Acute Assessment & Plan: -Meets criteria with fever, RR, tachycardia, elevated LA, and pneumonia -CXR reviewed demonstrating new moderate left base infiltrate/atelectasis/effusion -CBC reviewed with WBC noted WNL at 6.8 -trend -LA reviewed at 2.4 IVF contraindicated with CHF and CKD - trend -Blood cultures pending -Add sputum culture -Patient with multiple allergies - will start on aztreonam -Supplemental oxygen with goal spo2 > 90% -Resp viral panel reviewed with FluA + -Tamilflu started -RT eval/ Nebs prn 06/30/24: -No longer meeting sepsis criteria -lactic acidosis resolved -WBC reviewed and WNL -Bcult pending -Continue aztreonam/Tamiflu -add flutter for [employer] cough -Increase home prednisone to 20mg bid 07/01/24: -Dyspnea improved- cough more productive -Continue abx/steroid/Tamiflu -WBC reviewed with slight elevation secondary to steroids (2) Acute respiratory failure with hypoxia Current Visit: Yes Status: Acute Assessment & Plan: -see plan for sepsis Code(s): J96.01 - ACUTE RESPIRATORY FAILURE WITH HYPOXIA (3) Pneumonia Current Visit: Yes Status: Acute Assessment & Plan: -see sepsis for plan Code(s): J18.9 - PNEUMONIA, UNSPECIFIED ORGANISM (4) CKD (chronic kidney disease) Current Visit: Yes Status: Acute Assessment & Plan: -Baseline creat around 1.6-1.8 - at baseline -Monitor renal/lytes -avoid nephrotoxic agents 06/30: -Creat reviewed at 1.77 - at baseline 07/01: -Creat reviewed and at baseline at 1.75 Code(s): N18.9 - CHRONIC KIDNEY DISEASE, UNSPECIFIED (5) High anion gap metabolic acidosis Current Visit: Yes Status: Acute Assessment & Plan: -Chronic acidosis - takes home med sodium bicarb 650mg bid - will continue 06/30: -Co2 reviewed at 17 - will increase home dose of sodium bicarb to 1300mg - recheck this afternoon 07/01: Co2 reviewed and improving with increased dosing of sodium bicarb at 18- will continue Code(s): E87.29 - OTHER ACIDOSIS (6) Elevated troponin Current Visit: Yes Status: Acute Assessment & Plan: -troponin reviewed at 0.044- trend -No CP -BNP at 3590 -? secondary to sepsis -consider cards consult if trops up-trending Code(s): R79.89 - OTHER SPECIFIED ABNORMAL FINDINGS OF BLOOD CHEMISTRY (7) Influenza A H1N1 infection Current Visit: Yes Status: Acute Assessment & Plan: -see plan for sepsis Code(s): J10.1 - FLU DUE TO OTH IDENT INFLUENZA VIRUS W OTH RESP MANIFEST (8) Hypothyroidism Current Visit: No Status: Acute Assessment & Plan: -continue levothyroxine Code(s): E03.9 - HYPOTHYROIDISM, UNSPECIFIED (9) Hypertension Current Visit: No Status: Chronic Assessment & Plan: -continue home meds Code(s): I10 - ESSENTIAL (PRIMARY) HYPERTENSION (10) CHF (congestive heart failure) Current Visit: Yes Status: Acute Assessment & Plan: -Echo reviewed from 10/21/23 1) NO REGIONAL WALL MOTION ABNORMALITY. 2) ESTIMATED GLOBAL EJECTION FRACTION OF ABOUT 60% TO 65%. 3) MILD MILTRAL REGURGITATION. 4)MILD TRICUSPID REGURGITATION WITH RIGHT VENTRICULAR SYSTOLIC PRESSURE 35 MMHG. LEFT VENTRICLE VISUALIZED AND DEMONSTRATES ADEQUATE MOTION OFF ALL THE SEGMENTS. ESTIMATED EJECTION FRACTION OF ABOUT 60% TO 65%. THERE IS BORDERLINE LEFT VENTRICULAR HYPERTROPHY. THE MITRAL VALVE WAS SEEN AND THIS OPENS A DEQUATELY. THERE IS MILD MITRAL REGURGITATION. LEFT ATRIUM IS NORMAL. THE AORTIC VALVE OPENS ADEQUATELY. THE PEAK GRADIENT ACROSS THE AORTIC VALVE IS 14 MMHG. THE RIGHT-SIDE CHAMBERS ARE MILDLY DILATED. THERE IS MILD TRICUSPID REGURGITATION. RIGHT VENTRICULAR SYSTOLIC PRESSURE 35 MMHG. -BNP at 3590 -continue home meds VTE: lovenox PPI: protonix Dispo: 1-3 days (2) Acute respiratory failure with hypoxia Current Visit: Yes Status: Acute Code(s): J96.01 - ACUTE RESPIRATORY FAILURE WITH HYPOXIA (3) Pneumonia Current Visit: Yes Status: Acute Code(s): J18.9 - PNEUMONIA, UNSPECIFIED ORGANISM (4) CKD (chronic kidney disease) Current Visit: Yes Status: Acute Code(s): N18.9 - CHRONIC KIDNEY DISEASE, UNSPECIFIED (5) High anion gap metabolic acidosis Current Visit: Yes Status: Acute Code(s): E87.29 - OTHER ACIDOSIS (6) Elevated troponin Current Visit: Yes Status: Acute Code(s): R79.89 - OTHER SPECIFIED ABNORMAL FINDINGS OF BLOOD CHEMISTRY (7) Influenza A H1N1 infection Current Visit: Yes Status: Acute Code(s): J10.1 - FLU DUE TO OTH IDENT INFLUENZA VIRUS W OTH RESP MANIFEST (8) Hypothyroidism Current Visit: No Status: Acute Code(s): E03.9 - HYPOTHYROIDISM, UNSPECIFIED (9) Hypertension Current Visit: No Status: Chronic Qualifiers: Code(s): I10 - ESSENTIAL (PRIMARY) HYPERTENSION (10) CHF (congestive heart failure) Current Visit: Yes Status: Acute Code(s): I50.9 - HEART FAILURE, UNSPECIFIED
[2024-07-01 05:40] LABS: ALBUMIN 3.5 g/dL (3.5-5.0); ANION GAP 15.8 MEQ/L (5-15); BILIRUBIN,TOTAL 0.7 mg/dL (0.2-1.3); Creatinine 1 1.75 mg/dL (0.52-1.04); EST GLOMERULAR FILTRATION RATE 28.2 ML/MIN; Potassium 4.8 mmol/L (3.5-5.1); Total Protein 6.3 g/dL (6.3-8.2)
[2024-07-01] MEDS: SODIUM BICARBONATE PO SCH (08:06)
[2024-07-02 05:08] LABS: Absolute Neutrophil Ct (ANC) 5.88 x10^3/uL (1.56-6.13); Basophil (Absolute #) 0 x10^3/uL (0.01-0.08); Eosinophil (Absolute #) 0 x10^3/uL (0.04-0.36); Hematocrit 34.1 % (34.1-44.9); Hemoglobin 11.2 g/dL (11.2-15.7); IMMATURE GRAN # 0.05 x10^3u/L (0.001-0.031); IMMATURE GRAN % 0.8 % (0.001-0.429); Lymphocyte (Absolute #) 0.52 x10^3/uL (1.18-3.74); Lymphocytes % 7.9 % (19.3-51.7); Mean Cell Volume 85.9 fL (79.4-94.8); Mean Corpuscular Hemoglobin 28.2 pg (25.6-32.2); Mean Corpuscular Hgb Concent. 32.8 g/dL (32.2-35.5); Mean Platelet Volume 10.2 fL (9.4-12.3); Monocyte (Absolute #) 0.17 x10^3/uL (0.24-0.86); Monocytes % 2.6 % (4.7-12.5); Neutrophil % 88.7 % (34.0-71.1); Platelet Count 122 x10^3/uL (182-369); Red Blood Count 3.97 x10^6/uL (3.93-5.22); Red Cell Distribution Width 14.2 % (11.7-14.4); White Blood Count 6.6 x10^3/uL (3.98-10.04)
[2024-07-02 05:32] LABS: ALBUMIN 3.1 g/dL (3.5-5.0); ANION GAP 13.5 MEQ/L (5-15); BILIRUBIN,TOTAL 0.6 mg/dL (0.2-1.3); Calcium 7.8 mg/dL (8.4-10.2); Creatinine 1 1.55 mg/dL (0.52-1.04); EST GLOMERULAR FILTRATION RATE 32.6 ML/MIN; Potassium 4.2 mmol/L (3.5-5.1); Total Protein 5.6 g/dL (6.3-8.2)
[2024-07-02 07:34] LABS: Slide Review 1 YES
[2024-07-02 07:46] VITALS: RESP 16
[2024-07-02] MEDS ORDERED: OSELTAMIVIR PHOSPHATE 30 MG CAP PO ONE (10:00)
--- NOTE | 2024-07-02 11:16 | PCM.DS ---
Discharge Summary Date of Admission: 06/29/24 16:44 Date of Discharge: 07/02/24 Admitting Physician: JORGE RIGGS MD Primary Care Provider: DIANNA BRICE Allergies Allergies aspirin [From Aggrenox] Allergy (Verified 06/29/24 12:28) azithromycin [From Zithromax Z-Timbo] Allergy (Verified 06/29/24 12:28) calcitonin,salmon,synthetic [From Miacalcin] Allergy (Verified 06/29/24 12:28) cefaclor [From Ceclor] Allergy (Verified 06/29/24 12:28) clarithromycin [From Biaxin] Allergy (Verified 06/29/24 12:28) diazepam [From Valium] Allergy (Verified 06/29/24 12:28) dipyridamole [From Aggrenox] Allergy (Verified 06/29/24 12:28) fluticasone propionate [From Advair Diskus] Allergy (Verified 06/29/24 12:28) levofloxacin [From Levaquin] Allergy (Verified 06/29/24 12:28) meclizine HCl [From Antivert] Allergy (Verified 06/29/24 12:28) nabumetone [From Relafen] Allergy (Verified 06/29/24 12:28) naproxen Allergy (Verified 06/29/24 12:28) nizatidine [From Axid] Allergy (Verified 06/29/24 12:28) pantoprazole sodium [From Protonix] Allergy (Verified 06/29/24 12:28) pilocarpine HCl [From Salagen] Allergy (Verified 06/29/24 12:28) rofecoxib [From Vioxx] Allergy (Verified 06/29/24 12:28) salmeterol xinafoate [From Advair Diskus] Allergy (Verified 06/29/24 12:28) tramadol HCl [From Ultracet] Allergy (Verified 06/29/24 12:28) Hospital Summary - Hospital Course Hospital Course: is a 83 year old female with a pmhx of DE, HTN, TIA, hypothyroidism, CKD, and DDD who presented to ED 06/29/24 with complaints of fever, cough, headache and shortness of breath which began the day prior. Patient states her cough is non-productive. Dyspnea progressively worse overnight with fever. She reports she is so weak she has been unable to get out of bed. Additionally she reports some nausea and a poor appetite. Denies cp, abdominal pain, RYDER, dizziness, N/V/D. Upon arrival to ED patient was febrile,hypoxic, tachycardic, tachypneic, and hypertensive. CXR chest demonstrates new moderate left base infiltrate/atelectasis/effusion. Lab findings significant for lactic/Gap/metabolic acidosis, elevated troponin, and Flu A positive. Patient given Tamiflu in ED. Admit for sepsis and acute respiratory failure secondary to fluA and pneumonia. Received IP treatment with aztreonam, tamiflu, and steroids. Dyspnea improved. Labs stable. Patient does have chronic acidosis which she is treated for by nephrology. Sodium bicarb home dose of 650mg BID increased to 1300mg bid. Creat at baseline. Patient has qualified for home oxygen and will be set up prior to discharge. Will dismiss with doxycycline for pneumonia with consideration of her allergy profile. Patient is on prednisone OP for Lupus. Advised 5 days of prednisone 20mg bid. She can resume OP dose prednisone once completed. Weakness improved - patient declines HHC or rehab stay. Discharge Note New Diagnosis: Flu/pneumonia New Medications: Doxycycline/prednisone 20mg bid x 5 days- then resume home prednisone dose -sodium bicarb changed to 1300mg bid Follow Up: PCP/nephrology I spent 35 minutes [id number] with the patient on the day of discharge performing discharge exam, discussing hospital stay and discharge instructions with patient and caregivers, preparation of discharge records, prescriptions & referral forms and addressing any questions/concerns the patient had as documented above. - Vitals & Intake/Output Vital Signs: Vital Signs Temperature 97.8 F 07/02/24 07:45 Pulse Rate 60 07/02/24 07:45 Respiratory Rate 16 07/02/24 07:45 Blood Pressure 132/50 07/02/24 07:45 O2 Sat by Pulse Oximetry 92 L 07/02/24 07:45 Intake & Output: Intake & Output 06/29/24 06/30/24 07/01/24 07/02/24 11:59 11:59 11:59 11:59 Intake Total 220 1380 920 Output Total 1300 150 Balance -1080 1230 920 Weight 67 kg 64.7 kg 64.7 kg - Lab Result Diagrams: 07/02/24 05:02 07/02/24 05:02 Lab Results-Last 24 Hrs: Lab Results-Last 24 Hours 07/02/24 07/02/24 Range/Units 05:02 05:02 WBC 6.6 (3.98-10.04) x10^3/uL RBC 3.97 (3.93-5.22) x10^6/uL Hgb 11.2 (11.2-15.7) g/dL Hct 34.1 (34.1-44.9) % MCV 85.9 (79.4-94.8) fL MCH 28.2 (25.6-32.2) pg MCHC 32.8 (32.2-35.5) g/dL RDW 14.2 (11.7-14.4) % Plt Count 122 L (182-369) x10^3/uL MPV 10.2 (9.4-12.3) fL Gran % 88.7 H (34.0-71.1) % Immature Gran % (Auto) 0.8 H (0.001-0.429) % Nucleat RBC Rel Count 0.0 (0.00-0.2) % Eos # (Auto) 0 L (0.04-0.36) x10^3/uL Immature Gran # (Auto) 0.05 H (0.001-0.031) x10^3u/L Absolute Lymphs (auto) 0.52 L (1.18-3.74) x10^3/uL Absolute Monos (auto) 0.17 L (0.24-0.86) x10^3/uL Absolute Nucleated RBC 0.00 (0.00-0.012) x10^3u/L Lymphocytes % 7.9 L (19.3-51.7) % Monocytes % 2.6 L (4.7-12.5) % Eosinophils % 0.0 L (0.7-5.8) % Basophils % 0.0 L (0.1-1.2) % Absolute Granulocytes 5.88 (1.56-6.13) x10^3/uL Basophils # 0 L (0.01-0.08) x10^3/uL Sodium 138 (135-145) mmol/L Potassium 4.2 (3.5-5.1) mmol/L Chloride 107 (98-107) mmol/L Carbon Dioxide 21 L (22-30) mmol/L Anion Gap 13.5 (5-15) MEQ/L BUN 57 H (7-17) mg/dL Creatinine 1.55 H (0.52-1.04) mg/dL Estimated GFR 32.6 ML/MIN Glucose 159 H (74-106) mg/dL Calcium 7.8 L (8.4-10.2) mg/dL Total Bilirubin 0.60 (0.2-1.3) mg/dL AST 40 H (14-36) U/L ALT 26 (0-35) U/L Alkaline Phosphatase 72 (38-126) U/L Serum Total Protein 5.6 L (6.3-8.2) g/dL Albumin 3.1 L (3.5-5.0) g/dL Slides for Path Review YES Micro Results-Entire Visit: Microbiology 06/29/24 13:35 Blood Culture Gram Stain - Final Blood Blood Culture - Preliminary Coagulase Negative Staph. Possible Contaminant. Clinical judgement required. NO FURTHER WORKUP WILL BE PERFORMED UNLESS PHYSICIAN REQUESTED WITHIN THE NEXT 72 HOURS 06/29/24 13:48 Blood Culture - Preliminary Blood - Procedures and Test Procedures and Tests throughout Hospitalization: Therapy Orders & Screens 06/29/24 16:48 EKG REPEAT IN AM Comment: Oxygen Nasal Cannula 2 lpm Comment: Respiratory Therapy Consult ONCE Comment: Reason For Exam: 06/29/24 17:33 Respiratory Therapy Consult ONCE Comment: Reason For Exam: Diagnosis: Sepsis/FluA/Pneumonia 06/29/24 19:00 Respiratory Therapy Assessment DAILY Comment: Diagnosis: Sepsis/FluA/Pneumonia 06/30/24 14:10 FLUTTER [Flutter Therapy] UD Comment: Diagnosis: Sepsis/FluA/Pneumonia Discharge Exam General Appearance: no apparent distress Neurologic Exam: alert, oriented x 3, cooperative Eye Exam: PERRL Ears, Nose, Throat Exam: normal ENT inspection Neck Exam: normal inspection Respiratory Exam: crackles/rales Cardiovascular Exam: regular rate/rhythm, normal heart sounds Gastrointestinal/Abdomen Exam: soft, normal bowel sounds Pelvic Exam: deferred Rectal Exam: deferred Back Exam: normal inspection Extremity Exam: normal inspection Skin Exam: normal color Final Diagnosis/Problem List - Final Discharge Diagnosis/Problem (1) Sepsis Current Visit: Yes Status: Resolved (2) Acute respiratory failure with hypoxia Current Visit: Yes Status: Resolved Code(s): J96.01 - ACUTE RESPIRATORY FAILURE WITH HYPOXIA (3) Pneumonia Current Visit: Yes Status: Acute Code(s): J18.9 - PNEUMONIA, UNSPECIFIED ORGANISM (4) CKD (chronic kidney disease) Current Visit: Yes Status: Chronic Code(s): N18.9 - CHRONIC KIDNEY DISEASE, UNSPECIFIED (5) High anion gap metabolic acidosis Current Visit: Yes Status: Resolved Code(s): E87.29 - OTHER ACIDOSIS (6) Elevated troponin Current Visit: Yes Status: Acute Code(s): R79.89 - OTHER SPECIFIED ABNORMAL FINDINGS OF BLOOD CHEMISTRY (7) Influenza A H1N1 infection Current Visit: Yes Status: Acute Code(s): J10.1 - FLU DUE TO OTH IDENT INFLUENZA VIRUS W OTH RESP MANIFEST (8) Hypothyroidism Current Visit: No Status: Chronic Code(s): E03.9 - HYPOTHYROIDISM, UNSPECIFIED (9) Hypertension Current Visit: No Status: Chronic Code(s): I10 - ESSENTIAL (PRIMARY) HYPERTENSION (10) CHF (congestive heart failure) Current Visit: Yes Status: Chronic Code(s): I50.9 - HEART FAILURE, UNSPECIFIED - Discharge Discharge Date: 07/02/24 Disposition: Home, Self-Care Condition: Stable Prescriptions: New Prednisone 20 mg [Deltasone 20 mg] 20 mg PO BID 5 Days #10 tablet Oseltamivir Phosphate [Oseltamivir Phosphate 30 mg Cap] 30 mg PO BID 2 Days #4 cap Sodium Bicarbonate 1,300 mg PO BID #0 tablet Doxycycline Hyclate 100 mg [Vibramycin 100 MG] 100 mg PO BID 10 Days #20 tab Continue Clopidogrel Bisulfate [PLAVIX Tablet] 75 mg PO DAILY Loratadine 10 mg [Claritin 10 mg] 10 mg PO DAILY Nebivolol HCl [Bystolic] 10 mg PO BID Levothyroxine Sodium 50 Mcg [Synthroid 50 Mcg] 50 mcg PO DAILY Amlodipine Besylate 10 mg [Norvasc 10 MG] 10 mg PO DAILY Ergocalciferol (Vitamin D2) [Vitamin D2] 1,250 mcg PO UD Isosorbide Mononitrate 30 mg [Imdur 30 MG] 30 mg PO DAILY Discontinued predniSONE [Prednisone] 9 mg PO UD Sodium Bicarbonate 1 tab PO BID Additional Instructions: Increase dose of sodium bicarb to 1300mg twice a day and follow up with nephrology next week -Continue prednisone 20mg bid for 5 days - after completed - you can resume your home dosing of prednisone Follow up with: DIANNA BRICE [Primary Care Provider] - 07/09/24 2:00 pm LYLA MARTIN [CONSULTING PHYSICIAN] - 07/08/24 3:00 pm ([place] [facility]ICE ) MERON MATHIS [CONSULTING PHYSICIAN] - (Early next week - increased dose of sodium bicarb - needs recheck)
[2024-07-02 11:50] VITALS: BP 150/72; PULSE 66; TEMP 98.2; O2SAT 97
[2024-07-02] MEDS: OSELTAMIVIR PHOSPHATE 30 MG CAP PO ONE (17:13)
== END 2024-07-02 15:52 | disposition home or self-care (01) | DRG 871 ==
LOC: ED 12:16 → MED SURG 16:44
PROVIDERS: ADMIT Internal Medicine; ATTEND Internal Medicine
DX: A41.9 Sepsis, unspecified organism (principal); J18.9 Pneumonia, unspecified organism; J96.01 Acute respiratory failure with hypoxia; I13.0 Hypertensive heart and chronic kidney disease with heart failure and stage 1 through stage 4 chronic kidney disease, or unspecified chronic kidney disease; N18.4 Chronic kidney disease, stage 4 (severe); E87.29 Other acidosis; I50.9 Heart failure, unspecified; R79.89 Other specified abnormal findings of blood chemistry; J10.1 Influenza due to other identified influenza virus with other respiratory manifestations; E03.9 Hypothyroidism, unspecified; I25.2 Old myocardial infarction; Z86.73 Personal history of transient ischemic attack (TIA), and cerebral infarction without residual deficits; R60.0 Localized edema; Z79.01 Long term (current) use of anticoagulants; Z79.899 Other long term (current) drug therapy
CPT/HCPCS: 0241U; 36415; 71045; 80053; 81001; 83605; 83735; 83880; 84484; 85025; 87040; 93005; 94667; 94668; 94760; 99291; Q3014; 99283; J1650; A9270-GY

== ENCOUNTER 2025-01-12 21:46 | Observation (INO) | payer MEDICARE ==
--- NOTE | 2025-01-12 21:58 | ERPHSYRPT ---
- History of Present Illness Time Seen by Provider: 01/12/25 21:58 Historian: patient, EMS, old records Physician History: This is an 84-year-old white female patient who arrives by small business representative service with a complaint of bilateral lower abdominal pain that began earlier in the morning but worsened throughout the day and evening. Pain was severe approximately 3 hours prior to arrival. It was described as sharp intermittent cramping. She was Valsalva being and also felt a popping sensation in her left posterior lateral ribs when trying to have a bowel movement. She describes her symptoms as a "colon attack". She has had nausea and vomiting symptoms as well. Patient denies chest pain. Patient denies shortness of breath. Patient is on Plavix. She has had a history of cholecystectomy and hysterectomy in the past. Patient has a history of chronic renal disease and does see hvac r tech Dr. Bae and is analyst Dr. Sanabria. She has a history of hypertension, hypothyroidism TIA, degenerative disc disease her primary care provider is Dr. Brice Timing/Duration: today Quality: cramping, sharpness, stabbing Abdominal Pain Onset Location: RLQ, LLQ Pain Radiation: no radiation Severity of Pain-Max: moderate Severity of Pain-Current: moderate Modifying Factors: Improves With: vomiting Associated Symptoms: nausea, vomiting, No chest pain, No shortness of breath, No weakness Previous symptoms: same symptoms as today, no recent treatment Allergies/Adverse Reactions: aspirin [From Aggrenox] Allergy (Verified 01/12/25 21:51) azithromycin [From Zithromax Z-Timbo] Allergy (Verified 01/12/25 21:51) calcitonin,salmon,synthetic [From Miacalcin] Allergy (Verified 01/12/25 21:51) cefaclor [From Ceclor] Allergy (Verified 01/12/25 21:51) clarithromycin [From Biaxin] Allergy (Verified 01/12/25 21:51) diazepam [From Valium] Allergy (Verified 01/12/25 21:51) dipyridamole [From Aggrenox] Allergy (Verified 01/12/25 21:51) fluticasone propionate [From Advair Diskus] Allergy (Verified 01/12/25 21:51) levofloxacin [From Levaquin] Allergy (Verified 01/12/25 21:51) meclizine HCl [From Antivert] Allergy (Verified 01/12/25 21:51) nabumetone [From Relafen] Allergy (Verified 01/12/25 21:51) naproxen Allergy (Verified 01/12/25 21:51) nizatidine [From Axid] Allergy (Verified 01/12/25 21:51) pantoprazole sodium [From Protonix] Allergy (Verified 01/12/25 21:51) pilocarpine HCl [From Salagen] Allergy (Verified 01/12/25 21:51) rofecoxib [From Vioxx] Allergy (Verified 01/12/25 21:51) salmeterol xinafoate [From Advair Diskus] Allergy (Verified 01/12/25 21:51) tramadol HCl [From Ultracet] Allergy (Verified 01/12/25 21:51) Home Medications: Clopidogrel Bisulfate [PLAVIX Tablet] 75 mg PO DAILY 12/31/13 [History] Levothyroxine Sodium 50 Mcg [Synthroid 50 Mcg] 50 mcg PO DAILY 12/31/13 [History] Ergocalciferol (Vitamin D2) [Vitamin D2] 1,250 mcg PO 2XW 06/29/24 [History] Isosorbide Mononitrate 30 mg [Imdur 30 MG] 30 mg PO DAILY 06/29/24 [History] Albuterol Sulfate [Proair Digihaler] 90 mcg IH Q4H PRN 10/14/24 [History] Bumetanide 1 mg [Bumex 1 mg] 0.5 mg PO DAILY 10/14/24 [History] Fluticasone/Umeclidin/Vilanter [Trelegy Ellipta 200-62.5-25] 1 puff IH DAILY 10/14/24 [History] Nitroglycerin 0.4 mg Tablet [Nitrostat 0.4 MG Tablet] 0.4 mg SL DAILY PRN 10/14/24 [History] Prednisone 10 mg [Deltasone 10 mg] 10 mg PO DAILY 10/14/24 [History] Sodium Bicarbonate 650 mg PO BID 10/14/24 [History] Vit A/Vit C/Vit E/Zinc/Copper [Preservision Areds Tablet] 1 tab PO BID 10/14/24 [History] cycloSPORINE [Restasis Multidose] 1 drop OP BID PRN 10/14/24 [History] oxyBUTYnin chloride [Oxybutynin Chloride] 2.5 mg PO BID 10/14/24 [History] Hydralazine HCl 50 mg PO BID 01/12/25 [History] Loratadine 10 mg [Claritin 10 mg] 10 mg PO DAILY 01/12/25 [History] Nebivolol HCl 5 MG [Bystolic 5 MG] 10 mg PO DAILY 01/12/25 [History] Hx Tetanus, Diphtheria Vaccination/Date Given: No Hx Influenza Vaccination/Date Given: No Hx Pneumococcal Vaccination/Date Given: No Travel Risk - International Travel Have you traveled outside of the country in past 3 weeks: No - Emerging Infectious Disease Are you exhibiting symptoms associated with any current EIDs: No Symptoms: Abdominal Pain, Cough: New Onset, Fever, Headaches/Body Aches/, Joint Pain, Shortness of Breath - Review of Systems Constitutional: No Symptoms Eyes: No Symptoms Ears, Nose, & Throat: No Symptoms Respiratory: No Symptoms Cardiac: No Symptoms Abdominal/Gastrointestinal: Abdominal Pain, Nausea, Vomiting, Constipation, Appetite Changes Genitourinary Symptoms: No Symptoms Musculoskeletal: No Symptoms Skin: No Symptoms Neurological: No Symptoms Psychological: No Symptoms Endocrine: No Symptoms Hematologic/Lymphatic: No Symptoms Immunological/Allergic: No Symptoms All Other Systems: Reviewed and Negative - Past Medical History Pertinent Past Medical History: Yes Neurological History: TIA ENT History: No Pertinent History Cardiac History: Congestive Heart Failure, Hypertension, Myocardial Infarction (IA) Respiratory History: COPD Endocrine Medical History: Hypothyroidism Musculoskeletal History: Degenerative Disk Disease, Fractures, Osteoarthritis GI Medical History: Irritable Bowel History: No Pertinent History Psycho-Social History: No Pertinent History Female Reproductive Disorders: No Pertinent History Other Medical History: Disk Sharpener: Dr. Sanabria, Heritage Consultant: Dr. Bae, Entry Level Manufacturing Engineer: Dr. Dumont, STAGE 4 KIDNEY FAILURE. HX FX WRIST LEFT - Past Surgical History Past Surgical History: Yes Neuro Surgical History: No Pertinent History Cardiac: Cardiac Catheterization Respiratory: No Pertinent History Gastrointestinal: Cholecystectomy Genitourinary: No Pertinent History Musculoskeletal: Orthopedic Surgery Female Surgical History: Hysterectomy Other Surgical History: colonoscopy, left wrist surgery Significant Family History: heart disease - Social History Smoking Status: Never smoker Exposure to second hand smoke: No Drug Use: none - Social Determinants of Health Will the patient participate in the screening: Declined to provide - Nursing Vital Signs Nursing Vital Signs: Initial Vital Signs Temperature 97.1 F 01/12/25 21:50 Pulse Rate 88 01/12/25 21:50 Respiratory Rate 18 01/12/25 21:50 Blood Pressure 190/94 01/12/25 21:50 O2 Sat by Pulse Oximetry 96 01/12/25 21:50 Pain Scale Pain Intensity 0 - Physical Exam General Appearance: no apparent distress, alert, anxiety Eye Exam: PERRL/EOMI, eyes nml inspection Ears, Nose, Throat Exam: normal ENT inspection, moist mucous membranes Neck Exam: normal inspection, non-tender, supple, full range of motion Respiratory Exam: normal breath sounds, lungs clear, airway intact, No chest tenderness, No respiratory distress Cardiovascular Exam: regular rate/rhythm, normal heart sounds, normal peripheral pulses Gastrointestinal/Abdomen Exam: soft, normal bowel sounds, tenderness (Bilateral lower quadrants to palpation), guarding (Bilateral lower quadrants to palpation) Pelvic Exam: not done Rectal Exam: not done Back Exam: normal inspection, normal range of motion, No CVA tenderness, No vertebral tenderness Extremity Exam: normal inspection, normal range of motion, pelvis stable Neurologic Exam: alert, oriented x 3, cooperative, program eligibility specialist II-XII nml as tested, nml cerebellar function, nml station & gait, sensation nml Skin Exam: normal color, warm, dry Lymphatic Exam: No adenopathy SpO2 Interpretation: normal O2 Delivery: Room Air - Course Nursing assessment & vital signs reviewed: Yes Ordered Tests: Active Orders 24 hr Category Date Time Status IV Insertion STAT Care 01/12/25 22:28 Active ABDOMEN AND PELVIS W/0 CONTRAS [CT] Stat Exams 01/12/25 22:29 Completed CHEST WITHOUT CONTRAST [CT] Stat Exams 01/12/25 22:31 Completed AMYLASE Stat Lab 01/12/25 23:10 Completed CBC W DIFF Stat Lab 01/12/25 23:10 Completed CMP Stat Lab 01/12/25 23:10 Completed CULTURE,URINE Stat Lab 01/13/25 01:29 Received LIPASE Stat Lab 01/12/25 23:10 Completed UA W/RFX UR CULTURE Stat Lab 01/13/25 01:29 Ordered Medication Summary Generic Name Dose Route Start Last Admin Trade Name Yvette PRN Reason Stop Dose Admin Sodium Chloride 1,000 mls @ 100 mls/hr 01/12/25 22:30 01/13/25 01:36 Sodium Chloride 0.9% 1000 Ml IV 02/11/25 22:29 999 mls/hr .Q10H MERLIN Infusion Discontinued Medications Generic Name Dose Route Start Last Admin Trade Name Yvette PRN Reason Stop Dose Admin Hydromorphone HCl 0.5 mg 01/12/25 22:28 01/13/25 00:14 Hydromorphone 1 Mg/1ml Inj IV 01/12/25 22:29 0.5 mg STAT ONE Administration Ondansetron HCl 4 mg 01/12/25 22:28 01/13/25 00:14 Ondansetron Hcl 4 Mg/2 Ml Vial IV 01/12/25 22:29 4 mg STAT ONE Administration Lab/Rad Data: Laboratory Result Diagrams 01/12/25 23:10 01/12/25 23:10 Laboratory Results 01/12/25 01/12/25 Range/Units 23:10 23:10 WBC 13.6 H (3.98-10.04) x10^3/uL RBC 4.50 (3.93-5.22) x10^6/uL Hgb 13.0 (11.2-15.7) g/dL Hct 40.0 (34.1-44.9) % MCV 88.9 (79.4-94.8) fL MCH 28.9 (25.6-32.2) pg MCHC 32.5 (32.2-35.5) g/dL RDW 15.5 H (11.7-14.4) % Plt Count 167 L (182-369) x10^3/uL MPV 9.1 L (9.4-12.3) fL Gran % 84.4 H (34.0-71.1) % Immature Gran % (Auto) 2.0 H (0.001-0.429) % Nucleat RBC Rel Count 0.0 (0.00-0.2) % Eos # (Auto) 0 L (0.04-0.36) x10^3/uL Immature Gran # (Auto) 0.27 H (0.001-0.031) x10^3u/L Absolute Lymphs (auto) 1.08 L (1.18-3.74) x10^3/uL Absolute Monos (auto) 0.70 (0.24-0.86) x10^3/uL Absolute Nucleated RBC 0.00 (0.00-0.012) x10^3u/L Lymphocytes % 8.0 L (19.3-51.7) % Monocytes % 5.2 (4.7-12.5) % Eosinophils % 0.0 L (0.7-5.8) % Basophils % 0.4 (0.1-1.2) % Absolute Granulocytes 11.48 H (1.56-6.13) x10^3/uL Basophils # 0.05 (0.01-0.08) x10^3/uL Sodium 140 (135-145) mmol/L Potassium 3.8 (3.5-5.1) mmol/L Chloride 106 (98-107) mmol/L Carbon Dioxide 19 L (22-30) mmol/L Anion Gap 17.9 H (5-15) MEQ/L BUN 67 H (7-17) mg/dL Creatinine 2.00 H (0.52-1.04) mg/dL Estimated GFR 23.9 ML/MIN Glucose 157 H (74-106) mg/dL Calcium 9.7 (8.4-10.2) mg/dL Total Bilirubin 0.90 (0.2-1.3) mg/dL AST 38 H (14-36) U/L ALT 25 (0-35) U/L Alkaline Phosphatase 102 (38-126) U/L Serum Total Protein 7.3 (6.3-8.2) g/dL Albumin 4.0 (3.5-5.0) g/dL Amylase 146 H (30-110) U/L Lipase 99 (23-300) U/L - Progress Progress: improved, pain not gone completely, re-examined Progress Note: 01/12/25 22:37 My medical decision making and the assignment of moderate complexity to this patient's medical issue today is based on review of the patient's past medical history, review the patient's medication list, reviewed patient drug allergy list, history of present illness, and physical findings on examination. The workup in this patient includes placement of intravenous line, infusion of crystalloid solution, CBC, CMP, amylase, lipase, urinalysis, CT scan of the chest and abdomen pelvis both without contrast. Differential diagnosis includes but is not limited to bowel obstruction, constipation, colitis, diverticulitis, pancreatitis, rib fractures, acute intrathoracic abnormality, urinary tract infection, pyelonephritis 01/13/25 01:48 I interpreted the patient's laboratory data results. Based on laboratory data results, the patient has a leukocytosis with a left shift. Her anion gap is also elevated. Patient has a low GFR in the 20s which is where she normally runs. We were unable to obtain significant amount of urine on catheterization of the urinary bladder. We were only able to run the urine culture. We will bolus with 500 mL liter amount of normal saline then returned back to 100 mL/h. The following CT scans were both performed without contrast and interpreted by the radiologist. The impressions are as follows: CT of the chest shows no evidence of rib fractures or chest wall abnormality. There are no acute cardio or pulmonary abnormalities. There is evidence of bronchiectatic process involving medial segment of the right middle lobe and lower segment of the left upper lobe suggesting chronic inflammatory process. CT scan of the abdomen pelvis shows diffuse sigmoid colon diverticula. Mild long segment wall thickening of the sigmoid colon with mild pericolonic fat stranding suggesting mild diverticulitis. There is a periumbilical hernia as well as a hiatal hernia 01/13/25 01:[address] Dahliwal, the telehospitalist on at this time. I reviewed the patient history, presenting complaint, physical findings on examination and workup results with him. We agree that the patient will be placed in observation, given IV hydration, intravenous antibiotics and repeat labs. Counseled pt/family regarding: lab results, diagnosis, rad results Medical Desision Making - Independent Historian Additional History obtained from: Family - Diagnostic Testing Diagnostic test were ordered, analyzed, and reviewed by me: Yes Radiological Interpretation: Reviewed by me, Teleradiologist Report - Risk of complications The pt has a high risk of morbidity or mortality based on: Decision regarding hospitilization or escalation of hosp level of care - Departure Departure Disposition: Observation Clinical Impression: Sigmoid diverticulitis Condition: Stable Critical Care Time: No Referrals: DIANNA BRICE [Primary Care Provider, [facility]] - Follow up/PCP as directed
[2025-01-12 23:14] LABS: BASOPHIL % 0.4 % (0.1-1.2); Basophil (Absolute #) 0.05 x10^3/uL (0.01-0.08); Eosinophil (Absolute #) 0 x10^3/uL (0.04-0.36); Hematocrit 40.0 % (34.1-44.9); Hemoglobin 13.0 g/dL (11.2-15.7); IMMATURE GRAN # 0.27 x10^3u/L (0.001-0.031); IMMATURE GRAN % 2.0 % (0.001-0.429); Lymphocyte (Absolute #) 1.08 x10^3/uL (1.18-3.74); Mean Corpuscular Hemoglobin 28.9 pg (25.6-32.2); Mean Corpuscular Hgb Concent. 32.5 g/dL (32.2-35.5); Monocyte (Absolute #) 0.70 x10^3/uL (0.24-0.86); NUCLEATED RBC # 0.00 x10^3u/L (0.00-0.012); NUCLEATED RBC % 0.0 % (0.00-0.2); Platelet Count 167 x10^3/uL (182-369); Red Blood Count 4.50 x10^6/uL (3.93-5.22); White Blood Count 13.6 x10^3/uL (3.98-10.04)
[2025-01-12 23:27] LABS: Calcium 9.7 mg/dL (8.4-10.2); Carbon Dioxide 19.0 mmol/L (22-30); Creatinine 1 2.0 mg/dL (0.52-1.04); EST GLOMERULAR FILTRATION RATE 23.9 ML/MIN; Glucose 157.0 mg/dL (74-106); Potassium 3.8 mmol/L (3.5-5.1); SGOT/AST 38.0 U/L (14-36); SGPT/ALT 25.0 U/L (0-35); Total Protein 7.3 g/dL (6.3-8.2)
[2025-01-13] MEDS ORDERED: Hydromorphone 1 mg/ml Injection ONE (00:09)
[2025-01-13] MEDS ORDERED: Zofran 4 MG/2 ML VIAL ONE (00:12)
[2025-01-13] MEDS: Hydromorphone 1 mg/ml Injection IV ONE (00:14)
[2025-01-13] MEDS: Zofran 4 MG/2 ML VIAL IV ONE (00:14)
--- NOTE | 2025-01-13 00:27 | XRAY ---
CLINICAL HISTORY: Left lateral posterior rib pain COMPARISON: 10/19/2024 x-ray reviewed. TECHNIQUE: Contiguous axial CT images of the chest were acquired without the administration of intravenous contrast. Coronal and sagittal reconstructions were obtained. One of the following dose reduction techniques was utilized for this exam: Automated exposure control, adjustment of the mA and/or kV according to patient size, or use of iterative reconstruction. FINDINGS: Lungs: Biapical pleural thickening with calcific foci suggests chronic change. Mild bilateral pleural thickening is present along the posterior aspects of both lungs. A calcified nodule measuring 4.5 mm (image 25/60) is seen at the superior segment of the right lower lobe and likely represents a calcified granuloma. Reticular opacities with focal bronchiectasis in the medial segment of the right middle lobe and the lingular segment of the left upper lobe suggest sequelae of a chronic inflammatory process. Nonspecific reticulations are present in the bilateral posterior basal lung segments. There is no evidence of consolidation, collapse, or significant ground-glass opacities. Mediastinum: The mediastinum is normal in size and contour. There is no mediastinal mass or abnormal lymphadenopathy. The heart size is within normal limits. Hilar Structures: The hilar structures appear normal without enlargement or abnormality. Atherosclerotic calcifications are present in the aorta and coronary vessels. The descending thoracic aorta is prominent, measuring 26 mm. Trachea and Main Bronchi: The trachea and main bronchi are patent without evidence of obstruction or abnormality. Chest Wall: The chest wall is unremarkable, with no evidence of soft tissue or bony abnormalities. Upper Abdomen: The visualized portions of the liver, spleen, adrenal glands, and kidneys are unremarkable. There is evidence of cholecystectomy. Bones: The visualized osseous structures are normal, with no evidence of fracture or lytic/sclerotic lesions. IMPRESSION: 1. There is no evidence of rib fractures or any other chest wall abnormality. 2. There is no acute cardiopulmonary abnormality. 3. Bilateral apical and posterior pleural thickening with calcific plaques suggests a chronic inflammatory process. 4. A fibrobronchiectatic process involving the medial segment of the right middle lobe and the lingular segment of the left upper lobe suggests sequelae of a chronic inflammatory process. Electronically Signed by: Jai Paz MD. (01/13/2025 00:25:54 EDT)
--- NOTE | 2025-01-13 00:57 | XRAY ---
CLINICAL HISTORY: BLQ ABD pain COMPARISON: - TECHNIQUE: Contiguous axial images were obtained from the level of the diaphragm to the pubic symphysis without intravenous or oral contrast. Coronal and sagittal reconstructions were likewise performed and were indicated to increase the sensitivity for detecting clinically relevant pathology. The CT scan was performed according to ALARA (as low as reasonably achievable). FINDINGS: The visualized lung bases are clear. Evaluation of the abdominal and pelvic visceral organs is limited without intravenous contrast. The unenhanced liver, spleen, pancreas, and adrenal glands are grossly unremarkable. The gallbladder is surgically absent. The kidneys show cortical atrophy without obvious calcification. There is no hydronephrosis or perinephric stranding. The ureters are normal in caliber. No adenopathy or fluid collections are seen. Diffuse sigmoid colonic diverticula are seen. Mild long segment wall thickening of the sigmoid colon with mild pericolonic fat stranding is noted. No evidence of bowel obstruction is seen. The aorta is normal in caliber. Diffuse calcified atheromatous changes are noted in the abdominal aorta and its branches. The urinary bladder is normal in contour. The pelvic viscera are grossly unremarkable. Paraumbilical hernia with a defect measuring 6.5 mm and omental fat as content. Sliding hiatus hernia is noted. No aggressive-appearing osseous lesions are identified. Grade 1 anterolisthesis of L4 over L5 is noted without pars defect. Degenerative changes are noted in the visualized spine in the form of diffuse osteopenia, marginal osteophytes, and vacuum phenomena. IMPRESSION: 1. Diffuse sigmoid colonic diverticula are seen. Mild long segment wall thickening of the sigmoid colon with mild pericolonic fat stranding ? likely mild diverticulitis.new findings. 2. Diffuse calcified atheromatous changes in the abdominal aorta and its branches. 3. Bilateral renal cortical atrophy ? suggested renal function test correlation. 4. Paraumbilical hernia and hiatus hernia. 5. Grade 1 anterolisthesis of L4 over L5 without pars defect. 6. Degenerative changes noted in the visualized spine in the form of diffuse osteopenia, marginal osteophytes, and vacuum phenomena. Electronically Signed by: Ricco Lott MD. (01/13/2025 00:55:19 EDT)
[2025-01-13] MEDS ORDERED: Levofloxacin 500MG/100ML D5W 500 MG/100 ML BAG IV ONE (02:00)
[2025-01-13] MEDS: Levofloxacin 500MG/100ML D5W 500 MG/100 ML BAG IV STA (02:01)
[2025-01-13] MEDS ORDERED: MORPHINE SULFATE 2 MG INJ IV PRN (02:37)
[2025-01-13] MEDS ORDERED: Zofran 4 MG/2 ML VIAL IV PRN (02:37)
[2025-01-13] MEDS ORDERED: FLAGYL 500 MG IVPB 500 MG/100 ML BAG IV ONE ×2 (03:14→08:00)
[2025-01-13] MEDS: FLAGYL 500 MG IVPB 500 MG/100 ML BAG IV STA (03:21)
--- NOTE | 2025-01-13 03:42 | PCM.HP ---
History of Present Illness - Chief Complaint Chief Complaint: Sigmoid diverticulitis History of Present Illness: The patient is a 84 yo F with a PMH of COPD, diastolic CHF, CKD stage 4, CAD, hypothyroidism, IBS, and HTN who presents to the ED with complaint of abdominal pain and vomiting. The patient notes that she was in her usual state of health until this evening around 5-6 pm when she developed diffuse lower abdominal pain with accompanied nausea. She reports 3 episodes of nonbloody emesis and subsequently also felt a popping sensation in her left lateral ribs. She reports a strong urge to defecate but being unable to do so. Reports that her pain was a 10/10 at maximal intensity, no clear alleviating or exacerbating features, throughout the lower abdomen, with associated nausea, without fever or chills. She denied experiencing chest discomfort but does report mild chronic SOB which she attributes to her COPD. Denied urinary complaints or pain elsewhere. Notes that [facility], currently [facility] at a 2/10. Denies prior history of such symptoms. She underwent an extensive evaluation in the ED which was all reviewed. Vital signs upon arrival were BP 190/94, P 88, RR 18, and SpO2 96% on RA with temp 97.[address] abd and pelvis revealed mild diverticulitis. A Chest CT revealed no acute abnormalities. The case was discussed with the ER provider in detail and chart was reviewed. Review of Systems: A complete and thorough review of system was performed and was negative except as stated in the HPI. Physical Examination: General: Well-nourished, in no acute distress. Normal weight. HEENT: Head atruamatic normocephaic, PERRL, no scleral icterus, no oral lesions Cardiovascular: Regular rate and rhythm, S1S2 normal, no murmurs appreciated Respiratory: Clear to auscultation bilaterally, no wheezes, rales, rhonchi Abdomen: Soft, mild L upper quadrant tenderness, nondistended, normoactive bowel sounds, no guarding Musculoskeletal: Full range of motion. No obvious swelling or tenderness noted Neurological: Alert and oriented x 3. Strength 5/5 in all extremities grossly, no obvious focal deficits noted Psychiatric: Normal mood, affect, with cohesive thought process Assessment & Plan Acute diverticulitis - C/w Levaquin (patient will need 750 mg IV q48h) and Flagyl 500 mg IV 12h - Clear liquid diet for now - IVFs with NS 100 ml/hr - Pain control with Morphine 2 mg IVP q4h prn - C/w Antiemetics with Zofran 4 mg q6h IVP prn Thrombocytopenia, mild - Likely due to acute illness - Monitor CBC for now Chronic conditions: COPD, HTN, Hypothyroidism, CAD, IBS, CKD stage 4, Diastolic CHF - C/w home meds with the exception of diuretics DVT Prophylaxis: Heparin Subq Code Status: Full Code Medications & Allergies Home Medications: Home Medication List Clopidogrel Bisulfate [PLAVIX Tablet] 75 mg PO DAILY 12/31/13 [History Confirmed 01/12/25] Levothyroxine Sodium 50 Mcg [Synthroid 50 Mcg] 50 mcg PO DAILY 12/31/13 [History Confirmed 01/12/25] Ergocalciferol (Vitamin D2) [Vitamin D2] 1,250 mcg PO 2XW 06/29/24 [History Confirmed 01/12/25] Isosorbide Mononitrate 30 mg [Imdur 30 MG] 30 mg PO DAILY 06/29/24 [History Confirmed 01/12/25] Albuterol Sulfate [Proair Digihaler] 90 mcg IH Q4H PRN 10/14/24 [History Confirmed 01/12/25] Bumetanide 1 mg [Bumex 1 mg] 1 mg PO DAILY 10/14/24 [History Confirmed 01/13/25] Fluticasone/Umeclidin/Vilanter [Trelegy Ellipta 200-62.5-25] 1 puff IH DAILY 10/14/24 [History Confirmed 01/12/25] Nitroglycerin 0.4 mg Tablet [Nitrostat 0.4 MG Tablet] 0.4 mg SL DAILY PRN 10/14/24 [History Confirmed 01/12/25] Prednisone 10 mg [Deltasone 10 mg] 10 mg PO DAILY 10/14/24 [History Confirmed 01/12/25] Sodium Bicarbonate 650 mg PO BID 10/14/24 [History Confirmed 01/12/25] oxyBUTYnin chloride [Oxybutynin Chloride] 2.5 mg PO BID 10/14/24 [History Confirmed 01/13/25] Magnesium Oxide 400 mg [Mag-Ox 400] 400 mg PO DAILY 30 Days #30 tablet 10/17/24 [Rx Confirmed 01/12/25] Hydralazine HCl 50 mg PO BID 01/12/25 [History Confirmed 01/12/25] Loratadine 10 mg [Claritin 10 mg] 10 mg PO DAILY 01/12/25 [History Confirmed 01/12/25] Nebivolol HCl 5 MG [Bystolic 5 MG] 15 mg PO DAILY 01/12/25 [History Confirmed 01/13/25] Allergies/Adverse Reactions: Allergies Allergy/AdvReac Type Severity Reaction Status Date / Time aspirin [From Aggrenox] Allergy Verified 01/12/25 21:51 azithromycin Allergy Verified 01/12/25 21:51 [From Zithromax Z-Timbo] calcitonin,salmon,synthetic Allergy Verified 01/12/25 21:51 [From Miacalcin] cefaclor [From Ceclor] Allergy Verified 01/12/25 21:51 clarithromycin [From Biaxin] Allergy Verified 01/12/25 21:51 diazepam [From Valium] Allergy Verified 01/12/25 21:51 dipyridamole [From Aggrenox] Allergy Verified 01/12/25 21:51 fluticasone propionate Allergy Verified 01/12/25 21:51 [From Advair Diskus] levofloxacin [From Levaquin] Allergy Verified 01/12/25 21:51 meclizine HCl [From Antivert] Allergy Verified 01/12/25 21:51 nabumetone [From Relafen] Allergy Verified 01/12/25 21:51 naproxen Allergy Verified 01/12/25 21:51 nizatidine [From Axid] Allergy Verified 01/12/25 21:51 pantoprazole sodium Allergy Verified 01/12/25 21:51 [From Protonix] pilocarpine HCl Allergy Verified 01/12/25 21:51 [From Salagen] rofecoxib [From Vioxx] Allergy Verified 01/12/25 21:51 salmeterol xinafoate Allergy Verified 01/12/25 21:51 [From Advair Diskus] tramadol HCl [From Ultracet] Allergy Verified 09/17/25 21:51 - Past Medical History Past Medical History: Yes Neurological History: TIA ENT History: No Pertinent History Cardiac History: Congestive Heart Failure, Hypertension, Myocardial Infarction ([place]) Respiratory History: COPD Endocrine Medical History: Hypothyroidism Musculoskelatal History: Degenerative Disk Disease, Fractures, Osteoarthritis GI Medical History: Irritable Bowel History: No Pertinent History Pyscho-Social History: No Pertinent History Reproductive Disorders: No Pertinent History Comment: Textile Dyer: Dr. Kong , Police Officer: Dr. Bae, Fiscal Accountant: Dr. Dumont, STAGE 4 KIDNEY FAILURE. HX FX WRIST LEFT - Past Surgical History Past Surgical History: Yes Neuro Surgical History: No Pertinent History Cardiac History: Cardiac Catheterization Respiratory Surgery: No Pertinent History GI Surgical History: Cholecystectomy Genitourinary Surgical Hx: No Pertinent History Musculskeletal Surgical Hx: Orthopedic Surgery Female Surgical History: Hysterectomy Other Surgical History: colonoscopy, left wrist surgery Significant Family History: heart disease - Social History Smoking Status: Never smoker Exposure to second hand smoke: No Alcohol: None Drug Use: none - Social Determinants of Health Will the patient participate in the screening: Yes Do you worry about a steady place to live?: No Do you have any problems with any of the following?: No known problems In the past 12 months,have you had to go without utilities?: No Have you or anyone in your house had to go without enough: No Transportation Issues: No Has anyone in your support network made you feel unsafe?: No Does the patient want assistance with any of the above?: No - Physical Exam Vital Signs: Vital Signs - 24 hr Temp Pulse Resp BP BP Pulse Ox 01/13/25 02:50 97.5 F 70 18 181/80 98 01/13/25 02:00 66 18 165/66 94 L 01/13/25 01:30 188/80 01/13/25 01:00 70 19 170/72 96 01/13/25 00:30 77 18 182/93 95 01/13/25 00:00 203/101 01/12/25 23:44 85 18 193/99 98 01/12/25 23:41 98 01/12/25 23:10 95 01/12/25 22:30 72 18 186/78 97 01/12/25 22:20 177/81 99 01/12/25 21:56 88 18 190/94 96 01/12/25 21:50 97.1 F 88 18 190/94 96 Results - Labs Lab/Micro Results: Lab Results-Last 24 Hours 01/12/25 01/12/25 Range/Units 23:10 23:10 WBC 13.6 H (3.98-10.04) x10^3/uL RBC 4.50 (3.93-5.22) x10^6/uL Hgb 13.0 (11.2-15.7) g/dL Hct 40.0 (34.1-44.9) % MCV 88.9 (79.4-94.8) fL MCH 28.9 (25.6-32.2) pg MCHC 32.5 (32.2-35.5) g/dL RDW 15.5 H (11.7-14.4) % Plt Count 167 L (182-369) x10^3/uL MPV 9.1 L (9.4-12.3) fL Gran % 84.4 H (34.0-71.1) % Immature Gran % (Auto) 2.0 H (0.001-0.429) % Nucleat RBC Rel Count 0.0 (0.00-0.2) % Eos # (Auto) 0 L (0.04-0.36) x10^3/uL Immature Gran # (Auto) 0.27 H (0.001-0.031) x10^3u/L Absolute Lymphs (auto) 1.08 L (1.18-3.74) x10^3/uL Absolute Monos (auto) 0.70 (0.24-0.86) x10^3/uL Absolute Nucleated RBC 0.00 (0.00-0.012) x10^3u/L Lymphocytes % 8.0 L (19.3-51.7) % Monocytes % 5.2 (4.7-12.5) % Eosinophils % 0.0 L (0.7-5.8) % Basophils % 0.4 (0.1-1.2) % Absolute Granulocytes 11.48 H (1.56-6.13) x10^3/uL Basophils # 0.05 (0.01-0.08) x10^3/uL Sodium 140 (135-145) mmol/L Potassium 3.8 (3.5-5.1) mmol/L Chloride 106 (98-107) mmol/L Carbon Dioxide 19 L (22-30) mmol/L Anion Gap 17.9 H (5-15) MEQ/L BUN 67 H (7-17) mg/dL Creatinine 2.00 H (0.52-1.04) mg/dL Estimated GFR 23.9 ML/MIN Glucose 157 H (74-106) mg/dL Calcium 9.7 (8.4-10.2) mg/dL Total Bilirubin 0.90 (0.2-1.3) mg/dL AST 38 H (14-36) U/L ALT 25 (0-35) U/L Alkaline Phosphatase 102 (38-126) U/L Serum Total Protein 7.3 (6.3-8.2) g/dL Albumin 4.0 (3.5-5.0) g/dL Amylase 146 H (30-110) U/L Lipase 99 (23-300) U/L - Radiology Impressions Radiology Exams & Impressions: Radiology Procedures Category Date Time Status ABDOMEN AND PELVIS W/0 CONTRAS [CT] Stat Exams 01/12/25 22:29 Completed CHEST WITHOUT CONTRAST [CT] Stat Exams 01/12/25 22:31 Completed - Other Procedures and Tests Respiratory Therapy 01/13/25 03:36 Oxygen Nasal Cannula 2 lpm 01/13/25 03:37 Respiratory Therapy Assessment DAILY Telemedicine Encounter - Telemedicine Encounter Telemedicine Encounter: "The entirety of this encounter was performed via Telemedicine" This visit was performed using real-time audio and video connection between my location and thepatients locationwith the assistance of a surrogateat the patients location. Written or verbal consent was obtained from the patient/guardian to perform this visit using[facility] technology. Any patient questions regarding the telemedicine interaction were answered.
[2025-01-13] MEDS ORDERED: NON-FORMULARY ITEM (Albuterol Sulfate [Proair Digihaler] 90 MCG Aer.Pw.Bas) IH PRN (04:02)
[2025-01-13] MEDS ORDERED: Apresoline 25 MG TABLET ONE ×3 (06:45→08:56)
[2025-01-13] MEDS: Apresoline 25 MG TABLET PO ONE (06:46)
[2025-01-13 07:18] VITALS: RESP 16
[2025-01-13 07:32] LABS: BASOPHIL % 0.6 % (0.1-1.2); Basophil (Absolute #) 0.05 x10^3/uL (0.01-0.08); Eosinophil (Absolute #) 0.02 x10^3/uL (0.04-0.36); Hematocrit 38.4 % (34.1-44.9); Hemoglobin 11.7 g/dL (11.2-15.7); IMMATURE GRAN # 0.20 x10^3u/L (0.001-0.031); IMMATURE GRAN % 2.6 % (0.001-0.429); Lymphocyte (Absolute #) 1.12 x10^3/uL (1.18-3.74); Mean Corpuscular Hemoglobin 29.2 pg (25.6-32.2); Mean Corpuscular Hgb Concent. 30.5 g/dL (32.2-35.5); Monocyte (Absolute #) 0.52 x10^3/uL (0.24-0.86); NUCLEATED RBC # 0.00 x10^3u/L (0.00-0.012); NUCLEATED RBC % 0.0 % (0.00-0.2); Platelet Count 132 x10^3/uL (182-369); Red Blood Count 4.01 x10^6/uL (3.93-5.22); White Blood Count 7.8 x10^3/uL (3.98-10.04)
[2025-01-13] MEDS ORDERED: VENTOLIN COMMON CANISTER IH PRN (07:36)
[2025-01-13 07:45] LABS: Glucose, Urine Negative (Negative); Protein,Urine Dip Negative (Negative); RBC 0-2 /HPF (0-5); WBC 0-2 /HPF (0-5)
[2025-01-13 07:52] LABS: Calcium 8.8 mg/dL (8.4-10.2); Carbon Dioxide 22.0 mmol/L (22-30); Creatinine 1 1.82 mg/dL (0.52-1.04); EST GLOMERULAR FILTRATION RATE 26.7 ML/MIN; Glucose 118.0 mg/dL (74-106); NT PRO BNPII 3320.0 pg/mL (<300); Potassium 3.8 mmol/L (3.5-5.1); SGOT/AST 34.0 U/L (14-36); SGPT/ALT 21.0 U/L (0-35); Total Protein 6.1 g/dL (6.3-8.2)
[2025-01-13] MEDS ORDERED: DELTASONE 10 MG ONE (07:58)
[2025-01-13] MEDS ORDERED: SODIUM BICARBONATE PO ONE ×2 (07:58→08:56)
[2025-01-13] MEDS ORDERED: Bystolic 5 MG ONE (07:59)
[2025-01-13] MEDS ORDERED: Ditropan 5 MG ONE (07:59)
[2025-01-13] MEDS ORDERED: CLARITIN 10 MG ONE (07:59)
[2025-01-13] MEDS ORDERED: SYNTHROID 50 MCG ONE (07:59)
[2025-01-13] MEDS ORDERED: PLAVIX Tablet ONE (08:00)
[2025-01-13] MEDS ORDERED: HEPARIN 5000 UNITS/0.5 ML (HIGH RISK MED) ONE (08:00)
[2025-01-13] MEDS ORDERED: FLAGYL 500 MG IVPB 500 MG/100 ML BAG IV SCH (08:00)
[2025-01-13] MEDS ORDERED: MEDICATION INTERVENTION MC SCH (08:30)
[2025-01-13] MEDS: CLARITIN 10 MG PO SCH (08:48)
[2025-01-13] MEDS: Ditropan 5 MG PO SCH (08:49)
[2025-01-13] MEDS: Bystolic 5 MG PO SCH (08:49)
[2025-01-13] MEDS: DELTASONE 10 MG PO SCH (08:49)
[2025-01-13] MEDS: HEPARIN 5000 UNITS/0.5 ML (HIGH RISK MED) SQ SCH (08:50)
[2025-01-13] MEDS: SYNTHROID 50 MCG PO SCH (08:50)
[2025-01-13] MEDS: PLAVIX Tablet PO SCH (08:50)
[2025-01-13] MEDS ORDERED: Imdur 30 MG ONE (08:56)
[2025-01-13] MEDS: Apresoline 25 MG TABLET PO SCH (08:58)
[2025-01-13] MEDS: SODIUM BICARBONATE PO SCH (08:59)
[2025-01-13] MEDS: Imdur 30 MG PO SCH (08:59)
[2025-01-13] MEDS ORDERED: NON-FORMULARY ITEM (Hydralazine Hcl [Hydralazine Hcl] 50 MG Tablet) PO SCH (10:00)
[2025-01-13] MEDS ORDERED: NON-FORMULARY ITEM (Fluticasone/Umeclidin/Vilanter [Trelegy Ellipta 200-62.5-25] 1 EACH Bl IH SCH (10:00)
[2025-01-13] MEDS: Requip 0.5 MG PO SCH (11:17)
[2025-01-13] MEDS: TYLENOL 325 MG PO PRN (11:24)
[2025-01-13] MEDS: FLAGYL 500 MG IVPB 500 MG/100 ML BAG IV SCH (11:59)
[2025-01-13] MEDS: PATIENT OWN MEDICATION IH SCH (15:20)
[2025-01-13] MEDS: PHARMACY RENAL DOSING MC ONE (16:08)
[2025-01-14 04:39] LABS: Hematocrit 33.2 % (34.1-44.9); Hemoglobin 10.7 g/dL (11.2-15.7); Mean Corpuscular Hemoglobin 29.0 pg (25.6-32.2); Mean Corpuscular Hgb Concent. 32.2 g/dL (32.2-35.5); Platelet Count 151 x10^3/uL (182-369); Red Blood Count 3.69 x10^6/uL (3.93-5.22); White Blood Count 7.6 x10^3/uL (3.98-10.04)
[2025-01-14 04:56] LABS: Calcium 8.6 mg/dL (8.4-10.2); Carbon Dioxide 22.0 mmol/L (22-30); Creatinine 1 1.9 mg/dL (0.52-1.04); EST GLOMERULAR FILTRATION RATE 25.4 ML/MIN; Glucose 90.0 mg/dL (74-106); Potassium 3.9 mmol/L (3.5-5.1); SGOT/AST 30.0 U/L (14-36); SGPT/ALT 17.0 U/L (0-35); Total Protein 5.8 g/dL (6.3-8.2)
[2025-01-14] MEDS ORDERED: PATIENT OWN MEDICATION IH SCH (07:00)
[2025-01-14 07:54] VITALS: O2SAT 94
--- NOTE | 2025-01-14 09:02 | PCM.DS ---
Discharge Summary Date of Admission: 01/13/25 02:35 Date of Discharge: 01/14/25 Admitting Physician: KARRI BARRIENTOS MD Primary Care Provider: DIANNA BRICE Allergies Allergies aspirin [From Aggrenox] Allergy (Verified 01/12/25 21:51) azithromycin [From Zithromax Z-Timbo] Allergy (Verified 01/12/25 21:51) calcitonin,salmon,synthetic [From Miacalcin] Allergy (Verified 01/12/25 21:51) cefaclor [From Ceclor] Allergy (Verified 01/12/25 21:51) clarithromycin [From Biaxin] Allergy (Verified 01/12/25 21:51) diazepam [From Valium] Allergy (Verified 01/12/25 21:51) dipyridamole [From Aggrenox] Allergy (Verified 01/12/25 21:51) fluticasone propionate [From Advair Diskus] Allergy (Verified 01/12/25 21:51) meclizine HCl [From Antivert] Allergy (Verified 01/12/25 21:51) nabumetone [From Relafen] Allergy (Verified 01/12/25 21:51) naproxen Allergy (Verified 01/12/25 21:51) nizatidine [From Axid] Allergy (Verified 01/12/25 21:51) pantoprazole sodium [From Protonix] Allergy (Verified 01/12/25 21:51) pilocarpine HCl [From Salagen] Allergy (Verified 01/12/25 21:51) rofecoxib [From Vioxx] Allergy (Verified 01/12/25 21:51) salmeterol xinafoate [From Advair Diskus] Allergy (Verified 01/12/25 21:51) tramadol HCl [From Ultracet] Allergy (Verified 01/12/25 21:51) Hospital Summary - Hospital Course Hospital Course: Ms. Hickman is an 84-year-old female with history of COPD, diastolic CHF, CKD stage 4, CAD, hypothyroidism, IBS, and hypertension who presented with acute abdominal pain and vomiting. She was in her usual state of health until the evening of admission when she developed abrupt diffuse lower abdominal pain, nausea, and three episodes of non-bloody emesis. She described a popping sensation in her left lateral ribs during retching, with tenesmus but no relief. She denied chest pain, fever, chills, or urinary complaints. On arrival, she was hypertensive at 190/94, afebrile, HR 88, RR 18, and SpO2 96% on room air. CT abdomen/pelvis demonstrated mild diverticulitis without perforation, obstruction, or abscess. Chest CT showed no acute abnormalities. Labs were significant for leukocytosis, which normalized during hospitalization. Serum creatinine remained stable at her CKD baseline of 1.9 mg/dL. She improved with conservative management, tolerated resumption of a regular diet, and abdominal pain resolved. During admission, she developed right lower extremity swelling. Venous Doppler ultrasound confirmed nonoccluding DVT involving the distal femoral and popliteal veins, with incidental nonoccluding thrombi also noted in the greater saphenous vein. Anticoagulation was initiated with apixaban (Eliquis), adjusted for renal function and advanced age. She tolerated therapy without bleeding complications and remained hemodynamically stable. Discharge Note New Diagnosis: diverticulitis New Medications:Levaquin 500mg every 48 hours x 7 days /Flagyl 500mg - Eliquis - renally dosed by pharmacy (per pharmacy- no dosing adjustment needed) will start on Eliquis 10mg BID x 7 days then 5mg bid there after- discontinue Plavix Follow Up: PCP/GI I spent 35 minutes [id number] with the patient on the day of discharge performing discharge exam, discussing hospital stay and discharge instructions with patient and caregivers, preparation of discharge records, prescriptions & referral forms and addressing any questions/concerns the patient had as documented above. - Vitals & Intake/Output Vital Signs: Vital Signs Temperature 98.0 F 01/14/25 07:53 Pulse Rate 69 01/14/25 07:53 Respiratory Rate 16 01/14/25 07:53 Blood Pressure 171/74 01/14/25 07:53 O2 Sat by Pulse Oximetry 94 L 01/14/25 07:53 Intake & Output: Intake & Output 01/11/25 01/12/25 01/13/25 01/14/25 11:59 11:59 11:59 11:59 Intake Total 300 1720 Output Total 300 300 Balance 0 1420 Weight 62.7 kg - Lab Result Diagrams: 01/14/25 04:25 01/14/25 04:25 Lab Results-Last 24 Hrs: Lab Results-Last 24 Hours 01/14/25 01/14/25 Range/Units 04:25 04:25 WBC 7.6 (3.98-10.04) x10^3/uL RBC 3.69 L (3.93-5.22) x10^6/uL Hgb 10.7 L (11.2-15.7) g/dL Hct 33.2 L (34.1-44.9) % MCV 90.0 D (79.4-94.8) fL MCH 29.0 (25.6-32.2) pg MCHC 32.2 (32.2-35.5) g/dL RDW 15.9 H (11.7-14.4) % Plt Count 151 L (182-369) x10^3/uL MPV 9.3 L (9.4-12.3) fL Sodium 138 (135-145) mmol/L Potassium 3.9 (3.5-5.1) mmol/L Chloride 110 H (98-107) mmol/L Carbon Dioxide 22 (22-30) mmol/L Anion Gap 10.6 (5-15) MEQ/L BUN 54 H (7-17) mg/dL Creatinine 1.90 H (0.52-1.04) mg/dL Estimated GFR 25.4 ML/MIN Glucose 90 (74-106) mg/dL Calcium 8.6 (8.4-10.2) mg/dL Total Bilirubin 0.70 (0.2-1.3) mg/dL AST 30 (14-36) U/L ALT 17 (0-35) U/L Alkaline Phosphatase 75 (38-126) U/L Serum Total Protein 5.8 L (6.3-8.2) g/dL Albumin 3.1 L (3.5-5.0) g/dL Micro Results-Entire Visit: Microbiology 01/13/25 01:29 Urine Culture - Final Catherized NO GROWTH - Radiology Exams Ordered Rad Exams-Entire Visit: Radiology Procedures Category Date Time Status ABDOMEN AND PELVIS W/0 CONTRAS [CT] Stat Exams 01/12/25 22:29 Completed CHEST WITHOUT CONTRAST [CT] Stat Exams 01/12/25 22:31 Completed VENOUS UNILAT/LIMITED EXTREMIT [US] Urgent Exams 01/14/25 08:55 Ordered - Procedures and Test Procedures and Tests throughout Hospitalization: Therapy Orders & Screens 01/13/25 03:07 RT Screen per Nursing Assess ONCE Comment: Protocol Order Physician Instructions: Greater than 3 points order RT Admission Screen Reason For Exam: Triggered on Admission Diagnosis: Sigmoid diverticulitis Diagnosis: Sigmoid diverticulitis Pneumonia: No Home O2: Yes Asthma: Yes CHF: Yes Home CPAP/BIPAP: No Home Nebs/MDI: No Total Points: 12 01/13/25 03:36 Oxygen Nasal Cannula 2 lpm Comment: Diagnosis: Sigmoid diverticulitis 01/13/25 03:37 Respiratory Therapy Assessment DAILY Comment: Diagnosis: Sigmoid diverticulitis Discharge Exam General Appearance: no apparent distress Neurologic Exam: alert, oriented x 3, cooperative Eye Exam: PERRL Ears, Nose, Throat Exam: normal ENT inspection Neck Exam: normal inspection Respiratory Exam: normal breath sounds, lungs clear Cardiovascular Exam: regular rate/rhythm, normal heart sounds Gastrointestinal/Abdomen Exam: soft, normal bowel sounds Pelvic Exam: deferred Rectal Exam: deferred Back Exam: normal inspection Extremity Exam: other (Right ankle with mild swelling - knot on right lateral calf with ecchymosis) Final Diagnosis/Problem List - Final Discharge Diagnosis/Problem (1) Acute diverticulitis Current Visit: Yes Status: Acute Assessment & Plan: CT confirmed mild diverticulitis, no complications. WBC normalized, symptoms resolved, tolerating diet. Discharge on Levaquin (renally dosed) and metronidazole (renally dosed) for 7. Encourage hydration, bowel regimen, and gradual dietary fiber reintroduction after recovery. Return precautions for fever, worsening pain, or inability to tolerate PO. Code(s): K57.92 - DVTRCLI OF INTEST, PART UNSP, W/O PERF OR ABSCESS W/O BLEED (2) COPD (chronic obstructive pulmonary disease) Current Visit: Yes Status: Acute Assessment & Plan: Stable on room air throughout admission. Continue maintenance inhalers, reinforce adherence, smoking avoidance. (3) CAD (coronary artery disease) Current Visit: Yes Status: Acute Assessment & Plan: No acute ischemia. Continue secondary prevention regimen (aspirin, statin, BP control). Code(s): I25.10 - ATHSCL HEART DISEASE OF [place] CORONARY ARTERY W/O ANG PCTRS (4) HTN (hypertension) Current Visit: Yes Status: Acute Assessment & Plan: Hypertensive on arrival, improved during stay. Resume home antihypertensives, outpatient titration with PCP. Code(s): I10 - ESSENTIAL (PRIMARY) HYPERTENSION (5) Acute on chronic renal failure Current Visit: No Status: Acute Assessment & Plan: Creatinine stable at 1.9 at discharge. Renal dose all medications, avoid nephrotoxins, continue outpatient nephrology follow-up. Code(s): N17.9 - ACUTE KIDNEY FAILURE, UNSPECIFIED; N18.9 - CHRONIC KIDNEY DISEASE, UNSPECIFIED (6) CHF (congestive heart failure) Current Visit: No Status: Chronic Assessment & Plan: No acute decompensation. Continue home meds Code(s): I50.9 - HEART FAILURE, UNSPECIFIED (7) DVT (deep venous thrombosis) Current Visit: Yes Status: Acute Assessment & Plan: Venous Doppler findings: Nonoccluding thrombi in the distal femoral and popliteal veins. Incidental nonoccluding thrombi in the greater saphenous vein. Initiate anticoagulation with apixaban (Eliquis) -renally dosed by pharmacy Monitor closely for bleeding complications. Avoid NSAIDs and other agents that increase bleeding risk. Outpatient follow-up with PCP and hematology consult for anticoagulation duration and monitoring. Discontinue plavix Discharge Medications: Levaquin (renally dosed, complete course) 500mg po daily x 7 days Metronidazole (renally dosed, complete course) 500mg po bid x 7 days Apixaban (Eliquis) initiated for right leg DVT, renally dosed regimen by pharmacy 10mg bid x 7 days then 5mg bid there after - Discontinue Plavix Resume home medications for CHF, COPD, CAD, HTN, hypothyroidism, IBS Follow-Up: PCP in 1 week to review antibiotics completion, blood pressure, and anticoagulation monitoring Nephrology for CKD management Hematology follow-up regarding DVT and anticoagulation duration GI or surgery if recurrent diverticulitis Code(s): I82.409 - ACUTE EMBOLISM AND THOMBOS UNSP DEEP VN UNSP LOWER EXTREMITY - Discharge Discharge Date: 01/14/25 Disposition: Home, Self-Care Condition: Stable Prescriptions: New Apixaban [Eliquis] See Rx Instructions .ROUTE .COMPLEX 30 Days #1 kit Metronidazole 500 mg [Flagyl 500 MG] 500 mg PO BID 7 Days #14 tablet levoFLOXacin [Levofloxacin] 500 mg PO Q48H 7 Days #4 tablet Continue Levothyroxine Sodium 50 Mcg [Synthroid 50 Mcg] 50 mcg PO DAILY Ergocalciferol (Vitamin D2) [Vitamin D2] 1,250 mcg PO 2XW Isosorbide Mononitrate 30 mg [Imdur 30 MG] 30 mg PO DAILY Albuterol Sulfate [Proair Digihaler] 90 mcg IH Q4H PRN PRN Reason: Shortness Of Breath Bumetanide 1 mg [Bumex 1 mg] 1 mg PO DAILY Nitroglycerin 0.4 mg Tablet [Nitrostat 0.4 MG Tablet] 0.4 mg SL DAILY PRN PRN Reason: Chest Pain Fluticasone/Umeclidin/Vilanter [Trelegy Ellipta 200-62.5-25] 1 puff IH DAILY Sodium Bicarbonate 650 mg PO BID Prednisone 10 mg [Deltasone 10 mg] 10 mg PO DAILY oxyBUTYnin chloride [Oxybutynin Chloride] 2.5 mg PO BID Magnesium Oxide 400 mg [Mag-Ox 400] 400 mg PO DAILY 30 Days #30 tablet Loratadine 10 mg [Claritin 10 mg] 10 mg PO DAILY Nebivolol HCl 5 MG [Bystolic 5 MG] 15 mg PO DAILY Hydralazine HCl 50 mg PO BID Discontinued Clopidogrel Bisulfate [PLAVIX Tablet] 75 mg PO DAILY Instructions: Diverticulitis Additional Instructions: APPOINTMENT WITH DR. MATHIS ON WAS CHANGED TO . Follow up with: DIANNA BRICE [Primary Care Provider, [facility]] - 01/21/25 1:15 pm MERON MATHIS [CONSULTING PHYSICIAN, NEPHROLOGY] - 01/24/25 4:40 pm RAMAN COLLINS MD [NON-STAFF PHY W/O PRIVILEGES, HEMATOLOGY] - Office will call patient
[2025-01-14] MEDS ORDERED: PHARMACY RENAL DOSING MC ONE (10:53)
--- NOTE | 2025-01-14 10:53 | XRAY ---
Indication: Pain and edema. Two-dimensional sonogram and color Doppler imaging major venous vessels right leg performed. Comparison: None Nonoccluding thrombi seen in distal femoral and popliteal veins. Incidental nonoccluding thrombi scattered throughout greater saphenous vein. No other thrombus in the examined deep venous vessels right leg. The veins demonstrated normal compressibility and normal venous waveforms. Impression: Nonoccluding DVT distal femoral and popliteal veins. Incidental nonoccluding thrombi greater saphenous vein.
[2025-01-14 12:01] VITALS: BP 166/72; PULSE 74; TEMP 97.9
[2025-01-14] MEDS ORDERED: LEVOFLOXACIN 750MG/150ML D5W 750 MG/150 ML BAG IV SCH (22:00)
[2025-01-15] MEDS ORDERED: CLARITIN 10 MG PO SCH (10:00)
== END 2025-01-14 13:15 | disposition home or self-care (01) ==
LOC: ED 21:46 → MED SURG 01-13 02:35
PROVIDERS: ADMIT Internal Medicine; ATTEND Internal Medicine
DX: K57.92 Diverticulitis of intestine, part unspecified, without perforation or abscess without bleeding (principal); J44.9 Chronic obstructive pulmonary disease, unspecified; I25.10 Atherosclerotic heart disease of native coronary artery without angina pectoris; I13.0 Hypertensive heart and chronic kidney disease with heart failure and stage 1 through stage 4 chronic kidney disease, or unspecified chronic kidney disease; N17.9 Acute kidney failure, unspecified; N18.4 Chronic kidney disease, stage 4 (severe); I50.9 Heart failure, unspecified; I82.411 Acute embolism and thrombosis of right femoral vein; Z79.01 Long term (current) use of anticoagulants; Z79.899 Other long term (current) drug therapy

== ENCOUNTER 2025-02-28 16:11 | Emergency (ER) | payer MEDICARE ==
[2025-02-28 17:11] VITALS: RESP 20
[2025-02-28 17:16] VITALS: TEMP 97.8
--- NOTE | 2025-02-28 17:22 | ERPHSYRPT ---
- History of Present Illness Patient Subjective Stated Complaint: patient was walking into Dr. Brice's office and fell on the concrete Triage Nursing Assessment: patient was brought in by ambulance she fell on concrete going into Dr. Brice's office. patient is alert and oriented x 3, ambulates by self, jsut got off walker she has skin tear and abrasion to the left knee. two fingers on left hand, left elbow has masssive hematoma but sdkin is not broken open and left shoulder is hurting nad in pain as well. Physician History: Fall, patient was walking into the medical office building tripped and fell landing on her left side sustained a left shoulder injury, left hand injury, left knee injury, She had no loss of conscious, she had no head injury, she denied having any neck pain, she is on blood thinners, Fall was witnessed by the daughter Occurred: just prior to arrival Reason for Fall: tripped Injuries/Pain Location: upper extremity, lower extremity Loss of Consciousness: no loss of consciousness Quality: aching Severity of Pain-Max: moderate Severity of Pain-Current: moderate Allergies/Adverse Reactions: aspirin [From Aggrenox] Allergy (Verified 02/28/25 17:11) azithromycin [From Zithromax Z-Timbo] Allergy (Verified 02/28/25 17:11) calcitonin,salmon,synthetic [From Miacalcin] Allergy (Verified 02/28/25 17:11) cefaclor [From Ceclor] Allergy (Verified 02/28/25 17:11) clarithromycin [From Biaxin] Allergy (Verified 02/28/25 17:11) diazepam [From Valium] Allergy (Verified 02/28/25 17:11) dipyridamole [From Aggrenox] Allergy (Verified 02/28/25 17:11) fluticasone propionate [From Advair Diskus] Allergy (Verified 02/28/25 17:11) meclizine HCl [From Antivert] Allergy (Verified 02/28/25 17:11) nabumetone [From Relafen] Allergy (Verified 02/28/25 17:11) naproxen Allergy (Verified 02/28/25 17:11) nizatidine [From Axid] Allergy (Verified 02/28/25 17:11) pantoprazole sodium [From Protonix] Allergy (Verified 02/28/25 17:11) pilocarpine HCl [From Salagen] Allergy (Verified 02/28/25 17:11) rofecoxib [From Vioxx] Allergy (Verified 02/28/25 17:11) salmeterol xinafoate [From Advair Diskus] Allergy (Verified 02/28/25 17:11) tramadol HCl [From Ultracet] Allergy (Verified 02/28/25 17:11) Home Medications: Levothyroxine Sodium 50 Mcg [Synthroid 50 Mcg] 50 mcg PO DAILY 12/31/13 [History] Ergocalciferol (Vitamin D2) [Vitamin D2] 1,250 mcg PO 2XW 06/29/24 [History] Isosorbide Mononitrate 30 mg [Imdur 30 MG] 30 mg PO DAILY 06/29/24 [History] Albuterol Sulfate [Proair Digihaler] 90 mcg IH Q4H PRN 10/14/24 [History] Bumetanide 1 mg [Bumex 1 mg] 1 mg PO DAILY 10/14/24 [History] Fluticasone/Umeclidin/Vilanter [Trelegy Ellipta 200-62.5-25] 1 puff IH DAILY 10/14/24 [History] Nitroglycerin 0.4 mg Tablet [Nitrostat 0.4 MG Tablet] 0.4 mg SL DAILY PRN 10/14/24 [History] Prednisone 10 mg [Deltasone 10 mg] 10 mg PO DAILY 10/14/24 [History] Sodium Bicarbonate 650 mg PO BID 10/14/24 [History] oxyBUTYnin chloride [Oxybutynin Chloride] 2.5 mg PO BID 10/14/24 [History] Hydralazine HCl 50 mg PO BID 01/12/25 [History] Loratadine 10 mg [Claritin 10 mg] 10 mg PO DAILY 01/12/25 [History] Nebivolol HCl 5 MG [Bystolic 5 MG] 15 mg PO DAILY 01/12/25 [History] Hx Tetanus, Diphtheria Vaccination/Date Given: Yes Hx Influenza Vaccination/Date Given: Yes Hx Pneumococcal Vaccination/Date Given: Yes Immunizations Up to Date: Yes Travel Risk - International Travel Have you traveled outside of the country in past 3 weeks: No - Emerging Infectious Disease Are you exhibiting symptoms associated with any current EIDs: No Symptoms: Abdominal Pain, Cough: New Onset, Fever, Headaches/Body Aches/, Joint Pain, Shortness of Breath - Past Medical History Pertinent Past Medical History: Yes Neurological History: TIA ENT History: No Pertinent History Cardiac History: Congestive Heart Failure, Hypertension, Myocardial Infarction (OR) Respiratory History: COPD Endocrine Medical History: Hypothyroidism Musculoskeletal History: Degenerative Disk Disease, Fractures, Osteoarthritis GI Medical History: Irritable Bowel History: No Pertinent History Psycho-Social History: No Pertinent History Female Reproductive Disorders: No Pertinent History Other Medical History: Hand Packager: Dr. Kong , Telemetry Registered Nurse: Dr. Bae, Directory Clerk: Dr. Dumont, STAGE 4 KIDNEY FAILURE. HX FX WRIST LEFT - Past Surgical History Past Surgical History: Yes Neuro Surgical History: No Pertinent History Cardiac: Cardiac Catheterization Respiratory: No Pertinent History Gastrointestinal: Cholecystectomy Genitourinary: No Pertinent History Musculoskeletal: Orthopedic Surgery Female Surgical History: Hysterectomy Other Surgical History: colonoscopy, left wrist surgery Significant Family History: heart disease - Social History Smoking Status: Never smoker Exposure to second hand smoke: No Drug Use: none - Social Determinants of Health Will the patient participate in the screening: Yes Do you worry about a steady place to live?: No Do you have any problems with any of the following?: No known problems In the past 12 months,have you had to go without utilities?: No Transportation Issues: No Has anyone in your support network made you feel unsafe?: No Have you or anyone in your house had to go w/o enough food: No - Nursing Vital Signs Nursing Vital Signs: Initial Vital Signs Temperature 98.4 F 02/28/25 16:12 Pulse Rate 64 02/28/25 16:12 Respiratory Rate 20 02/28/25 16:12 Blood Pressure 189/78 02/28/25 16:12 O2 Sat by Pulse Oximetry 98 02/28/25 16:12 Pain Scale Pain Intensity 8 - Alexander Coma Score Best Eye Response (Madhav): (4) open spontaneously Best Verbal Response (Madhav): (5) oriented Best Motor Response (Alexander): (6) obeys commands Alexander Total: 15 - Physical Exam General Appearance: no apparent distress, alert Head Injury: no evidence of injury Eye Exam: PERRL/EOMI ENT Exam: airway nml Neck Exam: normal inspection, No tenderness Respiratory/Chest Exam: normal breath sounds, No chest tenderness, No respiratory distress Cardiovascular Exam: normal heart sounds, regular rate/rhythm Gastrointestinal Exam: soft, No tenderness, No distention, No guarding, No ecchymosis Back Exam: normal inspection, No vertebral tenderness Extremity Exam: contusions (Left shoulder, left hand), bony point tenderness (Shoulder), tenderness (Left knee, Right knee), No deformities Neurologic Exam: alert, oriented x 3, cooperative, sensation nml, No motor deficits Skin Exam: normal color, warm, dry, abrasion (Left shoulder, left knee) SpO2 Interpretation: normal SpO2: 98 O2 Delivery: Room Air - Radiology Exams Left Shoulder X-ray Interpretation: Interpreted by me, No Fracture, No Subluxation Left Hand X-ray Interpretation: Interpreted by me, No Fracture, No Subluxation Left Knee X-ray Interpretation: Interpreted by me, No Fracture, No Subluxation Ordered Tests: Active Orders 24 hr Category Date Time Status HAND (MINIMUM 3 VIEWS) Stat Exams 02/28/25 17:19 Taken KNEE (3 VIEWS) Stat Exams 02/28/25 17:19 Taken SHOULDER Stat Exams 02/28/25 17:19 Taken - Progress Progress Note: 02/28/25 18:04 Discussed x-ray results, she placed in a sling left arm, her skin tears will be dressed, outpatient follow-up - Departure Departure Disposition: Home Clinical Impression: Contusion of left hand, initial encounter, Contusion of left knee, initial encounter Shoulder contusion Qualifiers: Encounter type: initial encounter Laterality: left Qualified Code(s): S40.012A - Contusion of left shoulder, initial encounter Skin tear of left lower leg without complication Qualifiers: Encounter type: initial encounter Qualified Code(s): S81.812A - Laceration without foreign body, left lower leg, initial encounter Skin tear of left upper arm without complication Qualifiers: Encounter type: initial encounter Qualified Code(s): S41.112A - Laceration without foreign body of left upper arm, initial encounter Condition: Stable Critical Care Time: No Referrals: DIANNA BRICE [Primary Care Provider, [facility]] - Follow up with PCP 4 days Instructions: Contusion (DC), Wound care - ED discharge instructions, Shoulder Sprain ED, How to Use a Shoulder Sling ED, Minor contusion - ED discharge instructions Additional Instructions: Ice to area of pain 10 to 15 minutes 3-4 times a day, Tylenol for pain control, follow-up to primary care doctor, sling shoulder for 3 days only
[2025-02-28 18:53] VITALS: BP 192/84; PULSE 102; O2SAT 96
--- NOTE | 2025-03-01 08:36 | XRAY ---
Indication: Fall. Comparison: None 3 view left shoulder demonstrates osteopenia, mild acromioclavicular/glenohumeral degenerative arthropathy, mild/moderate multilevel cervicothoracic degenerative spondylosis, minimal left lung base subsegmental atelectasis/scarring, and moderate scattered vascular calcifications. No acute bony, articular, or soft tissue abnormalities.
--- NOTE | 2025-03-01 08:38 | XRAY ---
Indication: Fall. Comparison: February 21, 2016 3 view left hand demonstrates new ring 4th finger. Chronic findings includes osteopenia, minimal/mild degenerative changes all IP/MCP joints, moderate 1st metacarpal multangular scaphoid degenerative changes with tiny heterotopic ossifications, radiocarpal joint space narrowing, ulnar carpal degenerative chondrocalcinosis, and widened scapholunate interval concerning for underlying ligamentous tear. No acute findings.
--- NOTE | 2025-03-01 08:40 | XRAY ---
Indication: Fall. Comparison: None 3 view left knee demonstrates osteopenia, minimal medial joint space narrowing, tiny suprapatella spurring, extensive scattered vascular calcifications, and incidental small fabella. No acute bony, articular, or soft tissue abnormalities.
== END 2025-02-28 19:02 | disposition home or self-care (01) ==
LOC: ED 16:11
DX: S60.222A Contusion of left hand, initial encounter (principal); S80.02XA Contusion of left knee, initial encounter; S40.012A Contusion of left shoulder, initial encounter; S81.812A Laceration without foreign body, left lower leg, initial encounter; S41.112A Laceration without foreign body of left upper arm, initial encounter; W01.0XXA Fall on same level from slipping, tripping and stumbling without subsequent striking against object, initial encounter; Y93.01 Activity, walking, marching and hiking; Y92.531 Health care provider office as the place of occurrence of the external cause; I13.0 Hypertensive heart and chronic kidney disease with heart failure and stage 1 through stage 4 chronic kidney disease, or unspecified chronic kidney disease; I50.9 Heart failure, unspecified; N18.4 Chronic kidney disease, stage 4 (severe); Z79.899 Other long term (current) drug therapy